=== PATIENT | male | born 1955 | race Caucasian/White ===

== ENCOUNTER 2016-11-15 09:43 | Emergency (ER) | payer MEDICARE, OTHER ==
[2016-11-15 09:51] VITALS: RESP 16
--- NOTE | 2016-11-15 10:05 | ED ---
General Adult HPI - General Chief complaint: ENT Stated complaint: SORE THROAT, ACHEY, CONGESTION Time Seen by Provider: 11/15/16 09:56 Source: patient, RN notes reviewed Mode of arrival: ambulatory Limitations: no limitations - History of Present Illness Initial comments: Patient 61-year-old male who presents emergency room today with a chief complaint of cough congestion and rhinorrhea and a sore throat over the last 4 days. He does admit to bodyaches. Admits to chills. States symptoms started with a sore throat and rhinorrhea. States it's now having cough with some sputum production as been yellow and green in color. Patient states she is worried about strep throat. He denies any other complaints or associated symptoms currently. Patient denies any recent fever, shortness of breath, chest pain, back pain, abdominal pain, nausea or vomiting, numbness or tingling, dysuria or hematuria, constipation or diarrhea, headaches or visual changes, or any other complaints. - Related Data Home Medications Medication Instructions Recorded Confirmed Citalopram Hydrobromide [CeleXA] 20 mg PO DAILY 02/08/16 11/15/16 Fluticasone Furoate [Veramyst] 2 sprays NS BID 02/08/16 11/15/16 Lisinopril [Zestril] 10 mg PO DAILY 02/08/16 02/08/16 Pantoprazole Sodium [Protonix] 40 mg PO BID 02/08/16 11/15/16 Allergies Allergy/AdvReac Type Severity Reaction Status Date / Time Penicillins Allergy Unknown Verified 11/15/16 09:51 Childhood Review of Systems ROS Statement: Those systems with pertinent positive or pertinent negative responses have been documented in the HPI. ROS Other: All systems not noted in ROS Statement are negative. Past Medical History Past Medical History: Hypertension Additional Past Medical History / Comment(s): Vertigo; Sjogren's History of Any Multi-Drug Resistant Organisms: None Reported Past Surgical History: Back Surgery Past Psychological History: No Psychological Hx Reported Smoking Status: Never smoker Past Alcohol Use History: None Reported Past Drug Use History: None Reported General Exam - General Exam Comments Initial Comments: General: The patient is awake and alert, in no distress, and does not appear acutely ill. Eye: Pupils are equal, round and reactive to light, extra-ocular movements are intact. No nystagmus. There is normal conjunctiva bilaterally. No signs of icterus. Ears, nose, mouth and throat: There are moist mucous membranes and no oral lesions. No tenderness over the frontal or maxillary sinuses. TMs are clear. Neck: The neck is supple, there is no tenderness or JVD. Cardiovascular: There is a regular rate and rhythm. No murmur, rub or gallop is appreciated. Respiratory: Lungs are clear to auscultation, respirations are non-labored, breath sounds are equal. No wheezes, stridor, rales, or rhonchi. Musculoskeletal: Normal ROM, no tenderness. Strength 5/5. Sensation intact. Pulses equal bilaterally 2+. Neurological: A&O x 3. CN II-XII intact, There are no obvious motor or sensory deficits. Coordination appears grossly intact. Speech is normal. Skin: Skin is warm and dry and no rashes or lesions are noted. Psychiatric: Cooperative, appropriate mood & affect, normal judgment. Limitations: no limitations Course Vital Signs 11/15/16 09:46 Temperature 97.9 F Pulse Rate 92 Respiratory 16 Rate Blood Pressure 149/89 O2 Sat by Pulse 98 Oximetry Medical Decision Making - Medical Decision Making Patient reexamined at this time shows no signs of distress. Patient's strep test negative. Influenza negative. Patient's chest x-ray negative for any signs of pneumonia or other acute ever maladies. Results were discussed with patient. Advised most likely viral illness. Advised to use [id number] medications. Advised return if symptoms increase or worsen or follow-up the family doctor if symptoms are unimproved over the next 2 days. Patient states understanding and is in agreement. - Lab Data Lab Results 11/15/16 11/15/16 Range/Units 10:14 10:14 Influenza Type A RNA Not Detected (Not Detectd) Influenza Type B (PCR) Not Detected (Not Detectd) Group A Strep Rapid Negative (Negative) Disposition Clinical Impression: Upper respiratory infection Disposition: HOME SELF-CARE Condition: Good Instructions: Upper Respiratory Infection (ED) Additional Instructions: Please continue [id number] medications as discussed and follow-up the family doctor over the next 2 days of symptoms are improved. Please return to emergency room if any symptoms increase or worsen or for any other concerns. Time of Disposition: 11:32
--- NOTE | 2016-11-15 10:36 | XR ---
EXAMINATION TYPE: XR chest 2V DATE OF EXAM: 11/15/2016 10:28 AM COMPARISON: NONE HISTORY: Cough per order. Sore throat and congestion with body aches for 4 days. TECHNIQUE: Frontal and lateral views of the chest are obtained. FINDINGS: There is no focal air space opacity, pleural effusion, or pneumothorax seen. The cardiac silhouette size is within normal limits. The osseous structures are intact. IMPRESSION: No suspicious acute pulmonary process.
[2016-11-15 11:38] VITALS: BP 150/84; PULSE 79; TEMP 98
== END 2016-11-15 11:44 | disposition home or self-care (01) ==
LOC: EC 09:43
DX: J06.9 Acute upper respiratory infection, unspecified (principal); I10 Essential (primary) hypertension; Z79.899 Other long term (current) drug therapy; Z88.0 Allergy status to penicillin
CPT/HCPCS: 71020; 87081; 87430; 87502; 99283

== ENCOUNTER → 2017-01-21 | Outpatient (CLI) | payer MEDICARE, OTHER ==
--- NOTE | 2017-01-21 10:38 | EST ---
DATE OF SERVICE: 01/21/2017 AGE: 61Y SEX: M HT: 6' WT: 175 lbs. Protocol Josue: X Other: Cardiolite Stage: III Dur. of Exercise: 7:40 *Heart Rate Blood Pressure *Rest: 77 Rest: 158/77 * *Max. Achieved: 147 Maximum BP: 175/65 85% PMHR: 134 100% PMHR: 158 *METS: 9 INDICATIONS: Family history of coronary artery disease. MEDICATIONS: Baseline EKG shows sinus rhythm, normal axis, normal intervals. Patient exercised on Josue protocol for a total 7 minutes and 40 seconds achieving 9 METs; 85% of predicted maximal heart rate without chest pain or diagnostic ST segment depression. CONCLUSION: 1. Above-average exercise tolerance. 2. Negative stress test by EKG criteria. 3. Cardiolite portion of the stress test will be reported separately.
--- NOTE | 2017-01-21 15:20 | NM ---
EXAMINATION TYPE: NM stress cardiolite complete DATE OF EXAM: 01/21/2017 10:23 AM COMPARISON: Chest x-ray November HISTORY: Family history ischemic heart disease TECHNIQUE: After the intravenous administration of 10.3 mCi Tc 99m Sestamibi - Rest images obtained 45 minutes post injection. The patient exercised using a SILVIA protocol and 1 minute prior to peak exercise was injected with 27.5 mCi Tc 99m Sestamibi - Stress images obtained 10 minutes post injecti on. FINDINGS: Targeted heart rate was achieved during performance of the study. Review of stress and rest SPECT zeyad ges demonstrates no distinct perfusion abnormality. Gated analysis shows normal wall motion with an estimated left ventricular ejection fraction of 59 %. Some decreased perfusion is noted along the inferior wall greater on rest images than stress. IMPRESSION: No scintigraphic evidence for reversible ischemia
== END | disposition home or self-care (01) ==
LOC: RADNMMAIN 08:10
PROVIDERS: ATTEND Family Medicine
DX: Z09 Encounter for follow-up examination after completed treatment for conditions other than malignant neoplasm (principal); Z82.49 Family history of ischemic heart disease and other diseases of the circulatory system
CPT/HCPCS: 93017; 78452; A9500

== ENCOUNTER → 2017-01-29 | Outpatient (CLI) | payer MEDICARE, OTHER ==
--- NOTE | 2017-01-29 13:43 | MR ---
EXAMINATION TYPE: MR angio head wo con DATE OF EXAM: 01/29/2017 9:44 AM COMPARISON: NONE HISTORY: Family history of stroke TECHNIQUE: Time of flight images focusing on the [place] were performed without contrast. FINDINGS: The vertebral arteries are codominant. Both posterior communicating arteries are patent. Both the following arteries appear normal. There is no occlusive disease identified. There is no siza ble aneurysm. IMPRESSION: Normal MRA of the [place] of [place].
== END | disposition home or self-care (01) ==
LOC: RADMRIMAIN 09:07
PROVIDERS: ATTEND Family Medicine
DX: Z09 Encounter for follow-up examination after completed treatment for conditions other than malignant neoplasm (principal); Z82.3 Family history of stroke
CPT/HCPCS: 70544

== ENCOUNTER 2017-06-13 12:14 | Emergency (ER) | payer MEDICARE, OTHER ==
[2017-06-13 12:25] VITALS: BP 157/93; PULSE 73; RESP 20; TEMP 97.6
--- NOTE | 2017-06-13 12:39 | ED ---
Skin/Abscess/FB HPI - General Chief complaint: Skin/Abscess/Foreign Body Stated complaint: FB R hand Time Seen by Provider: 06/13/17 12:26 Source: patient, RN notes reviewed Mode of arrival: ambulatory Limitations: no limitations - History of Present Illness Initial comments: This is a 61-year-old male presents emergency department with a possible foreign body in his right middle finger. Patient states that he was working outside yesterday and he pulled down on some small branches and had a sliver of wood or a thorn go into the flexor aspect of his right middle finger. Patient states he was at urgent care yesterday. Patient states that they made a small incision to try to retrieve the foreign body. Unfortunately, the foreign body could not be identified. Patient was placed on clindamycin and his tetanus shot was updated. Patient denies any other injuries. Patient is right-hand dominant. Patient denies any immunosuppression. No history of diabetes or poor wound healing. Patient does have a history of hypertension and acid reflux. Patient denies fever or chills. No redness or streaking. No tender lumps in the armpit. - Related Data Home Medications Medication Instructions Recorded Confirmed Citalopram Hydrobromide [CeleXA] 20 mg PO DAILY 02/08/16 06/13/17 Fluticasone Furoate [Veramyst] 2 sprays NS BID 02/08/16 06/13/17 Lisinopril [Zestril] 10 mg PO DAILY 02/08/16 06/13/17 Pantoprazole Sodium [Protonix] 40 mg PO BID 02/08/16 06/13/17 Allergies Allergy/AdvReac Type Severity Reaction Status Date / Time Penicillins Allergy Unknown Verified 11/15/16 09:51 Childhood Review of Systems ROS Statement: Those systems with pertinent positive or pertinent negative responses have been documented in the HPI. ROS Other: All systems not noted in ROS Statement are negative. Past Medical History Past Medical History: Hypertension Additional Past Medical History / Comment(s): Depression, acid reflux, Vertigo; Sjogren's History of Any Multi-Drug Resistant Organisms: None Reported Past Surgical History: Back Surgery Past Psychological History: No Psychological Hx Reported Smoking Status: Never smoker Past Alcohol Use History: None Reported Past Drug Use History: None Reported General Exam - General Exam Comments Initial Comments: This is a well-developed, well-nourished 61-year-old male in no distress Limitations: no limitations General appearance: alert, in no apparent distress Head exam: Present: atraumatic, normocephalic, normal inspection Eye exam: Present: normal appearance, EOMI Neck exam: Present: normal inspection Respiratory exam: Present: normal lung sounds bilaterally. Absent: respiratory distress, wheezes, rales, rhonchi, stridor Cardiovascular Exam: Present: regular rate, normal rhythm, normal heart sounds. Absent: systolic murmur, diastolic murmur, rubs, gallop, clicks Extremities exam: Present: normal capillary refill Right Elbow exam: Present: normal inspection, full ROM Forearm Wrist exam: Present: normal inspection, full ROM Hand Wrist exam: Present: other (Patient has evidence of break in skin integrity overlying the proximal phalanx of the right middle finger, flexor aspect. There is no evidence of infectious process. No drainage. No lymphangitis. No evidence of cellulitis. There is no notable foreign body on gross examination. Radial pulse is 2+. Capillary refill less than 2 seconds.) . Absent: erythema, nail avulsion, subungual hematoma Neuro motor exam: Present: wrist extension intact, thumb opposition intact, fingers 2-5 abduction intact, other (Range of motion limited with regards to the right middle finger at the proximal interphalangeal joint. Flexion is limited secondary to pain. Patient also has tenderness overlying the break in skin integrity.) Vascular: Present: normal capillary refill. Absent: vascular compromise, Pallo , pulse deficit radial art Neurological exam: Present: alert, oriented X3, CN II-XII intact. Absent: motor sensory deficit Psychiatric exam: Present: normal affect, normal mood Skin exam: Present: warm, dry, normal color. Absent: rash, cyanosis, diaphoretic, erythema Course Vital Signs 06/13/17 12:22 Temperature 97.6 F Pulse Rate 73 Respiratory 20 Rate Blood Pressure 157/93 O2 Sat by Pulse 99 Oximetry Medical Decision Making - Medical Decision Making Patient has a suspected foreign body in the soft tissue of the flexor aspect of his right middle finger. There is no evidence of infection. Distal sensation intact. Foreign body cannot be seen on gross examination. After speaking with the ER attending physician, I believe it is optimal for the patient to see hand surgery. We will have him make a follow-up appointment with [facility] morning. Of course we discussed return and follow-up parameters. Interpretation: other (Outside radiographic images were reviewed. There is no evidence of foreign body, no fracture, no soft tissue change, no dislocation.) Disposition Clinical Impression: Superficial foreign body of right middle finger, initial encounter Disposition: HOME SELF-CARE Condition: Good Instructions: Soft Tissue Foreign Body (ED) Additional Instructions: Return to the ER at once if the symptoms worsen or problems or difficulties arise. Soak the area in warm soap and water for 10 minutes at a time at least 4 times daily. Continue the clindamycin as directed. Keep the wound covered with topical antibiotic ointment such as Neosporin are triple antibiotic ointment. Keep covered with a sterile Band-Aid. Wear the finger splint as directed. Ensure that you call [facility] first thing Thursday at 9 AM for follow-up appointment. Referrals: Liam Amaya DO [Doctor of Osteopathic Medicine] - 06/15/17 9:00 am Time of Disposition: 12:58
== END 2017-06-13 13:47 | disposition home or self-care (01) ==
LOC: EC 12:14
DX: S60.452A Superficial foreign body of right middle finger, initial encounter (principal); I10 Essential (primary) hypertension; F32.9 Major depressive disorder, single episode, unspecified; K21.9 Gastro-esophageal reflux disease without esophagitis; Z88.0 Allergy status to penicillin; Z79.51 Long term (current) use of inhaled steroids; Z79.899 Other long term (current) drug therapy; W45.8XXA Other foreign body or object entering through skin, initial encounter
CPT/HCPCS: 99282

== ENCOUNTER 2017-06-19 15:18 | Inpatient (IN) | payer MEDICARE, OTHER ==
[2017-06-19] MEDS ORDERED: HYDROcodone/APAP 5-325MG 1 EACH TAB PO PRN (15:58)
[2017-06-19] MEDS ORDERED: diphenhydrAMINE 50 MG CAP PO PRN (15:58)
[2017-06-19] MEDS ORDERED: diphenhydrAMINE 25 MG CAP PO PRN (15:58)
[2017-06-19] MEDS ORDERED: ONDANSETRON 4 MG/2 ML VIAL IVP PRN (15:58)
[2017-06-19] MEDS ORDERED: SENNOSIDES-DOCUSATE SODIUM 1 EACH TAB PO PRN (15:58)
[2017-06-19] MEDS ORDERED: HYDROmorphone 1 MG/ML 1 ML SYRINGE IVP PRN (15:58)
--- NOTE | 2017-06-19 16:40 | P.HPOR ---
History of Present Illness H&P Date: 06/19/17 This is a 61-year-old male who is status post removal of foreign body from the right middle finger on 06/17/2017. Patient still complains of pain to the right middle finger that radiates up the arm. Patient states he has been keeping it elevated. Patient states he has noticed more pain in the right hand and has difficulty moving the right hand. Patient is on clindamycin currently. Patient has been taking tramadol for pain but this is not helping. Patient denies any measured fevers but states he feels more warm than usual. Patient states he has an allergy to penicillin but has taken amoxicillin before. Review of Systems See HPI. Past Medical History Past Medical History: Hypertension Additional Past Medical History / Comment(s): Depression, acid reflux, Vertigo; Sjogren's History of Any Multi-Drug Resistant Organisms: None Reported Past Surgical History: Back Surgery Past Psychological History: No Psychological Hx Reported Smoking Status: Never smoker Past Alcohol Use History: None Reported Past Drug Use History: None Reported Medications and Allergies Home Medications Medication Instructions Recorded Confirmed Type Citalopram Hydrobromide [CeleXA] 20 mg PO DAILY 02/08/16 06/13/17 History Fluticasone Furoate [Veramyst] 2 sprays NS BID 02/08/16 06/13/17 History Lisinopril [Zestril] 10 mg PO DAILY 02/08/16 06/13/17 History Pantoprazole Sodium [Protonix] 40 mg PO BID 02/08/16 06/13/17 History Allergies Allergy/AdvReac Type Severity Reaction Status Date / Time Penicillins Allergy Unknown Verified 11/15/16 09:51 Childhood Physical Examination Patient is alert and oriented 3 and is in no acute distress. On exam of the right hand there is swelling around a small laceration at the base of the right middle finger. There is mild erythema to this area as well. There is tenderness to the volar aspect of the right hand. Patient has limited range of motion of the middle finger due to pain and swelling. Normal range of motion to the remaining fingers of the right hand. Neurovascular status intact to the right upper extremity. Assessment and Plan (1) Cellulitis of right middle finger Status: Acute Plan: #1. IV Unasyn and pain control #2. Warm compresses to the right hand #3. Infectious disease consult pending #4. No surgical intervention planned at this time.
[2017-06-19] MEDS: HYDROcodone/APAP 5-325MG 1 EACH TAB PO PRN ×2 (16:41→23:17)
[2017-06-19 17:12] LABS: Basophils % (A) 1 %; CH 32.1; CHCM 34.7; Eosinophils # (A) 0.2 k/uL (0-0.7); Eosinophils % (A) 2 %; HCT 43.5 % (39.0-53.0); HDW 2.22; HGB 14.5 gm/dL (13.0-17.5); Luc % (Auto) 2; Lymphocytes # (A) 1.4 k/uL (1.0-4.8); Lymphocytes % (A) 16 %; MCHC 33.3 g/dL (31.0-37.0); MCV 93.1 fL (80.0-100.0); Mean Platelet Volume 8.2; Monocytes # (A) 0.8 k/uL (0-1.0); Monocytes % (A) 9 %; Neutrophils # (A) 6.1 k/uL (1.3-7.7); Neutrophils % (A) 70 %; RBC 4.67 m/uL (4.30-5.90); RDW 13.8 % (11.5-15.5); WBC 8.7 k/uL (3.8-10.6); WBC (Perox) 9.04
[2017-06-19] MEDS ORDERED: AMPICILLIN-SULBACTAM 1.5 GM in SODIUM CHLORIDE 0.9% 50 ML IVPB SCH (18:00)
[2017-06-19] MEDS: HYDROmorphone 1 MG/ML 1 ML SYRINGE IVP PRN ×2 (18:58→21:23)
[2017-06-19] MEDS ORDERED: IV VANCOMYCIN PER PHARMACY 1 EACH MISC MISCELLANE PRN (19:07)
[2017-06-19] MEDS: AMPICILLIN-SULBACTAM 3 GM in SODIUM CHLORIDE 0.9% 100 ML IVPB SCH ×2 (19:39→23:17)
[2017-06-19 19:55] LABS: Anion Gap 12 mmol/L; Blood Urea Nitrogen 9 mg/dL (9-20); Calcium 9.1 mg/dL (8.4-10.2); Carbon Dioxide 24 mmol/L (22-30); Chloride 94 mmol/L (98-107); Glucose 118 mg/dL (74-99); Non-African American GFR(MDRD) >60 (>60 ml/min/1.73 sqM); Potassium 4.4 mmol/L (3.5-5.1); Sodium 130 mmol/L (137-145)
[2017-06-19] MEDS ORDERED: VANCOMYCIN 1,750 MG in SODIUM CHLORIDE 0.9% 250 ML IVPB ONE (20:30)
[2017-06-20] MEDS: HYDROmorphone 1 MG/ML 1 ML SYRINGE IVP PRN ×7 (00:29→22:07)
[2017-06-20] MEDS: SODIUM CHLORIDE 0.9% 1,000 ML IV SCH ×3 (05:03→21:58)
[2017-06-20] MEDS: HYDROcodone/APAP 5-325MG 1 EACH TAB PO PRN (05:03)
[2017-06-20] MEDS: AMPICILLIN-SULBACTAM 3 GM in SODIUM CHLORIDE 0.9% 100 ML IVPB SCH ×3 (05:04→18:38)
[2017-06-20] MEDS: VANCOMYCIN 1,500 MG in SODIUM CHLORIDE 0.9% 250 ML IVPB SCH ×3 (06:22→22:09)
[2017-06-20] MEDS ORDERED: HYDROcodone/APAP 7.5-325MG 1 EACH TAB PO PRN (08:27)
--- NOTE | 2017-06-20 10:17 | P.PN ---
Subjective Principal diagnosis: Right middle finger cellulitis, status post foreign body removal right hand This is a pleasant 61-year-old male who was admitted for right middle finger cellulitis. Patient states he is still having a throbbing pain and also a sharp pain to the right hand. Patient states the [place] and Dilaudid has been helping throbbing pain but not the sharp stabbing he is feeling. Patient states he had no allergic reaction to the Unasyn Patient states he has not noticed any improvement in the swelling of the right hand. Patient still reports difficulty with range of motion of the right hand due to the pain and swelling. Patient denies any numbness, weakness, tingling. Objective - Vital Signs Vital signs: Vital Signs Temp 98.1 F 06/20/17 08:00 Pulse 69 06/20/17 02:13 Resp 16 06/20/17 08:00 BP 142/83 06/20/17 08:00 Pulse Ox 98 06/20/17 08:00 Intake & Output 06/19/17 06/20/17 06/20/17 18:59 06:59 18:59 Intake Total 780 400 Balance 780 400 Weight 79.379 kg Intake: Oral 780 400 Other: # Voids 3 - Exam On exam patient is alert and oriented 3. Patient is in no acute distress. On inspection of the right hand there is swelling, erythema and warmth to the proximal volar aspect of the right middle finger and right ring finger. There is a healing surgical incision to the proximal volar aspect of the right middle finger. Sutures removed. No drainage from the wound at this time. There is also swelling to the volar and dorsal aspects of the right hand. Patient has difficulty with range of motion of the right hand due to pain and swelling. Capillary refill is normal at less than 2 seconds. Neurovascular status of right upper extremity is intact. - Labs CBC & Chem 7: 06/19/17 16:51 06/19/17 16:51 Labs: Abnormal Lab Results - Last 24 Hours (Table) 06/19/17 Range/Units 16:51 Sodium 130 L (137-145) mmol/L Chloride 94 L (98-107) mmol/L Glucose 118 H (74-99) mg/dL Assessment and Plan (1) Cellulitis of right middle finger Status: Acute Plan: #1. Continue IV Unasyn and pain control #2. Daily dressing changes #3. Warm compresses to the right hand #4. Infectious disease consult pending #5. No surgical intervention planned at this time.
[2017-06-20] MEDS: HYDROcodone/APAP 7.5-325MG 1 EACH TAB PO PRN ×3 (11:02→23:26)
[2017-06-20] MEDS ORDERED: CITALOPRAM HYDROBROMIDE 20 MG TAB PO SCH (13:00)
[2017-06-20] MEDS ORDERED: LISINOPRIL 20 MG TAB PO SCH (13:00)
[2017-06-20] MEDS ORDERED: HYDROmorphone 1 MG/ML 1 ML SYRINGE IVP PRN (13:55)
[2017-06-20] MEDS: PANTOPRAZOLE 40 MG TABLET PO SCH (14:55)
--- NOTE | 2017-06-20 16:25 | P.CONS ---
History of Present Illness - Reason for Consult Consult date: 06/20/17 - Chief Complaint Pain right hand - History of Present Illness Very pleasant 61-year-old male who has a history of Sjogren's disease relates that he was doing some gardening a few days ago. He did not have any gloves. He had sudden pain into his right hand middle finger. His assisted him with removing a large splinter from the finger. Over the following days it worsens significantly. He been seen in outpatient clinic. Was referred to orthopedics. He does have an incision and drainage performed at the outpatient surgical clinic. The following 48 hours to continue to worsen. With much increased swelling pain and erythema. Because of his worsening status he was referred to hospital. And for the significant cellulitis and ascending lymphangitis the infectious diseases consultation was requested. This very pleasant gentleman relates that he has not any significant immunosuppressive therapy for his Sjogren's. He over does have some eye involvement and does use eyedrops. He generally feels relatively well. He is been able to retire at an early age. His Sjogren's does not markedly inhibit his quality of life. He has had significant pain and swelling to the hand and the ascending erythema almost the shoulder. Anterior area is painful. He's had fever without chills or rigor. He's had no night sweats. He does feel quite uncomfortable with the pain. He does not routinely take pain medications. Review of Systems HEENT:Denies headache or acute visual change. Denies sinus or mouth discomforts. Denies neck stiffness or pain. Denies significant oral cavity pain. Denies difficulty on swallowing. Complains of dry mouth. Lungs: Denies significant shortness of breath, cough, sputum production, or hemoptysis. Cardiovascular: Denies significant shortness of breath, chest pain, chest wall pain, orthopnea, dyspnea on exertion, syncope Gastrointestinal:Denies nausea, vomiting, diarrhea, constipation, hematemesis, melena, hematochezia. No no significant change of bowel habit noticed. Musculoskeletal: denies significant myalgias or arthralgias. No new joint swelling. Denies new back pain. Skin: As per the HPI Neuro: Denies headache or visual change. Denies any new onset weakness or difficulty with ambulation. Denies falls or seizures. Psychiatric:Denies anxiety or depression. Endocrine: Denies significant fatigue, denies significant weight loss or weight gain. Past Medical History Past Medical History: Hypertension Additional Past Medical History / Comment(s): Depression, acid reflux, Vertigo; Sjogren's .ED History of Any Multi-Drug Resistant Organisms: None Reported Past Surgical History: Back Surgery Past Anesthesia/Blood Transfusion Reactions: No Reported Reaction Past Psychological History: No Psychological Hx Reported Additional Psychological History / Comment(s): lives with his . Retired from [employer], the [employer]. No experience. No international travel. Pet dog. Likes to garden. Spends time on the water. No ill contacts Smoking Status: Never smoker Past Alcohol Use History: None Reported Past Drug Use History: None Reported Medications and Allergies Home Medications and Allergies Comment(s): Current Medications Hydrocodone Bitart/Acetaminophen ([place] 7.5-325) 1 each PO Q6H PRN PRN Reason: Pain Scale 1 to 3 Hydrocodone Bitart/Acetaminophen ([place] 7.5-325) 2 each PO Q6H PRN PRN Reason: Pain Scale 3 To 5 Last Admin: 06/20/17 11:02 Dose: 2 each Citalopram Hydrobromide (Celexa) 20 mg PO DAILY [facility] Diphenhydramine HCl (Benadryl) 25 mg PO HS PRN PRN Reason: Insomnia Diphenhydramine HCl (Benadryl) 50 mg PO HS PRN PRN Reason: Insomnia Hydromorphone HCl (Dilaudid) 0.5 mg IVP Q3HR PRN PRN Reason: Pain Scale 6 To 8 Hydromorphone HCl (Dilaudid) 1 mg IVP Q3HR PRN PRN Reason: Pain Scale 9 To 10 Last Admin: 06/20/17 14:40 Dose: 1 mg Sodium Chloride (Saline 0.9%) 1,000 mls @ 70 mls/hr IV .[id number] [facility] Last Admin: 06/20/17 05:03 Dose: 70 mls/hr Ampicillin Sodium/Sulbactam (Sodium 3 gm/ Sodium Chloride) 100 mls @ 100 mls/ hr IVPB Q6HR [facility] Last Admin: 06/20/17 13:06 Dose: 100 mls/hr Vancomycin HCl 1,500 mg/ (Sodium Chloride) 250 mls @ 125 mls/hr IVPB Q8H [facility] Last Admin: 06/20/17 14:55 Dose: 125 mls/hr Ketorolac Tromethamine (Toradol) 30 mg IVP Q6HR [facility] Stop: 06/25/17 15:08 Lisinopril (Zestril) 20 mg PO DAILY [facility] Ondansetron HCl (Zofran) 4 mg IVP DAILY PRN PRN Reason: Nausea And Vomiting Pantoprazole Sodium (Protonix) 40 mg PO 0730 [facility] Last Admin: 06/20/17 14:55 Dose: Not Given Senna/Docusate Sodium (Senokot-S) 2 each PO HS PRN PRN Reason: Constipation Home Medications Medication Instructions Recorded Confirmed Type Citalopram Hydrobromide [CeleXA] 20 mg PO DAILY 02/08/16 06/19/17 History Pantoprazole Sodium [Protonix] 40 mg PO Q48H 02/08/16 06/19/17 History Chlorhexidine Gluconate [Peridex] 15 ml PO HS 06/19/17 06/19/17 History Clindamycin HCl 300 mg PO Q6H 06/19/17 06/19/17 History Lisinopril [Zestril] 20 mg PO DAILY 06/19/17 06/19/17 History Tadalafil [Cialis] 5 mg PO HS 06/19/17 06/19/17 History Testosterone [Androgel 1.62% Gel 1 applic TOPICAL DAILY 06/19/17 06/19/17 History Pump] traMADol HCL [Ultram] 50 mg PO Q4HR PRN 06/19/17 06/19/17 History Allergies Allergy/AdvReac Type Severity Reaction Status Date / Time Penicillins Allergy Unknown Verified 06/19/17 17:14 Childhood Physical Exam Vitals: Vital Signs Temp Pulse Resp BP Pulse Ox 06/20/17 14:56 98.1 F 79 16 136/76 97 06/20/17 08:00 98.1 F 16 142/83 98 06/20/17 02:13 98.0 F 69 16 140/79 95 06/19/17 19:25 97.7 F 73 16 126/76 94 L 06/19/17 18:14 73 12 06/19/17 16:31 98.9 F 73 12 137/73 96 Intake and Output 06/20/17 06/20/17 06/20/17 06:59 14:59 22:59 Intake Total 300 750 Balance 300 750 Intake: IV 350 Sodium Chloride 0.9% 1, 350 000 ml @ 70 mls/hr IV . [id number] [facility] Rx#:[id number] Oral 300 400 Other: # Voids 3 Pleasant 61-year-old male of a tall thin build. He is in mild distress from pain to his hand HEENT: Anicteric conjunctiva are pink and moist nasal mucosa grossly intact without significant lesions, there is no thrush. Mucosa is without severe dryness Neck: The neck is supple without significant lymphadenopathy or thyromegaly. Lungs: Good bilateral air entry without significant crackles or wheezing. There is no significant bronchial sounds. There is no egophony or dullness. Heart: Regular rate and rhythm with an audible S1-S2, no S3 no S4. There is no significant murmur click or rub, PMI was nondisplaced. Abdomen: Positive bowel sounds soft and nontender without palpable masses or organomegaly. There was no guarding or rebound. Extremities: The left upper extremity is normal. No evidence of any swelling lesions petechiae or telangiectasia or splinter hemorrhages The right upper extremities shows evidence of the extensive swelling to the hand especially at the third finger. The surgical incision site is noted. There is no expressible purulence. 6 extremity tender to any manipulation. Motion of the index and forefinger are also quite painful at this time. Motion does not result in significant expression of any purulence. There is dense erythema on the finger. There is some on the palm. There is evidence of the ascending erythema that is streaking in nature along the biceps To the shoulder. There is minimal tender the. Her lymph node to the right. Actually lymph node is also slightly tender. Other lymph nodes are without swelling or tenderness. No other skin lesions are seen. The lower extremities are free from significant edema. The peripheral pulses were 2+ and symmetric. Neuro: Awake alert oriented to person place and time. There are no acute new gross focal sensory motor deficits. Results CBC & Chem 7: 06/19/17 16:51 06/19/17 16:51 Labs: Abnormal Lab Results - Last 24 Hours (Table) 06/19/17 Range/Units 16:51 Sodium 130 L (137-145) mmol/L Chloride 94 L (98-107) mmol/L Glucose 118 H (74-99) mg/dL Laboratory Results WBC 8.7 k/uL (3.8-10.6) 06/19/17 16:51 RBC 4.67 m/uL (4.30-5.90) 06/19/17 16:51 Hgb 14.5 gm/dL (13.0-17.5) 06/19/17 16:51 Hct 43.5 % (39.0-53.0) 06/19/17 16:51 MCV 93.1 fL (80.0-100.0) 06/19/17 16:51 MCH 31.0 pg (25.0-35.0) 06/19/17 16:51 MCHC 33.3 g/dL (31.0-37.0) 06/19/17 16:51 RDW 13.8 % (11.5-15.5) 06/19/17 16:51 Plt Count 190 k/uL (150-450) 06/19/17 16:51 Neutrophils % 70 % 06/19/17 16:51 Lymphocytes % 16 % 06/19/17 16:51 Monocytes % 9 % 06/19/17 16:51 Eosinophils % 2 % 06/19/17 16:51 Basophils % 1 % 06/19/17 16:51 Neutrophils # 6.1 k/uL (1.3-7.7) 06/19/17 16:51 Lymphocytes # 1.4 k/uL (1.0-4.8) 06/19/17 16:51 Monocytes # 0.8 k/uL (0-1.0) 06/19/17 16:51 Eosinophils # 0.2 k/uL (0-0.7) 06/19/17 16:51 Basophils # 0.0 k/uL (0-0.2) 06/19/17 16:51 Sodium 130 mmol/L (137-145) L 06/19/17 16:51 Potassium 4.4 mmol/L (3.5-5.1) 06/19/17 16:51 Chloride 94 mmol/L (98-107) L 06/19/17 16:51 Carbon Dioxide 24 mmol/L (22-30) 06/19/17 16:51 Anion Gap 12 mmol/L 06/19/17 16:51 BUN 9 mg/dL (9-20) 06/19/17 16:51 Creatinine 0.70 mg/dL (0.66-1.25) 06/19/17 16:51 Est GFR (MDRD) Af Amer >60 (>60 ml/min/1.73 sqM) 06/19/17 16:51 Est GFR (MDRD) Non-Af >60 (>60 ml/min/1.73 sqM) 06/19/17 16:51 Glucose 118 mg/dL (74-99) H 06/19/17 16:51 Calcium 9.1 mg/dL (8.4-10.2) 06/19/17 16:51 Assessment and Plan (1) Superficial foreign body of right middle finger, initial encounter Narrative/Plan: 61-year-old male presents to Hospital because of increasing pain and swelling in inability to use his right hand. The patient does have a history of the significant injury when he was doing yard work when the right hand middle finger was penetrated from a thorn-like object. There were able to remove it at home and cleansed. He rapidly developed pain and swelling. Was cared for in the outpatient setting. I did have the outpatient surgical incision and drainage performed. Despite that he had increasing pain and swelling erythema. Another the development of the ascending lymphangitis nearly to the shoulder. The time of the consult antibiotics were initiated with vancomycin and ampicillin sulbactam. The patient had a potential ALLERGY to penicillin the past. He has not tolerated a few doses without significant troubles. They've had a bit of itchiness to his neck that is now resolved. Cultures in process. Baseline blood work is requested. Vital enhance pain control by addition of Toradol given his normal renal function. Elevation of the limb is accomplished with pillows. A K pad is also added the try to help discomfort. The importance of elevation is stated even when he's sitting up continues his bedside table with the pillows to try to achieve elevation to help with the infection resolve more quickly. If he does not have rapid improvement may need further surgical incision and drainage to the site. This to begin pain that he has is consistent with a tenosynovitis. Status: Acute (2) Ascending lymphangitis Status: Acute (3) Cellulitis of right middle finger Status: Acute
[2017-06-20 16:26] LABS: Basophils % (A) 1 %; CHCM 33.8; Eosinophils # (A) 0.2 k/uL (0-0.7); Eosinophils % (A) 3 %; HCT 40.6 % (39.0-53.0); HDW 2.26; HGB 14.1 gm/dL (13.0-17.5); Luc % (Auto) 3; Lymphocytes # (A) 1.1 k/uL (1.0-4.8); Lymphocytes % (A) 18 %; MCH 31.9 pg (25.0-35.0); MCHC 34.7 g/dL (31.0-37.0); MCV 91.9 fL (80.0-100.0); Mean Platelet Volume 7.9; Monocytes # (A) 0.6 k/uL (0-1.0); Monocytes % (A) 10 %; Neutrophils # (A) 3.9 k/uL (1.3-7.7); Neutrophils % (A) 64 %; RBC 4.42 m/uL (4.30-5.90); RDW 12.9 % (11.5-15.5); WBC (Perox) 6.52
[2017-06-20 16:42] LABS: Anion Gap 10 mmol/L; Blood Urea Nitrogen 10 mg/dL (9-20); C Reactive Protein 32.1 mg/L (<10.0); Calcium 8.6 mg/dL (8.4-10.2); Carbon Dioxide 25 mmol/L (22-30); Chloride 97 mmol/L (98-107); Glucose 125 mg/dL (74-99); Non-African American GFR(MDRD) >60 (>60 ml/min/1.73 sqM); Potassium 4.5 mmol/L (3.5-5.1); Sodium 132 mmol/L (137-145)
[2017-06-20 16:47] LABS: Prealbumin 19 mg/dL (18-36)
[2017-06-20] MEDS: KETOROLAC 30 MG/ML 1 ML VIAL IVP SCH ×2 (17:20→18:28)
[2017-06-20 19:56] LABS: Erythrocyte Sedimentation Rate 17 mm/hr (0-15)
--- NOTE | 2017-06-20 20:37 | XR ---
EXAMINATION TYPE: XR hand complete RT DATE OF EXAM: 06/20/2017 COMPARISON: NONE HISTORY: 61-year-old male with pain and cellulitis, generalized hand swelling. TECHNIQUE: 3 views FINDINGS: There is generalized swelling and especially the third digit. No acute fracture, subluxation, or disl ocation. No marginal erosions or soft tissue calcifications. Mild osteoarthritic spurring at the base of the and first MCP joint. IMPRESSION: Generalized soft tissue swelling especially of the third finger. Correlate for possible cellulitis. M ild osteoarthritic changes of the thumb. No acute osseous abdomen body seen.
[2017-06-20] MEDS: CITALOPRAM HYDROBROMIDE 20 MG TAB PO SCH (21:57)
[2017-06-20] MEDS: LISINOPRIL 20 MG TAB PO SCH (21:57)
[2017-06-21] MEDS: KETOROLAC 30 MG/ML 1 ML VIAL IVP SCH ×4 (01:10→17:57)
[2017-06-21] MEDS: AMPICILLIN-SULBACTAM 3 GM in SODIUM CHLORIDE 0.9% 100 ML IVPB SCH ×4 (01:12→17:57)
[2017-06-21] MEDS ORDERED: VANCOMYCIN TROUGH DUE 1 EACH MISC MISCELLANE ONE (05:00)
[2017-06-21] MEDS: VANCOMYCIN 1,500 MG in SODIUM CHLORIDE 0.9% 250 ML IVPB SCH ×3 (07:07→21:54)
[2017-06-21] MEDS: HYDROmorphone 1 MG/ML 1 ML SYRINGE IVP PRN (07:14)
[2017-06-21] MEDS: LISINOPRIL 20 MG TAB PO SCH (07:14)
[2017-06-21] MEDS: PANTOPRAZOLE 40 MG TABLET PO SCH (07:37)
--- NOTE | 2017-06-21 09:29 | P.PN ---
Subjective Principal diagnosis: Right middle finger cellulitis, status post foreign body removal right hand This is a pleasant 61-year-old male who was admitted for right middle finger cellulitis. Patient states he has noticed mild improvement in his pain and range of motion today. Patient states the sharp pain he was feeling has subsided. Patient states he has been using the warm compresses and keeping the right upper extremity elevated. Patient denies any fever/chills. Patient denies any numbness, weakness, tingling. Objective - Vital Signs Vital signs: Vital Signs Temp 98.1 F 06/21/17 07:00 Pulse 68 06/21/17 07:00 Resp 16 06/21/17 07:00 BP 165/88 06/21/17 09:05 Pulse Ox 99 06/21/17 07:00 Intake & Output 06/20/17 06/21/17 06/21/17 18:59 06:59 18:59 Intake Total 750 280 Balance 750 280 Intake: IV 350 280 Sodium Chloride 0.9% 1, 350 280 000 ml @ 70 mls/hr IV . [id number] COUNT INCLUDES THE [facility] Rx#:[id number] Oral 400 Other: Voiding Method Toilet # Voids 1 - Exam On exam patient is alert and oriented 3. Patient is in no acute distress. On inspection of the right hand there is swelling, erythema and warmth to the proximal volar aspect of the right middle finger and right ring finger which has slightly improved since yesterday's exam. There is a healing surgical incision to the proximal volar aspect of the right middle finger that has mild drainage present. Sutures removed. There is also swelling to the volar and dorsal aspects of the right hand. There is ascending erythema in a streaking pattern up the patient's anterior aspect of the right shoulder. Patient has slight improvement in range of motion of the right fingers today. Capillary refill is normal at less than 2 seconds. Neurovascular status of right upper extremity is intact. - Labs CBC & Chem 7: 06/20/17 16:06 06/20/17 16:06 Labs: Abnormal Lab Results - Last 24 Hours (Table) 06/20/17 06/20/17 Range/Units 16:06 16:06 ESR 17 H (0-15) mm/hr Sodium 132 L (137-145) mmol/L Chloride 97 L (98-107) mmol/L Glucose 125 H (74-99) mg/dL C-Reactive Protein 32.1 H (<10.0) mg/L Assessment and Plan (1) Cellulitis of right middle finger Status: Acute (2) Ascending lymphangitis Status: Acute Plan: #1. Continue IV antibiotics per infectious disease #2. Daily dressing changes #3. Warm compresses and elevation of the right upper extremity #4. Continue pain control #5. X-rays of the right hand are reviewed showing evidence of soft tissue swelling around the third finger. No gas or foreign body noted. #6. MRI of the right hand is pending. #7. No surgical intervention planned at this time.
[2017-06-21] MEDS: CITALOPRAM HYDROBROMIDE 20 MG TAB PO SCH ×2 (09:41→21:53)
[2017-06-21] MEDS: HYDROcodone/APAP 7.5-325MG 1 EACH TAB PO PRN ×3 (09:43→20:36)
[2017-06-21] MEDS: SODIUM CHLORIDE 0.9% 1,000 ML IV SCH (11:13)
[2017-06-21] MEDS ORDERED: LORATADINE 10 MG TAB PO PRN (19:23)
[2017-06-22] MEDS: KETOROLAC 30 MG/ML 1 ML VIAL IVP SCH ×5 (00:37→23:57)
[2017-06-22] MEDS: AMPICILLIN-SULBACTAM 3 GM in SODIUM CHLORIDE 0.9% 100 ML IVPB SCH ×5 (00:37→23:57)
[2017-06-22] MEDS: SODIUM CHLORIDE 0.9% 1,000 ML IV SCH ×2 (04:05→17:34)
[2017-06-22] MEDS: VANCOMYCIN 1,500 MG in SODIUM CHLORIDE 0.9% 250 ML IVPB SCH ×3 (05:18→21:40)
[2017-06-22] MEDS: DIAZEPAM 2 MG TAB PO PRN ×3 (07:41→22:44)
[2017-06-22] MEDS: PANTOPRAZOLE 40 MG TABLET PO SCH (07:41)
[2017-06-22] MEDS: LISINOPRIL 20 MG TAB PO SCH (07:41)
--- NOTE | 2017-06-22 08:32 | P.PN ---
Subjective Principal diagnosis: Cellulitis right hand. This is a 61-year-old gentleman was admitted to [facility] on 06/19/2017 with cellulitis to his right upper extremity. He is status post removal foreign body from the right middle finger. The foreign body extended down into the webspace of the hand. The patient's symptoms are improving slightly. He was scheduled for an MRI this morning. However, he was unable to go through with the MRI secondary to anxiety. Another MRI is rescheduled for this afternoon. We will be giving him Valium. Objective - Vital Signs Vital signs: Vital Signs Temp 98.7 F 06/22/17 07:44 Pulse 74 06/22/17 07:47 Resp 15 06/22/17 07:44 BP 169/92 06/22/17 07:44 Pulse Ox 98 06/22/17 07:44 Intake & Output 06/21/17 06/22/17 06/22/17 18:59 06:59 18:59 Intake Total 560 840 Balance 560 840 Intake: IV 560 840 Sodium Chloride 0.9% 1, 560 840 000 ml @ 70 mls/hr IV . [id number] [facility] Rx#:[id number] Other: Voiding Method Toilet # Voids 1 - Exam Exam of the right hand reveals that his middle finger dressing is in place. There is no drainage noted on the dressing. He continues to have some tenderness about the flexor surface of the middle finger into the hand. There is minimal swelling today in this area. His finger motion is slightly improved. Neurovascular status the upper extremities intact. - Labs CBC & Chem 7: 06/20/17 16:06 06/20/17 16:06 Labs: Microbiology - Last 24 Hours (Table) 06/20/17 16:06 Blood Culture - Preliminary Blood No Growth after 24 hours Assessment and Plan (1) Ascending lymphangitis Status: Acute (2) Cellulitis of right middle finger Status: Acute Plan: The medical findings are discussed the patient. We will await the MRI today. He is to continue IV antibiotics as per Dr. Scales.
[2017-06-22] MEDS: HYDROcodone/APAP 7.5-325MG 1 EACH TAB PO PRN ×2 (09:19→17:36)
[2017-06-22] MEDS ORDERED: LORazepam 2 MG/ML SYRINGE IV STA (21:18)
--- NOTE | 2017-06-22 21:39 | P.PN ---
Subjective Principal diagnosis: Abscess right hand veronica mahendra 61-year-old male who has a history of Sjogren's disease relates that he was doing some gardening a few days ago. He did not have any gloves. He had sudden pain into his right hand middle finger. His assisted him with removing a large splinter from the finger. Over the following days it worsens significantly. He been seen in outpatient clinic. Was referred to orthopedics. He does have an incision and drainage performed at the outpatient surgical clinic. The following 48 hours to continue to worsen. With much increased swelling pain and erythema. Because of his worsening status he was referred to hospital. And for the significant cellulitis and ascending lymphangitis the infectious diseases consultation was requested. This very pleasant gentleman relates that he has not any significant immunosuppressive therapy for his Sjogren's. He over does have some eye involvement and does use eyedrops. He generally feels relatively well. He is been able to retire at an early age. His Sjogren's does not markedly inhibit his quality of life. He has had significant pain and swelling to the hand and the ascending erythema almost the shoulder. Anterior area is painful. He's had fever without chills or rigor. He's had no night sweats. He does feel quite uncomfortable with the pain. He does not routinely take pain medications. Was attempt for an MRI 2 today. He was given only low-dose Valium without resolution of his significant confinement anxiety. Objective - Vital Signs Vital signs: Vital Signs Temp 98.2 F 06/22/17 15:27 Pulse 74 06/22/17 15:30 Resp 15 06/22/17 07:44 BP 151/74 06/22/17 15:27 Pulse Ox 99 06/22/17 15:27 Intake & Output 06/22/17 06/22/17 06/23/17 06:59 18:59 06:59 Intake Total 840 560 Balance 840 560 Intake: IV 840 560 Sodium Chloride 0.9% 1, 840 560 000 ml @ 70 mls/hr IV . [id number] [facility] Rx#:[id number] Other: Voiding Method Toilet # Voids 1 2 # Bowel Movements 1 - Exam Mahendra 61-year-old male of a tall thin build. He is in mild distress from pain to his hand HEENT: Anicteric conjunctiva are pink and moist nasal mucosa grossly intact without significant lesions, there is no thrush. Mucosa is without severe dryness Neck: The neck is supple without significant lymphadenopathy or thyromegaly. Lungs: Good bilateral air entry without significant crackles or wheezing. There is no significant bronchial sounds. There is no egophony or dullness. Heart: Regular rate and rhythm with an audible S1-S2, no S3 no S4. There is no significant murmur click or rub, PMI was nondisplaced. Abdomen: Positive bowel sounds soft and nontender without palpable masses or organomegaly. There was no guarding or rebound. Extremities: The left upper extremity is normal. No evidence of any swelling lesions petechiae or telangiectasia or splinter hemorrhages The right upper extremities shows evidence of the extensive swelling to the hand especially at the third finger. The surgical incision site is noted. There is no expressible purulence. 6 extremity tender to any manipulation. Motion of the index and forefinger are also quite painful at this time. Motion does not result in significant expression of any purulence. There is prudent of the erythema on the finger. There is some on the palm. There is evidence of the ascending erythema that is streaking in nature along the biceps To the shoulder improved today and is less tender. Her lymph node to the right. Actually lymph node is also slightly tender. Other lymph nodes are without swelling or tenderness. No other skin lesions are seen. The lower extremities are free from significant edema. The peripheral pulses were 2+ and symmetric. Neuro: Awake alert oriented to person place and time. There are no acute new gross focal sensory motor deficits. - Labs CBC & Chem 7: 06/20/17 16:06 06/20/17 16:06 Labs: Microbiology - Last 24 Hours (Table) 06/20/17 16:06 Blood Culture - Preliminary Blood No Growth after 48 hours Laboratory Results WBC 6.0 k/uL (3.8-10.6) 06/20/17 16:06 RBC 4.42 m/uL (4.30-5.90) 06/20/17 16:06 Hgb 14.1 gm/dL (13.0-17.5) 06/20/17 16:06 Hct 40.6 % (39.0-53.0) 06/20/17 16:06 MCV 91.9 fL (80.0-100.0) 06/20/17 16:06 MCH 31.9 pg (25.0-35.0) 06/20/17 16:06 MCHC 34.7 g/dL (31.0-37.0) 06/20/17 16:06 RDW 12.9 % (11.5-15.5) 06/20/17 16:06 Plt Count 169 k/uL (150-450) 06/20/17 16:06 Neutrophils % 64 % 06/20/17 16:06 Lymphocytes % 18 % 06/20/17 16:06 Monocytes % 10 % 06/20/17 16:06 Eosinophils % 3 % 06/20/17 16:06 Basophils % 1 % 06/20/17 16:06 Neutrophils # 3.9 k/uL (1.3-7.7) 06/20/17 16:06 Lymphocytes # 1.1 k/uL (1.0-4.8) 06/20/17 16:06 Monocytes # 0.6 k/uL (0-1.0) 06/20/17 16:06 Eosinophils # 0.2 k/uL (0-0.7) 06/20/17 16:06 Basophils # 0.0 k/uL (0-0.2) 06/20/17 16:06 ESR 17 mm/hr (0-15) H 06/20/17 16:06 Sodium 132 mmol/L (137-145) L 06/20/17 16:06 Potassium 4.5 mmol/L (3.5-5.1) 06/20/17 16:06 Chloride 97 mmol/L (98-107) L 06/20/17 16:06 Carbon Dioxide 25 mmol/L (22-30) 06/20/17 16:06 Anion Gap 10 mmol/L 06/20/17 16:06 BUN 10 mg/dL (9-20) 06/20/17 16:06 Creatinine 0.90 mg/dL (0.66-1.25) 06/20/17 16:06 Est GFR (MDRD) Af Amer >60 (>60 ml/min/1.73 sqM) 06/20/17 16:06 Est GFR (MDRD) Non-Af >60 (>60 ml/min/1.73 sqM) 08/12/17 16:06 Glucose 125 mg/dL (74-99) H 06/20/17 16:06 Calcium 8.6 mg/dL (8.4-10.2) 06/20/17 16:06 C-Reactive Protein 32.1 mg/L (<10.0) H 06/20/17 16:06 Prealbumin 19 mg/dL (18-36) 06/20/17 16:06 Vancomycin Trough 18.8 ug/mL 06/21/17 05:26 Microbiology 06/20/17 16:06 Blood Blood Culture - Preliminary No Growth after 48 hours Assessment and Plan (1) Superficial foreign body of right middle finger, initial encounter Narrative/Plan: 61-year-old male presents to Hospital because of increasing pain and swelling in inability to use his right hand. The patient does have a history of the significant injury when he was doing yard work when the right hand middle finger was penetrated from a thorn-like object. There were able to remove it at home and cleansed. He rapidly developed pain and swelling. Was cared for in the outpatient setting. I did have the outpatient surgical incision and drainage performed. Despite that he had increasing pain and swelling erythema. Another the development of the ascending lymphangitis nearly to the shoulder. The time of the consult antibiotics were initiated with vancomycin and ampicillin sulbactam. The patient had a potential ALLERGY to penicillin the past. He has not tolerated a few doses without significant troubles. They've had a bit of itchiness to his neck that is now resolved. Cultures in process. Baseline blood work is requested. Vital enhance pain control by addition of Toradol given his normal renal function. Elevation of the limb is accomplished with pillows. A K pad is also added the try to help discomfort. The importance of elevation is stated even when he's sitting up continues his bedside table with the pillows to try to achieve elevation to help with the infection resolve more quickly. Has been evaluated by orthopedics. Agree with an MRI. However there were 2 attempts today. We'll utilize Ativan instead of Valium for the next attempt. If not successful then would need to have an open MRI. Purpose of MRI is evaluated for us to myelitis abscess and tenosynovitis need for potential further surgical intervention. Fortunately there is some response to antibiotic therapy at this time. The ascending lymphangitis history to improve also. Status: Acute (2) Ascending lymphangitis Status: Acute (3) Cellulitis of right middle finger Status: Acute
[2017-06-22] MEDS: CITALOPRAM HYDROBROMIDE 20 MG TAB PO SCH (21:40)
[2017-06-23] MEDS: AMPICILLIN-SULBACTAM 3 GM in SODIUM CHLORIDE 0.9% 100 ML IVPB SCH ×3 (05:02→20:50)
[2017-06-23] MEDS: KETOROLAC 30 MG/ML 1 ML VIAL IVP SCH ×3 (05:57→19:03)
[2017-06-23] MEDS: VANCOMYCIN 1,500 MG in SODIUM CHLORIDE 0.9% 250 ML IVPB SCH ×3 (06:31→22:12)
[2017-06-23 07:47] LABS: Anion Gap 9 mmol/L; Blood Urea Nitrogen 12 mg/dL (9-20); Calcium 8.7 mg/dL (8.4-10.2); Carbon Dioxide 25 mmol/L (22-30); Chloride 102 mmol/L (98-107); Glucose 86 mg/dL (74-99); Non-African American GFR(MDRD) >60 (>60 ml/min/1.73 sqM); Potassium 4.9 mmol/L (3.5-5.1); Sodium 136 mmol/L (137-145)
[2017-06-23] MEDS: PANTOPRAZOLE 40 MG TABLET PO SCH (08:39)
[2017-06-23] MEDS: LISINOPRIL 20 MG TAB PO SCH (08:39)
--- NOTE | 2017-06-23 08:46 | P.PN ---
Progress Note - Text Patient is a very pleasant 61-year-old male who is seen and examined for follow- up evaluation for cellulitis of the right hand. He is status post removal of foreign body from the right middle finger. Since being seen and examined yesterday, a second attempt of an MRI of the right hand after the patient was given Valium was attempted but patient was unable to tolerate confinement of the MRI. He continues to be seen and examined by Dr. Scales in infectious disease. Dr. Scales currently planning for a third attempt at an MRI today at which time the patient will receive Ambien prior to the MRI. If patient is still unable to tolerate this MRI, we will plan to have him have an open MRI. Patient states the pain in the middle finger has been improving. He denies any other medical issues. He is eating and voiding without significant difficulty. He has full active range of motion of the rest of the right upper extremity without difficulty. He does have some stiffness with movement of the right middle finger. His pain is been well-controlled. Has no new complaints this morning. Physical Exam: Patient is awake, alert, and oriented 3 Vital signs stable Good chest excursion with deep inspiration and expiration Abdomen soft nontender No signs or symptoms of DVT; no calf pain Dressing is intact over the right hand middle finger; dressing is removed during physical examination No active drainage from the wound site on the flexor surface of the middle finger Minimal swelling over the right middle finger Evidence some erythema at the wound site Reduced range of motion of the right middle finger Neurovascular intact right upper extremity Dressing is reapplied with Adaptic, gauze, and stretch wrap Active full range of motion about difficulty of the right shoulder, elbow, wrist , thumb, and all fingers of the right hand except for the middle finger Assessment: Cellulitis his right middle finger Ascending lymphangitis Status post removal of foreign body from right middle finger Plan: 1. Patient is currently scheduled for a third attempt to have an MRI of the right hand performed today. He is scheduled to receive Ambien prior to this imaging. We'll currently wait for the MRI to be performed and will follow up with a plan of care according those results. 2. Keep dressing over the right middle finger clean, dry, intact 3. Dr. Scales in infectious disease will continue to follow the patient and will adjust this plan of care accordingly 4. We will continue to follow patient closely
[2017-06-23] MEDS ORDERED: LORazepam 2 MG/ML SYRINGE ONE (16:00)
[2017-06-23] MEDS: SODIUM CHLORIDE 0.9% 1,000 ML IV SCH (16:03)
--- NOTE | 2017-06-23 18:08 | MR ---
EXAMINATION TYPE: MR hand RT wo/w con DATE OF EXAM: 06/23/2017 COMPARISON: NONE HISTORY: Foreign body. Injury. Abscess right hand CONTRAST: Standard multiplanar, multisequence MRI departmental protocol utilizing 15 mL intravenous MultiHance gadolinium contrast. FINDINGS: There is abnormal increased signal within the proximal phalanx of the middle finger on the STIR images. There is abnormal decreased signal consistent with edema on the T1 images in this area. I see no fracture line. There is abnormal fluid signal in the soft tissues around the third metacarpal and the third proximal phalanx. This extends to some degree around the proximal phalanx of the ring finger. I see no pathol ogic enhancement. IMPRESSION: There is evidence of edema in the proximal phalanx of the middle finger that is suggestive of osteomy elitis. There is increased fluid signal around the third metacarpal and third proximal phalanx consis tent with edema and cellulitis. There is also some fluid around the flexor tendons of the second thir d and fourth digits consistent with more extensive inflammatory reaction.
[2017-06-23] MEDS: HYDROcodone/APAP 7.5-325MG 1 EACH TAB PO PRN (20:50)
[2017-06-23] MEDS: CITALOPRAM HYDROBROMIDE 20 MG TAB PO SCH (20:50)
[2017-06-23 21:05] VITALS: RESP 16
--- NOTE | 2017-06-23 21:28 | P.PN ---
Subjective Principal diagnosis: Abscess right hand veronica mix 61-year-old male who has a history of Sjogren's disease relates that he was doing some gardening a few days ago. He did not have any gloves. He had sudden pain into his right hand middle finger. His assisted him with removing a large splinter from the finger. Over the following days it worsens significantly. He been seen in outpatient clinic. Was referred to orthopedics. He does have an incision and drainage performed at the outpatient surgical clinic. The following 48 hours to continue to worsen. With much increased swelling pain and erythema. Because of his worsening status he was referred to hospital. And for the significant cellulitis and ascending lymphangitis the infectious diseases consultation was requested. This very pleasant gentleman relates that he has not any significant immunosuppressive therapy for his Sjogren's. He over does have some eye involvement and does use eyedrops. He generally feels relatively well. He is been able to retire at an early age. His Sjogren's does not markedly inhibit his quality of life. He has had significant pain and swelling to the hand and the ascending erythema almost the shoulder. Anterior area is painful. He's had fever without chills or rigor. He's had no night sweats. He does feel quite uncomfortable with the pain. He does not routinely take pain medications. MRI was not successful yesterday. However with Ativan given today, MRI is been successful. Patient is very pleased that the study was completed. Objective - Vital Signs Vital signs: Vital Signs Temp 98.0 F 06/23/17 21:03 Pulse 72 06/23/17 21:03 Resp 16 06/23/17 21:03 BP 180/96 06/23/17 21:03 Pulse Ox 96 06/23/17 21:03 Intake & Output 06/23/17 06/23/17 06/24/17 06:59 18:59 06:59 Intake Total 1660 Balance 1660 Intake: IV 735 Sodium Chloride 0.9% 1, 735 000 ml @ 70 mls/hr IV . [id number] [facility] Rx#:[id number] Intake, IV Titration 425 Amount Ampicillin-Sulbactam 3 gm 300 In Sodium Chloride 0.9% 100 ml @ 100 mls/hr IVPB Q6HR [facility] Rx#:[id number] Vancomycin 1,500 mg In 125 Sodium Chloride 0.9% 250 ml @ 125 mls/hr IVPB Q8H [facility] Rx#:[id number] Oral 500 Other: Voiding Method Toilet Toilet Toilet # Voids 1 1 - Exam Pleasant 61-year-old male of a tall thin build. He is in mild distress from pain to his hand HEENT: Anicteric conjunctiva are pink and moist nasal mucosa grossly intact without significant lesions, there is no thrush. Mucosa is without severe dryness Neck: The neck is supple without significant lymphadenopathy or thyromegaly. Lungs: Good bilateral air entry without significant crackles or wheezing. There is no significant bronchial sounds. There is no egophony or dullness. Heart: Regular rate and rhythm with an audible S1-S2, no S3 no S4. There is no significant murmur click or rub, PMI was nondisplaced. Abdomen: Positive bowel sounds soft and nontender without palpable masses or organomegaly. There was no guarding or rebound. Extremities: The left upper extremity is normal. No evidence of any swelling lesions petechiae or telangiectasia or splinter hemorrhages The right upper extremities shows evidence of the extensive swelling to the hand especially at the third finger. The surgical incision site is noted. There is no expressible purulence. 6 extremity tender to any manipulation. Motion of the index and forefinger are also quite painful at this time. Motion does not result in significant expression of any purulence. There is prudent of the erythema on the finger. There is some on the palm. There is evidence of the ascending erythema that is streaking in nature along the biceps, whcih is now improving, and has improved ROM of finger of right hand, with less pain, hand swelling improved also To the shoulder improved today and is less tender. Has mild epitrochlear lymph node to the right. Axillary lymph node is also slightly tender. Other lymph nodes are without swelling or tenderness. No other skin lesions are seen. The lower extremities are free from significant edema. The peripheral pulses were 2+ and symmetric. Neuro: Awake alert oriented to person place and time. There are no acute new gross focal sensory motor deficits. - Labs CBC & Chem 7: 06/20/17 16:06 06/23/17 06:58 Labs: Abnormal Lab Results - Last 24 Hours (Table) 06/23/17 Range/Units 06:58 Sodium 136 L (137-145) mmol/L Microbiology - Last 24 Hours (Table) 06/20/17 16:06 Blood Culture - Preliminary Blood No Growth after 72 hours Laboratory Results WBC 6.0 k/uL (3.8-10.6) 06/20/17 16:06 RBC 4.42 m/uL (4.30-5.90) 06/20/17 16:06 Hgb 14.1 gm/dL (13.0-17.5) 06/20/17 16:06 Hct 40.6 % (39.0-53.0) 06/20/17 16:06 MCV 91.9 fL (80.0-100.0) 06/20/17 16:06 MCH 31.9 pg (25.0-35.0) 06/20/17 16:06 MCHC 34.7 g/dL (31.0-37.0) 06/20/17 16:06 RDW 12.9 % (11.5-15.5) 06/20/17 16:06 Plt Count 169 k/uL (150-450) 06/20/17 16:06 Neutrophils % 64 % 06/20/17 16:06 Lymphocytes % 18 % 06/20/17 16:06 Monocytes % 10 % 06/20/17 16:06 Eosinophils % 3 % 06/20/17 16:06 Basophils % 1 % 06/20/17 16:06 Neutrophils # 3.9 k/uL (1.3-7.7) 06/20/17 16:06 Lymphocytes # 1.1 k/uL (1.0-4.8) 06/20/17 16:06 Monocytes # 0.6 k/uL (0-1.0) 06/20/17 16:06 Eosinophils # 0.2 k/uL (0-0.7) 06/20/17 16:06 Basophils # 0.0 k/uL (0-0.2) 06/20/17 16:06 ESR 17 mm/hr (0-15) H 06/20/17 16:06 Sodium 136 mmol/L (137-145) L 06/23/17 06:58 Potassium 4.9 mmol/L (3.5-5.1) 06/23/17 06:58 Chloride 102 mmol/L (98-107) 06/23/17 06:58 Carbon Dioxide 25 mmol/L (22-30) 06/23/17 06:58 Anion Gap 9 mmol/L 06/23/17 06:58 BUN 12 mg/dL (9-20) 06/23/17 06:58 Creatinine 0.86 mg/dL (0.66-1.25) 06/23/17 06:58 Est GFR (MDRD) Af Amer >60 (>60 ml/min/1.73 sqM) 06/23/17 06:58 Est GFR (MDRD) Non-Af >60 (>60 ml/min/1.73 sqM) 06/23/17 06:58 Glucose 86 mg/dL (74-99) 06/23/17 06:58 Calcium 8.7 mg/dL (8.4-10.2) 06/23/17 06:58 C-Reactive Protein 32.1 mg/L (<10.0) H 06/20/17 16:06 Prealbumin 19 mg/dL (18-36) 06/20/17 16:06 Vancomycin Trough 18.8 ug/mL 06/21/17 05:26 Microbiology 06/20/17 16:06 Blood Blood Culture - Preliminary No Growth after 72 hours - Imaging and Cardiology MRI of hand reveals the osteomyelitis of the 3rd finger proximal phalanx Assessment and Plan (1) Superficial foreign body of right middle finger, initial encounter Narrative/Plan: 61-year-old male presents to Hospital because of increasing pain and swelling in inability to use his right hand. The patient does have a history of the significant injury when he was doing yard work when the right hand middle finger was penetrated from a thorn-like object. There were able to remove it at home and cleansed. He rapidly developed pain and swelling. Was cared for in the outpatient setting. I did have the outpatient surgical incision and drainage performed. Despite that he had increasing pain and swelling erythema. Another the development of the ascending lymphangitis nearly to the shoulder. The time of the consult antibiotics were initiated with vancomycin and ampicillin sulbactam. The patient had a potential ALLERGY to penicillin the past. He has not tolerated a few doses without significant troubles. They've had a bit of itchiness to his neck that is now resolved. Cultures in process. Baseline blood work is requested. Vital enhance pain control by addition of Toradol given his normal renal function. Elevation of the limb is accomplished with pillows. A K pad is also added the try to help discomfort. The importance of elevation is stated even when he's sitting up continues his bedside table with the pillows to try to achieve elevation to help with the infection resolve more quickly. Has been evaluated by orthopedics. I has now been successfully completed after utilization of a dose of Ativan. Revealing evidence of the ostium modest the proximal phalanx of the third finger. We'll need outpatient intravenous antibiotic therapy. No abscess was seen. No ongoing significant tenosynovitis. No need for any further surgical intervention at this time. . The ascending lymphangitis has also nearly resolved PICC line will be placed and will arrange for outpatient intravenous antibiotic therapy at the infusion center.. Status: Acute (2) Ascending lymphangitis Status: Acute (3) Cellulitis of right middle finger Status: Acute
[2017-06-24] MEDS: KETOROLAC 30 MG/ML 1 ML VIAL IVP SCH ×3 (01:17→12:26)
[2017-06-24] MEDS: AMPICILLIN-SULBACTAM 3 GM in SODIUM CHLORIDE 0.9% 100 ML IVPB SCH ×2 (01:18→05:04)
[2017-06-24] MEDS: SODIUM CHLORIDE 0.9% 1,000 ML IV SCH (04:13)
[2017-06-24] MEDS ORDERED: VANCOMYCIN TROUGH DUE 1 EACH MISC MISCELLANE ONE (05:00)
[2017-06-24 05:58] LABS: Anion Gap 7 mmol/L; Blood Urea Nitrogen 14 mg/dL (9-20); Calcium 8.5 mg/dL (8.4-10.2); Carbon Dioxide 25 mmol/L (22-30); Chloride 104 mmol/L (98-107); Glucose 78 mg/dL (74-99); Non-African American GFR(MDRD) >60 (>60 ml/min/1.73 sqM); Potassium 4.6 mmol/L (3.5-5.1); Sodium 136 mmol/L (137-145)
[2017-06-24] MEDS: VANCOMYCIN 1,500 MG in SODIUM CHLORIDE 0.9% 250 ML IVPB SCH (06:00)
[2017-06-24] MEDS: PANTOPRAZOLE 40 MG TABLET PO SCH (07:44)
[2017-06-24] MEDS: LISINOPRIL 20 MG TAB PO SCH (07:45)
[2017-06-24 08:54] VITALS: BP 158/88; TEMP 97.3
[2017-06-24 09:05] VITALS: PULSE 70
--- NOTE | 2017-06-24 10:29 | P.DS ---
Providers Date of admission: 06/19/17 16:13 Expected date of discharge: 06/24/17 Attending physician: Gopal Brown Consults: 06/19/17 15:52 Consult Physician Routine Consulting Provider: Tj Scales Consult Reason/Comments: R middle finger cellulitis, s/p foreign body removal right finger Do you want consulting provider notified?: Yes Primary care physician: Estevan Crystalden - Discharge Diagnosis(es) (1) Ascending lymphangitis Current Visit: Yes Status: Acute (2) Cellulitis of right middle finger Current Visit: Yes Status: Acute Hospital Course: This is a 61-year-old gentleman who is admitted to our office on 06/19/2017 with cellulitis and ascending lymphangitis to the right upper extremity. The patient had a greenstick type foreign body in his hand for about a week prior to seeing us in our office on 06/15/2017. Foreign body was removed on 2016. The patient then developed significant erythema and swelling to the finger with ascending lymphangitis to the upper extremity. He was seen in our office on 06/19/2017 and admitted to the hospital. He is followed by Dr. Scales for infectious disease recommendations. MRI reveals osteomyelitis to the third finger with cellulitis to the hand. There is some inflammatory reaction to the tendon sheath with no obvious tenosynovitis. Finger motion on exam is improving. He has less pain to the palm of the hand. He is able to fully extend the fingers but has limited flexion secondary to stiffness. Patient is discharged to home after PICC line insertion on 06/24/2017. He is to continue antibiotics as per Dr. Scales' recommendations. Plan - Discharge Summary New Discharge Prescriptions: New Ertapenem [INVanz] 1 gm IVPB Q24H #40 bag HYDROcodone/APAP 7.5-325MG [[place] 7.5-325] 1 - 2 tab PO Q4-6H PRN #60 tab PRN Reason: Pain No Action Citalopram Hydrobromide [CeleXA] 20 mg PO DAILY Pantoprazole Sodium [Protonix] 40 mg PO Q48H traMADol HCL [Ultram] 50 mg PO Q4HR PRN PRN Reason: Pain Tadalafil [Cialis] 5 mg PO HS Clindamycin HCl 300 mg PO Q6H Chlorhexidine Gluconate [Peridex] 15 ml PO HS Testosterone [Androgel 1.62% Gel Pump] 1 applic TOPICAL DAILY Lisinopril [Zestril] 20 mg PO DAILY Cetirizine HCl [Zyrtec] DAILY PRN PRN Reason: seasonal allergies Discharge Medication List Citalopram Hydrobromide [CeleXA] 20 mg PO DAILY 02/08/16 [History] Pantoprazole Sodium [Protonix] 40 mg PO Q48H 02/08/16 [History] Chlorhexidine Gluconate [Peridex] 15 ml PO HS 06/19/17 [History] Clindamycin HCl 300 mg PO Q6H 06/19/17 [History] Lisinopril [Zestril] 20 mg PO DAILY 06/19/17 [History] Tadalafil [Cialis] 5 mg PO HS 06/19/17 [History] Testosterone [Androgel 1.62% Gel Pump] 1 applic TOPICAL DAILY 06/19/17 [History] traMADol HCL [Ultram] 50 mg PO Q4HR PRN 06/19/17 [History] Cetirizine HCl [Zyrtec] DAILY PRN 06/21/17 [History] Ertapenem [INVanz] 1 gm IVPB Q24H #40 bag 06/23/17 [Rx] HYDROcodone/APAP 7.5-325MG [Greenwood 7.5-325] 1 - 2 tab PO Q4-6H PRN #60 tab [Rx] Follow up Appointment(s)/Referral(s): Gopal Brown MD [STAFF PHYSICIAN] - 1 Week Ambulatory/Diagnostic Orders: Basic Metabolic Panel [LAB.AMB] Location: Determined By Patient Complete Blood Count w/diff [LAB.AMB] Location: Determined By Patient Miscellaneous Lab Order [LAB.AMB] Location: Determined By Patient Patient Instructions/Handouts: Peripherally Inserted Central Catheters and Midline Catheters (DC), Peripherally Inserted Central Catheters and Midline Catheters Child (GEN) Activity/Diet/Wound Care/Special Instructions: Dr. Scales to manage antibiotics and PICC line. Daily wound care per Dr. Scales. Discharge Disposition: HOME SELF-CARE
[2017-06-24] MEDS ORDERED: VANCOMYCIN 1,500 MG in SODIUM CHLORIDE 0.9% 250 ML IVPB SCH (12:00)
[2017-06-24] MEDS ORDERED: ERTAPENEM 1 GM in SODIUM CHLORIDE 0.9% 50 ML IVPB SCH (12:00)
[2017-06-24] MEDS ORDERED: IV FLUID CONTINUATION 200 ML IV ONE (13:08)
[2017-06-24] MEDS ORDERED: LIDOCAINE 2% INJ 20 MG/ML SQ ONE (13:19)
--- NOTE | 2017-06-24 14:17 | IR ---
EXAMINATION TYPE: IR cvc insert >=5 years DATE OF EXAM: 06/24/2017 COMPARISON: NONE CLINICAL HISTORY: Infection Needs long-term intravenous access for antibiotics. PROCEDURE: After informed consent, the skin overlying the left brachial vein was localized with ultrasound and n oted to be compressible and patent. An ultrasound image was obtained and submitted on the patient's chart. The overlying skin was prepped and draped and Lidocaine was used for local anesthesia. A ski n jessi was made with a scalpel. Access was gained to the vein under ultrasound guidance with a 21 ga uge needle and a 0.018 inch wire was advanced. Access site was dilated with Peel-Away sheath and cat heter tailored to the appropriate length and advanced such that the distal tip is at the cavoatrial j unction. Spot image was obtained verifying placement. Catheter was fixed to the skin with suture an d a sterile dressing was placed following hemostasis. Catheter was aspirated and flushed with saline . Patient was discharged in stable condition without complication. Maximal barrier technique is util ized. Ultrasound image is documented on the chart. Ultrasound used with sterile technique. Fluoro time and fluoroscopic images submitted to document procedure: 0.4 minutes fluoroscopy time. 20 1 intraoperative C-arm images. IMPRESSION: STATUS POST ULTRASOUND AND FLUOROSCOPIC GUIDED PICC LINE PLACEMENT, READY FOR USE. THIS PROCEDURE WAS PERFORMED BY THE UNDERSIGNED.
== END 2017-06-24 15:57 | disposition home or self-care (01) | DRG 540 ==
LOC: 3SUR 16:13
PROVIDERS: ADMIT Orthopaedic Surgery; ATTEND Orthopaedic Surgery
PROC: 02HV33Z Insertion of Infusion Device into Superior Vena Cava, Percutaneous Approach (ICD-10-PCS; principal; 2017-06-24 13:15)
PROC: B548ZZA Ultrasonography of Superior Vena Cava, Guidance (ICD-10-PCS; 2017-06-24 13:15)
PROC: B518ZZA Fluoroscopy of Superior Vena Cava, Guidance (ICD-10-PCS; 2017-06-24 13:15)
DX: M86.8X4 Other osteomyelitis, hand (principal); L03.113 Cellulitis of right upper limb; M35.00 Sjogren syndrome, unspecified; I10 Essential (primary) hypertension; L03.011 Cellulitis of right finger; K21.9 Gastro-esophageal reflux disease without esophagitis; F41.9 Anxiety disorder, unspecified; F32.9 Major depressive disorder, single episode, unspecified; Z79.899 Other long term (current) drug therapy; Z88.0 Allergy status to penicillin
CPT/HCPCS: 80048; 80202; 84134; 85025; 85652; 86140; 87040

== ENCOUNTER → 2017-11-05 | Outpatient (CLI) | payer MEDICARE, OTHER ==
[2017-11-05 10:17] LABS: Cholesterol 190 mg/dL (<200); HDL Cholesterol 57 mg/dL (40-60)
== END | disposition home or self-care (01) ==
LOC: LABWHC1 09:27
PROVIDERS: ATTEND Psychiatry & Neurology Neurology
DX: E78.5 Hyperlipidemia, unspecified (principal)
CPT/HCPCS: 36415; 80061

== ENCOUNTER → 2017-11-27 | Outpatient (CLI) | payer MEDICARE, OTHER ==
--- NOTE | 2017-11-27 11:11 | MR ---
EXAMINATION TYPE: MR sacroiliac joints wo con DATE OF EXAM: 11/27/2017 COMPARISON: NONE HISTORY: Sacroiliitis, pain in hips and pelvis TECHNIQUE: Standard multiplanar, multisequence MRI departmental protocol Multiplanar, multisequence images of the sacroiliac joints were acquired without intravenous contrast . FINDINGS: Degenerative disc disease is seen at L4-L5 and L5-S1, most pronounced at L5-S1. At L5-S1 there is a r ight foraminal annular tear with moderate right neural foraminal narrowing and mild left neural chandrika inal narrowing. No spinal canal stenosis. At L4-L5 the broad-based disc bulge results in bilateral mi ld to moderate neural foraminal narrowing without spinal canal stenosis. Visualized lumbosacral junct ion vertebral body heights are maintained. Bone marrow signal is slightly patchy but overall within n ormal limits. No focal hypointense T1 lesions are seen other than a probable subcentimeter bone islan d within the left femoral head. Within the visualized femoral acetabular joints there is acetabular roof sclerosis. The prostate gland is somewhat heterogenous. Urinary bladder is unremarkable. Bowel is nonenlarged. There is mildly asymmetric left greater than right sacroiliac joint sclerosis without bone marrow arcenio ma or sacroiliac joint space widening. No T1 hypointense fracture line is identified. No dislocation is seen. There is minimal atrophy of the paraspinal musculature at the level of the sacrum. No hyperi ntensity of the gluteal musculature is noted. IMPRESSION: 1. Mild, left greater than right, sacroiliac joint sclerosis that is likely on a degenerative basis. No bone marrow edema to suggest active inflammation hasn't sacroiliitis. 2. No evidence of sacral fracture or sacroiliac joint space widening. 3. Degenerative disc disease at L4-L5 resulting in moderate right and mild left neural foraminal narr owing at L5-S1 and mild to moderate bilateral neural foraminal narrowing at L4-L5. Is additionally th ere is a right foraminal annular tear at L5-S1. 4. Mild bilateral femoral acetabular arthropathy. 5. Minimal atrophy of the paraspinal musculature at the level of the sacrum. 6. No gluteal myositis.
== END | disposition home or self-care (01) ==
LOC: RADMRIMAIN 07:12
DX: M46.1 Sacroiliitis, not elsewhere classified (principal); M51.36 Other intervertebral disc degeneration, lumbar region; M99.74 Connective tissue and disc stenosis of intervertebral foramina of sacral region; M16.11 Unilateral primary osteoarthritis, right hip; M16.12 Unilateral primary osteoarthritis, left hip
CPT/HCPCS: 72195

== ENCOUNTER → 2017-11-27 | Outpatient (CLI) | payer MEDICARE, OTHER ==
--- NOTE | 2017-11-27 11:04 | MR ---
EXAMINATION TYPE: MR thoracic spine wo con DATE OF EXAM: 11/27/2017 COMPARISON: NONE HISTORY: Pain in thoracic spine TECHNIQUE: Standard multiplanar, multisequence MRI departmental protocol Multiplanar, multisequence images of the thoracic spine were acquired without intravenous contrast. FINDINGS: There is an exaggerated thoracic kyphosis. Vertebral bodies of the thoracic spine maintain normal hei ght and alignment. Multilevel disc desiccation is identified. Few T2/T1 hyperintense well-circumscrib ed vertebral body hemangiomas, benign finding, are present. Small anterior osteophytes and interverte bral disc space narrowing as well as multilevel Schmorl's nodes are seen throughout the thoracic spin e. Thoracic cord signal and morphology is unremarkable. Bone marrow signal is within normal limits without evidence of focal bone marrow edema. Small broad-based disc bulges are seen at T10-T12 without disc herniation, spinal canal stenosis or n eural foraminal narrowing. IMPRESSION: 1. No evidence of focal disc herniation, spinal canal stenosis, neural foraminal narrowing, or abnorm al cord signal throughout the thoracic spine. 2. No evidence of compression deformity, malalignment, or bone marrow edema within the thoracic spine . 3. Multilevel degenerative disc disease and broad-based disc bulges without neural foraminal narrowin g or spinal canal stenosis. 4. Exaggerated thoracic kyphosis.
== END | disposition home or self-care (01) ==
LOC: RADMRIMAIN 07:16
PROVIDERS: ATTEND Psychiatry & Neurology Neurology
DX: M51.34 Other intervertebral disc degeneration, thoracic region (principal); M51.24 Other intervertebral disc displacement, thoracic region; M40.204 Unspecified kyphosis, thoracic region
CPT/HCPCS: 72146

== ENCOUNTER → 2017-12-02 | Outpatient (CLI) | payer MEDICARE, OTHER ==
--- NOTE | 2017-12-04 16:52 | ENG ---
ELECTRONYSTAGMOGRAM REPORT DATE OF SERVICE: 12/02/2017. VIDEO-ASSISTED ELECTRONYSTAGMOGRAM: INDICATIONS: Vertigo. This patient is a 62-year-old male with vertigo staying the same for the last 5 years. It is constant and can be precipitated by climbing stairs or in narrow spaces. No difficulties with hearing. Has pressure in both ears. No tinnitus. VNG FINDINGS: Saccades shows peak velocities, accuracies and latencies all to be poor. Gaze with fixation is negative for nystagmus in any of the directions of gaze, including centrally with vision denied. Tracking is abnormal at faster and slower speeds. Opticokinetic nystagmus shows no asymmetry. Static position testing in 6 different positions with eyes opened and with vision denied is negative for nystagmus. Alexis-Hallpike maneuvers are negative bilaterally. Caloric testing shows 60% unilateral caloric weakness in the left ear. IMPRESSION: This is an abnormal VNG study. Both saccades and tracking are abnormal, favoring central nervous system dysfunction. In addition to the above there is a 60% unilateral left caloric weakness consistent with a chronic, well-compensated, moderate to severe left vestibulopathy. Clinical correlation necessary. SHAKA / IJN: [id number] /
== END | disposition home or self-care (01) ==
LOC: NEUROMAIN 11:14
PROVIDERS: ATTEND Psychiatry & Neurology Neurology
DX: R94.121 Abnormal vestibular function study (principal)
CPT/HCPCS: 92537; 92540

== ENCOUNTER → 2018-03-02 | Outpatient (CLI) | payer MEDICARE, OTHER ==
--- NOTE | 2018-03-03 08:17 | CT ---
EXAMINATION TYPE: CT chest w con DATE OF EXAM: 03/02/2018 COMPARISON: NONE HISTORY: Unsteady gait and dizziness CT DLP: 523 mGycm. Automated Exposure Control for Dose Reduction was Utilized. TECHNIQUE: CT scan of the thorax is performed following with IV Contrast, patient injected with 100 mL of Isovue 300. FINDINGS: LUNGS: Noncalcified biapical focal pleural thickening is seen best on coronal image 61. There is a byrd bsolid right upper lobe 9 x 8 mm pulmonary nodule located medially on series 4 image 18. Elongated pu lmonary nodule is present within the right upper lobe posterior laterally on image 21 measuring 4 mm. This appears solid in nature. Few scattered blebs are throughout the lungs predominating at the lung bases. There are mild centrilobular emphysematous changes. Minimal bibasilar subsegmental dependent atelectasis is also noted. There are 2 solid pulmonary nodules at the left lung base abutting the hemidiaphragm on series 4 imag e 52 measuring 5 mm and on image 51 measuring 6 mm. There is no pleural effusion or pneumothorax seen . The tracheobronchial tree is patent. MEDIASTINUM: There are no greater than 1 cm hilar or mediastinal lymph nodes. No pericardial effusi on is seen. Mild coronary artery calcifications are noted. Sclerotic foci are seen within the later al margin of rib 7 on the left on series 3 image 42 and 40. Mild multilevel degenerative changes of t he thoracic spine are seen. Ascending thoracic aorta is mildly aneurysmal measuring 4.2 cm on series 5 image 35. OTHER: Splenules are noted adjacent to the [place] spleen. No additional significant abnormality is s een. IMPRESSION: 1. Multiple bilateral pulmonary nodules the largest being subsolid in the right upper lobe measuring 9 x [address] in 3-6 months is recommended to confirm persistence. Persistent p art solid nodules are considered highly suspicious. Resolving nodules may be infectious or inflammato ry. 2. Sclerotic foci within the lateral margin of rib 7. Given the solitary osseous involvement these co uld relate to benign bone islands, sequela of prior injury, or less likely metastasis. 3. Mild ascending thoracic aortic aneurysm measuring 4.2 cm.
--- NOTE | 2018-03-03 08:40 | US ---
EXAMINATION TYPE: US carotid duplex BILAT DATE OF EXAM: 03/02/2018 COMPARISON: NONE CLINICAL HISTORY: R61 generalized hyperhydrosis, R26.89 Abnormality. Dizziness EXAM MEASUREMENTS: RIGHT: Peak Systolic Velocity (PSV) cm/sec ----- Right CCA: 82.7 ----- Right ICA: 84.2 ----- Right ECA: 117.7 ICA/CCA ratio: 1.0 RIGHT: End Diastole cm/sec ----- Right CCA: 12.9 ----- Right ICA: 11.5 ----- Right ECA: 11.1 LEFT: Peak Systolic Velocity (PSV) cm/sec ----- Left CCA: 108.1 ----- Left ICA: 100.0 ----- Left ECA: 146.1 ICA/CCA ratio: 0.9 LEFT: End Diastole cm/sec ----- Left CCA: 20.8 ----- Left ICA: 24.1 ----- Left ECA: 16.0 VERTEBRALS (direction of flow): Right Vertebral: Antegrade Left Vertebral: Antegrade Rhythm: Normal Bilateral torturous vessels exam limitations. No significant stenosis seen Grayscale, color Doppler, spectral Doppler imaging performed of the carotid arteries. Waveform analys is does not show significant stenosis. IMPRESSION: No hemodynamic significant stenosis of the proximal internal carotid arteries bilaterall y by Doppler criteria, an indirect measurement of carotid stenosis
== END | disposition home or self-care (01) ==
LOC: RADUSMAIN 18:02
PROVIDERS: ATTEND Family Medicine
DX: R91.8 Other nonspecific abnormal finding of lung field (principal); R06.02 Shortness of breath; E87.1 Hypo-osmolality and hyponatremia; R61 Generalized hyperhidrosis; R26.81 Unsteadiness on feet; R26.89 Other abnormalities of gait and mobility; Z82.3 Family history of stroke
CPT/HCPCS: 93880; 71260; Q9967

== ENCOUNTER → 2018-05-31 | Outpatient (CLI) | payer MEDICARE, OTHER ==
[2018-05-31 15:43] LABS: HCT 38.9 % (39.0-53.0); HGB 13.3 gm/dL (13.0-17.5); MCH 30.9 pg (25.0-35.0); MCHC 34.2 g/dL (31.0-37.0); MCV 90.3 fL (80.0-100.0); Mean Platelet Volume 7.9; Platelet Count 180 k/uL (150-450); RBC 4.32 m/uL (4.30-5.90); RDW 12.7 % (11.5-15.5); WBC 5.2 k/uL (3.8-10.6)
[2018-05-31 19:42] LABS: Lymphocytes # (M) 1.51 k/uL (1.0-4.8); Monocytes # (M) 0.36 k/uL (0-1.0); Neutrophils # (M) 3.33 k/uL (1.3-7.7); Neutrophils % (M) 64 %; Nucleated Red Blood Cells 0 /100 WBC (0-0); Total Cells Counted 100
[2018-06-01 02:17] LABS: Protein, Total 6.6 g/dL (6.2-8.2)
[2018-06-01 12:52] LABS: Albumin 3.75 g/dL (3.80-4.90); Gamma Globulin 0.92 g/dL (0.70-1.50)
== END | disposition home or self-care (01) ==
LOC: LABWHC1 15:13
PROVIDERS: ATTEND Otolaryngology
DX: D72.9 Disorder of white blood cells, unspecified (principal)
CPT/HCPCS: 36415; 84165; 85025

== ENCOUNTER → 2018-07-08 | Outpatient (CLI) | payer MEDICARE, OTHER ==
--- NOTE | 2018-07-08 10:29 | CT ---
EXAMINATION TYPE: CT chest w con DATE OF EXAM: 07/08/2018 COMPARISON: 03/02/2018 HISTORY: 62-year-old male Multiple pulmonary nodules TECHNIQUE: Contiguous axial scanning of the chest after the administration of 100 mL of Isovue 300. Coronal/sagittal reconstructions performed. CT DLP: 507mGycm. Automatic exposure control utilized for a dose reduction. FINDINGS: Heart is normal size without pericardial effusion. Coronary vessel calcifications are present. Redemonstrated mildly aneurysmal ascending aorta at 4.2 cm. Conventional arch vessel branching anatom y. No thoracic lymphadenopathy. Scattered mild emphysematous change. Irregular 1.2 cm pulmonary nodule medial right upper lobe previously measured 1.1 cm. In is relativel y stable to minimally larger and should continue to be followed. Additional tiny scattered 4 mm small er pulmonary nodules on the right are unchanged and a couple bony nodules at the peripheral left base measuring 5 and 6 mm are also unchanged. No consolidation or pleural effusion. Stable biapical pleural-parenchymal scarring. Tiny hiatal hernia. Visualized upper abdomen shows a couple hilar splenules. Bones: Mild endplate spondylosis mid to lower thoracic spine. Focal sclerosis along the left lateral seventh rib is unchanged. No bony destruction is seen. IMPRESSION: 1. COPD with mild emphysema. 2. Redemonstrated scattered pulmonary nodules, largest in the right upper lobe measures 1.2 cm, stabl e to minimally larger versus 1.1 cm, 4 months ago. Continued follow-up is recommended. Consider next interval in 6 months. 3. Additional 6 mm and smaller pulmonary nodules are unchanged for 4 months. 4. Stable solitary focus of sclerosis along the left lateral seventh rib possibly sequela of remote i njury or an underlying hemangioma. 5. Stable mildly aneurysmal ascending aorta at 4.2 cm.
== END | disposition home or self-care (01) ==
LOC: RADCTMAIN 09:22
PROVIDERS: ATTEND Family Medicine
DX: J43.9 Emphysema, unspecified (principal); R91.8 Other nonspecific abnormal finding of lung field; J84.10 Pulmonary fibrosis, unspecified; I71.2 Thoracic aortic aneurysm, without rupture
CPT/HCPCS: 71260; 36415; Q9967

== ENCOUNTER 2018-12-25 18:09 | Inpatient (IN) | payer MEDICARE, OTHER ==
[2018-12-25] MEDS ORDERED: ASPIRIN 81 MG PO STA (18:41)
[2018-12-25] MEDS ORDERED: NITROGLYCERIN OINT 1 INCH/GM PACKET TOPICAL STA (18:41)
--- NOTE | 2018-12-25 18:45 | ED ---
General Adult HPI - General Chief complaint: Chest Pain Stated complaint: chest pain Time Seen by Provider: 12/25/18 18:16 Source: patient, family, RN notes reviewed Mode of arrival: wheelchair Limitations: no limitations - History of Present Illness Initial comments: Patient is a pleasant 5 he 3-year-old male presenting to the emergency Department with complaints of chest discomfort. Onset of symptoms was a couple of days ago. Last night was a worse episode. Patient had symptoms again today while walking the dogs. Patient complains of an ache in the left side of the chest. No radiation. No history of similar symptoms previously. Patient does have a known history of thoracic aneurysm. Patient does have a strong family history of aneurysms and some of cardiac disease. Patient was a little bit sweaty last night. No nausea. Patient does at times have some associated dyspnea, none at this time. Discomfort is mild at this time. - Related Data Home Medications Medication Instructions Recorded Confirmed Citalopram Hydrobromide [CeleXA] 20 mg PO DAILY 02/08/16 12/25/18 Pantoprazole Sodium [Protonix] 40 mg PO DAILY 02/08/16 12/25/18 Tadalafil [Cialis] 5 mg PO HS PRN 06/19/17 12/25/18 Testosterone [Androgel 1.62% Gel 1 applic TOPICAL DAILY 06/19/17 12/25/18 Pump] Atorvastatin Calcium [Lipitor] 20 mg PO HS 12/25/18 12/25/18 Carvedilol [Coreg] 3.125 mg PO BID 12/25/18 12/25/18 Fluticasone Nasal [place] [Flonase 2 spray EA NOSTRIL HS 12/25/18 12/25/18 Nasal [place]] Losartan Potassium 100 mg PO DAILY 12/25/18 12/25/18 Allergies Allergy/AdvReac Type Severity Reaction Status Date / Time No Known Allergies Allergy Verified 12/25/18 18:49 Review of Systems ROS Statement: Those systems with pertinent positive or pertinent negative responses have been documented in the HPI. ROS Other: All systems not noted in ROS Statement are negative. Constitutional: Denies: fever Eyes: Denies: eye pain ENT: Denies: ear pain Respiratory: Denies: cough Cardiovascular: Reports: chest pain Endocrine: Reports: fatigue Gastrointestinal: Denies: abdominal pain Genitourinary: Denies: dysuria Musculoskeletal: Denies: back pain Skin: Denies: rash Neurological: Denies: weakness Past Medical History Past Medical History: Hypertension Additional Past Medical History / Comment(s): Depression, acid reflux, Vertigo; Sjogren's .ED History of Any Multi-Drug Resistant Organisms: None Reported Past Surgical History: Back Surgery, Orthopedic Surgery Additional Past Surgical History / Comment(s): hand surgery Past Anesthesia/Blood Transfusion Reactions: No Reported Reaction Past Psychological History: No Psychological Hx Reported Smoking Status: Never smoker Past Alcohol Use History: None Reported Past Drug Use History: None Reported General Exam Limitations: no limitations General appearance: alert, in no apparent distress Head exam: Present: atraumatic Eye exam: Present: normal appearance, PERRL ENT exam: Present: normal oropharynx Neck exam: Present: normal inspection Respiratory exam: Present: normal lung sounds bilaterally. Absent: chest wall tenderness Cardiovascular Exam: Present: regular rate, normal rhythm Expanded Peripheral pulses: 2+: Radial (R), Radial (L), Dorsalis Pedis (R), Dorsalis Pedis (L) GI/Abdominal exam: Present: soft. Absent: tenderness Extremities exam: Present: normal inspection. Absent: pedal edema, calf tenderness Neurological exam: Present: alert Psychiatric exam: Present: normal affect, normal mood Skin exam: Present: normal color Course Vital Signs 12/25/18 12/25/18 18:11 19:31 Temperature 98.5 F Pulse Rate 65 64 Respiratory 20 18 Rate Blood Pressure 203/95 167/92 O2 Sat by Pulse 100 97 Oximetry EKG Findings - EKG Comments: EKG Findings:: Sinus rhythm at 74. PVCs present. NC 188. QRS 86. QT 34. QTC 426. Normal axis. Normal QRS. No acute ST change Medical Decision Making - Medical Decision Making Patient reevaluated and resting comfortably in bed. Patient symptom-free at this time. Patient and family are updated on results and plan. Case was discussed in detail with Dr. Wolff, covering for Dr. Marroquin, who will admit. - Lab Data Result diagrams: 12/25/18 18:46 12/25/18 18:46 Lab Results 12/25/18 12/25/18 12/25/18 Range/Units 18:46 18:46 18:46 WBC 5.0 (3.8-10.6) k/uL RBC 4.18 L (4.30-5.90) m/uL Hgb 13.4 (13.0-17.5) gm/dL Hct 38.2 L (39.0-53.0) % MCV 91.4 (80.0-100.0) fL MCH 32.0 (25.0-35.0) pg MCHC 35.0 (31.0-37.0) g/dL RDW 12.9 (11.5-15.5) % Plt Count 170 (150-450) k/uL Neutrophils % 56 % Lymphocytes % 27 % Monocytes % 10 % Eosinophils % 4 % Basophils % 1 % Neutrophils # 2.8 (1.3-7.7) k/uL Lymphocytes # 1.4 (1.0-4.8) k/uL Monocytes # 0.5 (0-1.0) k/uL Eosinophils # 0.2 (0-0.7) k/uL Basophils # 0.0 (0-0.2) k/uL PT (9.0-12.0) sec INR (<1.2) APTT (22.0-30.0) sec Sodium 133 L (137-145) mmol/L Potassium 4.5 (3.5-5.1) mmol/L Chloride 97 L (98-107) mmol/L Carbon Dioxide 27 (22-30) mmol/L Anion Gap 9 mmol/L BUN 9 (9-20) mg/dL Creatinine 0.76 (0.66-1.25) mg/dL Est GFR (CKD-EPI)AfAm >90 (>60 ml/min/1.73 sqM) Est GFR (CKD-EPI)NonAf >90 (>60 ml/min/1.73 sqM) Glucose 87 (74-99) mg/dL Calcium 9.2 (8.4-10.2) mg/dL Magnesium 2.0 (1.6-2.3) mg/dL Total Bilirubin 0.6 (0.2-1.3) mg/dL AST 37 (17-59) U/L ALT 47 (21-72) U/L Alkaline Phosphatase 104 (38-126) U/L Total Creatine Kinase 190 H (55-170) U/L CK-MB (CK-2) 4.6 H (0.0-2.4) ng/mL CK-MB (CK-2) Rel Index 2.4 Troponin I <0.012 (0.000-0.034) ng/mL Total Protein 7.5 (6.3-8.2) g/dL Albumin 4.3 (3.5-5.0) g/dL 12/25/18 Range/Units 18:46 WBC (3.8-10.6) k/uL RBC (4.30-5.90) m/uL Hgb (13.0-17.5) gm/dL Hct (39.0-53.0) % MCV (80.0-100.0) fL MCH (25.0-35.0) pg MCHC (31.0-37.0) g/dL RDW (11.5-15.5) % Plt Count (150-450) k/uL Neutrophils % % Lymphocytes % % Monocytes % % Eosinophils % % Basophils % % Neutrophils # (1.3-7.7) k/uL Lymphocytes # (1.0-4.8) k/uL Monocytes # (0-1.0) k/uL Eosinophils # (0-0.7) k/uL Basophils # (0-0.2) k/uL PT 9.6 (9.0-12.0) sec INR 0.9 (<1.2) APTT 24.9 (22.0-30.0) sec Sodium (137-145) mmol/L Potassium (3.5-5.1) mmol/L Chloride (98-107) mmol/L Carbon Dioxide (22-30) mmol/L Anion Gap mmol/L BUN (9-20) mg/dL Creatinine (0.66-1.25) mg/dL Est GFR (CKD-EPI)AfAm (>60 ml/min/1.73 sqM) Est GFR (CKD-EPI)NonAf (>60 ml/min/1.73 sqM) Glucose (74-99) mg/dL Calcium (8.4-10.2) mg/dL Magnesium (1.6-2.3) mg/dL Total Bilirubin (0.2-1.3) mg/dL AST (17-59) U/L ALT (21-72) U/L Alkaline Phosphatase (38-126) U/L Total Creatine Kinase (55-170) U/L CK-MB (CK-2) (0.0-2.4) ng/mL CK-MB (CK-2) Rel Index Troponin I (0.000-0.034) ng/mL Total Protein (6.3-8.2) g/dL Albumin (3.5-5.0) g/dL - Radiology Data Radiology results: report reviewed (Computed tomography scan of the aorta shows aneurysm of the ascending aorta at 4.4 cm. No leak. No dissection.) Disposition Clinical Impression: Chest pain Disposition: ADMITTED IP TO THIS HOSP Is patient prescribed a controlled substance at d/c from ED?: No Referrals: Estevan Marroquin III, MD [Primary Care Provider] - 1-2 days Decision Time: 20:37
[2018-12-25 19:05] LABS: Basophils % (A) 1 %; Eosinophils # (A) 0.2 k/uL (0-0.7); Eosinophils % (A) 4 %; HCT 38.2 % (39.0-53.0); HGB 13.4 gm/dL (13.0-17.5); Lymphocytes # (A) 1.4 k/uL (1.0-4.8); Lymphocytes % (A) 27 %; MCV 91.4 fL (80.0-100.0); Mean Platelet Volume 7.6; Monocytes # (A) 0.5 k/uL (0-1.0); Monocytes % (A) 10 %; Neutrophils # (A) 2.8 k/uL (1.3-7.7); Neutrophils % (A) 56 %; Platelet Count 170 k/uL (150-450); RBC 4.18 m/uL (4.30-5.90); RDW 12.9 % (11.5-15.5)
[2018-12-25 19:12] LABS: INR 0.9 (<1.2); Partial Thromboplastin Time 24.9 sec (22.0-30.0); Prothrombin Time 9.6 sec (9.0-12.0)
[2018-12-25 19:14] LABS: ALT 47 U/L (21-72); AST 37 U/L (17-59); Albumin 4.3 g/dL (3.5-5.0); Alkaline Phosphatase 104 U/L (38-126); Anion Gap 9 mmol/L; Blood Urea Nitrogen 9 mg/dL (9-20); Calcium 9.2 mg/dL (8.4-10.2); Carbon Dioxide 27 mmol/L (22-30); Chloride 97 mmol/L (98-107); Glucose 87 mg/dL (74-99); Potassium 4.5 mmol/L (3.5-5.1); Sodium 133 mmol/L (137-145); Total Bilirubin 0.6 mg/dL (0.2-1.3); Total Protein 7.5 g/dL (6.3-8.2)
[2018-12-25 19:30] LABS: Creatine Kinase 190 U/L (55-170)
[2018-12-25 19:43] LABS: Creatine Kinase MB 4.6 ng/mL (0.0-2.4); Troponin I <0.012 ng/mL (0.000-0.034)
--- NOTE | 2018-12-25 20:07 | CT ---
EXAMINATION TYPE: CT angio thor/abd pel aorta DATE OF EXAM: 12/25/2018 COMPARISON: HISTORY: Known thoracic aneurysm. Left sided chest pain and shortness of breath. CT DLP: 1259.1 mGycm. Automated Exposure Control for Dose Reduction was Utilized. CONTRAST: CT scan of the thorax, abdomen and pelvis is performed without and with IV Contrast, patient injected with 100 mL of Isovue 370. Images were obtained without and with the IV contrast. There are 3-D post processed images. FINDINGS: There is a 1 cm slightly stellate density in the anterior right upper lobe adjacent to the great vess els. This appears unchanged compared to 07/08/2018 CT scan. There is mild reticular interstitial density in the mid and lower lung bacon. There is mild pulmonar y emphysema. There is no mediastinal adenopathy. There is aneurysm of the ascending aorta measures 4.4 cm. There i s no evidence of dissection. There are no hilar masses. There is no pericardial effusion. There is no pleural effusion. There is normal contrast opacification of the abdominal aorta. There is patency of the celiac artery and superior mesenteric artery. There is bilateral patency of the renal arteries. There is patency of the iliac and femoral arteries. There is no evidence of hemodynamic stenosis. Bladder distends smoothly. There is no pelvic mass. There is no inguinal hernia. There is no ascites. There is no mesenteric edema. Kidneys have normal size and contour. There is one center cortical cys t posterior left kidney. The liver spleen pancreas gallbladder appear normal. Bile ducts are not dila katherine. There is mild thoracolumbar dextroscoliosis. I see no bony destructive process. IMPRESSION: No evidence of thoracic or abdominal aortic dissection. Mild aneurysm of the ascending aorta. No cont rast extravasation. No evidence of hemodynamic stenosis.
[2018-12-26 00:46] LABS: Creatine Kinase 157 U/L (55-170)
[2018-12-26 00:59] LABS: Creatine Kinase MB 3.2 ng/mL (0.0-2.4); Troponin I <0.012 ng/mL (0.000-0.034)
[2018-12-26] MEDS: CARVEDILOL 3.125 MG TAB PO SCH ×3 (01:51→20:24)
[2018-12-26] MEDS: ATORVASTATIN 20 MG TAB PO SCH ×2 (01:51→19:48)
[2018-12-26 07:32] LABS: Cholesterol 91 mg/dL (<200); HDL Cholesterol 41 mg/dL (40-60); LDL Cholesterol,Calculated 29 mg/dL (0-99); Triglycerides 104 mg/dL (<150)
[2018-12-26 07:56] LABS: Creatine Kinase 123 U/L (55-170)
[2018-12-26 08:10] LABS: Creatine Kinase MB 2.7 ng/mL (0.0-2.4); Troponin I <0.012 ng/mL (0.000-0.034)
--- NOTE | 2018-12-26 09:51 | P.CRDCN ---
History of Present Illness Consult date: 12/26/18 Requesting physician: Jacobo Wolff Consult reason: chest pain Chief complaint: Chest pain History of present illness: This is 63-year-old gentleman with history of hypertension, hyperlipidemia, nondiabetic, nonsmoker, strong family history of premature coronary artery disease in both of his parents, history of sjogrens, depression and anxiety. Patient presents to the hospital with symptoms of chest discomfort that he describes as a feeling of his chest muscle being pulled, he states he was quite diaphoretic and short of breath. He had 1 episode after walking his dogs that lasted 15-20 minutes, he had another episode before presenting here of similar nature. Patient is quite anxious about the fact that he has an aortic aneurysm, and states that he thinks about it all the time and worries that he may instantly. His troponins 3 were negative. His initial EKG showed a normal sinus rhythm with occasional PVCs, subsequent EKG shows normal sinus rhythm with no acute changes. CT angiogram was performed of the thoracic abdominal and pelvis, it did reveal a 4.4 cm ascending aortic aneurysm. One year ago this measured at 4.2. He does follow with a cardiac thoracic surgeon at [facility]. Blood pressure on arrival here 158/ 88, last evening his pressure was up to 203/95. His morning's blood pressure 95 /40 with a heart rate in the 70s. White blood cell count is normal, hemoglobin 13.4, platelet count 170. Sodium 133, potassium 4.5, BUN 9 and creatinine 0.7. Troponins negative 3. Past Medical History Past Medical History: Hypertension Additional Past Medical History / Comment(s): Depression, acid reflux, Vertigo; Sjogren's .ED History of Any Multi-Drug Resistant Organisms: None Reported Past Surgical History: Back Surgery, Orthopedic Surgery Additional Past Surgical History / Comment(s): hand surgery Past Anesthesia/Blood Transfusion Reactions: No Reported Reaction Smoking Status: Never smoker - Past Family History Father Family Medical History: Myocardial Infarction ([place]) Mother Additional Family Medical History / Comment(s): Anrysum Medications and Allergies Home Medications Medication Instructions Recorded Confirmed Type Citalopram Hydrobromide [CeleXA] 20 mg PO DAILY 02/08/16 12/25/18 History Pantoprazole Sodium [Protonix] 40 mg PO DAILY 02/08/16 12/25/18 History Tadalafil [Cialis] 5 mg PO HS PRN 06/19/17 12/25/18 History Testosterone [Androgel 1.62% Gel 1 applic TOPICAL DAILY 06/19/17 12/25/18 History Pump] Atorvastatin Calcium [Lipitor] 20 mg PO HS 12/25/18 12/25/18 History Carvedilol [Coreg] 3.125 mg PO BID 12/25/18 12/25/18 History Fluticasone Nasal [place] [Flonase 2 spray EA NOSTRIL HS 12/25/18 12/25/18 History Nasal [place]] Losartan Potassium 100 mg PO DAILY 12/25/18 12/25/18 History Allergies Allergy/AdvReac Type Severity Reaction Status Date / Time No Known Allergies Allergy Verified 12/25/18 21:38 Physical Exam Vitals: Vital Signs Temp Pulse Pulse Resp BP BP Pulse Ox 12/26/18 08:00 98.3 F 72 16 95/48 99 12/26/18 04:00 16 12/26/18 03:53 98.2 F 66 14 132/68 97 12/26/18 00:00 98.2 F 68 14 134/69 96 12/25/18 21:52 98.2 F 67 15 137/71 98 12/25/18 20:58 98.3 F 66 20 139/83 99 12/25/18 19:31 64 18 167/92 97 12/25/18 18:11 98.5 F 65 20 203/95 100 Intake and Output 12/25/18 12/26/18 12/26/18 22:59 06:59 14:59 Other: Voiding Method Toilet # Voids 1 1 Weight 79.379 kg PHYSICAL EXAMINATION: GENERAL: 63-year-old gentleman in no acute distress at the time of my examination HEENT: Head is atraumatic, normocephalic. Pupils equal, round. Sclera anicteric. Conjunctiva are clear. Mucous membranes of the mouth are moist. Neck is supple. There is no elevated jugular venous pressure. No carotid bruit is heard. HEART EXAMINATION: Heart S1, S2 normal. No murmur or gallop heard. CHEST EXAMINATION: Lungs are clear to auscultation and precussion. No chest wall tenderness is noted on palpation or with deep breathing. ABDOMEN: Soft, nontender. Bowel sounds are heard. No organomegaly noted. EXTREMITIES: 2+ peripheral pulses with no evidence of peripheral edema and no calf tenderness noted. NEUROLOGIC patient is awake, alert and oriented X3 . Results 12/25/18 18:46 12/25/18 18:46 Cardiac Enzymes 12/25/18 12/25/18 12/25/18 Range/Units 18:46 18:46 23:59 AST 37 (17-59) U/L CK-MB (CK-2) 4.6 H 3.2 H (0.0-2.4) ng/mL Troponin I <0.012 <0.012 (0.000-0.034) ng/mL 12/26/18 Range/Units 06:50 AST (17-59) U/L CK-MB (CK-2) 2.7 H (0.0-2.4) ng/mL Troponin I <0.012 (0.000-0.034) ng/mL Coagulation 12/25/18 Range/Units 18:46 PT 9.6 (9.0-12.0) sec APTT 24.9 (22.0-30.0) sec Lipids 12/26/18 Range/Units 06:50 Triglycerides 104 (<150) mg/dL Cholesterol 91 (<200) mg/dL HDL Cholesterol 41 (40-60) mg/dL CBC 12/25/18 Range/Units 18:46 WBC 5.0 (3.8-10.6) k/uL RBC 4.18 L (4.30-5.90) m/uL Hgb 13.4 (13.0-17.5) gm/dL Hct 38.2 L (39.0-53.0) % Plt Count 170 (150-450) k/uL Comprehensive Metabolic Panel 12/25/18 Range/Units 18:46 Sodium 133 L (137-145) mmol/L Potassium 4.5 (3.5-5.1) mmol/L Chloride 97 L (98-107) mmol/L Carbon Dioxide 27 (22-30) mmol/L BUN 9 (9-20) mg/dL Creatinine 0.76 (0.66-1.25) mg/dL Glucose 87 (74-99) mg/dL Calcium 9.2 (8.4-10.2) mg/dL AST 37 (17-59) U/L ALT 47 (21-72) U/L Alkaline Phosphatase 104 (38-126) U/L Total Protein 7.5 (6.3-8.2) g/dL Albumin 4.3 (3.5-5.0) g/dL Current Medications Generic Name Dose Route Start Last Admin Trade Name Freq PRN Reason Stop Dose Admin Aspirin 325 mg 12/26/18 09:00 Aspirin PO DAILY GILMA Atorvastatin Calcium 20 mg 12/25/18 21:00 12/26/18 01:51 Lipitor PO 20 mg HS GILMA Administration Carvedilol 3.125 mg 12/25/18 21:00 12/26/18 01:51 Coreg PO 3.125 mg BID-W/MEALS GILMA Administration Losartan Potassium 100 mg 12/26/18 09:00 Cozaar PO DAILY GILMA Sodium Chloride 10 ml 12/25/18 21:00 12/26/18 01:51 Saline Flush IV 10 ml BID GILMA Administration Intake and Output 12/25/18 12/26/18 12/26/18 22:59 06:59 14:59 Other: Voiding Method Toilet # Voids 1 1 Weight 79.379 kg 12/25/18 18:46 12/25/18 18:46 EKG Interpretations (text) EKG shows normal sinus rhythm with occasional PVCs, no specific changes noted. Assessment and Plan Plan: Assessment and plan #1 symptoms of chest discomfort with associated diaphoresis and shortness of breath, 2 episodes. Troponins are negative 3. EKG shows normal sinus rhythm with no acute changes. #2 hypertension #3 hyperlipidemia #4 Sjogren's #5 thoracic aortic aneurysm measuring 4.4 cm, being followed by Jacqueline thoracic surgery at [facility] #6 family history of premature coronary artery disease in both of his parents, he does state that his mother of aortic aneurysm. #7 depression and anxiety Plan Patient did undergo a stress Cardiolite 2 years ago that was negative for any reversible ischemia. We will obtain an echocardiogram with Doppler study. There is no evidence of any dissection on CTA. Because of the 2 separate episodes of chest discomfort with associated shortness of breath and strong family history patient was advised to undergo cardiac catheterization. The risks and the benefits were explained to the patient in detail. He will have a clear liquid breakfast in the morning and cardiac catheterization tomorrow by Dr. VC Jeter. Further recommendations will be based on these findings and patient's clinical course. DNP note has been reviewed, I agree with a documented findings and plan of care. Patient was seen and examined.
[2018-12-26] MEDS ORDERED: NITROGLYCERIN SL TABS 0.4 MG TAB SUBLINGUAL PRN (10:04)
[2018-12-26] MEDS ORDERED: ALPRAZolam 0.25 MG TAB PO PRN (10:04)
[2018-12-26] MEDS ORDERED: ASPIRIN 325 MG TAB PO STA (10:04)
[2018-12-26] MEDS ORDERED: ATORVASTATIN 80 MG TAB PO STA (10:04)
[2018-12-26] MEDS ORDERED: SODIUM CHLORIDE 0.9% 1,000 ML in EMPTY BAG 1 BAG IV ONE (10:04)
[2018-12-26] MEDS ORDERED: ALPRAZolam 0.5 MG TAB PO PRN (10:04)
[2018-12-26] MEDS: LOSARTAN 50 MG TAB PO SCH (10:07)
[2018-12-26] MEDS: ASPIRIN 325 MG TAB PO SCH (10:08)
--- NOTE | 2018-12-26 13:53 | P.HPIM ---
History of Present Illness Very pleasant 63-year-old gentleman with a past medical history significant for family history of premature coronary artery disease in both his parents, hypertension hyperlipidemia comes in with chest pain. Patient says that his symptoms started 2 days ago when he was walking his dog. He suddenly started having chest pain, shortness of breath and sweating. Symptoms subsided. He started having symptoms again on the day of admission when he was not doing anything and resting. This prompted him to the ER for further evaluation and management. Patient says that he's having no chest pain right now. He does not complain of any abdominal pain, no racing heart, no cough no shortness of breath, no nausea and vomiting, no tingling numbness on in the extremities, no itch or rash. Next ER course-WBC 5.0 hemoglobin 13.4 platelets 170 sodium 133 potassium 4.4 BUN 9 creatinine 0.76 GFR more than 90 troponin was less than 0.012 LFTs are normal. EKG shows no ST-T wave changes. Patient was admitted to the hospitalist service a further admission and management. Cardiology saw the patient and the plan is to do a heart cath on Thursday that is tomorrow Review of Systems All systems: negative Past Medical History Past Medical History: Hypertension Additional Past Medical History / Comment(s): Depression, acid reflux, Vertigo; Sjogren's .ED History of Any Multi-Drug Resistant Organisms: None Reported Past Surgical History: Back Surgery, Orthopedic Surgery Additional Past Surgical History / Comment(s): hand surgery Past Anesthesia/Blood Transfusion Reactions: No Reported Reaction Smoking Status: Never smoker - Past Family History Father Family Medical History: Myocardial Infarction ([place]) Mother Additional Family Medical History / Comment(s): Anrysum Medications and Allergies Home Medications Medication Instructions Recorded Confirmed Type Citalopram Hydrobromide [CeleXA] 20 mg PO DAILY 02/08/16 12/25/18 History Pantoprazole Sodium [Protonix] 40 mg PO DAILY 02/08/16 12/25/18 History Tadalafil [Cialis] 5 mg PO HS PRN 06/19/17 12/25/18 History Testosterone [Androgel 1.62% Gel 1 applic TOPICAL DAILY 06/19/17 12/25/18 History Pump] Atorvastatin Calcium [Lipitor] 20 mg PO HS 12/25/18 12/25/18 History Carvedilol [Coreg] 3.125 mg PO BID 12/25/18 12/25/18 History Fluticasone Nasal [place] [Flonase 2 spray EA NOSTRIL HS 12/25/18 12/25/18 History Nasal [place]] Losartan Potassium 100 mg PO DAILY 12/25/18 12/25/18 History Allergies Allergy/AdvReac Type Severity Reaction Status Date / Time No Known Allergies Allergy Verified 12/25/18 21:38 Physical Exam Vitals: Vital Signs Temp Pulse Pulse Resp BP BP Pulse Ox 12/26/18 12:00 98.4 F 69 16 118/72 98 12/26/18 11:55 72 16 12/26/18 10:07 142/76 12/26/18 08:00 98.3 F 72 16 95/48 99 12/26/18 04:00 16 12/26/18 03:53 98.2 F 66 14 132/68 97 12/26/18 00:00 98.2 F 68 14 134/69 96 12/25/18 21:52 98.2 F 67 15 137/71 98 12/25/18 20:58 98.3 F 66 20 139/83 99 12/25/18 19:31 64 18 167/92 97 12/25/18 18:11 98.5 F 65 20 203/95 100 Intake and Output 12/25/18 12/26/18 12/26/18 22:59 06:59 14:59 Other: Voiding Method Toilet # Voids 1 1 Weight 79.379 kg On exam, alert and oriented x3. HEENT: Conjunctivae normal. eyes normal. NECK: No JVD. No thyroid enlargement. No LNs CARDIOVASCULAR: S1, S2 muffled. No murmur RESPIRATION: Breath sounds diminished in the bases. No rhonchi or crackles. No bronchial breathing. ABDOMEN: Soft, nontender . No guarding. no masses palpable. No ascites, No hepatosplenomegaly.Bowel sounds heard. LEGS: No edema. no swelling NERVOUS SYSTEM: Cranial N 2-12 grossly normal. Moves all 4 limbs. No focal deficits. No sensory deficit. No signs of cerebellar dysfucntion. Skin: no ulcer no rash Joints: No active swelling. No inflammation. Lymphatic system. No LN neck axilla or groin. Results CBC & Chem 7: 12/25/18 18:46 12/25/18 18:46 Labs: Abnormal Lab Results - Last 24 Hours (Table) 12/25/18 12/25/18 12/25/18 Range/Units 18:46 18:46 18:46 RBC 4.18 L (4.30-5.90) m/uL Hct 38.2 L (39.0-53.0) % Sodium 133 L (137-145) mmol/L Chloride 97 L (98-107) mmol/L Total Creatine Kinase 190 H (55-170) U/L CK-MB (CK-2) 4.6 H (0.0-2.4) ng/mL 12/25/18 12/26/18 Range/Units 23:59 06:50 RBC (4.30-5.90) m/uL Hct (39.0-53.0) % Sodium (137-145) mmol/L Chloride (98-107) mmol/L Total Creatine Kinase (55-170) U/L CK-MB (CK-2) 3.2 H 2.7 H (0.0-2.4) ng/mL Thrombosis Risk Factor Assmnt - Choose All That Apply Each Risk Factor Represents 2 Points: Age 61-74 years Thrombosis Risk Factor Assessment Total Risk Factor Score: 2 Thrombosis Risk Factor Assessment Level: Low Risk Assessment and Plan Assessment: - Angina - Hypertension - Hyperlipidemia - History of premature coronary artery disease in both his parents - History of depression and anxiety Plan - We will admit the patient to [facility] with telemetry under observation - Patient underwent cath in the morning - He will be nothing by mouth after midnight - Continue current medications for now - DVT and GI prophylaxis - We will order for lab work in the morning - Patient is full code Time with Patient: Greater than 30
[2018-12-27] MEDS: LOSARTAN 50 MG TAB PO SCH (06:14)
[2018-12-27] MEDS: ASPIRIN 325 MG TAB PO SCH (06:14)
[2018-12-27] MEDS: CARVEDILOL 3.125 MG TAB PO SCH ×2 (06:14→16:55)
[2018-12-27] MEDS ORDERED: SODIUM CHLORIDE 0.9% 1,000 ML IV ONE (10:08)
[2018-12-27] MEDS ORDERED: fentaNYL (PF) 50 MCG/ML 2 ML AMP IV ONE (10:25)
[2018-12-27] MEDS: MIDAZOLAM 2 MG/2 ML VIAL IV ONE ×2 (10:25→11:20)
[2018-12-27] MEDS ORDERED: LIDOCAINE 1% INJ 10MG/ML (20 ML MDV) SQ ONE ×2 (10:32→12:00)
--- NOTE | 2018-12-27 11:03 | ECHOF ---
Referral Reason:chest pain MEASUREMENTS -------- HEIGHT: 182.9 cm WEIGHT: 79.4 kg BP: RVIDd: 3.4 cm (< 3.3) IVSd: 1.2 cm (0.6 - 1.1) LVIDd: 3.8 cm (3.9 - 5.3) LVPWd: 1.3 cm (0.6 - 1.1) IVSs: 1.7 cm LVIDs: 2.9 cm LVPWs: 1.5 cm LA Diam: 3.7 cm (2.7 - 3.8) LAESV Index (A-L): 21.04 ml/m Ao Diam: 3.6 cm (2.0 - 3.7) AV Cusp: 1.9 cm (1.5 - 2.6) MV EXCURSION: 18.221 mm (> 18.000) MV EF SLOPE: 23 mm/s (70 - 150) EPSS: 0.5 cm MV E Ernesto: 0.85 m/s MV DecT: 226 ms MV A Ernesto: 1.03 m/s MV E/A Ratio: 0.83 AR PHT: 722 ms RAP: 5.00 mmHg RVSP: 28.25 mmHg FINDINGS -------- Sinus rhythm. This was a technically good study. The left ventricular size is normal. There is mild concentric left ventricular hypertrophy. Overa ll left ventricular systolic function is normal with, an EF between 60 - 65 %. The right ventricle is mildly enlarged. Normal LA size by volume 22+/-6 ml/m2. The right atrium is normal in size. There is mild aortic valve sclerosis. There is mild aortic regurgitation. The mitral valve is normal. Mild tricuspid regurgitation present. Right ventricular systolic pressure is normal at < 35 mmHg. Trace/mild (physiologic) pulmonic regurgitation. The aortic root size is normal. Normal inferior vena cava with normal inspiratory collapse consistent with estimated right atrial pre ssure of 5 mmHg. There is no pericardial effusion. CONCLUSIONS -------- 1. Sinus rhythm. 2. This was a technically good study. 3. The left ventricular size is normal. 4. There is mild concentric left ventricular hypertrophy. 5. Overall left ventricular systolic function is normal with, an EF between 60 - 65 %. 6. The right ventricle is mildly enlarged. 7. Normal LA size by volume 22+/-6 ml/m2. 8. The right atrium is normal in size. 9. There is mild aortic valve sclerosis. 10. There is mild aortic regurgitation. 11. The mitral valve is normal. 12. Mild tricuspid regurgitation present. 13. Right ventricular systolic pressure is normal at < 35 mmHg. 14. Trace/mild (physiologic) pulmonic regurgitation. 15. The aortic root size is normal. 16. Normal inferior vena cava with normal inspiratory collapse consistent with estimated right atrial pressure of 5 mmHg. 17. There is no pericardial effusion. TRIAL MANAGER: Aurora Mcclendon RDCS
[2018-12-27] MEDS ORDERED: NITROGLYCERIN SL TABS 0.4 MG TAB SUBLINGUAL ONE (11:42)
--- NOTE | 2018-12-27 11:45 | CC ---
CARDIAC CATHETERIZATION REPORT Mr. Cardona is a 63-year-old gentleman who was admitted to the emergency room with a complaint of intermittent chest discomfort. Patient history was suggestive of recent onset of chest discomfort associated with minimal exertion and shortness of breath suggestive of unstable angina. The patient was recommended to have a cardiac catheterization for definitive diagnosis. PROCEDURE: Right groin was prepped and draped in the usual manner and the skin was infiltrated with 2% Xylocaine. The right femoral artery was entered using Seldinger technique a #6- Indian sheath was placed in. Selective coronary angiography was then performed in multiple projections and the left ventricular pressures were obtained. Patient tolerated the procedure well. Moderate sedation was used. Sedation time was 20 minutes. HEMODYNAMICS: Left ventricular end-diastolic pressure is 12 mmHg prior to angiography. No gradient is noted across the aortic valve. SELECTIVE CORONARY ANGIOGRAPHY: Left main coronary artery is normal and patent. LAD is a good caliber blood vessel and mid LAD just before the origin of average size diagonal branch has an eccentric 85% to 90% stenosis. The diagonal branch after the stenosis does not have any independent lesion. The circumflex coronary artery is a good caliber blood vessel and gives rise to a good size obtuse marginal branch. The first obtuse marginal branch gives rise to one small branch which is about 2 mm size and has ostial stenosis of 80% to 90%. Right coronary artery is mildly diffusely disease with proximally has 30% stenosis. The small size PDA branch has a 30% to 40% stenosis. RECOMMENDATIONS: We will review the films with Dr. Dany Trejo and consider stent to the LAD and probably treat the first of the obtuse marginal branch medically as it is a small caliber blood vessel. MMODL / IJN: [id number] /
[2018-12-27] MEDS ORDERED: BIVALIRUDIN BOLUS 250 MG/50 ML IV ONE (11:47)
[2018-12-27] MEDS ORDERED: BIVALIRUDIN 250 MG in SODIUM CHLORIDE 0.9% 50 ML IV ONE (11:48)
[2018-12-27] MEDS ORDERED: NITROGLYCERIN 1000MCG/10ML SYRINGE INTRACORON ONE (11:51)
[2018-12-27] MEDS ORDERED: HYDROmorphone 2 MG/ML 1 ML SYRINGE IV ONE (12:01)
[2018-12-27] MEDS ORDERED: IOPAMIDOL-370 150ML BTL ONE (12:06)
[2018-12-27] MEDS ORDERED: TICAGRELOR 90 MG TAB PO ONE (12:06)
[2018-12-27] MEDS ORDERED: IOPAMIDOL-370 150ML BTL INJ ONE (12:06)
[2018-12-27] MEDS ORDERED: ATROPINE SULFATE 0.1 MG/ML 10ML SYRINGE IV PRN (12:09)
[2018-12-27] MEDS ORDERED: RX INFO: IV CONTRAST WAS GIVEN 1 EACH MISC MISCELLANE PRN (12:09)
[2018-12-27] MEDS ORDERED: NITROGLYCERIN SL TABS 0.4 MG TAB SUBLINGUAL PRN (12:09)
[2018-12-27] MEDS ORDERED: ZOLPIDEM 5 MG TAB PO PRN (12:09)
[2018-12-27] MEDS ORDERED: MAG HYDROX/AL HYDROX/SIMETH 30 ML CUP PO PRN (12:09)
[2018-12-27] MEDS: SODIUM CHLORIDE 0.9% 1,000 ML IV SCH (12:15)
--- NOTE | 2018-12-27 12:51 | PTCA ---
PERCUTANEOUSTRANS CORORONARY ANGIOGRAPHY DATE OF SERVICE: 12/27/2018. PROCEDURE: PTCA and stenting of mid LAD. PERFORMED BY: Dr. Nyla Trejo. Moderate conscious sedation time was 25 minutes. Patient was administered Versed and oxygen saturation, hemodynamics and EKG were monitored closely. CLINICAL INFORMATION: Mr. Osmel Cardona presented to the hospital with episode of chest discomfort and went on to have unstable angina. He was seen and evaluated by Dr. Shannon Jeter who performed a cardiac cath that revealed a 70% to 75% mid LAD lesion. There was also disease in the circumflex marginal as well. He was advised PTCA of the LAD that was performed expeditiously. PROCEDURE NOTE: The existing 6-Tajik introducer in the right femoral artery was used to perform the procedure. I used a run-through wire to cross the lesion in the LAD. Without predilatation, an 8 mm long 3.25 caliber Xience stent was deployed at 14 atmospheres. Patient had chest pain and precordial ST elevation. Excellent angiographic result was achieved without complication. The patient received 180 mg of Brilinta. He also received Angiomax bolus and drip. The sheath was taken out and a Perclose device used to secure hemostasis and he was sent to the room in a stable condition. Excellent angiographic result was achieved. Patient also has a lesion in the distal RCA and also circumflex marginal. This will be addressed later and we will assess for any stress test abnormality. Findings and results were discussed with the patient and family and I expect he will be discharged in the next 24 hours. MMODL / IJN: [id number] /
[2018-12-27] MEDS ORDERED: ACETAMINOPHEN TAB 325 MG TAB PO PRN (19:01)
[2018-12-27] MEDS ORDERED: ATORVASTATIN 80 MG TAB PO SCH (21:00)
[2018-12-28] MEDS: SODIUM CHLORIDE 0.9% 1,000 ML IV SCH (04:57)
[2018-12-28 06:31] LABS: Basophils % (A) 1 %; Eosinophils # (A) 0.2 k/uL (0-0.7); Eosinophils % (A) 4 %; HCT 39.9 % (39.0-53.0); HGB 13.3 gm/dL (13.0-17.5); Lymphocytes % (A) 21 %; MCH 31.4 pg (25.0-35.0); MCHC 33.4 g/dL (31.0-37.0); Mean Platelet Volume 7.1; Monocytes # (A) 0.5 k/uL (0-1.0); Monocytes % (A) 11 %; Neutrophils % (A) 61 %; Platelet Count 158 k/uL (150-450); RBC 4.24 m/uL (4.30-5.90); RDW 13.1 % (11.5-15.5); WBC 4.9 k/uL (3.8-10.6)
[2018-12-28] MEDS: CARVEDILOL 3.125 MG TAB PO SCH ×2 (06:49→16:02)
[2018-12-28 07:17] LABS: Anion Gap 6 mmol/L; Blood Urea Nitrogen 11 mg/dL (9-20); Carbon Dioxide 28 mmol/L (22-30); Chloride 103 mmol/L (98-107); Glucose 104 mg/dL (74-99); Potassium 5.1 mmol/L (3.5-5.1); Sodium 137 mmol/L (137-145)
[2018-12-28] MEDS: LOSARTAN 50 MG TAB PO SCH (08:58)
[2018-12-28] MEDS ORDERED: TICAGRELOR 90 MG TAB PO SCH (09:00)
[2018-12-28] MEDS ORDERED: ASPIRIN 81 MG PO SCH (09:00)
[2018-12-28 11:48] VITALS: BMI 23.7
[2018-12-28 11:50] VITALS: RESP 18
--- NOTE | 2018-12-28 13:48 | P.PN ---
Subjective Progress Note Date: 12/28/18 This is 63-year-old gentleman with history of hypertension, hyperlipidemia, nondiabetic, nonsmoker, strong family history of premature coronary artery disease in both of his parents, history of sjogrens, depression and anxiety. Patient presents to the hospital with symptoms of chest discomfort that he describes as a feeling of his chest muscle being pulled, he states he was quite diaphoretic and short of breath. He had 1 episode after walking his dogs that lasted 15-20 minutes, he had another episode before presenting here of similar nature. Patient is quite anxious about the fact that he has an aortic aneurysm, and states that he thinks about it all the time and worries that he may instantly. His troponins 3 were negative. His initial EKG showed a normal sinus rhythm with occasional PVCs, subsequent EKG shows normal sinus rhythm with no acute changes. CT angiogram was performed of the thoracic abdominal and pelvis, it did reveal a 4.4 cm ascending aortic aneurysm. One year ago this measured at 4.2. He does follow with a cardiac thoracic surgeon at [facility]. Blood pressure on arrival here 158/ 88, last evening his pressure was up to 203/95. His morning's blood pressure 95 /40 with a heart rate in the 70s. White blood cell count is normal, hemoglobin 13.4, platelet count 170. Sodium 133, potassium 4.5, BUN 9 and creatinine 0.7. Troponins negative 3. 12/28/2018 Patient was taken to the cardiac catheterization lab yesterday where he was found to have an 80-90% lesion in the mid LAD, the first obtuse marginal branch gives rise to 1 small branch which has an ostial stenosis of 80-90%. Patient underwent angioplasty and stenting of the LAD. He was seen and examined this morning, doing well, denies any chest pain or difficulty in breathing. His EKG showed a normal sinus rhythm with no changes from post-PCI. Blood pressure 142/ 80 with a heart rate in the 60s today. Sodium 137, potassium 5.1, BUN 11 creatinine 0.8, platelets 158. Objective - Vital Signs Vital signs: Vital Signs Temp 97.8 F 12/28/18 11:49 Pulse 67 12/28/18 11:51 Resp 18 12/28/18 11:51 BP 153/87 12/28/18 11:49 Pulse Ox 100 12/28/18 11:49 Intake & Output 12/27/18 12/28/18 12/28/18 18:59 06:59 18:59 Intake Total 199 750 480 Output Total 1200 Balance -1001 750 480 Weight 79.4 kg 79.4 kg Intake: IV 199 Sodium Chloride 0.9% 1, 75 000 ml @ 75 mls/hr IV . [id number] [facility] Rx#:[id number] Intake, IV Titration 750 Amount Sodium Chloride 0.9% 1, 750 000 ml @ 75 mls/hr IV . [id number] [facility] Rx#:[id number] Oral 480 Output: Urine 1200 Other: Voiding Method Toilet Toilet Toilet # Voids 1 2 - Exam PHYSICAL EXAMINATION: GENERAL: 63-year-old gentleman in no acute distress at the time of my examination HEENT: Head is atraumatic, normocephalic. Pupils equal, round. Sclera anicteric. Conjunctiva are clear. Mucous membranes of the mouth are moist. Neck is supple. There is no elevated jugular venous pressure. No carotid bruit is heard. HEART EXAMINATION: Heart S1, S2 normal. No murmur or gallop heard. CHEST EXAMINATION: Lungs are clear to auscultation and precussion. No chest wall tenderness is noted on palpation or with deep breathing. ABDOMEN: Soft, nontender. Bowel sounds are heard. No organomegaly noted. EXTREMITIES: 2+ peripheral pulses with no evidence of peripheral edema and no calf tenderness noted. Right groin soft, no evidence of any hematoma. NEUROLOGIC patient is awake, alert and oriented X3 - Labs CBC & Chem 7: 12/28/18 06:08 12/28/18 06:08 Labs: Abnormal Lab Results - Last 24 Hours (Table) 12/28/18 12/28/18 Range/Units 06:08 06:08 RBC 4.24 L (4.30-5.90) m/uL Glucose 104 H (74-99) mg/dL Assessment and Plan Plan: Assessment and plan #1 symptoms of chest discomfort with associated diaphoresis and shortness of breath, 2 episodes. Troponins are negative 3. EKG shows normal sinus rhythm with no acute changes. #2 hypertension #3 hyperlipidemia #4 Sjogren's #5 thoracic aortic aneurysm measuring 4.4 cm, being followed by Jacqueline thoracic surgery at [facility] #6 family history of premature coronary artery disease in both of his parents, he does state that his mother of aortic aneurysm. #7 depression and anxiety Plan Patient underwent angioplasty with stenting of the LAD. He may be able to be discharged home today from our perspective. We'll make him a follow-up appointment in the office in one week. He will have a stress test performed down the road, he does also have stenosis of the first obtuse marginal branch which will be evaluated at that time. Patient will be discharged home with aspirin 81 mg daily, Lipitor 80 mg daily, Coreg 3.125 mg twice a day, losartan 100 mg daily, Brilinta 90 mg twice a day, and sublingual nitroglycerin as needed for chest pain. DNP note has been reviewed, I agree with a documented findings and plan of care. Patient was seen and examined.
[2018-12-28 17:02] VITALS: BP 143/72; PULSE 68; TEMP 98.1
--- NOTE | 2018-12-28 23:20 | P.PN ---
Subjective Progress Note Date: 12/27/18 Principal diagnosis: Chest pain. Status post cardiac catheterization and stent placement in LAD Very pleasant 63-year-old gentleman with a past medical history significant for family history of premature coronary artery disease in both his parents, hypertension hyperlipidemia comes in with chest pain. Patient says that his symptoms started 2 days ago when he was walking his dog. He suddenly started having chest pain, shortness of breath and sweating. Symptoms subsided. He started having symptoms again on the day of admission when he was not doing anything and resting. This prompted him to the ER for further evaluation and management. Patient says that he's having no chest pain right now. He does not complain of any abdominal pain, no racing heart, no cough no shortness of breath, no nausea and vomiting, no tingling numbness on in the extremities, no itch or rash. ER course-WBC 5.0 hemoglobin 13.4 platelets 170 sodium 133 potassium 4.4 BUN 9 creatinine 0.76 GFR more than 90 troponin was less than 0.012 LFTs are normal. EKG shows no ST-T wave changes. Patient was admitted to the hospitalist service a further admission and management. Cardiology saw the patient and the plan is to do a heart cath 12/27/2018 Patient underwent cardiac catheter was negative today and had PTCA of LAD. patient was found have mid LAD 70- 75% Stenosis. Currently patient denied any complains of chest pain or shortness of breath. No nausea vomiting or abdominal pain. No fever no chills. No headache or dizziness or lightheadedness. Patient is being continued on aspirin and Alim[place] and, Brillanta and coreg. Current medications reviewed. Objective - Vital Signs Vital signs: Vital Signs Temp 97.8 F 12/27/18 12:20 Pulse 56 L 12/27/18 14:20 Resp 18 12/27/18 14:20 BP 154/76 12/27/18 14:20 Pulse Ox 98 12/27/18 14:20 Intake & Output 12/26/18 12/27/18 12/27/18 18:59 06:59 18:59 Intake Total 199 Balance 199 Intake: IV 199 Sodium Chloride 0.9% 1, 75 000 ml @ 75 mls/hr IV . [id number] [facility] Rx#:[id number] Other: Voiding Method Toilet Toilet Toilet # Voids 1 - Exam On exam, alert and oriented x3. HEENT: Conjunctivae normal. eyes normal. NECK: No JVD. No thyroid enlargement. No LNs CARDIOVASCULAR: S1, S2 muffled. No murmur RESPIRATION: Breath sounds diminished in the bases. No rhonchi or crackles. No bronchial breathing. ABDOMEN: Soft, nontender . No guarding. no masses palpable. No ascites, No hepatosplenomegaly.Bowel sounds heard. LEGS: No edema. no swelling NERVOUS SYSTEM: Cranial N 2-12 grossly normal. Moves all 4 limbs. No focal deficits. No sensory deficit. No signs of cerebellar dysfucntion. Skin: no ulcer no rash Joints: No active swelling. No inflammation. Lymphatic system. No LN neck axilla or groin. - Labs CBC & Chem 7: 12/28/18 06:08 12/28/18 06:08 Assessment and Plan Assessment: - Angina status post PTCA to LAD - Hypertension - Hyperlipidemia - History of premature coronary artery disease in both his parents - History of depression and anxiety Plan - Patient is status post cardiac cath patient stent placement. Continue with aspirin, statins, brillanta and Coreg - Continue current medications for now. LDL 29. - DVT and GI prophylaxis - We will order for lab work in the morning - Patient is full code Time with Patient: Greater than 30
--- NOTE | 2018-12-28 23:22 | P.DS ---
Providers Date of admission: 12/27/18 14:57 Expected date of discharge: 12/28/18 Attending physician: Jacobo Wolff Consults: 12/25/18 20:38 Consult Physician Urgent Consulting Provider: Jt Trejo Consult Reason/Comments: cp Do you want consulting provider notified?: Yes 12/27/18 12:09 Consult Physician Routine Consulting Provider: [facility] Consult Reason/Comments: Post Interventional patient Do you want consulting provider notified?: Already Contacted Primary care physician: Estevan Marroquin Hospital Course: Discharge diagnosis - Unstable Angina status post PTCA to LAD - Hypertension - Hyperlipidemia - History of premature coronary artery disease in both his parents - History of depression and anxiety Hospital course Very pleasant 63-year-old gentleman with a past medical history significant for family history of premature coronary artery disease in both his parents, hypertension hyperlipidemia comes in with chest pain. Patient says that his symptoms started 2 days ago when he was walking his dog. He suddenly started having chest pain, shortness of breath and sweating. Symptoms subsided. He started having symptoms again on the day of admission when he was not doing anything and resting. This prompted him to the ER for further evaluation and management. Patient says that he's having no chest pain right now. He does not complain of any abdominal pain, no racing heart, no cough no shortness of breath, no nausea and vomiting, no tingling numbness on in the extremities, no itch or rash. ER course-WBC 5.0 hemoglobin 13.4 platelets 170 sodium 133 potassium 4.4 BUN 9 creatinine 0.76 GFR more than 90 troponin was less than 0.012 LFTs are normal. EKG shows no ST-T wave changes. Patient was admitted to the hospitalist service a further admission and management. Cardiology saw the patient and the plan is to do a heart cath 12/27/2018 Patient underwent cardiac catheter was negative today and had PTCA of LAD. patient was found have mid LAD 70- 75% Stenosis. Currently patient denied any complains of chest pain or shortness of breath. No nausea vomiting or abdominal pain. No fever no chills. No headache or dizziness or lightheadedness. Patient is being continued on aspirin and statins and, Brillanta and coreg. 12/28/2018 Patient denied any new complaints today. No complains of chest pain or shortness of breath. Patient is status post and placement. Patient is supposed to follow with cardiology for phase II cardiac catheterization and further assessment. Continued on current management and discharge medication reconciliation was done. Patient is otherwise stable to be discharged home. PHYSICAL EXAMINATION: Patient is lying in the bed comfortably, no acute distress, awake alert and oriented.. HEENT: Normocephalic. Neck is supple. Pupils reactive. Nostrils clear. Oral cavity is moist. Ears reveal no drainage. Neck reveals no JVD, carotid bruits, or thyromegaly. CHEST EXAMINATION: Trachea is central. Symmetrical expansion. Lung bacon clear to auscultation and percussion. CARDIAC: Normal S1, S2 with no gallops. No murmurs ABDOMEN: Soft. Bowel sounds normal. No organomegaly. No abdominal bruits. Extremities: reveal no edema. No clubbing or cyanosis Neurologically awake, alert, oriented x3 with well-coordinated movements. No focal deficits noted Skin: No rash or skin lesions. Psychiatric: Coperative. Nonsuicidal Musculoskeletal: No joint swelling or deformity. Normal range of motion. Vital Signs 12/28/18 16:00 Temperature 98.1 F Pulse Rate [ 68 Pulse Oximetery ] Respiratory 18 Rate Blood Pressure 143/72 [Left Arm] O2 Sat by Pulse 100 Oximetry Patient Condition at Discharge: Stable Plan - Discharge Summary New Discharge Prescriptions: New Aspirin 81 mg PO DAILY #30 chew Atorvastatin [Lipitor] 80 mg PO HS #30 tab Nitroglycerin Sl Tabs [Nitrostat] 0.4 mg SUBLINGUAL Q5M PRN #25 tab PRN Reason: Chest Pain Ticagrelor [Brilinta] 90 mg PO BID #60 tab Continue Citalopram Hydrobromide [CeleXA] 20 mg PO DAILY Pantoprazole Sodium [Protonix] 40 mg PO DAILY Testosterone [Androgel 1.62% Gel Pump] 1 applic TOPICAL DAILY Losartan Potassium 100 mg PO DAILY Fluticasone Nasal [place]ero [Flonase Nasal [place]ero] 2 spray EA NOSTRIL HS Carvedilol [Coreg] 3.125 mg PO BID Discontinued Tadalafil [Cialis] 5 mg PO HS PRN PRN Reason: NEEDED Atorvastatin Calcium [Lipitor] 20 mg PO HS Discharge Medication List Citalopram Hydrobromide [CeleXA] 20 mg PO DAILY 02/08/16 [History] Pantoprazole Sodium [Protonix] 40 mg PO DAILY 02/08/16 [History] Testosterone [Androgel 1.62% Gel Pump] 1 applic TOPICAL DAILY 06/19/17 [History] Carvedilol [Coreg] 3.125 mg PO BID 12/25/18 [History] Fluticasone Nasal [place] [Flonase Nasal [place]] 2 spray EA NOSTRIL HS 12/25/18 [ History] Losartan Potassium 100 mg PO DAILY 12/25/18 [History] Aspirin 81 mg PO DAILY #30 chew 12/28/18 [Rx] Atorvastatin [Lipitor] 80 mg PO HS #30 tab 12/28/18 [Rx] Nitroglycerin Sl Tabs [Nitrostat] 0.4 mg SUBLINGUAL Q5M PRN #25 tab 12/28/18 [Rx ] Ticagrelor [Brilinta] 90 mg PO BID #60 tab 12/28/18 [Rx] Follow up Appointment(s)/Referral(s): Elise Marie NPC [REFERRING] - 12/31/18 11:00 am (Thursday) Zuleyka Jeter MD [STAFF PHYSICIAN] - 1 Week (spoke with cashier receptionist office will call with appointment) Patient Instructions/Handouts: *Surgery [facility] - After Heart Catheterization - Biology Department Chair Instructions, Left Heart Catheterization (DC) Activity/Diet/Wound Care/Special Instructions: Pts Brillinta is $24/mo Discharge Disposition: HOME SELF-CARE
== END 2018-12-28 18:28 | disposition home or self-care (01) | DRG 247 ==
LOC: EC 18:09 → 1SOBS 20:37 → 3SCARD 12-27 11:59 → OBSVTOIN 12-27 14:57 → 3SCARD 12-27 19:14
PROVIDERS: ADMIT Hospitalist; ATTEND Hospitalist
PROC: B2111ZZ Fluoroscopy of Multiple Coronary Arteries using Low Osmolar Contrast (ICD-10-PCS; 2018-12-27)
PROC: 027034Z Dilation of Coronary Artery, One Artery with Drug-eluting Intraluminal Device, Percutaneous Approach (ICD-10-PCS; principal; 2018-12-27 10:00)
PROC: 4A023N7 Measurement of Cardiac Sampling and Pressure, Left Heart, Percutaneous Approach (ICD-10-PCS; 2018-12-27 10:00)
DX: I25.110 Atherosclerotic heart disease of native coronary artery with unstable angina pectoris (principal); I71.2 Thoracic aortic aneurysm, without rupture; M35.00 Sjogren syndrome, unspecified; E78.5 Hyperlipidemia, unspecified; F32.9 Major depressive disorder, single episode, unspecified; F41.9 Anxiety disorder, unspecified; I10 Essential (primary) hypertension; I49.3 Ventricular premature depolarization; K21.9 Gastro-esophageal reflux disease without esophagitis; Z79.899 Other long term (current) drug therapy; Z82.49 Family history of ischemic heart disease and other diseases of the circulatory system
CPT/HCPCS: 36415; 71275; 74174; 80048; 80053; 80061; 82550; 82553; 83735; 84484; 85025; 85610; 85730; 93005; 93306; 93458; 99285; C1874

== ENCOUNTER 2019-03-11 13:25 | Observation (INO) | payer MEDICARE, OTHER ==
--- NOTE | 2019-03-11 13:53 | ED ---
General Adult HPI - General Chief complaint: Chest Pain Stated complaint: Chest Pain Time Seen by Provider: 03/11/19 13:30 Source: patient, RN notes reviewed, old records reviewed Mode of arrival: ambulatory Limitations: no limitations - History of Present Illness Initial comments: 63 -year-old male history of CAD with stenting in the LAD in December that showed presenting with chest pain and dyspnea over the past one week. Patient has been on aspirin and Plavix since the time of discharge in December. No missed medication doses. He's had some intermittent symptoms over the past several months however over the past week he's had increased dyspnea. Symptoms are both with exertion and at rest. Denies weight gain or lower extremity edema. No history of heart failure. Denies cough. Denies fever. Denies nausea vomiting or diaphoresis. - Related Data Home Medications Medication Instructions Recorded Confirmed Citalopram Hydrobromide [CeleXA] 20 mg PO DAILY 02/08/16 03/11/19 Pantoprazole Sodium [Protonix] 40 mg PO Q48H 02/08/16 03/11/19 Testosterone [Androgel 1.62% Gel 1 applic TOPICAL DAILY 06/19/17 03/11/19 Pump] Carvedilol [Coreg] 3.125 mg PO BID 12/25/18 03/11/19 Losartan Potassium 100 mg PO DAILY 12/25/18 03/11/19 Clopidogrel [Plavix] 75 mg PO DAILY 03/11/19 03/11/19 Previous Rx's Medication Instructions Recorded Aspirin 81 mg PO DAILY #30 chew 12/28/18 Atorvastatin [Lipitor] 80 mg PO HS #30 tab 12/28/18 Nitroglycerin Sl Tabs [Nitrostat] 0.4 mg SUBLINGUAL Q5M PRN #25 tab 12/28/18 Allergies Allergy/AdvReac Type Severity Reaction Status Date / Time No Known Allergies Allergy Verified 03/11/19 14:02 Review of Systems ROS Statement: Those systems with pertinent positive or pertinent negative responses have been documented in the HPI. ROS Other: All systems not noted in ROS Statement are negative. Past Medical History Past Medical History: Hypertension Additional Past Medical History / Comment(s): Depression, acid reflux, Vertigo; Sjogren's .ED History of Any Multi-Drug Resistant Organisms: None Reported Past Surgical History: Back Surgery, Heart Catheterization With Stent, Orthopedic Surgery Additional Past Surgical History / Comment(s): hand surgery Past Anesthesia/Blood Transfusion Reactions: No Reported Reaction Past Psychological History: No Psychological Hx Reported Smoking Status: Never smoker Past Alcohol Use History: None Reported Past Drug Use History: None Reported - Past Family History Father Family Medical History: Myocardial Infarction ([place]) Mother Additional Family Medical History / Comment(s): Anrysum General Exam Limitations: no limitations General appearance: alert, in no apparent distress Head exam: Present: atraumatic, normocephalic Eye exam: Present: normal appearance, PERRL ENT exam: Present: normal exam Neck exam: Present: normal inspection. Absent: tenderness, meningismus Respiratory exam: Present: rales (trace at lung bases). Absent: respiratory distress Cardiovascular Exam: Present: regular rate, normal rhythm GI/Abdominal exam: Present: soft. Absent: distended, tenderness, guarding Extremities exam: Present: normal inspection, normal capillary refill. Absent: pedal edema Neurological exam: Present: alert, oriented X3, CN II-XII intact. Absent: motor sensory deficit Psychiatric exam: Present: normal affect, normal mood Skin exam: Present: warm, dry, intact. Absent: cyanosis, diaphoretic Course Vital Signs 03/11/19 03/11/19 13:26 14:00 Temperature 98.2 F Pulse Rate 77 61 Respiratory 18 18 Rate Blood Pressure 168/87 176/90 O2 Sat by Pulse 100 Oximetry EKG Findings - EKG Comments: EKG Findings:: EKG: Normal sinus rhythm, rate of 63, VA interval 188, QRS duration 82, QTC 380, no ST segment changes. Medical Decision Making - Medical Decision Making 63-year-old male with intermittent chest pain and dyspnea. Patient had recent heart cath with stenting in the LAD in December of this year. EKG is normal sinus with no definitive signs of ischemia. He has a normal chest x-ray with no acute cardiopulmonary disease, normal CBC, normal CMP, initial troponin negative, BNP negative, CT angiography is obtained as this patient has history of thoracic aortic aneurysm. This is measured at 4.3 cm which is unchanged from previous. Patient will be kept in observation, serial cardiac enzymes, telemetry, cardiology consultation, echo will be obtained. Case discussed with admitting physician. - Lab Data Result diagrams: 03/11/19 13:58 03/11/19 13:58 Lab Results 03/11/19 03/11/19 03/11/19 Range/Units 13:58 13:58 13:58 WBC 4.1 (3.8-10.6) k/uL RBC 4.27 L (4.30-5.90) m/uL Hgb 13.2 (13.0-17.5) gm/dL Hct 39.4 (39.0-53.0) % MCV 92.2 (80.0-100.0) fL MCH 30.9 (25.0-35.0) pg MCHC 33.6 (31.0-37.0) g/dL RDW 12.4 (11.5-15.5) % Plt Count 181 (150-450) k/uL Neutrophils % 60 % Lymphocytes % 24 % Monocytes % 10 % Eosinophils % 1 % Basophils % 1 % Neutrophils # 2.5 (1.3-7.7) k/uL Lymphocytes # 1.0 (1.0-4.8) k/uL Monocytes # 0.4 (0-1.0) k/uL Eosinophils # 0.1 (0-0.7) k/uL Basophils # 0.0 (0-0.2) k/uL PT 10.1 (9.0-12.0) sec INR 0.9 (<1.2) APTT 24.9 (22.0-30.0) sec Sodium 133 L (137-145) mmol/L Potassium 4.4 (3.5-5.1) mmol/L Chloride 99 (98-107) mmol/L Carbon Dioxide 26 (22-30) mmol/L Anion Gap 8 mmol/L BUN 8 L (9-20) mg/dL Creatinine 0.62 L (0.66-1.25) mg/dL Est GFR (CKD-EPI)AfAm >90 (>60 ml/min/1.73 sqM) Est GFR (CKD-EPI)NonAf >90 (>60 ml/min/1.73 sqM) Glucose 105 H (74-99) mg/dL Calcium 9.3 (8.4-10.2) mg/dL Magnesium 1.8 (1.6-2.3) mg/dL Total Bilirubin 0.8 (0.2-1.3) mg/dL AST 37 (17-59) U/L ALT 50 (21-72) U/L Alkaline Phosphatase 112 (38-126) U/L Troponin I (0.000-0.034) ng/mL NT-Pro-B Natriuret Pep pg/mL Total Protein 6.9 (6.3-8.2) g/dL Albumin 4.3 (3.5-5.0) g/dL 03/11/19 03/11/19 Range/Units 13:58 13:58 WBC (3.8-10.6) k/uL RBC (4.30-5.90) m/uL Hgb (13.0-17.5) gm/dL Hct (39.0-53.0) % MCV (80.0-100.0) fL MCH (25.0-35.0) pg MCHC (31.0-37.0) g/dL RDW (11.5-15.5) % Plt Count (150-450) k/uL Neutrophils % % Lymphocytes % % Monocytes % % Eosinophils % % Basophils % % Neutrophils # (1.3-7.7) k/uL Lymphocytes # (1.0-4.8) k/uL Monocytes # (0-1.0) k/uL Eosinophils # (0-0.7) k/uL Basophils # (0-0.2) k/uL PT (9.0-12.0) sec INR (<1.2) APTT (22.0-30.0) sec Sodium (137-145) mmol/L Potassium (3.5-5.1) mmol/L Chloride (98-107) mmol/L Carbon Dioxide (22-30) mmol/L Anion Gap mmol/L BUN (9-20) mg/dL Creatinine (0.66-1.25) mg/dL Est GFR (CKD-EPI)AfAm (>60 ml/min/1.73 sqM) Est GFR (CKD-EPI)NonAf (>60 ml/min/1.73 sqM) Glucose (74-99) mg/dL Calcium (8.4-10.2) mg/dL Magnesium (1.6-2.3) mg/dL Total Bilirubin (0.2-1.3) mg/dL AST (17-59) U/L ALT (21-72) U/L Alkaline Phosphatase (38-126) U/L Troponin I <0.012 (0.000-0.034) ng/mL NT-Pro-B Natriuret Pep 74 pg/mL Total Protein (6.3-8.2) g/dL Albumin (3.5-5.0) g/dL Disposition Clinical Impression: Chest pain Disposition: ADMITTED IP TO THIS [facility] Condition: Stable Is patient prescribed a controlled substance at d/c from ED?: No Referrals: Estevan Marroquin III, MD [Primary Care Provider] - 1-2 days Decision to Admit Reason: Admit from EC Decision Date: 03/11/19 Decision Time: 16:03
--- NOTE | 2019-03-11 14:09 | XR ---
EXAMINATION TYPE: XR chest 2V DATE OF EXAM: 03/11/2019 COMPARISON: 11/15/16 HISTORY: Shortness of breath TECHNIQUE: Frontal and lateral views of the chest are obtained. FINDINGS: Scattered senescent parenchymal changes noted. Hyperinflation compatible with COPD. No evidence for infiltrate. No evidence for atelectasis. Heart size is stable. Mediastinal structures are stable and grossly unremarkable. No evidence for hilar prominence. Degenerative changes dorsal spine. IMPRESSION: 1. No evidence for acute pulmonary disease.
[2019-03-11 14:12] LABS: Basophils % (A) 1 %; Eosinophils # (A) 0.1 k/uL (0-0.7); Eosinophils % (A) 1 %; HCT 39.4 % (39.0-53.0); HGB 13.2 gm/dL (13.0-17.5); Lymphocytes % (A) 24 %; MCH 30.9 pg (25.0-35.0); MCHC 33.6 g/dL (31.0-37.0); MCV 92.2 fL (80.0-100.0); Monocytes # (A) 0.4 k/uL (0-1.0); Monocytes % (A) 10 %; Neutrophils # (A) 2.5 k/uL (1.3-7.7); Neutrophils % (A) 60 %; Platelet Count 181 k/uL (150-450); RBC 4.27 m/uL (4.30-5.90); RDW 12.4 % (11.5-15.5); WBC 4.1 k/uL (3.8-10.6)
[2019-03-11 14:20] LABS: INR 0.9 (<1.2); Partial Thromboplastin Time 24.9 sec (22.0-30.0); Prothrombin Time 10.1 sec (9.0-12.0)
[2019-03-11 14:24] LABS: ALT 50 U/L (21-72); AST 37 U/L (17-59); Albumin 4.3 g/dL (3.5-5.0); Alkaline Phosphatase 112 U/L (38-126); Anion Gap 8 mmol/L; Blood Urea Nitrogen 8 mg/dL (9-20); Calcium 9.3 mg/dL (8.4-10.2); Carbon Dioxide 26 mmol/L (22-30); Chloride 99 mmol/L (98-107); Glucose 105 mg/dL (74-99); Magnesium 1.8 mg/dL (1.6-2.3); Potassium 4.4 mmol/L (3.5-5.1); Sodium 133 mmol/L (137-145); Total Bilirubin 0.8 mg/dL (0.2-1.3); Total Protein 6.9 g/dL (6.3-8.2)
[2019-03-11] MEDS ORDERED: SODIUM CHLORIDE 0.9% 500 ML 500 ML IV ONE (15:07)
--- NOTE | 2019-03-11 15:59 | CT ---
EXAMINATION TYPE: CT angio chest DATE OF EXAM: 03/11/2019 COMPARISON: Chest CT July 08, 2018 HISTORY: Chest pain and shortness of breath. Known thoracic aneurysm CT DLP: 788.9 mGycm. Automated Exposure Control for Dose Reduction was Utilized. CONTRAST: CTA scan of the thorax is performed without and with IV Contrast, patient injected with 100 mL of Iso tian 370, pulmonary embolism protocol. Three-D reconstructed images are independent workstation and re viewed. FINDINGS: LUNGS: There is persistent 10 x 5 mm spiculated nodule or nodular consolidation anterior right upper lobe axial image 28 not significantly changed from prior 2 studies. Dependent atelectasis both lower lungs is present, right greater than left. There is additional new groundglass opacity abutting right major fissure in the lower lobe axial image 60 could reflect developing infiltrate. There is no pleu ral effusion or pneumothorax seen. The tracheobronchial tree is patent. MEDIASTINUM: There is satisfactory enhancement of the central pulmonary artery, there is no CT eviden ce for pulmonary embolism. There are no greater than 1 cm hilar or mediastinal lymph nodes. No car diomegaly or pericardial effusion is seen. Main pulmonary artery and bifurcation measures 2.9 cm diam eter axial image 48. Adjacent ascending artery measures 4.3 cm in diameter on same image on current s tudy. No linear hypodensities to suggest dissection is present. No significant change from prior. OTHER: Mild multilevel spurring in the thoracic spine is present. Few splenule systolic hilum are not ed. IMPRESSION: Ascending aortic aneurysm up to 4.3 cm not significantly changed from prior studies. Poss ible developing infiltrate lateral right lower lobe upper aspect, correlate clinically.
[2019-03-11] MEDS ORDERED: NALOXONE 0.4 MG/ML 1 ML VIAL IV PRN (16:00)
[2019-03-11] MEDS ORDERED: NITROGLYCERIN SL TABS 0.4 MG TAB SUBLINGUAL PRN (16:28)
[2019-03-11] MEDS: CARVEDILOL 3.125 MG TAB PO SCH (18:14)
[2019-03-11 18:55] VITALS: BMI 24.0
[2019-03-11 20:35] VITALS: RESP 16
[2019-03-11] MEDS: CLOPIDOGREL 75 MG TAB PO SCH (20:47)
[2019-03-11] MEDS: CITALOPRAM HYDROBROMIDE 20 MG TAB PO SCH (20:47)
[2019-03-11] MEDS ORDERED: ATORVASTATIN 80 MG TAB PO SCH (21:00)
--- NOTE | 2019-03-11 23:10 | P.HPIM ---
History of Present Illness H&P Date: 03/11/19 Chief Complaint: Chest pain Patient is 63-year-old male with a known history of coronary artery disease with stenting in the LAD in December 2018 came to ER with complaints of chest pain or shortness of breath for the past 1 week. Patient has been having constant chest pain since then mainly mid retrosternal. Patient has been having exertional dyspnea for the past few months. Patient does have associated shortness of breath. Today morning patient did have chest pain as is her shortness of breath and diaphoretic. No nausea vomiting or diarrhea. No headache or dizziness or lightheadedness. No cough or sputum production. Denied any fever or chills. Denied any recent illnesses or sick contacts. Patient says that he has been complicated with his medications including aspirin and Plavix and statins and cardiac medications. Chest x-ray showed no acute cardio pulmonary process CT angiography of the chest showed ascending aortic aneurysm up to 4.3 cm not significantly changed from prior studies. Possible developing infiltrate lateral right lower lobe aspect. Correlate clinically. EKG showed normal sinus rhythm. WBC 4.1 BNP and troponin 2 negative Review of Systems Constitutional: Patient denies any fever or chills . No generalized weakness or weight loss. Abdomen: Patient denied nausea vomiting and diarrhea and abdominal pain. Cardiovascular: Chest pain is associated shortness of breath and no palpitations no leg swelling. Respiratory: patient denied any cough is from production. No shortness of breath Neurologic: Patient denied any numbness or tingling headache. Musculoskeletal: Patient denies any complaints of joint swelling or deformity. Skin: Negative Psychiatric: Negative Endocrine: No heat or cold intolerance. No recent weight gain. Genitourinary: No dysuria or hematuria. All other 14 point ROS negative except the above Past Medical History Past Medical History: Hypertension Additional Past Medical History / Comment(s): Depression, acid reflux, Vertigo; Sjogren's .ED History of Any Multi-Drug Resistant Organisms: None Reported Past Surgical History: Back Surgery, Heart Catheterization With Stent, Orthopedic Surgery Additional Past Surgical History / Comment(s): hand surgery Past Anesthesia/Blood Transfusion Reactions: No Reported Reaction Past Psychological History: No Psychological Hx Reported Smoking Status: Never smoker Past Alcohol Use History: None Reported Past Drug Use History: None Reported - Past Family History Father Family Medical History: Myocardial Infarction ([place]) Mother Additional Family Medical History / Comment(s): Meesum Medications and Allergies Home Medications Medication Instructions Recorded Confirmed Type Citalopram Hydrobromide [CeleXA] 20 mg PO DAILY 02/08/16 03/11/19 History Pantoprazole Sodium [Protonix] 40 mg PO Q48H 02/08/16 03/11/19 History Testosterone [Androgel 1.62% Gel 1 applic TOPICAL DAILY 06/19/17 03/11/19 History Pump] Carvedilol [Coreg] 3.125 mg PO BID 12/25/18 03/11/19 History Losartan Potassium 100 mg PO DAILY 12/25/18 03/11/19 History Aspirin 81 mg PO DAILY #30 chew 12/28/18 03/11/19 Rx Atorvastatin [Lipitor] 80 mg PO HS #30 tab 12/28/18 03/11/19 Rx Nitroglycerin Sl Tabs [Nitrostat] 0.4 mg SUBLINGUAL Q5M PRN #25 tab 12/28/18 03/11/19 Rx Clopidogrel [Plavix] 75 mg PO DAILY 03/11/19 03/11/19 History Allergies Allergy/AdvReac Type Severity Reaction Status Date / Time No Known Allergies Allergy Verified 03/11/19 14:02 Physical Exam Vitals: Vital Signs Temp Pulse Resp BP Pulse Ox 03/11/19 16:00 64 16 159/99 98 03/11/19 15:00 64 18 153/98 98 03/11/19 14:00 61 18 176/90 100 03/11/19 13:26 98.2 F 77 18 168/87 Intake and Output 03/11/19 03/11/19 03/11/19 06:59 14:59 22:59 Other: Weight 80.467 kg PHYSICAL EXAMINATION: Patient is lying in the bed comfortably, no acute distress, awake alert and oriented.. HEENT: Normocephalic. Neck is supple. Pupils reactive. Nostrils clear. Oral cavity is moist. Ears reveal no drainage. Neck reveals no JVD, carotid bruits, or thyromegaly. CHEST EXAMINATION: Trachea is central. Symmetrical expansion. Lung bacon clear to auscultation and percussion. CARDIAC: Normal S1, S2 with no gallops. No murmurs ABDOMEN: Soft. Bowel sounds normal. No organomegaly. No abdominal bruits. Extremities: reveal no edema. No clubbing or cyanosis Neurologically awake, alert, oriented x3 with well-coordinated movements. No focal deficits noted Skin: No rash or skin lesions. Psychiatric: Coperative. Nonsuicidal Musculoskeletal: No joint swelling or deformity. Normal range of motion. Results CBC & Chem 7: 03/11/19 13:58 05 13:58 Labs: Abnormal Lab Results - Last 24 Hours (Table) 03/11/19 03/11/19 Range/Units 13:58 13:58 RBC 4.27 L (4.30-5.90) m/uL Sodium 133 L (137-145) mmol/L BUN 8 L (9-20) mg/dL Creatinine 0.62 L (0.66-1.25) mg/dL Glucose 105 H (74-99) mg/dL Thrombosis Risk Factor Assmnt - DVT/VTE Prophylaxis DVT/VTE Prophylaxis: Pharmacologic Prophylaxis ordered Assessment and Plan Assessment: Atypical chest pain with a known history of coronary artery disease and recent stent placement. Rule out ACS Coronary artery disease with history of stent placement to LAD in December 2018 Ascending aortic aneurysm 4.3 cm unchanged from prior study. Hypertension uncontrolled Depression GERD Sjogren's syndrome DVT prophylaxis. Heparin subcu Plan: Patient will be continued on telemetry monitoring. Initial EKG and troponin 2 negative. Continue with home blood pressure medications Coreg and losartan and titrate as needed. Continue with aspirin Plavix and statins. Cardiology will be consulted. Further recommendations based on the clinical course. Time with Patient: Greater than 30
[2019-03-11] MEDS: HEPARIN SODIUM,PORCINE 5,000 UNIT/ML 1 ML VIAL SQ SCH (23:40)
[2019-03-12] MEDS ORDERED: HEPARIN SODIUM,PORCINE 5,000 UNIT/ML 1 ML VIAL SQ SCH
--- NOTE | 2019-03-12 07:27 | P.CRDCN ---
History of Present Illness Consult date: 03/12/19 Chief complaint: Chest pain History of present illness: This is a pleasant 63-year-old gentleman who sees Dr. Jeter in the office as an outpatient with known history of coronary artery disease where he underwent stenting of the proximal LAD in December 2018 and known severe disease involving the small obtuse marginal branch of the left circumflex as well as mild disease involving the right coronary artery presented to the emergency room complaining of chest discomfort. He states that he has been experiencing intermittent episodes of chest discomfort, in the mid of the chest, as a sharp kind of discomfort, without radiation to the arm or neck or shoulders and without any associated symptoms. The chest discomfort does not seems to be exertional. The EKG showed sinus rhythm without any ischemic ST or T-wave abnormalities. 3 sets of troponin came in to be unremarkable. The chest x-ray did not show any acute abnormalities. The computed tomography scan of the chest showed only mildly dilated ascending aorta which seems to be unchanged compared to before. Past Medical History Past Medical History: Hypertension Additional Past Medical History / Comment(s): Depression, acid reflux, Vertigo; Sjogren's .ED History of Any Multi-Drug Resistant Organisms: None Reported Past Surgical History: Back Surgery, Heart Catheterization With Stent, Orthopedic Surgery Additional Past Surgical History / Comment(s): hand surgery Past Anesthesia/Blood Transfusion Reactions: No Reported Reaction Date of Last Stent Placement:: dec 2018 Past Psychological History: No Psychological Hx Reported Smoking Status: Never smoker Past Alcohol Use History: None Reported Past Drug Use History: None Reported - Past Family History Father Family Medical History: Myocardial Infarction ([place]) Mother Additional Family Medical History / Comment(s): Anrysum Medications and Allergies Home Medications Medication Instructions Recorded Confirmed Type Citalopram Hydrobromide [CeleXA] 20 mg PO DAILY 02/08/16 03/11/19 History Pantoprazole Sodium [Protonix] 40 mg PO Q48H 02/08/16 03/11/19 History Testosterone [Androgel 1.62% Gel 1 applic TOPICAL DAILY 06/19/17 03/11/19 History Pump] Carvedilol [Coreg] 3.125 mg PO BID 12/25/18 03/11/19 History Losartan Potassium 100 mg PO DAILY 12/25/18 03/11/19 History Aspirin 81 mg PO DAILY #30 chew 12/28/18 03/11/19 Rx Atorvastatin [Lipitor] 80 mg PO HS #30 tab 12/28/18 03/11/19 Rx Nitroglycerin Sl Tabs [Nitrostat] 0.4 mg SUBLINGUAL Q5M PRN #25 tab 12/28/18 03/11/19 Rx Clopidogrel [Plavix] 75 mg PO DAILY 03/11/19 03/11/19 History Allergies Allergy/AdvReac Type Severity Reaction Status Date / Time No Known Allergies Allergy Verified 03/11/19 14:02 Physical Exam Vitals: Vital Signs Temp Pulse Pulse Resp BP BP Pulse Ox 03/12/19 03:46 97.7 F 60 16 115/69 98 03/12/19 03:01 16 03/12/19 00:00 16 03/11/19 23:45 98.6 F 58 L 16 128/55 97 03/11/19 20:00 98.5 F 58 L 16 149/73 98 03/11/19 18:16 98.6 F 64 18 192/89 98 03/11/19 17:00 98.2 F 66 15 152/87 98 03/11/19 16:00 64 16 159/99 98 03/11/19 15:00 64 18 153/98 98 03/11/19 14:00 61 18 176/90 100 03/11/19 13:26 98.2 F 77 18 168/87 Intake and Output 03/11/19 03/12/19 03/12/19 22:59 06:59 14:59 Intake Total 236 Balance 236 Intake: Oral 236 Other: Voiding Method Toilet Toilet # Voids 2 - Constitutional General appearance: no acute distress - Respiratory Respiratory: bilateral: CTA - Cardiovascular Rhythm: regular Heart sounds: normal: S1, S2 Results 03/11/19 13:58 03/11/19 13:58 Cardiac Enzymes 03/11/19 03/11/19 03/11/19 Range/Units 13:58 13:58 19:40 AST 37 (17-59) U/L Troponin I <0.012 <0.012 (0.000-0.034) ng/mL 03/12/19 Range/Units 02:04 AST (17-59) U/L Troponin I <0.012 (0.000-0.034) ng/mL Coagulation 03/11/19 Range/Units 13:58 PT 10.1 (9.0-12.0) sec APTT 24.9 (22.0-30.0) sec CBC 03/11/19 Range/Units 13:58 WBC 4.1 (3.8-10.6) k/uL RBC 4.27 L (4.30-5.90) m/uL Hgb 13.2 (13.0-17.5) gm/dL Hct 39.4 (39.0-53.0) % Plt Count 181 (150-450) k/uL Comprehensive Metabolic Panel 03/11/19 Range/Units 13:58 Sodium 133 L (137-145) mmol/L Potassium 4.4 (3.5-5.1) mmol/L Chloride 99 (98-107) mmol/L Carbon Dioxide 26 (22-30) mmol/L BUN 8 L (9-20) mg/dL Creatinine 0.62 L (0.66-1.25) mg/dL Glucose 105 H (74-99) mg/dL Calcium 9.3 (8.4-10.2) mg/dL AST 37 (17-59) U/L ALT 50 (21-72) U/L Alkaline Phosphatase 112 (38-126) U/L Total Protein 6.9 (6.3-8.2) g/dL Albumin 4.3 (3.5-5.0) g/dL Current Medications Generic Name Dose Route Start Last Admin Trade Name Freq PRN Reason Stop Dose Admin Aspirin 81 mg 03/12/19 09:00 Aspirin PO DAILY COUNT INCLUDES THE [facility] Atorvastatin Calcium 80 mg 03/11/19 21:00 03/11/19 20:47 Lipitor PO 80 mg HS GILMA Administration Carvedilol 3.125 mg 03/11/19 17:30 03/11/19 18:14 Coreg PO 3.125 mg BID-W/MEALS COUNT INCLUDES THE [facility] Administration Citalopram Hydrobromide 20 mg 03/11/19 20:36 03/11/19 20:47 Celexa PO 20 mg DAILY GILMA Administration Clopidogrel Bisulfate 75 mg 03/11/19 20:45 03/11/19 20:47 Plavix PO 75 mg DAILY GILMA Administration Heparin Sodium (Porcine) 5,000 unit 03/12/19 00:00 03/11/19 23:40 Heparin SQ 5,000 unit Q8HR GILMA Administration Losartan Potassium 100 mg 03/12/19 09:00 Cozaar PO DAILY GILMA Naloxone HCl 0.2 mg 03/11/19 16:00 Narcan IV Q2M PRN Opioid Reversal Nitroglycerin 0.4 mg 03/11/19 16:28 Nitrostat SUBLINGUAL Q5M PRN Chest Pain Pantoprazole Sodium 40 mg 03/12/19 07:30 Protonix PO Q48H GILMA Intake and Output 03/11/19 03/12/19 03/12/19 22:59 06:59 14:59 Intake Total 236 Balance 236 Intake: Oral 236 Other: Voiding Method Toilet Toilet # Voids 2 03/11/19 13:58 03/11/19 13:58 Assessment and Plan Assessment: Assessment #1 atypical chest pain #2 severe CAD and status post a stenting of the LAD #3 hypertension #4 dyslipidemia Plan #1 the patient was ruled out for acute coronary event #2 I am going to get the patient up and around and if he is asymptomatic he possibly can be discharged home #3 consider adding oral nitrates to the current medical regimen #4 follow-up with the patient
[2019-03-12] MEDS ORDERED: PANTOPRAZOLE 40 MG TABLET PO SCH (07:30)
[2019-03-12] MEDS ORDERED: ASPIRIN 81 MG PO SCH (09:00)
[2019-03-12] MEDS ORDERED: CITALOPRAM HYDROBROMIDE 20 MG TAB PO SCH (09:00)
[2019-03-12] MEDS ORDERED: CLOPIDOGREL 75 MG TAB PO SCH (09:00)
[2019-03-12] MEDS ORDERED: LOSARTAN 50 MG TAB PO SCH (09:00)
--- NOTE | 2019-03-12 09:12 | ECHOF ---
Referral Reason:cp MEASUREMENTS -------- HEIGHT: 182.9 cm WEIGHT: 80.3 kg BP: RVIDd: 2.8 cm (< 3.3) IVSd: 1.4 cm (0.6 - 1.1) LVIDd: 3.6 cm (3.9 - 5.3) LVPWd: 1.6 cm (0.6 - 1.1) IVSs: 1.5 cm LVIDs: 3.0 cm LVPWs: 1.3 cm LA Diam: 3.9 cm (2.7 - 3.8) LAESV Index (A-L): 18.06 ml/m Ao Diam: 3.4 cm (2.0 - 3.7) AV Cusp: 1.8 cm (1.5 - 2.6) LA Diam: 4.1 cm (2.7 - 3.8) MV EXCURSION: 21.171 mm (> 18.000) MV EF SLOPE: 60 mm/s (70 - 150) EPSS: 0.5 cm MV E Ernesto: 0.79 m/s MV DecT: 201 ms MV A Ernesto: 0.98 m/s MV E/A Ratio: 0.81 RAP: 5.00 mmHg RVSP: 27.53 mmHg FINDINGS -------- Sinus rhythm. This was a technically good study. The left ventricular size is normal. There is moderate concentric left ventricular hypertrophy. O verall left ventricular systolic function is normal with, an EF between 55 - 60 %. The right ventricle is normal in size. The left atrial size is normal. The right atrial size is normal. Interatrial and interventricular septum intact. There is mild aortic valve sclerosis. There is mild aortic regurgitation. Mild mitral annular calcification present. Mild mitral regurgitation is present. Trace tricuspid regurgitation present. There is no evidence of pulmonary hypertension. The right ventricular systolic pressure, as measured by Doppler, is 27.53mmHg. There is no pulmonic regurgitation present. The aortic root size is normal. Normal inferior vena cava with normal inspiratory collapse consistent with estimated right atrial pre ssure of 5 mmHg. There is no pericardial effusion. CONCLUSIONS -------- 1. The left ventricular size is normal. 2. There is moderate concentric left ventricular hypertrophy. 3. Overall left ventricular systolic function is normal with, an EF between 55 - 60 %. 4. The right ventricle is normal in size. 5. The left atrial size is normal. 6. The right atrial size is normal. 7. Interatrial and interventricular septum intact. 8. There is mild aortic valve sclerosis. 9. There is mild aortic regurgitation. 10. Mild mitral annular calcification present. 11. Mild mitral regurgitation is present. 12. Trace tricuspid regurgitation present. 13. There is no evidence of pulmonary hypertension. 14. The right ventricular systolic pressure, as measured by Doppler, is 27.53mmHg. 15. There is no pulmonic regurgitation present. 16. The aortic root size is normal. 17. Normal inferior vena cava with normal inspiratory collapse consistent with estimated right atrial pressure of 5 mmHg. 18. There is no pericardial effusion. SAUSAGE COOKER: Matilde Zhang RDCS
[2019-03-12] MEDS: HEPARIN SODIUM,PORCINE 5,000 UNIT/ML 1 ML VIAL SQ SCH (09:13)
[2019-03-12] MEDS: CLOPIDOGREL 75 MG TAB PO SCH ×2 (09:15→12:29)
[2019-03-12] MEDS: CITALOPRAM HYDROBROMIDE 20 MG TAB PO SCH ×2 (09:16→12:29)
[2019-03-12] MEDS: CARVEDILOL 3.125 MG TAB PO SCH (09:16)
[2019-03-12 11:20] VITALS: BP 132/66; PULSE 62; TEMP 98.2
== END 2019-03-12 15:04 | disposition home or self-care (01) ==
LOC: EC 13:25 → 1SOBS 16:00
PROVIDERS: ADMIT Internal Medicine; ATTEND Internal Medicine
DX: R07.89 Other chest pain (principal); I10 Essential (primary) hypertension; I71.2 Thoracic aortic aneurysm, without rupture; E78.5 Hyperlipidemia, unspecified; R06.02 Shortness of breath; R61 Generalized hyperhidrosis; I25.10 Atherosclerotic heart disease of native coronary artery without angina pectoris; R06.09 Other forms of dyspnea; R42 Dizziness and giddiness; M35.00 Sjogren syndrome, unspecified; K21.9 Gastro-esophageal reflux disease without esophagitis; F32.9 Major depressive disorder, single episode, unspecified; Z79.02 Long term (current) use of antithrombotics/antiplatelets; Z79.899 Other long term (current) drug therapy; Z79.82 Long term (current) use of aspirin; Z95.5 Presence of coronary angioplasty implant and graft; Z82.49 Family history of ischemic heart disease and other diseases of the circulatory system
CPT/HCPCS: 96372; 99285; 36415; 93005; 93306; 83880; 80053; 83735; 84484 ×2; 85025; 85610; 85730; 71046; 71275; G0378 ×2; J1644; Q9967

== ENCOUNTER → 2019-06-30 | Outpatient (CLI) | payer MEDICARE, OTHER ==
--- NOTE | 2019-06-30 09:29 | CT ---
EXAMINATION TYPE: CT chest w con DATE OF EXAM: 06/30/2019 COMPARISON: Most recent CTA chest March 11, 2019 and older CTs. Most recent chest x-ray March 11, 2019 HISTORY: Lung nodule on cxr. Abnormal x-ray. CT DLP: 309.2 mGycm. Automated Exposure Control for Dose Reduction was Utilized. TECHNIQUE: CT scan of the thorax is performed following with IV Contrast, patient injected with 100 mL of Isovue 300. FINDINGS: LUNGS: There is a stable spiculated nodule anterior medial right upper lobe measuring 1.2 x 0.7 cm ax ial image 14 not significantly changed or increased in size from March 02, 2018 CT axial image 17. Fe w scattered small blebs in the left lower lobe are present. No additional nodules or masses are seen. No pleural effusion or pneumothorax is noted. MEDIASTINUM: There are no greater than 1 cm hilar or mediastinal lymph nodes. No . Cardiomegaly or Pericardial effusion is seen. Persistent enlarged main pulmonary artery at 3.0 cm in diameter axial image 27. Adjacent ascending aorta measures up to 4.4 cm diameter axial image 28. No significant cramer ge from prior studies. Coronary artery calcification is redemonstrated which is noted marker for unde rlying coronary artery disease OTHER: Small splenule inferior splenic hilum axial image 67 redemonstrated. [id number] multilev el spurring of thoracic spine again seen with slight scoliotic curvature IMPRESSION: Stable anteromedial 1.2 x 0.7 cm right upper lobe spiculated nodule or scar. No new nodul es or masses are seen. Outside x-ray and/or report not available for comparison at time of dictation.
== END | disposition home or self-care (01) ==
LOC: RADCTMAIN 07:16
PROVIDERS: ATTEND Internal Medicine
DX: R91.1 Solitary pulmonary nodule (principal)
CPT/HCPCS: 71260; Q9967

== ENCOUNTER → 2019-08-05 | Outpatient (CLI) | payer MEDICARE, OTHER ==
[2019-08-05 11:26] LABS: Basophils # (A) 0.1 k/uL (0-0.2); Basophils % (A) 2 %; Eosinophils # (A) 0.2 k/uL (0-0.7); Eosinophils % (A) 4 %; HCT 37.7 % (39.0-53.0); HGB 13.2 gm/dL (13.0-17.5); Lymphocytes % (A) 19 %; MCV 91.6 fL (80.0-100.0); Mean Platelet Volume 7.2; Monocytes # (A) 0.5 k/uL (0-1.0); Monocytes % (A) 10 %; Neutrophils # (A) 3.1 k/uL (1.3-7.7); Neutrophils % (A) 62 %; Platelet Count 270 k/uL (150-450); RBC 4.12 m/uL (4.30-5.90); RDW 12.4 % (11.5-15.5); WBC 5.1 k/uL (3.8-10.6)
[2019-08-05 12:48] LABS: Erythrocyte Sedimentation Rate 13 mm/hr (0-15)
[2019-08-05 16:39] LABS: ALT 38 U/L (10-49); AST 36 U/L (14-35); African American GFR (CKD) 109.4 (60.0-200.0); Albumin/Globulin Ratio 2.15 (1.60-3.17); Alkaline Phosphatase 127 U/L (41-126); BUN/Creat Ratio 11.25 Ratio (12.00-20.00); C Reactive Protein <0.4 mg/dL (0.0-0.8); Calcium 8.9 mg/dL (8.7-10.3); Carbon Dioxide 26.6 mmol/L (21.6-31.8); Chloride 96 mmol/L (96-109); Glucose 94 mg/dL (70-110); Potassium 5.3 mmol/L (3.5-5.5); Sodium 129 mmol/L (135-145); Total Bilirubin 0.6 mg/dL (0.3-1.2); Total Protein 6.3 g/dL (6.2-8.2)
[2019-08-08 12:10] LABS: ANA Pattern Speckled; ANA Pattern 2 Nucleolar
== END ==
LOC: LABWHC1 10:10
PROVIDERS: ATTEND Internal Medicine Infectious Disease
DX: M00.9 Pyogenic arthritis, unspecified (principal)
CPT/HCPCS: 36415; 80053; 85025; 85652; 86038; 86039; 86140; 87040

== ENCOUNTER 2019-08-09 11:24 | Inpatient (IN) | payer MEDICARE, OTHER ==
[2019-08-09] MEDS ORDERED: HYDROcodone/APAP 5-325MG 1 EACH TAB PO PRN (11:58)
[2019-08-09] MEDS ORDERED: HYDROmorphone 0.5 MG/0.5 ML SYRINGE IVP PRN (11:58)
[2019-08-09] MEDS ORDERED: PROCHLORPERAZINE SUPPOSITORY 25 MG SUPP RECTAL PRN (11:58)
[2019-08-09] MEDS ORDERED: diphenhydrAMINE 25 MG CAP PO PRN (11:58)
[2019-08-09] MEDS ORDERED: ONDANSETRON 4 MG/2 ML VIAL IVP PRN (11:58)
[2019-08-09] MEDS ORDERED: hydrOXYzine PAMOATE 25 MG CAP PO PRN (11:58)
[2019-08-09] MEDS ORDERED: TEMAZEPAM 15 MG CAP PO PRN (11:58)
[2019-08-09] MEDS ORDERED: METOCLOPRAMIDE 5 MG/ML 2 ML VIAL IVP PRN (11:58)
[2019-08-09] MEDS ORDERED: SENNOSIDES-DOCUSATE SODIUM 1 EACH TAB PO PRN (11:58)
--- NOTE | 2019-08-09 13:54 | P.HPOR ---
History of Present Illness H&P Date: 08/09/19 Chief Complaint: Right shoulder pain Patient is a 63 year old male. Osmel presents to our office for recheck of his right shoulder. He is status post arthroscopic I&D of postoperative infection of his right shoulder, performed on 07/28/19. He has completed his Bactrim and has not been on an antibiotic. He states that he saw Dr. Scales last and a blood draw was ordered. He notes that he is having breathing issues which he compares to "asthma or CPOD". His shoulder is extremely painful for him. Patient rates his pain at 7/10 today. Patient's history: He is post op arthroscopic rotator cuff repair (large, acromioplasty, biceps tenotomy, and labral debridement of his right shoulder, performed on 06/24/19. He returns to the office with increased pain about his shoulder which has been present for about a week now. He has not started with formal physical therapy. He has complaint of pain, stiffness, and fullness in is shoulder. His shoulder has become exquisitely painful for him. No fevers, chills or any other constitutional symptoms Review of Systems All systems: negative Constitutional: Denies chills, Denies fever Eyes: denies blurred vision, denies pain Ears, nose, mouth and throat: Denies headache, Denies sore throat Cardiovascular: Denies chest pain, Denies shortness of breath Respiratory: Denies cough Gastrointestinal: Denies abdominal pain, Denies diarrhea, Denies nausea, Denies vomiting Musculoskeletal: Denies myalgias Integumentary: Denies pruritus, Denies rash Neurological: Denies numbness, Denies weakness Psychiatric: Denies anxiety, Denies depression Endocrine: Denies fatigue, Denies weight change Past Medical History Past Medical History: Hypertension Additional Past Medical History / Comment(s): Depression, acid reflux, Vertigo; Sjogren's .ED History of Any Multi-Drug Resistant Organisms: None Reported Past Surgical History: Back Surgery, Heart Catheterization With Stent, Orthopedic Surgery Additional Past Surgical History / Comment(s): hand surgery Past Anesthesia/Blood Transfusion Reactions: No Reported Reaction Date of Last Stent Placement:: dec 2018 Past Psychological History: No Psychological Hx Reported Smoking Status: Never smoker Past Alcohol Use History: None Reported Past Drug Use History: None Reported - Past Family History Father Family Medical History: Myocardial Infarction ([place]) Mother Additional Family Medical History / Comment(s): Anrysum Medications and Allergies Home Medications Medication Instructions Recorded Confirmed Type Citalopram Hydrobromide [CeleXA] 20 mg PO HS 02/08/16 03/12/19 History Pantoprazole Sodium [Protonix] 40 mg PO Q48H 02/08/16 03/11/19 History Testosterone [Androgel 1.62% Gel 1 applic TOPICAL DAILY 06/19/17 03/11/19 History Pump] Carvedilol [Coreg] 3.125 mg PO BID 12/25/18 03/11/19 History Losartan Potassium 100 mg PO DAILY 12/25/18 03/11/19 History Aspirin 81 mg PO DAILY #30 chew 12/28/18 03/11/19 Rx Atorvastatin [Lipitor] 80 mg PO HS #30 tab 12/28/18 03/11/19 Rx Nitroglycerin Sl Tabs [Nitrostat] 0.4 mg SUBLINGUAL Q5M PRN #25 tab 12/28/18 03/11/19 Rx Clopidogrel [Plavix] 75 mg PO HS 03/11/19 03/12/19 History Allergies Allergy/AdvReac Type Severity Reaction Status Date / Time No Known Allergies Allergy Verified 03/11/19 14:02 Physical Examination Constitutional: Patient is adequately groomed with no evidence of malnutrition. Skin: There are no rashes, ulcerations or lesions in the regions examined. Mental Status: Patient is oriented to time, place and person. Mood and affect are appropriate. Respiratory: No labored effort. No accessory muscle use. HEENT: Normal cephalic atraumatic. Extraocular movements are intact. The incisions are well healed. There is no erythema. He is starting to get swelling in the shoulder again. He has not been feeling well the past several days. Range of motion was not tested today due to patient's recent shoulder surgery. Intact anterior, middle and posterior deltoid function and intact axillary nerve sensation. There is an intact EPL, FPL, extensor indicis, hand intrinsics and the FDP to the small finger. Intact radial, median and ulnar nerve sensations as well as 2+ radial pulse and brisk capillary refill distally. Assessment and Plan (1) Septic arthritis of shoulder, right Narrative/Plan: Patient's symptoms have returned since going off of the Bactrim. His shoulder is extremely painful and he isn't feeling very well. He is being direct admitted for possible arthroscopic I and D, IV antibiotics, pain management and medical management. Dr. Scales along with internal medicine have been consulted. Plan is for tentative I and D tomorrow, Thursday, afternoon. He is NPO after MN. Pre op clearance has been requested. Labs have been ordered and procedure/consent has been ordered. Current Visit: Yes Status: Acute Priority: Medium Code(s): M00.9 - PYOGENIC ARTHRITIS, UNSPECIFIED SNOMED Code(s): 65051944 Time with Patient: Less than 30
[2019-08-09 14:22] VITALS: BMI 23.0
[2019-08-09] MEDS: HYDROmorphone 1 MG/ML 1 ML SYRINGE IVP PRN ×3 (14:53→22:03)
[2019-08-09 14:55] LABS: Basophils # (A) 0.1 k/uL (0-0.2); Basophils % (A) 1 %; Eosinophils # (A) 0.3 k/uL (0-0.7); Eosinophils % (A) 6 %; HCT 34.2 % (39.0-53.0); HGB 12.2 gm/dL (13.0-17.5); Lymphocytes % (A) 17 %; MCH 32.1 pg (25.0-35.0); MCHC 35.7 g/dL (31.0-37.0); MCV 89.9 fL (80.0-100.0); Mean Platelet Volume 6.4; Monocytes # (A) 0.4 k/uL (0-1.0); Monocytes % (A) 7 %; Neutrophils # (A) 3.8 k/uL (1.3-7.7); Neutrophils % (A) 66 %; Platelet Count 269 k/uL (150-450); RBC 3.81 m/uL (4.30-5.90); RDW 12.2 % (11.5-15.5); WBC 5.8 k/uL (3.8-10.6)
--- NOTE | 2019-08-09 16:24 | XR ---
EXAMINATION TYPE: XR chest 2V DATE OF EXAM: 08/09/2019 COMPARISON: 03/11/2019 HISTORY: Shortness of breath TECHNIQUE: Frontal and lateral views of the chest are obtained. FINDINGS: Scattered senescent parenchymal changes noted. Hyperinflation compatible with COPD. No evidence for infiltrate. No evidence for atelectasis. Heart size is stable. Mediastinal structures are stable and grossly unremarkable. No evidence for hilar prominence. Degenerative changes dorsal spine. IMPRESSION: 1. No evidence for acute pulmonary disease.
--- NOTE | 2019-08-09 22:24 | P.CONS ---
History of Present Illness - Reason for Consult Consult date: 08/09/19 - Chief Complaint increasing pain right shoulder - History of Present Illness Pleasant 63-year-old male who has a history of Sjogren's disease presents to his orthopedic office because of the marked increase of pain to his right shoulder. He was seen in the outpatient setting last week with urgent concern to his right shoulder. He had been treated with antibiotic therapy in the form of trimethoprim sulfamethoxazole outpatient that had stopped last week. He was seen in the outpatient setting blood work is obtained revealing evidence of a relatively normal sed rate and CRP, a very elevated CATRACHO was found possibly due to his Sjogren's. The patient now presents for further surgical intervention because increasing pain and swelling discomfort and erythema to the site. He feels poorly but is not having fevers or chills. Review of Systems HEENT:Denies headache or acute visual change. Denies sinus or mouth discomforts. Denies neck stiffness or pain. Denies significant oral cavity pain. Denies difficulty on swallowing. Lungs: Denies significant shortness of breath, cough, sputum production, or hemoptysis. Cardiovascular: Denies significant shortness of breath, chest pain, chest wall pain, orthopnea, dyspnea on exertion, syncope Gastrointestinal:Denies nausea, vomiting, diarrhea, constipation, hematemesis, melena, hematochezia. No no significant change of bowel habit noticed. Musculoskeletal:s per the HPI severe pain right Skin: Denies new rash or lesions. No new ulcers or wounds are related.. Neuro: Denies headache or visual change. Denies any new onset weakness or difficulty with ambulation. Denies falls or seizures. Psychiatric:Denies anxiety or depression. Endocrine: Denies significant fatigue, denies significant weight loss or weight gain. Past Medical History Past Medical History: Coronary Artery Disease (CAD), GERD/Reflux, Hypertension Additional Past Medical History / Comment(s): R shoulder pain for approximately one month/infection, AAA being monitored, Sjogren's, occasional vertigo, History of Any Multi-Drug Resistant Organisms: None Reported Past Surgical History: Back Surgery, Heart Catheterization With Stent, Orthopedic Surgery Additional Past Surgical History / Comment(s): R shoulder arthroscopyfor torn R rotator cuff/post infection and had another surgery to remove titanium hook, PICC, low back fusion, R hand foreign body removal, 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 pet dog in the home. Usually goes to the gym 3 times perhoulder Smoking Status: Never smoker - Past Family History Father Family Medical History: Myocardial Infarction ([place]) Additional Family Medical History / Comment(s): Father of a [place] at the age of 60yrs. Mother Additional Family Medical History / Comment(s): Mother of an aneurysm that ruptured at the age of 60yrs. Medications and Allergies Home Medications and Allergies Comment(s): Current Medications Hydrocodone Bitart/Acetaminophen (Sidney 5-325) 1 each PO Q6HR PRN PRN Reason: Pain Scale 1 to 5 Hydrocodone Bitart/Acetaminophen (Sidney 5-325) 2 each PO Q6HR PRN PRN Reason: Pain Scale 6 to 10 Diphenhydramine HCl (Benadryl) 25 mg PO HS PRN PRN Reason: Insomnia Hydromorphone HCl (Dilaudid) 0.25 mg IVP Q3HR PRN PRN Reason: Pain Scale 1 to 3 Hydromorphone HCl (Dilaudid) 1 mg IVP Q3HR PRN PRN Reason: Pain Scale 7 to 10 Last Admin: 08/09/19 18:17 Dose: 1 mg Documented by: Hydromorphone HCl (Dilaudid) 0.5 mg IVP Q3HR PRN PRN Reason: Pain Scale 4 to 6 Hydroxyzine Pamoate (Vistaril) 25 mg PO Q6HR PRN PRN Reason: Nausea/Anxiety Metoclopramide HCl (Reglan) 10 mg IVP Q6HR PRN PRN Reason: Nausea And Vomiting Ondansetron HCl (Zofran) 4 mg IVP DAILY PRN PRN Reason: Nausea And Vomiting Prochlorperazine Maleate (Compazine) 25 mg RECTAL BID PRN PRN Reason: Nausea And Vomiting Senna/Docusate Sodium (Senokot-S) 2 each PO HS PRN PRN Reason: Constipation Temazepam (Restoril) 15 mg PO HS PRN PRN Reason: Insomnia Home Medications Medication Instructions Recorded Confirmed Type Citalopram Hydrobromide [CeleXA] 20 mg PO HS 02/08/16 08/09/19 History Pantoprazole Sodium [Protonix] 40 mg PO DAILY 02/08/16 08/09/19 History Testosterone [Androgel 1.62% Gel 1 applic TOPICAL DAILY 06/19/17 08/09/19 History Pump] Carvedilol [Coreg] 3.125 mg PO BID 12/25/18 08/09/19 History Aspirin 81 mg PO DAILY #30 chew 12/28/18 08/09/19 Rx Atorvastatin [Lipitor] 80 mg PO HS #30 tab 12/28/18 08/09/19 Rx Nitroglycerin Sl Tabs [Nitrostat] 0.4 mg SUBLINGUAL Q5M PRN #25 tab 12/28/18 08/09/19 Rx Clopidogrel [Plavix] 75 mg PO HS 03/11/19 08/09/19 History Valsartan [Diovan] 160 mg PO DAILY 08/09/19 08/09/19 History Allergies Allergy/AdvReac Type Severity Reaction Status Date / Time No Known Allergies Allergy Verified 08/09/19 15:47 Physical Exam Vitals: Vital Signs Temp Pulse Resp BP Pulse Ox 08/09/19 19:40 97.8 F 60 16 168/84 100 08/09/19 14:46 97.9 F 70 16 142/80 97 08/09/19 13:25 97.7 F 68 16 144/75 Intake and Output 08/09/19 08/09/19 08/09/19 06:59 14:59 22:59 Other: # Voids 1 Weight 77.1 kg Very pleasant 63-year-old male is a thin build, and is very fernandez from his outside activities of the summer HEENT: Anicteric conjunctiva are pink and moist nasal mucosa grossly intact without significant lesions, there is no thrush. Neck: The neck is supple without significant lymphadenopathy or thyromegaly. Lungs: Good bilateral air entry without significant crackles or wheezing. There is no significant bronchial sounds. There is no egophony or dullness. Heart: Regular rate and rhythm with an audible S1-S2, no S3 no S4. There is no significant murmur click or rub, PMI was nondisplaced. Abdomen: Positive bowel sounds soft and nontender without palpable masses or organomegaly. There was no guarding or rebound. Extremities: extremities are free from significant edema. The peripheral pulses were 2+ and symmetric.Left arm without acute abnormality. The bilateral lower extremities and no significant edema. Right arm shows evidence of the recent surgical intervention to the right shoulder. The surgical incision is well-heal ed. However is some erythema to the site. There is some mild warmth. There is severe point tenderness over the shoulder itself at the prior surgical incision site. There is extreme pain to range of motion of the right shoulder. Neuro: Awake alert oriented to person place and time. There are no acute new gross focal sensory motor deficits. Results CBC & Chem 7: 08/09/19 14:25 Labs: Abnormal Lab Results - Last 24 Hours (Table) 08/09/19 Range/Units 14:25 RBC 3.81 L (4.30-5.90) m/uL Hgb 12.2 L (13.0-17.5) gm/dL Hct 34.2 L (39.0-53.0) % Laboratory Results WBC 5.8 k/uL (3.8-10.6) 08/09/19 14:25 RBC 3.81 m/uL (4.30-5.90) L 08/09/19 14:25 Hgb 12.2 gm/dL (13.0-17.5) L 08/09/19 14:25 Hct 34.2 % (39.0-53.0) L 08/09/19 14:25 MCV 89.9 fL (80.0-100.0) 08/09/19 14:25 MCH 32.1 pg (25.0-35.0) 08/09/19 14:25 MCHC 35.7 g/dL (31.0-37.0) 08/09/19 14:25 RDW 12.2 % (11.5-15.5) 08/09/19 14:25 Plt Count 269 k/uL (150-450) 08/09/19 14:25 Neutrophils % 66 % 08/09/19 14:25 Lymphocytes % 17 % 08/09/19 14:25 Monocytes % 7 % 08/09/19 14:25 Eosinophils % 6 % 08/09/19 14:25 Basophils % 1 % 08/09/19 14:25 Neutrophils # 3.8 k/uL (1.3-7.7) 08/09/19 14:25 Lymphocytes # 1.0 k/uL (1.0-4.8) 08/09/19 14:25 Monocytes # 0.4 k/uL (0-1.0) 08/09/19 14:25 Eosinophils # 0.3 k/uL (0-0.7) 08/09/19 14:25 Basophils # 0.1 k/uL (0-0.2) 08/09/19 14:25 Assessment and Plan (1) Septic arthritis of shoulder, right Narrative/Plan: 63-year-old male with a history of Sjogren's disease has had difficulties with his righ He did have a arthroscopic repair in June 2019 of the right with a large tear, acromioplasty, biceps tenotomy, and labral debridement of his right shoulder,and was having some improvement. Your then developed increasing pain and discomfort the shoulder. He was then seen in the outpatient setting where he was evaluated. There was concerns to infection and outpatient blood work was obtained. Sedimentation rate and CRP were normal however his CATRACHO is very elevated at 1-1280. The blood cell count was also normal. The patient has not been seen by the orthopedic team again and to the operating room for incision and drainage of the right shoulder. Deep cultures and tissue culture requested including aerobic, anaerobic, fungal, acid-fast bacilli as well as cultures being held for Propionibacterium acnes. We'll initiate antibiotic therapy based on the findings of the surgical debridement tomorrow. An inflammatory arthritis related to his underlying autoimmune disease needs to be considered. Pain control is helping his current severe pain. Current Visit: Yes Status: Acute Priority: Medium Code(s): M00.9 - PYOGENIC ARTHRITIS, UNSPECIFIED SNOMED Code(s): 40527599 (2) Shortness of breath Current Visit: Yes Status: Acute Code(s): R06.02 - SHORTNESS OF BREATH SNOMED Code(s): 167099367 (3) Sjogrens syndrome Current Visit: Yes Status: Acute Code(s): M35.00 - SICCA SYNDROME, UNSPECIFIED SNOMED Code(s): 75527756
[2019-08-10] MEDS: HYDROmorphone 1 MG/ML 1 ML SYRINGE IVP PRN (03:43)
[2019-08-10] MEDS: HYDROmorphone 0.5 MG/0.5 ML SYRINGE IVP PRN ×2 (08:53→14:50)
[2019-08-10] MEDS ORDERED: NITROGLYCERIN SL TABS 0.4 MG TAB SUBLINGUAL PRN (10:01)
[2019-08-10] MEDS: CARVEDILOL 3.125 MG TAB PO SCH (11:42)
--- NOTE | 2019-08-10 13:57 | P.CONS ---
History of Present Illness - Reason for Consult Septic arthritis of the left shoulder - History of Present Illness 63-year-old male with history of Sjogren syndrome had a right shoulder arthroplasty followed by septic arthritis of that area underwent incision and drainage of that was treated with Bactrim which was stopped last week patient started having swelling increasing redness and pain in that area. Patient motion is limited by passive and active motions patient has increased CRP as well as a any in a elevation discussed are secondary to soak once. Patient will undergo insertion and drainage deep culture after which patient probably will be started on antibiotic therapy patient any fever chills. Patient had nausea vomiting abdominal pain diarrhea. Patient doesn't appear to be septic at this time. Patient clinically looks well except for severe pain in the right shoulder area Review of Systems REVIEW OF SYSTEMS: CONSTITUTIONAL: No fever, no malaise, no fatigue. HEENT: No recent visual problems or hearing problems. Denied any sore throat. CARDIOVASCULAR: No chest pain, orthopnea, PND, no palpitations, no syncope. PULMONARY: No shortness of breath, no cough, no hemoptysis. GASTROINTESTINAL: No diarrhea, no nausea, no vomiting, no abdominal pain. NEUROLOGICAL: No headaches, no weakness, no numbness. HEMATOLOGICAL: Denies any bleeding or petechiae. GENITOURINARY: Denies any burning micturition, frequency, or urgency. MUSCULOSKELETAL/RHEUMATOLOGICAL: As mentioned in HPI ENDOCRINE: Denies any polyuria or polydipsia. The rest of the 14-point review of systems is negative. Past Medical History Past Medical History: Coronary Artery Disease (CAD), GERD/Reflux, Hypertension Additional Past Medical History / Comment(s): R shoulder pain for approximately one month/infection, AAA being monitored, Sjogren's, occasional vertigo, History of Any Multi-Drug Resistant Organisms: None Reported Past Surgical History: Back Surgery, Heart Catheterization With Stent, Orthopedic Surgery Additional Past Surgical History / Comment(s): R shoulder arthroscopyfor torn R rotator cuff/post infection and had another surgery to remove titanium hook, PICC, low back fusion, R hand foreign body removal, 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 pet dog in the home. Usually goes to the gym 3 times per[place]oulder Smoking Status: Never smoker - Past Family History Father Family Medical History: Myocardial Infarction ([place]) Additional Family Medical History / Comment(s): Father of a [place] at the age of 60yrs. Mother Additional Family Medical History / Comment(s): Mother of an aneurysm that ruptured at the age of 60yrs. Medications and Allergies Home Medications Medication Instructions Recorded Confirmed Type Citalopram Hydrobromide [CeleXA] 20 mg PO HS 02/08/16 08/09/19 History Pantoprazole Sodium [Protonix] 40 mg PO DAILY 02/08/16 08/09/19 History Testosterone [Androgel 1.62% Gel 1 applic TOPICAL DAILY 06/19/17 08/09/19 History Pump] Carvedilol [Coreg] 3.125 mg PO BID 12/25/18 08/09/19 History Aspirin 81 mg PO DAILY #30 chew 12/28/18 08/09/19 Rx Atorvastatin [Lipitor] 80 mg PO HS #30 tab 12/28/18 08/09/19 Rx Nitroglycerin Sl Tabs [Nitrostat] 0.4 mg SUBLINGUAL Q5M PRN #25 tab 12/28/18 08/09/19 Rx Clopidogrel [Plavix] 75 mg PO HS 03/11/19 08/09/19 History Valsartan [Diovan] 160 mg PO DAILY 08/09/19 08/09/19 History Allergies Allergy/AdvReac Type Severity Reaction Status Date / Time No Known Allergies Allergy Verified 08/09/19 15:47 Physical Exam Vitals: Vital Signs Temp Pulse Resp BP Pulse Ox 08/10/19 06:59 97.8 F 58 L 16 150/76 99 08/10/19 01:10 97.6 F 61 19 151/80 97 08/09/19 19:40 97.8 F 60 16 168/84 100 08/09/19 14:46 97.9 F 70 16 142/80 97 Intake and Output 08/09/19 08/10/19 08/10/19 22:59 06:59 14:59 Other: Voiding Method Toilet # Voids 1 PHYSICAL EXAMINATION: GENERAL: The patient is alert and oriented x3, not in any acute distress. Well developed, well nourished. HEENT: Pupils are round and equally reacting to light. EOMI. No scleral icterus. No conjunctival pallor. Normocephalic, atraumatic. No pharyngeal erythema. No thyromegaly. CARDIOVASCULAR: S1 and S2 present. No murmurs, rubs, or gallops. PULMONARY: Chest is clear to auscultation, no wheezing or crackles. ABDOMEN: Soft, nontender, nondistended, normoactive bowel sounds. No palpable organomegaly. MUSCULOSKELETAL: Swelling in the right shoulder restriction of motion because of pain as mentioned above in HPI, incision is well-healed. EXTREMITIES: No cyanosis, clubbing, or pedal edema. NEUROLOGICAL: Gross neurological examination did not reveal any focal deficits. SKIN: No rashes. Swelling in the right shoulder restriction of motion because of pain as mentioned above in HPI Results CBC & Chem 7: 08/09/19 14:25 Labs: Abnormal Lab Results - Last 24 Hours (Table) 08/09/19 Range/Units 14:25 RBC 3.81 L (4.30-5.90) m/uL Hgb 12.2 L (13.0-17.5) gm/dL Hct 34.2 L (39.0-53.0) % Assessment and Plan Plan: -Pain in the shoulder with possible to septic arthritis: Patient will undergo incision and drainage and deep cultures after which patient probably will be started on antibiotics and infectious disease was consulted -Sjogren syndrome: Supportive care. -Coronary artery disease: Patient had cardiac catheterization and stenting more than 2 years ago patient is presently and antiplatelet therapy present will hold off on Plavix for now continue with aspirin -Gastroesophageal reflux disease -Hypertension -Hyperlipidemia -Depression For above-mentioned chronic medical problems patient was resumed on his home medications.
[2019-08-10] MEDS ORDERED: LACTATED RINGERS 1,000 ML IV ONE ×2 (16:58→21:54)
[2019-08-10] MEDS ORDERED: fentaNYL (PF) 50 MCG/ML 2 ML AMP ONE (20:49)
[2019-08-10] MEDS ORDERED: MIDAZOLAM 2 MG/2 ML VIAL ONE (20:49)
[2019-08-10] MEDS ORDERED: PHENYLEPHRINE-0.9% NACL SYG 1 MG/10 ML SYRINGE ONE (20:49)
[2019-08-10] MEDS ORDERED: SUCCINYLCHOLINE CHLORIDE 100 MG/5 ML SYR IV ONE (20:49)
[2019-08-10] MEDS ORDERED: LIDOCAINE 1% INJ 10MG/ML (20 ML MDV) ONE (20:49)
[2019-08-10] MEDS ORDERED: PROPOFOL 10 MG/ML 20 ML VIAL IV ONE (20:49)
[2019-08-10] MEDS ORDERED: CLOPIDOGREL 75 MG TAB PO SCH (21:00)
[2019-08-10] MEDS: HYDROmorphone 1 MG/ML 1 ML SYRINGE IVP ONE ×4 (22:11→22:37)
--- NOTE | 2019-08-10 22:23 | P.PN ---
Subjective Progress Note Date: 08/10/19 Pleasant 63-year-old male who has a history of Sjogren's disease presents to his orthopedic office because of the marked increase of pain to his right shoulder. He was seen in the outpatient setting last week with urgent concern to his right shoulder. He had been treated with antibiotic therapy in the form of trimethoprim sulfamethoxazole outpatient that had stopped last week. He was seen in the outpatient setting blood work is obtained revealing evidence of a relatively normal sed rate and CRP, a very elevated CATRACHO was found possibly due to his Sjogren's. The patient now presents for further surgical intervention because increasing pain and swelling discomfort and erythema to the site. He feels poorly but is not having fevers or chills. 08/10/2019 patient has been somewhat anxious about his surgical procedure that was delayed until quite late this afternoon. The pain at the site he is not having other new acute difficulty. Objective - Vital Signs Vital signs: Vital Signs Temp 97.5 F L 08/10/19 21:57 Pulse 73 08/10/19 22:12 Resp 16 08/10/19 22:12 BP 157/81 08/10/19 22:12 Pulse Ox 100 08/10/19 22:12 Intake & Output 08/10/19 08/10/19 08/11/19 06:59 18:59 06:59 Intake Total 30 550 Output Total 3 Balance 30 547 Intake: IV 550 Oral 30 Output: Estimated Blood Loss 3 Other: Voiding Method Toilet # Voids 1 2 - Exam Very pleasant 63-year-old male is a thin build, and is very f[place]andez from his outside activities of the summer HEENT: Anicteric conjunctiva are pink and moist nasal mucosa grossly intact without significant lesions, there is no thrush. Neck: The neck is supple without significant lymphadenopathy or thyromegaly. Lungs: Good bilateral air entry without significant crackles or wheezing. There is no significant bronchial sounds. There is no egophony or dullness. Heart: Regular rate and rhythm with an audible S1-S2, no S3 no S4. There is no significant murmur click or rub, PMI was nondisplaced. Abdomen: Positive bowel sounds soft and nontender without palpable masses or organomegaly. There was no guarding or rebound. Extremities: extremities are free from significant edema. The peripheral pulses were 2+ and symmetric.Left arm without acute abnormality. The bilateral lower extremities and no significant edema. Right arm shows evidence of the recent surgical intervention to the right shoulder. The surgical incision is well- healed. However is some erythema to the site. There is some mild warmth. There is severe point tenderness over the shoulder itself at the prior surgical incision site. There is extreme pain to range of motion of the right shoulder. Neuro: Awake alert oriented to person place and time. There are no acute new gross focal sensory motor deficits. - Labs CBC & Chem 7: 08/09/19 14:25 Labs: Laboratory Results WBC 5.8 k/uL (3.8-10.6) 08/09/19 14:25 RBC 3.81 m/uL (4.30-5.90) L 08/09/19 14:25 Hgb 12.2 gm/dL (13.0-17.5) L 08/09/19 14:25 Hct 34.2 % (39.0-53.0) L 08/09/19 14:25 MCV 89.9 fL (80.0-100.0) 08/09/19 14:25 MCH 32.1 pg (25.0-35.0) 08/09/19 14:25 MCHC 35.7 g/dL (31.0-37.0) 08/09/19 14:25 RDW 12.2 % (11.5-15.5) 08/09/19 14:25 Plt Count 269 k/uL (150-450) 08/09/19 14:25 Neutrophils % 66 % 08/09/19 14:25 Lymphocytes % 17 % 08/09/19 14:25 Monocytes % 7 % 08/09/19 14:25 Eosinophils % 6 % 08/09/19 14:25 Basophils % 1 % 08/09/19 14:25 Neutrophils # 3.8 k/uL (1.3-7.7) 08/09/19 14:25 Lymphocytes # 1.0 k/uL (1.0-4.8) 08/09/19 14:25 Monocytes # 0.4 k/uL (0-1.0) 08/09/19 14:25 Eosinophils # 0.3 k/uL (0-0.7) 08/09/19 14:25 Basophils # 0.1 k/uL (0-0.2) 08/09/19 14:25 Chest x-ray is clear without any infiltrate Assessment and Plan (1) Septic arthritis of shoulder, right Narrative/Plan: 63-year-old male with a history of Sjogren's disease has had difficulties with his righ He did have a arthroscopic repair in June 2019 of the right with a large tear, acromioplasty, biceps tenotomy, and labral debridement of his right shoulder,and was having some improvement. Your then developed increasing pain a nd discomfort the shoulder. He was then seen in the outpatient setting where he was evaluated. There was concerns to infection and outpatient blood work was obtained. Sedimentation rate and CRP were normal however his CATRACHO is very elevated at 1-1280. The blood cell count was also normal. The patient has not been seen by the orthopedic team again and to the operating room for incision and drainage of the right shoulder. Deep cultures and tissue culture requested including aerobic, anaerobic, fungal, acid-fast bacilli as well as cultures being held for Propionibacterium acnes. We'll initiate antibiotic therapy based on the findings of the surgical debridement tomorrow. An inflammatory arthritis related to his underlying autoimmune disease needs to be considered. Pain control is helping his current severe pain. 08/10/2019 patient is anxious about surgery he's been an add-on case for the late day. Surgical debridement will occur and deep cultures have been requested for aerobic, anaerobic, AFB and fungus. Antibiotic therapy will be derived based on the findings of these cultures. We'll follow after surgery. Current Visit: Yes Status: Acute Priority: Medium Code(s): M00.9 - PYOGENIC ARTHRITIS, UNSPECIFIED SNOMED Code(s): 12458550 (2) Shortness of breath Current Visit: Yes Status: Acute Code(s): R06.02 - SHORTNESS OF BREATH SNOMED Code(s): 586613848 (3) Sjogrens syndrome Current Visit: Yes Status: Acute Code(s): M35.00 - SICCA SYNDROME, UNSPECIFIED SNOMED Code(s): 00911183
[2019-08-11 00:19] LABS: Appearance,BF Hazy; Color,BF Red; Nucleated Cells, Body Fluid 8640 /uL; RBC, Body Fluid 23600 /uL
[2019-08-11 00:21] LABS: Mononuclear WBC,Body Fluid 3 %; Polynuclear WBC,Body Fluid 97 %; Total Cells Counted,Body Fluid 100
[2019-08-11] MEDS: ATORVASTATIN 80 MG TAB PO SCH ×2 (00:48→20:57)
[2019-08-11] MEDS: CITALOPRAM HYDROBROMIDE 20 MG TAB PO SCH ×2 (00:48→20:57)
[2019-08-11] MEDS: HYDROmorphone 1 MG/ML 1 ML SYRINGE IVP PRN ×2 (01:53→09:08)
--- NOTE | 2019-08-11 06:50 | OP ---
OPERATIVE REPORT DATE OF SURGERY: 08/10/2019 PREOPERATIVE DIAGNOSIS: Possible septic arthritis, right shoulder. POSTOPERATIVE DIAGNOSIS: Possible septic arthritis, right shoulder. PROCEDURE: Arthroscopic irrigation and debridement, right shoulder. SURGEON: Tej Crenshaw MD. ANESTHESIA: General endotracheal. ESTIMATED BLOOD LOSS: Minimal. TOURNIQUET: None. DRAINS: None. COMPLICATIONS: None apparent. DISPOSITION: Postanesthesia care unit. INDICATIONS: Mr. Cardona is a very pleasant 63-year-old gentleman well known to me. He underwent right shoulder rotator cuff repair by myself approximately 6 weeks ago. He subsequently developed an effusion in the shoulder. He underwent a previous irrigation and debridement of the shoulder almost 2 weeks ago. He has redeveloped a small effusion. He had an increased pain in the shoulder. Decision was made for a repeat irrigation debridement. The risks of procedure were discussed with Mr. Cardona in detail. These risks include, but are not limited to risk of infection, nerve damage, bleeding, pain and risk of deep vein thrombosis which could lead to fatal pulmonary embolism. Further risks include failure to eradicate the infection. All of his questions with regards to the procedure were answered to his satisfaction. Appropriate informed consent was obtained. DESCRIPTION OF THE PROCEDURE: The patient identified in the preoperative holding area. Surgical site was marked by both the patient and myself. Antibiotics were held until cultures were taken. He was transferred to the operative suite. He was placed supine on the operating room table. General anesthetic was then administered, dosed per the anesthesia department without apparent complication. The patient was then placed into the beach chair position well- padded in preparation for surgery. Great care was taken to ensure that his cervical spine was in neutral alignment, well-padded and maintained that way throughout the operative procedure. The patient's right upper extremity was then prepped and draped in usual sterile fashion. Standard surgical pause was then undertaken to ensure that we were operating the correct site and that appropriate preoperative antibiotics had been given. All staff in the room were in agreement, we proceeded. I then used the previous lateral portal and placed an 18-gauge spinal needle in the subacromial space. Approximately 5 to 7 mL of fluid was aspirated. It was serosanguineous appearing joint fluid. This was sent for culture and analysis. I then utilized the previous posterior portal and placed the arthroscope into the subacromial space. I took 2 more cultures through the arthroscopic cannula. I then reopened the anterolateral portal. A shaver was then placed into the subacromial space through the previous anterolateral portal. I then irrigated the shoulder with 9 L of sterile saline solution. I utilized a shaver to sharply debride any fibrinous exudate. There was very minimal exudate. It did not have a significant purulent appearance to the shoulder. The rotator cuff again was inspected. The infraspinatus was intact. The supraspinatus had a very large tear. After 9 L of fluid had been run to the shoulder, the arthroscope was removed from the shoulder. The 3 portals were then closed with 3-0 nylon interrupted suture. Sterile compressive dressing was then applied. Patient's right upper extremity was placed in a standard sling. All sponge and needle counts were deemed correct prior to closure. The patient tolerated procedure without apparent complication. He was transferred to the recovery room in stable condition. We will evaluate all of the cultures tomorrow. I will have the cultures held for a prolonged period of time to assess for C acnes type infection. Infectious Disease has already been consulted. MMODL / IJN: [id number] /
[2019-08-11] MEDS: VALSARTAN 160 MG TAB PO SCH (07:18)
[2019-08-11] MEDS: HYDROcodone/APAP 5-325MG 1 EACH TAB PO PRN ×2 (07:19→17:42)
[2019-08-11] MEDS: PANTOPRAZOLE 40 MG TABLET PO SCH (07:19)
[2019-08-11] MEDS: CARVEDILOL 3.125 MG TAB PO SCH ×2 (07:20→17:43)
[2019-08-11] MEDS: TESTOSTERONE TOPICAL SCH (07:20)
[2019-08-11] MEDS: ASPIRIN 81 MG PO SCH (07:20)
--- NOTE | 2019-08-11 10:57 | P.PN ---
Subjective Progress Note Date: 08/11/19 Principal diagnosis: Right shoulder pain Patient is seen at bedside this morning. He is postop day #1 from arthroscopic I and D right shoulder. He has pain at the surgical site as expected but denies any new complaints. He denies numbness, tingling or calf pain. Review of sys tems is negative for fever, chills, chest pain, shortness of breath or other Objective - Vital Signs Vital signs: Vital Signs Temp 98.4 F 08/11/19 07:00 Pulse 86 08/11/19 07:00 Resp 16 08/11/19 07:00 BP 141/70 08/11/19 07:00 Pulse Ox 95 08/11/19 07:00 Intake & Output 08/10/19 08/11/19 08/11/19 18:59 06:59 18:59 Intake Total 30 850 Output Total 3 Balance 30 847 Intake: IV 850 Oral 30 Output: Estimated Blood Loss 3 Other: Voiding Method Toilet Toilet # Voids 2 1 - Exam Inspection reveals a benign surgical wound. There is no active bleeding or drainage. Neurovascular status is intact throughout the upper extremity with motor and sensation fully intact. Calf is soft and nontender. 2+ radial pulse and less than 2 second cap refill is present. - Constitutional General appearance: Present: no acute distress - Labs CBC & Chem 7: 08/09/19 14:25 Labs: Microbiology - Last 24 Hours (Table) 08/10/19 21:17 Gram Stain - Preliminary Synovial Fluid Body Fluid Culture - Preliminary Assessment and Plan (1) Septic arthritis of shoulder, right Narrative/Plan: Labs and cultures are relatively benign thus far. He is afebrile and his shoulder pain is controlled. Continue pain management, medical management, and IV antibiotics. Will await Dr. Scales' recommendations regarding antibiotic therapy. Current Visit: Yes Status: Acute Priority: Medium Code(s): M00.9 - PYOGENIC ARTHRITIS, UNSPECIFIED SNOMED Code(s): 97854335 Time with Patient: Less than 30
--- NOTE | 2019-08-11 13:59 | P.PN ---
Subjective Patient is admitted for a possible septic arthritis of the right shoulder patient underwent incision and drainage cultures were obtained fluid issuing 28,000 white blood cell count patient was started on ceftezolin. Patient's pain is better after incision and drainage. Patient will receive a PICC line awaiting cultures. So far negative.Constitutional: Denied any fatigue denied any fever. Cardio vascular: denied any chest pain, palpitations Gastrointestinal denied any nausea vomiting Pulmonary: Denied any shortness of breath cough Neurologic denied any new focal deficits All inpatient medications were reviewed and appropriate changes in these medications as dictated in the interval history and assessment and plan. Objective - Vital Signs Vital signs: Vital Signs Temp 98.4 F 08/11/19 07:00 Pulse 86 08/11/19 07:00 Resp 16 08/11/19 07:00 BP 141/70 08/11/19 07:00 Pulse Ox 95 08/11/19 07:00 Intake & Output 08/10/19 08/11/19 08/11/19 18:59 06:59 18:59 Intake Total 30 850 Output Total 3 Balance 30 847 Intake: IV 850 Oral 30 Output: Estimated Blood Loss 3 Other: Voiding Method Toilet Toilet # Voids 2 1 - Exam PHYSICAL EXAMINATION: GENERAL: The patient is alert and oriented x3, not in any acute distress. Well developed, well nourished. HEENT: Pupils are round and equally reacting to light. EOMI. No scleral icterus. No conjunctival pallor. Normocephalic, atraumatic. No pharyngeal erythema. No thyromegaly. CARDIOVASCULAR: S1 and S2 present. No murmurs, rubs, or gallops. PULMONARY: Chest is clear to auscultation, no wheezing or crackles. ABDOMEN: Soft, nontender, nondistended, normoactive bowel sounds. No palpable organomegaly. MUSCULOSKELETAL: Right shoulder is postsurgical packed EXTREMITIES: No cyanosis, clubbing, or pedal edema. NEUROLOGICAL: Gross neurological examination did not reveal any focal deficits. SKIN: No rashes. - Labs CBC & Chem 7: 08/09/19 14:25 Labs: Microbiology - Last 24 Hours (Table) 08/10/19 21:20 Wound Culture - Preliminary Shoulder - Right 08/10/19 21:20 Anaerobic Culture - Preliminary Shoulder - Right 08/10/19 21:20 Wound Culture - Preliminary Shoulder - Right 08/10/19 21:20 Wound Culture - Preliminary Shoulder - Right 08/10/19 21:20 Anaerobic Culture - Preliminary Shoulder - Right 08/10/19 21:20 Anaerobic Culture - Preliminary Shoulder - Right 08/10/19 21:17 Gram Stain - Preliminary Synovial Fluid Body Fluid Culture - Preliminary Assessment and Plan Plan: possible to septic arthritis of right shoulder: Patient will undergo incision and drainage cultures are pending and white blood cell count in the pharyngeal fluid is consistent with either inflammation or infection, patient was started on ceftezole and which is being continued at this time -Sjogren syndrome: Supportive care. -Coronary artery disease: Patient had cardiac catheterization and stenting more than 2 years ago patient is presently and antiplatelet therapy present will hold off on Plavix for now continue with aspirin -Gastroesophageal reflux disease -Hypertension -Hyperlipidemia -Depression For above-mentioned chronic medical problems patient was resumed on his home medications.
[2019-08-11] MEDS: HYDROmorphone 0.5 MG/0.5 ML SYRINGE IVP PRN ×2 (15:04→20:56)
[2019-08-11] MEDS: ALPRAZolam 0.25 MG TAB PO PRN (22:10)
--- NOTE | 2019-08-11 23:32 | P.PN ---
Subjective Progress Note Date: 08/11/19 Pleasant 63-year-old male who has a history of Sjogren's disease presents to his orthopedic office because of the marked increase of pain to his right shoulder. He was seen in the outpatient setting last week with urgent concern to his right shoulder. He had been treated with antibiotic therapy in the form of trimethoprim sulfamethoxazole outpatient that had stopped last week. He was seen in the outpatient setting blood work is obtained revealing evidence of a relatively normal sed rate and CRP, a very elevated CATRACHO was found possibly due to his Sjogren's. The patient now presents for further surgical intervention because increasing pain and swelling discomfort and erythema to the site. He feels poorly but is not having fevers or chills. 08/10/2019 patient has been somewhat anxious about his surgical procedure that was delayed until quite late this afternoon. The pain at the site he is not having other new acute difficulty. 08/11/2019 the patient has had surgical debridement to his right shoulder. Cultures are sent to the laboratory. He is still having significant pain pos toperatively but fevers have improved. Objective - Vital Signs Vital signs: Vital Signs Temp 98.1 F 08/11/19 19:27 Pulse 69 08/11/19 19:27 Resp 18 08/11/19 19:27 BP 146/80 08/11/19 19:27 Pulse Ox 98 08/11/19 19:27 Intake & Output 08/11/19 08/11/19 08/12/19 06:59 18:59 06:59 Intake Total 850 30 Output Total 3 Balance 847 30 Intake: IV 850 Oral 30 Output: Estimated Blood Loss 3 Other: Voiding Method Toilet Toilet # Voids 1 2 - Exam Very pleasant 63-year-old male is a thin build, and is very fernandez from his outside activities of the summer HEENT: Anicteric conjunctiva are pink and moist nasal mucosa grossly intact without significant lesions, there is no thrush. Neck: The neck is supple without significant lymphadenopathy or thyromegaly. Lungs: Good bilateral air entry without significant crackles or wheezing. There is no significant bronchial sounds. There is no egophony or dullness. Heart: Regular rate and rhythm with an audible S1-S2, no S3 no S4. There is no significant murmur click or rub, PMI was nondisplaced. Abdomen: Positive bowel sounds soft and nontender without palpable masses or organomegaly. There was no guarding or rebound. Extremities: extremities are free from significant edema. The peripheral pulses were 2+ and symmetric.Left arm without acute abnormality. The bilateral lower extremities and no significant edema. Right arm shows evidence of the recent surgical intervention to the right shoulder. The surgical incision is well- healed. However is some erythema to the site. There is some mild warmth. Shoulder is now postoperative in the bulky dressing remains in place Neuro: Awake alert oriented to person place and time. There are no acute new gross focal sensory motor deficits. - Labs CBC & Chem 7: 08/09/19 14:25 Labs: Microbiology - Last 24 Hours (Table) 08/10/19 21:20 Wound Culture - Preliminary Shoulder - Right 08/10/19 21:20 Anaerobic Culture - Preliminary Shoulder - Right 08/10/19 21:20 Wound Culture - Preliminary Shoulder - Right 08/10/19 21:20 Wound Culture - Preliminary Shoulder - Right 08/10/19 21:20 Anaerobic Culture - Preliminary Shoulder - Right 08/10/19 21:20 Anaerobic Culture - Preliminary Shoulder - Right 08/10/19 21:17 Gram Stain - Preliminary Synovial Fluid Body Fluid Culture - Preliminary Laboratory Results WBC 5.8 k/uL (3.8-10.6) 08/09/19 14:25 RBC 3.81 m/uL (4.30-5.90) L 08/09/19 14:25 Hgb 12.2 gm/dL (13.0-17.5) L 08/09/19 14:25 Hct 34.2 % (39.0-53.0) L 08/09/19 14:25 MCV 89.9 fL (80.0-100.0) 08/09/19 14:25 MCH 32.1 pg (25.0-35.0) 08/09/19 14:25 MCHC 35.7 g/dL (31.0-37.0) 08/09/19 14:25 RDW 12.2 % (11.5-15.5) 08/09/19 14:25 Plt Count 269 k/uL (150-450) 08/09/19 14:25 Neutrophils % 66 % 08/09/19 14:25 Lymphocytes % 17 % 08/09/19 14:25 Monocytes % 7 % 08/09/19 14:25 Eosinophils % 6 % 08/09/19 14:25 Basophils % 1 % 08/09/19 14:25 Neutrophils # 3.8 k/uL (1.3-7.7) 08/09/19 14:25 Lymphocytes # 1.0 k/uL (1.0-4.8) 08/09/19 14:25 Monocytes # 0.4 k/uL (0-1.0) 08/09/19 14:25 Eosinophils # 0.3 k/uL (0-0.7) 08/09/19 14:25 Basophils # 0.1 k/uL (0-0.2) 08/09/19 14:25 Fluid Source Synovial 08/10/19 21:17 Fluid Color Red 08/10/19 21:17 Fluid Appearance Hazy 08/10/19 21:17 Fluid RBC 06344 /uL 08/10/19 21:17 Fluid Nucleated Cells 8640 /uL 08/10/19 21:17 Fluid Polynuclear WBCs 97 % 08/10/19 21:17 Fluid Mononuclear WBCs 3 % 08/10/19 21:17 Microbiology 08/10/19 21:20 Shoulder - Right Wound Culture - Preliminary 08/10/19 21:20 Shoulder - Right Anaerobic Culture - Preliminary 08/10/19 21:20 Shoulder - Right Wound Culture - Preliminary 08/10/19 21:20 Shoulder - Right Wound Culture - Preliminary 08/10/19 21:20 Shoulder - Right Anaerobic Culture - Preliminary 08/10/19 21:20 Shoulder - Right Anaerobic Culture - Preliminary 08/10/19 21:17 Synovial Fluid Gram Stain - Preliminary 08/10/19 21:17 Synovial Fluid Body Fluid Culture - Preliminary Assessment and Plan (1) Septic arthritis of shoulder, right Narrative/Plan: 63-year-old male with a history of Sjogren's disease has had difficulties with his righ He did have a arthroscopic repair in June 2019 of the right with a large tear, acromioplasty, biceps tenotomy, and labral debridement of his right shoulder,and was having some improvement. Your then developed increasing pain and discomfort the shoulder. He was then seen in the outpatient setting where he was evaluated. There was concerns to infection and outpatient blood work was obtained. Sedimentation rate and CRP were normal however his CATRACHO is very elevated at 1-1280. The blood cell count was also normal. The patient has not been seen by the orthopedic team again and to the operating room for incision and drainage of the right shoulder. Deep cultures and tissue culture requested including aerobic, anaerobic, fungal, acid-fast bacilli as well as cultures being held for Propionibacterium acnes. We'll initiate antibiotic therapy based on the findings of the surgical debridement tomorrow. An inflammatory arthritis related to his underlying autoimmune disease needs to be considered. Pain control is helping his current severe pain. 08/10/2019 patient is anxious about surgery he's been an add-on case for the late day. Surgical debridement will occur and deep cultures have been requested for aerobic, anaerobic, AFB and fungus. Antibiotic therapy will be derived based on the findings of these cultures. We'll follow after surgery. 08/11/2019 the patient is postoperative and doing somewhat better except for pain at the surgical site. Cultures are process and hopefully will have some further information with the next day. However the surgeon didn't believe this was an infected joint in counseling PICC line is requested we will initiate antibiotic therapy in the outpatient setting with ceftriaxone. This will cover staph, strep, and Propionibacterium acnes which are all common in this situation. He does not have a history of MRSA or other resistant pathogens. Arrangement for outpatient antibiotic therapy and process Current Visit: Yes Status: Acute Priority: Medium Code(s): M00.9 - PYOGENIC ARTHRITIS, UNSPECIFIED SNOMED Code(s): 10403949 (2) Shortness of breath Current Visit: Yes Status: Acute Code(s): R06.02 - SHORTNESS OF BREATH SNOMED Code(s): 282034142 (3) Sjogrens syndrome Current Visit: Yes Status: Acute Code(s): M35.00 - SICCA SYNDROME, UNSPECIFIED SNOMED Code(s): 09216249
[2019-08-12] MEDS: CARVEDILOL 3.125 MG TAB PO SCH ×2 (07:36→18:05)
[2019-08-12] MEDS: PANTOPRAZOLE 40 MG TABLET PO SCH (07:37)
[2019-08-12] MEDS: VALSARTAN 160 MG TAB PO SCH (07:37)
[2019-08-12] MEDS: TESTOSTERONE TOPICAL SCH (07:38)
[2019-08-12] MEDS: HYDROmorphone 0.5 MG/0.5 ML SYRINGE IVP PRN ×2 (08:47→18:19)
--- NOTE | 2019-08-12 11:17 | IR ---
PICC LINE PLACEMENT: HISTORY: Infection requiring long-term antibiotic therapy PROCEDURE: Ultrasound and fluoroscopic guidance of PICC line placement. COMPLICATIONS: None ANESTHESIA: 1. 1% Lidocaine locally. FINDINGS/TECHNIQUE: The procedure was explained to the patient. The risks, complications, benefits and alternatives were discussed and any questions were answered. Informed consent was obtained. The patient was placed supine on the fluoroscopic table and prepped and draped in the usual sterile fash ion. Utilizing a 21 gauge needle and sonographic and fluoroscopic guidance, access in the left basi lic vein was achieved and there is placement of a 0.018 guidewire. The vein is patent. A 4-F sheath was placed over the guidewire. The guidewire and dilator were removed and a 4-F. PICC line was plac ed through the sheath with the tip at the level of the SVC. The sheath was removed, the catheter was flushed and sutured into position. The patient was stable throughout the procedure and remained sta ble upon discharge from the Department of Radiology. The vein puncture was patent under ultrasound. A krueger scale image was obtained to document patency of the vein punctured. All elements of the maximal barrier technique were utilized. FLUOROSCOPY TIME: 0.1 minutes and one image submitted. IMPRESSION: Successful PICC line placement under ultrasound and fluoroscopic guidance.
--- NOTE | 2019-08-12 14:22 | P.PN ---
Subjective Progress Note Date: 08/12/19 Principal diagnosis: Patient is admitted for a possible septic arthritis of the right shoulder patient underwent incision and drainage cultures were obtained fluid issuing 28,000 white blood cell count patient was started on cefazolin. Patient's pain is better after incision and drainage. Patient will receive a PICC line awaiting cultures. So far negative. Constitutional: Denied any fatigue denied any fever. Cardio vascular: denied any chest pain, palpitations Gastrointestinal denied any nausea vomiting Pulmonary: Denied any shortness of breath cough Neurologic denied any new focal deficits All inpatient medications were reviewed and appropriate changes in these medi cations as dictated in the interval history and assessment and plan. 08/12/2019 Patient is lying in bed in no acute distress. Patient is being followed by Dr. Scalse and awaiting cultures at this time. Patient states he has some minor discomfort but is overall tolerable. Patient denies any chest pain, shortness of breath, or palpitations at this time. Patient is afebrile. Patient denies any nausea or vomiting and is tolerating diet. Patient received a PICC line in the left upper arm this morning and is currently awaiting culture finalization for IV antibiotic therapy in the outpatient setting. Guarded prognosis. Objective - Vital Signs Vital signs: Vital Signs Temp 97.9 F 08/12/19 07:00 Pulse 65 08/12/19 08:46 Resp 16 08/12/19 07:00 BP 165/90 08/12/19 08:46 Pulse Ox 100 08/12/19 07:00 Intake & Output 08/11/19 08/12/19 08/12/19 18:59 06:59 18:59 Intake Total 30 Balance 30 Intake: Oral 30 Other: Voiding Method Toilet # Voids 2 3 - Exam GENERAL: The patient is alert and oriented x3, not in any acute distress. Well developed, well nourished. HEENT: Pupils are round and equally reacting to light. EOMI. No scleral icterus. No conjunctival pallor. Normocephalic, atraumatic. No pharyngeal erythema. No thyromegaly. CARDIOVASCULAR: S1 and S2 present. No murmurs, rubs, or gallops. PULMONARY: Chest is clear to auscultation, no wheezing or crackles. ABDOMEN: Soft, nontender, nondistended, normoactive bowel sounds. No palpable organomegaly. MUSCULOSKELETAL: Right shoulder is postsurgical packed EXTREMITIES: No cyanosis, clubbing, or pedal edema. NEUROLOGICAL: Gross neurological examination did not reveal any focal deficits. SKIN: No rashes. Bandage of the right upper arm noted with some dried drainage. - Labs CBC & Chem 7: 08/09/19 14:25 Labs: Microbiology - Last 24 Hours (Table) 08/10/19 21:20 Gram Stain - Preliminary Shoulder - Right Wound Culture - Preliminary 08/10/19 21:20 Gram Stain - Preliminary Shoulder - Right Wound Culture - Preliminary 08/10/19 21:20 Gram Stain - Preliminary Shoulder - Right Wound Culture - Preliminary 08/10/19 21:20 Anaerobic Culture - Preliminary Shoulder - Right 08/10/19 21:20 Anaerobic Culture - Preliminary Shoulder - Right 08/10/19 21:20 Anaerobic Culture - Preliminary Shoulder - Right Assessment and Plan Assessment: -possibility of septic arthritis of right shoulder: Patient will undergo incision and drainage cultures are pending and white blood cell count in the pharyngeal fluid is consistent with either inflammation or infection, patient was started on cefazolin and which is being continued at this time -Sjogren syndrome: Supportive care. -Coronary artery disease: Patient had cardiac catheterization and stenting more than 2 years ago patient is presently and antiplatelet therapy present will hold off on Plavix for now continue with aspirin -Gastroesophageal reflux disease -Hypertension -Hyperlipidemia -Depression For above-mentioned chronic medical problems patient was resumed on his home me dications.
--- NOTE | 2019-08-12 14:26 | P.PN ---
Subjective Progress Note Date: 08/12/19 Principal diagnosis: Right shoulder pain Patient is seen at bedside this morning. He is postop day #2 from arthroscopic I and D right shoulder. He has pain at the surgical site as expected but denies any new complaints. The pain is improved. He denies numbness, tingling or calf pain. Review of systems is negative for fever, chills, chest pain, shortness of breath or other Objective - Vital Signs Vital signs: Vital Signs Temp 98.2 F 08/12/19 14:16 Pulse 66 08/12/19 14:16 Resp 16 08/12/19 14:16 BP 143/71 08/12/19 14:16 Pulse Ox 98 08/12/19 14:16 Intake & Output 08/11/19 08/12/19 08/12/19 18:59 06:59 18:59 Intake Total 30 Balance 30 Intake: Oral 30 Other: Voiding Method Toilet # Voids 2 3 - Exam Inspection reveals benign surgical wounds. There is no active bleeding or drainage. Neurovascular status is intact throughout the upper extremity with motor and sensation fully intact. Calf is soft and nontender. 2+ radial pulse and less than 2 second cap refill is present. - Constitutional General appearance: Present: no acute distress - Labs CBC & Chem 7: 08/09/19 14:25 Labs: Microbiology - Last 24 Hours (Table) 08/10/19 21:20 Gram Stain - Preliminary Shoulder - Right Wound Culture - Preliminary 08/10/19 21:20 Gram Stain - Preliminary Shoulder - Right Wound Culture - Preliminary 08/10/19 21:20 Gram Stain - Preliminary Shoulder - Right Wound Culture - Preliminary 08/10/19 21:20 Anaerobic Culture - Preliminary Shoulder - Right 08/10/19 21:20 Anaerobic Culture - Preliminary Shoulder - Right 08/10/19 21:20 Anaerobic Culture - Preliminary Shoulder - Right Assessment and Plan (1) Septic arthritis of shoulder, right Narrative/Plan: Labs and cultures continue to be relatively benign thus far. He is afebrile and his shoulder pain is controlled. Continue pain management, medical management, a nd IV antibiotics. He is pending PICC placement and expect he will d/c to home tomorrow. . Current Visit: Yes Status: Acute Priority: Medium Code(s): M00.9 - PYOGENIC ARTHRITIS, UNSPECIFIED SNOMED Code(s): 46069487 Time with Patient: Less than 30
[2019-08-12] MEDS: ASPIRIN 81 MG PO SCH ×2 (16:38→18:05)
[2019-08-12] MEDS: ALPRAZolam 0.25 MG TAB PO PRN (20:03)
[2019-08-12] MEDS: CLOPIDOGREL 75 MG TAB PO SCH (20:03)
[2019-08-12] MEDS: ATORVASTATIN 80 MG TAB PO SCH (20:03)
[2019-08-12] MEDS: CITALOPRAM HYDROBROMIDE 20 MG TAB PO SCH (20:04)
--- NOTE | 2019-08-12 23:51 | P.PN ---
Subjective Progress Note Date: 08/12/19 Pleasant 63-year-old male who has a history of Sjogren's disease presents to his orthopedic office because of the marked increase of pain to his right shoulder. He was seen in the outpatient setting last week with urgent concern to his right shoulder. He had been treated with antibiotic therapy in the form of trimethoprim sulfamethoxazole outpatient that had stopped last week. He was seen in the outpatient setting blood work is obtained revealing evidence of a relatively normal sed rate and CRP, a very elevated CATRACHO was found possibly due to his Sjogren's. The patient now presents for further surgical intervention because increasing pain and swelling discomfort and erythema to the site. He feels poorly but is not having fevers or chills. 08/10/2019 patient has been somewhat anxious about his surgical procedure that was delayed until quite late this afternoon. The pain at the site he is not having other new acute difficulty. 08/11/2019 the patient has had surgical debridement to his right shoulder. Cultures are sent to the laboratory. He is still having significant pain pos toperatively but fevers have improved. 08/12/2019 patient is having some improvement. Pain is better controlled. Those were to have a shower. No other acute new complaints. Objective - Vital Signs Vital signs: Vital Signs Temp 98.8 F 08/12/19 19:55 Pulse 69 08/12/19 19:55 Resp 15 08/12/19 19:55 BP 153/84 08/12/19 19:55 Pulse Ox 99 08/12/19 19:55 Intake & Output 08/12/19 08/12/19 08/13/19 06:59 18:59 06:59 Other: Voiding Method Toilet Toilet # Voids 3 1 - Exam Very pleasant 63-year-old male is a thin build, and is very fernandez from his outside activities of the summer HEENT: Anicteric conjunctiva are pink and moist nasal mucosa grossly intact wit hout significant lesions, there is no thrush. Neck: The neck is supple without significant lymphadenopathy or thyromegaly. Lungs: Good bilateral air entry without significant crackles or wheezing. There is no significant bronchial sounds. There is no egophony or dullness. Heart: Regular rate and rhythm with an audible S1-S2, no S3 no S4. There is no significant murmur click or rub, PMI was nondisplaced. Abdomen: Positive bowel sounds soft and nontender without palpable masses or organomegaly. There was no guarding or rebound. Extremities: extremities are free from significant edema. The peripheral pulses were 2+ and symmetric.Left arm without acute abnormality. The bilateral lower extremities and no significant edema. Right arm shows evidence of the recent surgical intervention to the right shoulder. The surgical incision is well- healed. However is some erythema to the site. There is some mild warmth. Shoulder is now postoperative bulky dressings removed. Scant bloody drainage noticed. Pain at the site is noted. PICC line placed left arm. Neuro: Awake alert oriented to person place and time. There are no acute new gross focal sensory motor deficits. - Labs CBC & Chem 7: 08/09/19 14:25 Labs: Microbiology - Last 24 Hours (Table) 08/10/19 21:20 Gram Stain - Preliminary Shoulder - Right Wound Culture - Preliminary 08/10/19 21:20 Gram Stain - Preliminary Shoulder - Right Wound Culture - Preliminary 08/10/19 21:20 Gram Stain - Preliminary Shoulder - Right Wound Culture - Preliminary Laboratory Results WBC 5.8 k/uL (3.8-10.6) 08/09/19 14:25 RBC 3.81 m/uL (4.30-5.90) L 08/09/19 14:25 Hgb 12.2 gm/dL (13.0-17.5) L 08/09/19 14:25 Hct 34.2 % (39.0-53.0) L 08/09/19 14:25 MCV 89.9 fL (80.0-100.0) 08/09/19 14:25 MCH 32.1 pg (25.0-35.0) 08/09/19 14:25 MCHC 35.7 g/dL (31.0-37.0) 08/09/19 14:25 RDW 12.2 % (11.5-15.5) 08/09/19 14:25 Plt Count 269 k/uL (150-450) 08/09/19 14:25 Neutrophils % 66 % 08/09/19 14:25 Lymphocytes % 17 % 08/09/19 14:25 Monocytes % 7 % 08/09/19 14:25 Eosinophils % 6 % 08/09/19 14:25 Basophils % 1 % 08/09/19 14:25 Neutrophils # 3.8 k/uL (1.3-7.7) 08/09/19 14:25 Lymphocytes # 1.0 k/uL (1.0-4.8) 08/09/19 14:25 Monocytes # 0.4 k/uL (0-1.0) 08/09/19 14:25 Eosinophils # 0.3 k/uL (0-0.7) 08/09/19 14:25 Basophils # 0.1 k/uL (0-0.2) 08/09/19 14:25 Fluid Source Synovial 08/10/19 21:17 Fluid Color Red 08/10/19 21:17 Fluid Appearance Hazy 08/10/19 21:17 Fluid RBC 73669 /uL 08/10/19 21:17 Fluid Nucleated Cells 8640 /uL 08/10/19 21:17 Fluid Polynuclear WBCs 97 % 08/10/19 21:17 Fluid Mononuclear WBCs 3 % 08/10/19 21:17 Microbiology 08/10/19 21:20 Shoulder - Right Gram Stain - Preliminary 08/10/19 21:20 Shoulder - Right Wound Culture - Preliminary 08/10/19 21:20 Shoulder - Right Gram Stain - Preliminary 08/10/19 21:20 Shoulder - Right Wound Culture - Preliminary 08/10/19 21:20 Shoulder - Right Gram Stain - Preliminary 08/10/19 21:20 Shoulder - Right Wound Culture - Preliminary 08/10/19 21:20 Shoulder - Right Anaerobic Culture - Preliminary 08/10/19 21:20 Shoulder - Right Anaerobic Culture - Preliminary 08/10/19 21:20 Shoulder - Right Anaerobic Culture - Preliminary 08/10/19 21:17 Synovial Fluid Gram Stain - Preliminary 08/10/19 21:17 Synovial Fluid Body Fluid Culture - Preliminary Assessment and Plan (1) Septic arthritis of shoulder, right Narrative/Plan: 63-year-old male with a history of Sjogren's disease has had difficulties with his righ He did have a arthroscopic repair in June 2019 of the right with a large tear, acromioplasty, biceps tenotomy, and labral debridement of his right shoulder,and was having some improvement. Your then developed increasing pain and discomfort the shoulder. He was then seen in the outpatient setting where he was evaluated. There was concerns to infection and outpatient blood work was obtained. Sedimentation rate and CRP were normal however his CATRACHO is very elevated at 1-1280. The blood cell count was also normal. The patient has not been seen by the orthopedic team again and to the operating room for incision and drainage of the right shoulder. Deep cultures and tissue culture requested including aerobic, anaerobic, fungal, acid-fast bacilli as well as cultures being held for Propionibacterium acnes. We'll initiate antibiotic therapy based on the findings of the surgical debridement tomorrow. An inflammatory arthritis related to his underlying autoimmune disease needs to be considered. Pain control is helping his current severe pain. 08/10/2019 patient is anxious about surgery he's been an add-on case for the late day. Surgical debridement will occur and deep cultures have been requested for aerobic, anaerobic, AFB and fungus. Antibiotic therapy will be derived b ased on the findings of these cultures. We'll follow after surgery. 08/11/2019 the patient is postoperative and doing somewhat better except for pain at the surgical site. Cultures are process and hopefully will have some further information with the next day. However the surgeon didn't believe this was an infected joint in counseling PICC line is requested we will initiate antibiotic therapy in the outpatient setting with ceftriaxone. This will cover staph, strep, and Propionibacterium acnes which are all common in this situation. He does not have a history of MRSA or other resistant pathogens. Arrangement for outpatient antibiotic therapy and process 08/12/2019 patient is having improvement status post surgery. Cultures are still pending. Arrangements for Rocephin are being made. See the dose in the morning before she is discharged home. IV access complaint is with his PICC l ine. The follow-up in the office an ongoing basis. Antibiotic therapy may be changed based on culture data. Pain control is adequate. He is strongly urged to follow up with the printing sales representative in the outpatient clinic in the next week. Current Visit: Yes Status: Acute Priority: Medium Code(s): M00.9 - PYOGENIC ARTHRITIS, UNSPECIFIED SNOMED Code(s): 28012773 (2) Shortness of breath Current Visit: Yes Status: Acute Code(s): R06.02 - SHORTNESS OF BREATH SNOMED Code(s): 736751504 (3) Sjogrens syndrome Current Visit: Yes Status: Acute Code(s): M35.00 - SICCA SYNDROME, UNSPECIFIED SNOMED Code(s): 50616743
[2019-08-13 01:57] VITALS: RESP 16
[2019-08-13] MEDS: HYDROmorphone 0.5 MG/0.5 ML SYRINGE IVP PRN (08:11)
[2019-08-13] MEDS: CLOPIDOGREL 75 MG TAB PO SCH (08:11)
[2019-08-13] MEDS: VALSARTAN 160 MG TAB PO SCH (08:11)
[2019-08-13] MEDS: PANTOPRAZOLE 40 MG TABLET PO SCH (08:11)
[2019-08-13] MEDS: ASPIRIN 81 MG PO SCH (08:11)
[2019-08-13] MEDS: CARVEDILOL 3.125 MG TAB PO SCH (08:11)
[2019-08-13 08:26] VITALS: BP 158/83; PULSE 72; TEMP 97.9
[2019-08-13] MEDS: TESTOSTERONE TOPICAL SCH (08:28)
--- NOTE | 2019-08-13 09:07 | P.PN ---
Subjective Patient is admitted for a possible septic arthritis of the right shoulder patient underwent incision and drainage cultures were obtained fluid issuing 28,000 white blood cell count patient was started on ceftezolin. Patient's pain is better after incision and drainage. Patient will receive a PICC line awaiting cultures. So far negative.Constitutional: Denied any fatigue denied any fever. 08/13/2019 Pain is better controlled and the CULTURES are so for negative infectious disease is recommending about 42 days of IV Rocephin and patient the will be discharged today with home with home care. Cardio vascular: denied any chest pain, palpitations Gastrointestinal denied any nausea vomiting Pulmonary: Denied any shortness of breath cough Neurologic denied any new focal deficits All inpatient medications were reviewed and appropriate changes in these medications as dictated in the interval history and assessment and plan. Objective - Vital Signs Vital signs: Vital Signs Temp 97.9 F 08/13/19 07:00 Pulse 72 08/13/19 07:00 Resp 16 08/13/19 07:00 BP 158/83 08/13/19 07:00 Pulse Ox 99 08/13/19 07:00 Intake & Output 08/12/19 08/13/19 08/13/19 18:59 06:59 18:59 Intake Total 220 240 Balance 220 240 Intake: Intake, IV Titration 100 Amount ceFAZolin 2 gm In Sodium 100 Chloride 0.9% 50 ml @ 100 mls/hr IVPB Q8H [facility] Rx#: [id number] Oral 120 240 Other: Voiding Method Toilet # Voids 3 1 - Exam PHYSICAL EXAMINATION: GENERAL: The patient is alert and oriented x3, not in any acute distress. Well developed, well nourished. HEENT: Pupils are round and equally reacting to light. EOMI. No scleral icterus. No conjunctival pallor. Normocephalic, atraumatic. No pharyngeal erythema. No thyromegaly. CARDIOVASCULAR: S1 and S2 present. No murmurs, rubs, or gallops. PULMONARY: Chest is clear to auscultation, no wheezing or crackles. ABDOMEN: Soft, nontender, nondistended, normoactive bowel sounds. No palpable organomegaly. MUSCULOSKELETAL: Right shoulder is postsurgical packed EXTREMITIES: No cyanosis, clubbing, or pedal edema. NEUROLOGICAL: Gross neurological examination did not reveal any focal deficits. SKIN: No rashes. - Labs CBC & Chem 7: 08/09/19 14:25 Labs: Microbiology - Last 24 Hours (Table) 08/10/19 21:20 Gram Stain - Final Shoulder - Right Wound Culture - Final 08/10/19 21:20 Gram Stain - Final Shoulder - Right Wound Culture - Final 08/10/19 21:20 Gram Stain - Preliminary Shoulder - Right Wound Culture - Preliminary Assessment and Plan Plan: possible to septic arthritis of right shoulder: So far cultures are negative patient will be discharged with Rocephin as mentioned above -Sjogren syndrome: Supportive care. -Coronary artery disease: Patient had cardiac catheterization and stenting more than 2 years ago as a patient regarding discontinuation of Plavix as an out patient for now will continue with both aspirin and Plavix -Gastroesophageal reflux disease -Hypertension -Hyperlipidemia -Depression For above-mentioned chronic medical problems patient was resumed on his home medications.
--- NOTE | 2019-08-13 09:40 | P.DS ---
Providers Date of admission: 08/09/19 13:07 Expected date of discharge: 08/13/19 Attending physician: Tej Crenshaw Consults: 08/09/19 11:58 Consult Physician Routine Consulting Provider: Jacobo Wolff Consult Reason/Comments: pre op clearance, perioperative medical management Do you want consulting provider notified?: Yes Consult Physician Stat Consulting Provider: Tj Scales Consult Reason/Comments: right shoulder septic arthritis Do you want consulting provider notified?: Yes Primary care physician: Estevan Marroquin - Discharge Diagnosis(es) (1) Septic arthritis of shoulder, right Patient was admitted to the OR on 08/10/2019 to undergo an arthroscopic I and D of right shoulder. He had failed conservative measures an outpatient. He underwent the above procedure which he tolerated well without complication. Postoperative hospital course has remained without complication. Cultures and labs have remained benign. A PICC line has been placed. On day of discharge he is afebrile, vital signs stable, labs within acceptable ranges, tolerating by mouth meds and diet, voiding without difficulty, positive flatus, denies abdominal pain or calf pain, pain is controlled on oral pain medication and has no new complaints. Wound is benign, neurovascular status is intact, calf is soft and nontender, abdomen soft and nontender. Review of systems is negative for numbness, tingling, fever, chills, chest pain, shortness of breath, nausea, vomiting, dizziness, headaches, slurred speech or other. Current Visit: Yes Status: Acute Priority: Medium Procedures: I and D right shoulder Patient Condition at Discharge: Good Plan - Discharge Summary Discharge Rx Participant: No New Discharge Prescriptions: New cefTRIAXone [Rocephin] 2 gm IVPB Q24H #42 bag HYDROcodone/APAP 7.5-325MG [[place] 7.5-325] 1 - 2 each PO Q6HR PRN #56 tab PRN Reason: Pain No Action Citalopram Hydrobromide [CeleXA] 20 mg PO HS Pantoprazole Sodium [Protonix] 40 mg PO DAILY Testosterone [Androgel 1.62% Gel Pump] 1 applic TOPICAL DAILY Carvedilol [Coreg] 3.125 mg PO BID Aspirin 81 mg PO DAILY #30 chew Atorvastatin [Lipitor] 80 mg PO HS #30 tab Nitroglycerin Sl Tabs [Nitrostat] 0.4 mg SUBLINGUAL Q5M PRN #25 tab PRN Reason: Chest Pain Clopidogrel [Plavix] 75 mg PO HS Valsartan [Diovan] 160 mg PO DAILY Discharge Medication List Citalopram Hydrobromide [CeleXA] 20 mg PO HS 02/08/16 [History] Pantoprazole Sodium [Protonix] 40 mg PO DAILY 02/08/16 [History] Testosterone [Androgel 1.62% Gel Pump] 1 applic TOPICAL DAILY 06/19/17 [History] Carvedilol [Coreg] 3.125 mg PO BID 12/25/18 [History] Aspirin 81 mg PO DAILY #30 chew 12/28/18 [Rx] Atorvastatin [Lipitor] 80 mg PO HS #30 tab 12/28/18 [Rx] Nitroglycerin Sl Tabs [Nitrostat] 0.4 mg SUBLINGUAL Q5M PRN #25 tab 12/28/18 [Rx] Clopidogrel [Plavix] 75 mg PO HS 03/11/19 [History] Valsartan [Diovan] 160 mg PO DAILY 08/09/19 [History] cefTRIAXone [Rocephin] 2 gm IVPB Q24H #42 bag 08/11/19 [Rx] HYDROcodone/APAP 7.5-325MG [[place] 7.5-325] 1 - 2 each PO Q6HR PRN #56 tab 08/13/19 [Rx] Follow up Appointment(s)/Referral(s): [facility],Infusion [NON-STAFF] - Tej Crenshaw MD [STAFF PHYSICIAN] - 1 Week Ambulatory/Diagnostic Orders: Basic Metabolic Panel [LAB.AMB] Location: None Selected Complete Blood Count w/diff [LAB.AMB] Location: None Selected Miscellaneous Lab Order [LAB.AMB] Location: None Selected Activity/Diet/Wound Care/Special Instructions: [facility] (Dr. Scales's office) for IV antibiotic infusion. First appointment on: 08/14/19 at 9:00 a.m. WBAT Keep wounds clean and dry May shower in 3 days if no bleeding Take meds as directed F/U with Dr. Crenshaw in office Discharge Disposition: HOME SELF-CARE
--- NOTE | 2019-08-13 14:02 | P.PN ---
Subjective Progress Note Date: 08/13/19 Pleasant 63-year-old male who has a history of Sjogren's disease presents to his orthopedic office because of the marked increase of pain to his right shoulder. He was seen in the outpatient setting last week with urgent concern to his right shoulder. He had been treated with antibiotic therapy in the form of trimethoprim sulfamethoxazole outpatient that had stopped last week. He was seen in the outpatient setting blood work is obtained revealing evidence of a relatively normal sed rate and CRP, a very elevated CATRACHO was found possibly due to his Sjogren's. The patient now presents for further surgical intervention because increasing pain and swelling discomfort and erythema to the site. He feels poorly but is not having fevers or chills. 08/10/2019 patient has been somewhat anxious about his surgical procedure that was delayed until quite late this afternoon. The pain at the site he is not having other new acute difficulty. 08/11/2019 the patient has had surgical debridement to his right shoulder. Cultures are sent to the laboratory. He is still having significant pain pos toperatively but fevers have improved. 08/12/2019 patient is having some improvement. Pain is better controlled. Those were to have a shower. No other acute new complaints. 08/13/2019 patient has improved, is done well with the surgical intervention to the right shoulder severe pain is improved. Tolerated current antibiotic therapy well. Looks forward to discharge to home. Objective - Vital Signs Vital signs: Vital Signs Temp 97.9 F 08/13/19 07:00 Pulse 72 08/13/19 07:00 Resp 16 08/13/19 07:00 BP 158/83 08/13/19 07:00 Pulse Ox 99 08/13/19 07:00 Intake & Output 08/12/19 08/13/19 08/13/19 18:59 06:59 18:59 Intake Total 220 240 Balance 220 240 Intake: Intake, IV Titration 100 Amount ceFAZolin 2 gm In Sodium 100 Chloride 0.9% 50 ml @ 100 mls/hr IVPB Q8H [facility] Rx#: [id number] Oral 120 240 Other: Voiding Method Toilet # Voids 3 1 - Exam Very pleasant 63-year-old male is a thin build, and is very fernandez from his outside activities of the summer HEENT: Anicteric conjunctiva are pink and moist nasal mucosa grossly intact without significant lesions, there is no thrush. Neck: The neck is supple without significant lymphadenopathy or thyromegaly. Lungs: Good bilateral air entry without significant crackles or wheezing. There is no significant bronchial sounds. There is no egophony or dullness. Heart: Regular rate and rhythm with an audible S1-S2, no S3 no S4. There is no significant murmur click or rub, PMI was nondisplaced. Abdomen: Positive bowel sounds soft and nontender without palpable masses or organomegaly. There was no guarding or rebound. Extremities: extremities are free from significant edema. The peripheral pulses were 2+ and symmetric.Left arm without acute abnormality. The bilateral lower extremities and no significant edema. Right arm shows evidence of the recent surgical intervention to the right shoulder. The surgical incision is well- healed. The warmth and erythema to the shoulder has improved. Tenderness to site is improved Shoulder is now postoperative bulky dressings removed. Scant bloody drainage noticed. Pain with motion has improved .PICC line placed left arm. Neuro: Awake alert oriented to person place and time. There are no acute new gross focal sensory motor deficits. - Labs CBC & Chem 7: 08/09/19 14:25 Labs: Microbiology - Last 24 Hours (Table) 08/10/19 21:20 Anaerobic Culture - Preliminary Shoulder - Right 08/10/19 21:20 Anaerobic Culture - Preliminary Shoulder - Right 08/10/19 21:20 Anaerobic Culture - Preliminary Shoulder - Right 08/10/19 21:20 Gram Stain - Final Shoulder - Right Wound Culture - Final 08/10/19 21:20 Gram Stain - Final Shoulder - Right Wound Culture - Final 08/10/19 21:20 Gram Stain - Final Shoulder - Right Wound Culture - Final Laboratory Results WBC 5.8 k/uL (3.8-10.6) 08/09/19 14:25 RBC 3.81 m/uL (4.30-5.90) L 08/09/19 14:25 Hgb 12.2 gm/dL (13.0-17.5) L 08/09/19 14:25 Hct 34.2 % (39.0-53.0) L 08/09/19 14:25 MCV 89.9 fL (80.0-100.0) 08/09/19 14:25 MCH 32.1 pg (25.0-35.0) 08/09/19 14:25 MCHC 35.7 g/dL (31.0-37.0) 08/09/19 14:25 RDW 12.2 % (11.5-15.5) 08/09/19 14:25 Plt Count 269 k/uL (150-450) 08/09/19 14:25 Neutrophils % 66 % 08/09/19 14:25 Lymphocytes % 17 % 08/09/19 14:25 Monocytes % 7 % 08/09/19 14:25 Eosinophils % 6 % 08/09/19 14:25 Basophils % 1 % 08/09/19 14:25 Neutrophils # 3.8 k/uL (1.3-7.7) 08/09/19 14:25 Lymphocytes # 1.0 k/uL (1.0-4.8) 08/09/19 14:25 Monocytes # 0.4 k/uL (0-1.0) 08/09/19 14:25 Eosinophils # 0.3 k/uL (0-0.7) 08/09/19 14:25 Basophils # 0.1 k/uL (0-0.2) 08/09/19 14:25 Fluid Source Synovial 08/10/19 21:17 Fluid Color Red 08/10/19 21:17 Fluid Appearance Hazy 08/10/19 21:17 Fluid RBC 80284 /uL 08/10/19 21:17 Fluid Nucleated Cells 8640 /uL 08/10/19 21:17 Fluid Polynuclear WBCs 97 % 08/10/19 21:17 Fluid Mononuclear WBCs 3 % 08/10/19 21:17 Microbiology 08/10/19 21:20 Shoulder - Right Anaerobic Culture - Preliminary 08/10/19 21:20 Shoulder - Right Anaerobic Culture - Preliminary 08/10/19 21:20 Shoulder - Right Anaerobic Culture - Preliminary 08/10/19 21:20 Shoulder - Right Gram Stain - Final 08/10/19 21:20 Shoulder - Right Wound Culture - Final 08/10/19 21:20 Shoulder - Right Gram Stain - Final 08/10/19 21:20 Shoulder - Right Wound Culture - Final 08/10/19 21:20 Shoulder - Right Gram Stain - Final 08/10/19 21:20 Shoulder - Right Wound Culture - Final 08/10/19 21:17 Synovial Fluid Gram Stain - Preliminary 08/10/19 21:17 Synovial Fluid Body Fluid Culture - Preliminary Assessment and Plan (1) Septic arthritis of shoulder, right Narrative/Plan: 63-year-old male with a history of Sjogren's disease has had difficulties with his righ He did have a arthroscopic repair in June 2019 of the right with a large tear, acromioplasty, biceps tenotomy, and labral debridement of his right shoulder,and was having some improvement. Your then developed increasing pain and discomfort the shoulder. He was then seen in the outpatient setting where he was evaluated. There was concerns to infection and outpatient blood work was obtained. Sedimentation rate and CRP were normal however his CATRACHO is very elevated at 1-1280. The blood cell count was also normal. The patient has not been seen by the orthopedic team again and to the operating room for incision and drainage of the right shoulder. Deep cultures and tissue culture requested including aerobic, anaerobic, fungal, acid-fast bacilli as well as cultures being held for Propionibacterium acnes. We'll initiate antibiotic therapy based on the findings of the surgical debridement tomorrow. An inflammatory arthritis related to his underlying autoimmune disease needs to be considered. Pain control is helping his current severe pain. 08/10/2019 patient is anxious about surgery he's been an add-on case for the late day. Surgical debridement will occur and deep cultures have been requested for aerobic, anaerobic, AFB and fungus. Antibiotic therapy will be derived bas ed on the findings of these cultures. We'll follow after surgery. 08/11/2019 the patient is postoperative and doing somewhat better except for pain at the surgical site. Cultures are process and hopefully will have some further information with the next day. However the surgeon didn't believe this was an infected joint in counseling PICC line is requested we will initiate antibiotic therapy in the outpatient setting with ceftriaxone. This will cover staph, strep, and Propionibacterium acnes which are all common in this situation. He does not have a history of MRSA or other resistant pathogens. Arrangement for outpatient antibiotic therapy and process 08/12/2019 patient is having improvement status post surgery. Cultures are still pending. Arrangements for Rocephin are being made. See the dose in the morning before she is discharged home. IV access complaint is with his PICC karson e. The follow-up in the office an ongoing basis. Antibiotic therapy may be changed based on culture data. Pain control is adequate. He is strongly urged to follow up with the hard rock miner blasting in the outpatient clinic in the next week. 08/13/2019 patient is now had marked improvement after the surgical debridement of the right shoulder for the septic arthritis to the shoulder. The cultures are process to further identify the pathogen of this significant septic arthritis of the shoulder. The laboratory is altogether cultures from etc. Time to help determine appropriate Propionibacterium is is occurring as well as atypical cultures for a pain fungus in process. Fortunately patient is feeling somewhat better and will discharge home with follow-up with the outpatient intravenous antibiotic therapy with ceftriaxone which would give us coverage for staph strep as well as Propionibacterium Status: Acute Priority: Medium Code(s): M00.9 - PYOGENIC ARTHRITIS, UNSPECIFIED SNOMED Code(s): 49461685 (2) Shortness of breath Status: Acute Code(s): R06.02 - SHORTNESS OF BREATH SNOMED Code(s): 414482181 (3) Sjogrens syndrome Status: Acute Code(s): M35.00 - SICCA SYNDROME, UNSPECIFIED SNOMED Code(s): 72738943
--- NOTE | 2019-08-15 12:27 | CDI ---
Documentation Clarification Form Date: 08/15/2019 11:57:53 AM From: Nicole Ayoub RN, CCDS Admit Date: 08/09/2019 1:07:00 PM Patient Name: Osmel Cardona Visit Number: [id number] Discharge Date: 08/13/2019 12:34:00 PM ATTENTION: The Clinical Documentation Specialists (CDI) and [facility] Coding Staff appreciate your assistance in clarifying documentation. Please respond to the clarification below the line at the bottom and electronically sign. The CDI & [facility] Coding staff will review the response and follow-up if needed. Please note: Queries are made part of the Legal Health Record. If you have any questions, please contact the author of this message via ITS. Dr. Tej Crenshaw Per your operative note, a shaver to sharply debride fibrinous exudate was performed on the right shoulder. To accurately capture the procedure further clarification is needed. History/Risk Factors: Torn Right rotator cuff/post infection, Sjogren's, Hypertension, Arthroscopic I&D of postoperative infection right shoulder 07/28/19 Clinical Indicators: 63-year-old post op arthroscopic rotator cuff repair in June. He developed increasing pain and discomfort to the shoulder. In the operative report it is documented that you utilized a shaver to sharply debride any fibrinous exudate. . There was very minimal exudate. Treatment: Arthroscopic irrigation and debridement, right shoulder Rocephin IV Dilaudid IVP ID consult: (Dr. Scales) Septic arthritis of shoulder, right Five elements required for accurate and compliant documentation of a debridement: 1. Technique used (e.g., excisional, excised, cutting, etc.) 2. Instrument(s) used (e.g., scalpel, curette, etc.) 3. Nature of the tissue removed (e.g., necrotic, devitalized tissues, non- viable tissue, etc.) 4. Appearance and size of the wound (e.g., down to fresh bleeding tissue, 7cm x 10cm, etc.) 5. Depth of the debridement* (e.g., skin, subcutaneous tissue, fascia, muscle, bone, etc.) In order to capture the severity of condition and code the appropriate procedure; could you please document the following: Excisional debridement (the removal of necrotic, devitalized tissue or slough by means of cutting away of tissue) Non-excisional debridement (the removal of necrotic, devitalized tissue or slough by means of flushing, brushing, or washing. (Irrigation) Other; please specify Unable to determine (Last Revision: February 2018) MTDD
--- NOTE | 2019-08-18 11:32 | CDI ---
Documentation Clarification Form Date: 08/18/19 From: Stacey Teixeira Phone: If questions call Cary Stafford @ [phone], Hours-8:30 am & 5 pm MLinda Brownlee Admit Date: 08/09/2019 1:07:00 PM Patient Name: Osmel Cardona Visit Number: [id number] Discharge Date: 08/13/2019 12:34:00 PM ATTENTION: The Clinical Documentation Specialists (CDI) and [facility] Coding Staff appreciate your assistance in clarifying documentation. Please respond to the clarification below the line at the bottom and electronically sign. The CDI & [facility] Coding staff will review the response and follow-up if needed. Please note: Queries are made part of the Legal Health Record. If you have any questions, please contact the author of this message via ITS. Dr. Tej Crenshaw Per H&P the patient is s/p I&D of postoperative infection of right shoulder., but is not noted in subsequent documentation. He presents now with septic arthritis of the right shoulder History/Risk Factors: HTN, depression , acid reflux, Sjogren's syndrome, PTCA w stent Clinical Indicators: Right shoulder extremely painful Treatment: IV antibiotics, arthroscopic irrigation and debridement right shoulder Please clarify if the septic arthritis is the postoperative infection Present/active/treated this admission Postoperative infection ruled out Other, please specify Clinically unable to determine MTDD
--- NOTE | 2019-08-22 08:09 | CDI ---
Documentation Clarification Form Date: 08/15/2019 11:57:00 AM From: Nicole Ayoub RN, CCDS Admit Date: 08/09/2019 1:07:00 PM Patient Name: Osmel Cardona Visit Number: [id number] Discharge Date: 08/13/2019 12:34:00 PM ATTENTION: The Clinical Documentation Specialists (CDI) and [facility] Coding Staff appreciate your assistance in clarifying documentation. Please respond to the clarification below the line at the bottom and electronically sign. The CDI & [facility] Coding staff will review the response and follow-up if needed. Please note: Queries are made part of the Legal Health Record. If you have any questions, please contact the author of this message via ITS. Dr. Tej Crenshaw Per your operative note, a shaver to sharply debride fibrinous exudate was performed on the right shoulder. To accurately capture the procedure further clarification is needed. History/Risk Factors: Torn Right rotator cuff/post infection, Sjogrens, Hypertension, Arthroscopic I&D of postoperative infection right shoulder 07/28/19 Clinical Indicators: 63-year-old post op arthroscopic rotator cuff repair in June. He developed increasing pain and discomfort to the shoulder. In the operative report it is documented that you utilized a shaver to sharply debride any fibrinous exudate. . There was very minimal exudate. Treatment: Arthroscopic irrigation and debridement, right shoulder Rocephin IV Dilaudid IVP ID consult: (Dr. Scales) Septic arthritis of shoulder, right Five elements required for accurate and compliant documentation of a debridement: 1. Technique used (e.g., excisional, excised, cutting, etc.) 2. Instrument(s) used (e.g., scalpel, curette, etc.) 3. Nature of the tissue removed (e.g., necrotic, devitalized tissues, non- viable tissue, etc.) 4. Appearance and size of the wound (e.g., down to fresh bleeding tissue, 7cm x 10cm, etc.) 5. Depth of the debridement* (e.g., skin, subcutaneous tissue, fascia, muscle, bone, etc.) In order to capture the severity of condition and code the appropriate procedure; could you please document the following: Excisional debridement (the removal of necrotic, devitalized tissue or slough by means of cutting away of tissue) Non-excisional debridement (the removal of necrotic, devitalized tissue or slough by means of flushing, brushing, or washing. (Irrigation) Other; please specify Unable to determine (Last Revision: February 2018) MTDD
--- NOTE | 2019-08-31 09:51 | CDI ---
Documentation Clarification Form Date: 08/15/2019 11:57:00 AM From: Nicole Ayoub RN, CCDS Admit Date: 08/09/2019 1:07:00 PM Patient Name: Osmel Cardona Visit Number: [id number] Discharge Date: 08/13/2019 12:34:00 PM ATTENTION: The Clinical Documentation Specialists (CDI) and [facility] Coding Staff appreciate your assistance in clarifying documentation. Please respond to the clarification below the line at the bottom and electronically sign. The CDI & [facility] Coding staff will review the response and follow-up if needed. Please note: Queries are made part of the Legal Health Record. If you have any questions, please contact the author of this message via ITS. Dr. Tej Crenshaw Per your operative note, a shaver to sharply debride fibrinous exudate was performed on the right shoulder. To accurately capture the procedure further clarification is needed. History/Risk Factors: Torn Right rotator cuff/post infection, Sjogren's, Hypertension, Arthroscopic I&D of postoperative infection right shoulder 07/28/19 Clinical Indicators: 63-year-old post op arthroscopic rotator cuff repair in June. He developed increasing pain and discomfort to the shoulder. In the operative report it is documented that you utilized a shaver to sharply debride any fibrinous exudate. . There was very minimal exudate. Treatment: Arthroscopic irrigation and debridement, right shoulder Rocephin IV Dilaudid IVP ID consult: (Dr. Scales) Septic arthritis of shoulder, right Five elements required for accurate and compliant documentation of a debridement: 1. Technique used (e.g., excisional, excised, cutting, etc.) 2. Instrument(s) used (e.g., scalpel, curette, etc.) 3. Nature of the tissue removed (e.g., necrotic, devitalized tissues, non- viable tissue, etc.) 4. Appearance and size of the wound (e.g., down to fresh bleeding tissue, 7cm x 10cm, etc.) 5. Depth of the debridement* (e.g., skin, subcutaneous tissue, fascia, muscle, bone, etc.) In order to capture the severity of condition and code the appropriate procedure; could you please document the following: Excisional debridement (the removal of necrotic, devitalized tissue or slough by means of cutting away of tissue) Non-excisional debridement (the removal of necrotic, devitalized tissue or slough by means of flushing, brushing, or washing. (Irrigation) Other; please specify Unable to determine (Last Revision: February 2018) _I feel the operative note is fairly accurate in describing the questions you are asking. The shaver is a cutting instrument. I debrided infectious exudate which is non-viable, necrotic tissue. There wasn't a wound and the depth was the shoulder joint. All of that is in the note. Not sure why I get this query every time I do an I&D. MTDD
== END 2019-08-13 12:34 | disposition home or self-care (01) | DRG 512 ==
LOC: 4SSUR 13:07
PROVIDERS: ADMIT Orthopaedic Surgery Sports Medicine; ATTEND Orthopaedic Surgery Sports Medicine
PROC: 0RBJ4ZZ Excision of Right Shoulder Joint, Percutaneous Endoscopic Approach (ICD-10-PCS; principal; 2019-08-10 08:30)
PROC: 02HV33Z Insertion of Infusion Device into Superior Vena Cava, Percutaneous Approach (ICD-10-PCS; 2019-08-12)
DX: M00.9 Pyogenic arthritis, unspecified (principal); M35.00 Sjogren syndrome, unspecified; I10 Essential (primary) hypertension; E78.5 Hyperlipidemia, unspecified; I25.10 Atherosclerotic heart disease of native coronary artery without angina pectoris; I71.4 Abdominal aortic aneurysm, without rupture; F32.9 Major depressive disorder, single episode, unspecified; K21.9 Gastro-esophageal reflux disease without esophagitis; G51.0 Bell's palsy; Z79.82 Long term (current) use of aspirin; Z79.02 Long term (current) use of antithrombotics/antiplatelets; Z79.890 Hormone replacement therapy; Z79.899 Other long term (current) drug therapy; Z95.5 Presence of coronary angioplasty implant and graft; Z98.1 Arthrodesis status; Z98.890 Other specified postprocedural states; Z82.49 Family history of ischemic heart disease and other diseases of the circulatory system
CPT/HCPCS: 36573; 71046; 85025; 87070; 87075; 87205; 89050; 93005

== ENCOUNTER 2019-09-11 09:23 | Observation (INO) | payer MEDICARE ==
[2019-09-11] MEDS ORDERED: OXYMETAZOLINE 0.05% NASL SPRAY 1 SPRAY BOTTLE NASAL STA (09:46)
--- NOTE | 2019-09-11 09:53 | ED ---
Recheck HPI - General Chief Complaint: Recheck/Abnormal Lab/Rx Stated Complaint: High BP, Chest pain,Bloody nose Time Seen by Provider: 09/11/19 09:31 Source: patient, RN notes reviewed Mode of arrival: ambulatory Limitations: no limitations - History of Present Illness Initial Comments: This a 64-year-old male presents emergency Department with multiple complaints. Patient states he had some chest discomfort started yesterday and has been on and off. Patient does admit that he took some nitroglycerin yesterday which alleviated his pain. Patient states he currently is not having chest pain. Patient states he is also having worsening nosebleeds. He states he was having prior nosebleeds and was switched from Plavix to Effient. Patient denies any nausea vomiting, headache or dizziness no fevers chills. Patient does have a history of hypertension which she did his blood pressure medications morning. Patient also states she's been treated for right shoulder infection through a PICC line. Patient's blood pressure was elevated this morning at his morning infusion and was sent over for further evaluation - Related Data Home Medications Medication Instructions Recorded Confirmed Citalopram Hydrobromide [CeleXA] 20 mg PO HS 02/08/16 08/09/19 Pantoprazole Sodium [Protonix] 40 mg PO DAILY 02/08/16 08/09/19 Testosterone [Androgel 1.62% Gel 1 applic TOPICAL DAILY 06/19/17 08/09/19 Pump] Carvedilol [Coreg] 3.125 mg PO BID 12/25/18 08/09/19 Clopidogrel [Plavix] 75 mg PO HS 03/11/19 08/09/19 Valsartan [Diovan] 160 mg PO DAILY 08/09/19 08/09/19 Previous Rx's Medication Instructions Recorded Aspirin 81 mg PO DAILY #30 chew 12/28/18 Atorvastatin [Lipitor] 80 mg PO HS #30 tab 12/28/18 Nitroglycerin Sl Tabs [Nitrostat] 0.4 mg SUBLINGUAL Q5M PRN #25 tab 12/28/18 cefTRIAXone [Rocephin] 2 gm IVPB Q24H #42 bag 08/11/19 HYDROcodone/APAP 7.5-325MG [[place] 1 - 2 each PO Q6HR PRN #56 tab 08/13/19 7.5-325] Allergies Allergy/AdvReac Type Severity Reaction Status Date / Time No Known Allergies Allergy Verified 09/11/19 10:04 Review of Systems ROS Statement: Those systems with pertinent positive or pertinent negative responses have been documented in the HPI. ROS Other: All systems not noted in ROS Statement are negative. Past Medical History Past Medical History: Coronary Artery Disease (CAD), GERD/Reflux, Hypertension Additional Past Medical History / Comment(s): R shoulder pain for approximately one month/infection, AAA being monitored, Sjogren's, occasional vertigo, History of Any Multi-Drug Resistant Organisms: None Reported Past Surgical History: Back Surgery, Heart Catheterization With Stent, Orthopedic Surgery Additional Past Surgical History / Comment(s): R shoulder arthroscopyfor torn R rotator cuff/post infection and had another surgery to remove titanium hook, PICC, low back fusion, R hand foreign body removal, 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 Past Anesthesia/Blood Transfusion Reactions: No Reported Reaction Date of Last Stent Placement:: dec 2018 Past Psychological History: No Psychological Hx Reported Smoking Status: Never smoker - Past Family History Father Family Medical History: Myocardial Infarction (TN) Additional Family Medical History / Comment(s): Father of a TN at the age of 60yrs. Mother Additional Family Medical History / Comment(s): Mother of an aneurysm that ruptured at the age of 60yrs. General Exam Limitations: no limitations General appearance: alert, in no apparent distress Head exam: Present: atraumatic, normocephalic, normal inspection Eye exam: Present: normal appearance, PERRL, EOMI. Absent: scleral icterus, conjunctival injection, periorbital swelling ENT exam: Present: normal oropharynx, mucous membranes moist, other (Dry blood noted in the right nostril). Absent: normal exam Neck exam: Present: normal inspection, full ROM. Absent: tenderness, meningismus, lymphadenopathy Respiratory exam: Present: normal lung sounds bilaterally. Absent: respiratory distress, wheezes, rales, rhonchi, stridor Cardiovascular Exam: Present: regular rate, normal rhythm, normal heart sounds. Absent: systolic murmur, diastolic murmur, rubs, gallop, clicks Neurological exam: Present: alert, oriented X3, CN II-XII intact, reflexes normal. Absent: motor sensory deficit Skin exam: Present: warm, dry, intact, normal color. Absent: rash Course Vital Signs 09/11/19 09/11/19 09:23 11:04 Temperature 98.2 F Pulse Rate 82 75 Respiratory 16 16 Rate Blood Pressure 161/93 117/81 O2 Sat by Pulse 97 98 Oximetry Medical Decision Making - Medical Decision Making Patient's labwork is unremarkable at this time, EKG is unchanged from prior. Patient had stenting of his LAD he has symptoms consistent with his prior issues. Patient does when having issues with his blood pressure, multiple n osebleeds. Patient will not be started on heparin at this time he'll be admitted with consult to his hoseman for further evaluation. - Lab Data Result diagrams: 09/11/19 09:56 09/11/19 09:56 Lab Results 09/11/19 09/11/19 09/11/19 Range/Units 09:56 09:56 09:56 WBC 4.2 (3.8-10.6) k/uL RBC 4.15 L (4.30-5.90) m/uL Hgb 13.3 (13.0-17.5) gm/dL Hct 38.7 L (39.0-53.0) % MCV 93.4 (80.0-100.0) fL MCH 32.1 (25.0-35.0) pg MCHC 34.4 (31.0-37.0) g/dL RDW 12.5 (11.5-15.5) % Plt Count 172 (150-450) k/uL Neutrophils % 57 % Lymphocytes % 23 % Monocytes % 10 % Eosinophils % 4 % Basophils % 1 % Neutrophils # 2.4 (1.3-7.7) k/uL Lymphocytes # 1.0 (1.0-4.8) k/uL Monocytes # 0.4 (0-1.0) k/uL Eosinophils # 0.2 (0-0.7) k/uL Basophils # 0.1 (0-0.2) k/uL PT 10.5 (9.0-12.0) sec INR 1.0 (<1.2) APTT 25.1 (22.0-30.0) sec Sodium 136 L (137-145) mmol/L Potassium 4.3 (3.5-5.1) mmol/L Chloride 101 (98-107) mmol/L Carbon Dioxide 25 (22-30) mmol/L Anion Gap 10 mmol/L BUN 9 (9-20) mg/dL Creatinine 0.65 L (0.66-1.25) mg/dL Est GFR (CKD-EPI)AfAm >90 (>60 ml/min/1.73 sqM) Est GFR (CKD-EPI)NonAf >90 (>60 ml/min/1.73 sqM) Glucose 115 H (74-99) mg/dL Calcium 9.0 (8.4-10.2) mg/dL Magnesium 1.8 (1.6-2.3) mg/dL Total Bilirubin 0.5 (0.2-1.3) mg/dL AST 46 (17-59) U/L ALT 55 (21-72) U/L Alkaline Phosphatase 110 (38-126) U/L Troponin I (0.000-0.034) ng/mL Total Protein 7.1 (6.3-8.2) g/dL Albumin 4.2 (3.5-5.0) g/dL 09/11/19 Range/Units 09:56 WBC (3.8-10.6) k/uL RBC (4.30-5.90) m/uL Hgb (13.0-17.5) gm/dL Hct (39.0-53.0) % MCV (80.0-100.0) fL MCH (25.0-35.0) pg MCHC (31.0-37.0) g/dL RDW (11.5-15.5) % Plt Count (150-450) k/uL Neutrophils % % Lymphocytes % % Monocytes % % Eosinophils % % Basophils % % Neutrophils # (1.3-7.7) k/uL Lymphocytes # (1.0-4.8) k/uL Monocytes # (0-1.0) k/uL Eosinophils # (0-0.7) k/uL Basophils # (0-0.2) k/uL PT (9.0-12.0) sec INR (<1.2) APTT (22.0-30.0) sec Sodium (137-145) mmol/L Potassium (3.5-5.1) mmol/L Chloride (98-107) mmol/L Carbon Dioxide (22-30) mmol/L Anion Gap mmol/L BUN (9-20) mg/dL Creatinine (0.66-1.25) mg/dL Est GFR (CKD-EPI)AfAm (>60 ml/min/1.73 sqM) Est GFR (CKD-EPI)NonAf (>60 ml/min/1.73 sqM) Glucose (74-99) mg/dL Calcium (8.4-10.2) mg/dL Magnesium (1.6-2.3) mg/dL Total Bilirubin (0.2-1.3) mg/dL AST (17-59) U/L ALT (21-72) U/L Alkaline Phosphatase (38-126) U/L Troponin I <0.012 (0.000-0.034) ng/mL Total Protein (6.3-8.2) g/dL Albumin (3.5-5.0) g/dL - EKG Data -: EKG Interpreted by Me EKG Comments: EKG performed at 9:43 normal sinus rhythm rate of 65 [place] 186 QRS 88 QT/QTC 390/[address] elevation or depression normal axis normal intervals Disposition Clinical Impression: Chest pain, Epistaxis, Hypertension Disposition: ADMITTED IP TO THIS HOSP Condition: Fair Referrals: Estevan Marroquin III, MD [Primary Care Provider] - 1-2 days
[2019-09-11 10:09] LABS: Basophils # (A) 0.1 k/uL (0-0.2); Basophils % (A) 1 %; Eosinophils # (A) 0.2 k/uL (0-0.7); Eosinophils % (A) 4 %; HCT 38.7 % (39.0-53.0); HGB 13.3 gm/dL (13.0-17.5); Lymphocytes % (A) 23 %; MCH 32.1 pg (25.0-35.0); MCHC 34.4 g/dL (31.0-37.0); MCV 93.4 fL (80.0-100.0); Mean Platelet Volume 7.2; Monocytes # (A) 0.4 k/uL (0-1.0); Monocytes % (A) 10 %; Neutrophils # (A) 2.4 k/uL (1.3-7.7); Neutrophils % (A) 57 %; Platelet Count 172 k/uL (150-450); RBC 4.15 m/uL (4.30-5.90); RDW 12.5 % (11.5-15.5); WBC 4.2 k/uL (3.8-10.6)
[2019-09-11 10:18] LABS: ALT 55 U/L (21-72); AST 46 U/L (17-59); African American GFR (CKD) >90 (>60 ml/min/1.73 sqM); Albumin 4.2 g/dL (3.5-5.0); Alkaline Phosphatase 110 U/L (38-126); Anion Gap 10 mmol/L; Blood Urea Nitrogen 9 mg/dL (9-20); Carbon Dioxide 25 mmol/L (22-30); Chloride 101 mmol/L (98-107); Glucose 115 mg/dL (74-99); Magnesium 1.8 mg/dL (1.6-2.3); Non-African American GFR(CKD) >90 (>60 ml/min/1.73 sqM); Potassium 4.3 mmol/L (3.5-5.1); Sodium 136 mmol/L (137-145); Total Bilirubin 0.5 mg/dL (0.2-1.3)
[2019-09-11 10:19] LABS: Partial Thromboplastin Time 25.1 sec (22.0-30.0); Prothrombin Time 10.5 sec (9.0-12.0); Total Protein 7.1 g/dL (6.3-8.2)
--- NOTE | 2019-09-11 10:22 | XR ---
EXAMINATION TYPE: XR chest 2V DATE OF EXAM: 09/11/2019 HISTORY: Chest Pain. REFERENCE: Previous study dated 08/09/2019. FINDINGS: There are mild increased pulmonary markings which are chronic. There is no pneumonia or arcenio ma. The heart is not enlarged. Pleural spaces are clear. IMPRESSION: NO ACTIVE INTRATHORACIC DISEASE.
[2019-09-11] MEDS ORDERED: NITROGLYCERIN SL TABS 0.4 MG TAB SUBLINGUAL PRN (11:11)
[2019-09-11] MEDS ORDERED: cefTRIAXone 2 GM VIAL IVPB SCH (14:45)
--- NOTE | 2019-09-11 15:16 | HP ---
HISTORY AND PHYSICAL DATE OF SERVICE: 09/11/2019 CHIEF COMPLAINT: Multiple chief complaints including chest pain as well epistaxis and high blood pressure. HISTORY OF PRESENT ILLNESS: This 64-year-old gentleman with a past medical history of multiple medical problems, hypertension, CAD, history of back surgery, CAD, stent being followed by Dr. Marroquin in the outpatient setting, recently had a right shoulder surgery which is infected. Apparently this was osteomyelitis and the patient was on IV antibiotics through a PICC line in the left arm. Dr. Scales is also following the patient closely. The patient also had recurrent epistaxis for the last several weeks, sometimes lasting up to 6-7 hours according to him. The patient also showed Sjogren's syndrome also. The patient also complaining of shortness of breath on ambulating short distances and also weakness also for the last one month which is increasing in severity. The blood pressure was also found to be high as well. The laboratory parameters show WBC 4.2, hemoglobin 13.3 and glucose 115. The patient was admitted for further evaluation and treatment. The EKG on admission showed no acute changes. There is no history of fever, rigors or chills. No history of headache, loss of consciousness or seizures. PAST MEDICAL HISTORY: History of CAD, history of GERD, hypertension, history of recent right shoulder surgery infection, possible osteomyelitis, history of abdominal aortic aneurysm, history of coronary artery disease stent. MEDICATIONS: Home medications are: 1. Coreg 3.125 mg p.o. b.i.d. 2. Lipitor 80 mg q.h.s. 3. Celexa 20 mg q.a.m. 4. Rocephin 2 g IV daily. 5. Diovan 160 mg p.o. daily. 6. Protonix 40 mg p.o. daily. 7. Nitrostat 0.4 mg sublingual p.r.n. 9. Effient 5 mg p.o. daily. 10.Aspirin 81 mg p.o. daily. ALLERGIES: None. FAMILY HISTORY: History of myocardial infarction in the family. SOCIAL HISTORY: No history of smoking. Occasional alcohol intake. REVIEW OF SYSTEMS: ENT: No diminished vision. No diminished hearing. CARDIOVASCULAR system as mentioned earlier. RESPIRATORY: As mentioned earlier. GI no nausea or vomiting. no dysuria or hematuria. NERVOUS SYSTEM: No numbness or weakness. ALLERGY/IMMUNOLOGY: No asthma or hayfever. MUSCULOSKELETAL as mentioned earlier. HEMATOLOGY/ONCOLOGY: No history of anemia. ENDOCRINE: No history of diabetes or hypothyroidism. CONSTITUTIONAL: As mentioned earlier. DERMATOLOGY: Negative. RHEUMATOLOGY: Negative. PSYCHIATRY: As mentioned earlier. PHYSICAL EXAM: Patient is alert, oriented x3. Pulse is 61. Blood pressure 142/87, respiration 16, temperature 98.2. Pulse ox 100 percent on room air. HEENT: Conjunctivae normal. Oral mucosa moist. NECK is no jugular venous distention. No carotid bruit. No lymph node enlargement. CARDIOVASCULAR: S1, S2. No S3. No S4. RESPIRATORY: Breath sounds diminished in the bases. No rhonchi. No crackles. ABDOMEN: Soft, nontender. No mass palpable. LEGS: No edema. No swelling. NERVOUS SYSTEM: Higher functions as mentioned earlier. Moves all four limbs. No focal deficits. Lymphatics: No lymph nodes palpable in the neck, axillae or groin. JOINTS: Right shoulder pain present. Left arm PICC line in-situ present. LAB STUDIES: WBC 4.8, hemoglobin 13.2, sodium 130, potassium 4.2. ASSESSMENT: 1. Chest pain possible unstable angina. 2. Shortness of breath and weakness for evaluation. 3. History of recent right shoulder osteomyelitis on prolonged IV therapy by the left PICC line. 4. Recurrent epistaxis for evaluation. 5. History of gastroesophageal reflux disease. 6. Coronary artery disease. 7. Hypertension. 8. History of coronary artery disease/stent. 9. Hyponatremia. RECOMMENDATIONS AND DISCUSSION: In this 64-year-old gentleman who presented with multiple medical issues, at this time, I recommend continue with current medications. Rule out myocardial infarction. Otherwise, cardiology consultation. Possible stress test for further evaluation. Otherwise ENT evaluation for the epistaxis. I would also recommend a CT scan of the chest to rule out the possibility of any acute pulmonary embolism. Otherwise, we will continue to monitor. Home medication will be continued. Guarded prognosis because of multiple complex medical issues. A copy of dictation will be forwarded to Dr. Marroquin who is the primary physician. SHAKA / JOELLE: [id number] / MTDD
--- NOTE | 2019-09-11 15:53 | CT ---
EXAMINATION TYPE: CT angio chest DATE OF EXAM: 09/11/2019 3:39 PM COMPARISON: 03/11/2019 HISTORY: Chest pain. CT DLP: 343.4 mGycm Automated exposure control for dose reduction was used. CONTRAST: CTA scan of the thorax is performed with IV Contrast, patient injected with 71ml mL of Isovue 300, pu lmonary embolism protocol. . There are 3-D post processed images. FINDINGS: The lungs are clear of consolidation. There is no evidence of a pulmonary mass. There is no pleural e ffusion. There is mild pulmonary emphysema. Heart size is normal. There is no pericardial effusion. T here are no hilar masses. There is no mediastinal adenopathy. There is 4.5 cm aneurysm of the ascendi ng aorta. There is no dissection. There is normal contrast opacification of the pulmonary arteries. I see no filling defects. There is minor spurring in the thoracic spine. Bony thorax is intact. IMPRESSION: NO EVIDENCE OF PULMONARY EMBOLISM. ANEURYSM OF ASCENDING AORTA UNCHANGED. PULMONARY EMPHYSEMA.
[2019-09-11] MEDS: CARVEDILOL 3.125 MG TAB PO SCH (17:37)
[2019-09-11 17:51] LABS: Appearance,Urine Clear (Clear); Bilirubin,Urine Negative (Negative); Blood,Urine Negative (Negative); Color,Urine Light Yellow; Glucose,Urine (UA) Negative (Negative); Ketones,Urine Negative (Negative); Leukocyte Esterase,Urine Negative (Negative); Nitrite,Urine Negative (Negative); Protein,Urine Negative (Negative); Specific Gravity,Urine 1.019 (1.001-1.035); Urobilinogen,Urine <2.0 mg/dL (<2.0)
[2019-09-11 19:49] VITALS: RESP 18
[2019-09-11] MEDS: CITALOPRAM HYDROBROMIDE 20 MG TAB PO SCH (20:24)
[2019-09-11] MEDS: ATORVASTATIN 80 MG TAB PO SCH (20:24)
[2019-09-11] MEDS ORDERED: ACETAMINOPHEN TAB 325 MG TAB PO PRN (23:19)
[2019-09-11] MEDS ORDERED: HYDROcodone/APAP 5-325MG 1 EACH TAB PO PRN (23:20)
[2019-09-12] MEDS ORDERED: INFLUENZA VACCINE (6 MOS+) 60 MCG/0.5 ML SYRINGE IM ONE (05:22)
[2019-09-12 06:29] LABS: Cholesterol 73 mg/dL (<200); HDL Cholesterol 40 mg/dL (40-60); LDL Cholesterol,Calculated 16 mg/dL (0-99); Triglycerides 84 mg/dL (<150)
[2019-09-12] MEDS ORDERED: PRASUGREL 10 MG TAB PO SCH (09:00)
[2019-09-12] MEDS ORDERED: ASPIRIN 325 MG TAB PO SCH (09:00)
[2019-09-12 09:19] LABS: HCT 39.5 % (39.0-53.0); HGB 13.4 gm/dL (13.0-17.5); MCH 31.9 pg (25.0-35.0); MCHC 33.8 g/dL (31.0-37.0); MCV 94.4 fL (80.0-100.0); Mean Platelet Volume 7.1; Platelet Count 161 k/uL (150-450); RBC 4.19 m/uL (4.30-5.90); RDW 12.5 % (11.5-15.5); WBC 4.2 k/uL (3.8-10.6)
--- NOTE | 2019-09-12 10:18 | P.CRDCN ---
History of Present Illness History of present illness: This is a pleasant 64-year-old male past medical history significant for coronary artery disease status post stent placement to the LAD December 2018 maintained on dual antiplatelet therapy with residual blockages of 80-90% of a small 2mm OM, 30-40% diffusely diseased proximal RCA and 30-40% of the small PDA branch of RCA, abdominal aortic aneurysm followed at the [facility], hypertension, dyslipidemia and recent rotator cuff surgery with septic arthritis requiring IV antibiotics. He follows in the office with Dr. Campos. We have been asked to see him in consultation secondary to chest discomfort and epistaxis. He states for the previous one to 2 weeks he has been experiencing a tight discomfort in the left precordial region. This is associated with some sh ortness of breath. There is no radiation to the arm, back, neck or jaw. He denies associated dizziness, nausea, vomiting, diaphoresis or palpitations. He has see Dr. Campos in the office and is scheduled to undergo a stress test next week. He also has been experiencing intermittent unprovoked epistaxis for the previous one to 2 months. Initially he was maintained on aspirin and Plavix and due to the epistaxis was changed to aspirin and Effient. Specifically on Thursday he began having epistaxis that persisted through the evening and overnight. He went on Thursday morning for his IV antibiotic infusion and was having ongoing epistaxis. Due to the epistaxis and chest discomfort he came to the hospital for further evaluation. He has had no chest discomfort since arriving at the hospital. His epistaxis has resolved. Aspirin and Effient last dose was September 11. EKG reveals sinus mechanism with no acute ST or T wave abnormalities noted. Chest x-ray is negative for an acute cardiopulmonary process. Laboratory data reviewed, cardiac enzymes negative 3, WBC 4.2, hemoglobin 13.4 stable from yesterday 13.3, platelets 161, sodium 136, potassium 4.3, creatinine 0.65, magnesium 1.8, LDL 16. Current daily cardiac medications include aspirin 81 mg daily, Effient 5 mg daily, valsartan 160 mg daily, atorvastatin 80 mg daily and carvedilol 3.125 mg twice a day. Most recent echocardiogram obtained March 2019 reveals preserved LV systolic function with ejection fraction 55-60%, mild aortic valve sclerosis, mild aortic regurgitation and mild mitral regurgitation. At the time of my exam: CONSTITUTIONAL: Denies fever. Denies chills. EYES: Denies blurred vision. Denies vision changes. Denies eye pain. EARS, NOSE, MOUTH & THROAT: Denies headache. Denies sore throat. Denies ear pain. CARDIOVASCULAR: Denies chest pain. Denies shortness of breath. Denies orthopnea. Denies PND. Denies palpitations. RESPIRATORY: Denies cough. GASTROINTESTINAL: Denies abdominal pain. Denies diarrhea. Denies constipation. Denies nausea. Denies vomiting. MUSCULOSKELETAL: Denies myalgias. INTEGUMENTARY: Denies pruitis. Denies rash. NEUROLOGIC: Denies numbness. Denies tingling. Denies weakness. PSYCHIATRIC: Denies anxiety. Denies depression. ENDOCRINE: Denies fatigue. Denies weight change. Denies polydipsia. Denies polyurina. GENITOURINARY: Denies burning, hematuria or urgency with micturation. HEMATOLOGIC: Denies history of anemia. Denies bleeding. Blood pressure 131/73 heart rate 61 afebrile maintaining oxygen saturation on room air GENERAL: This is a 64-year-old male in no apparent distress at the time of my examination. HEENT: Head is atraumatic, normocephalic. Pupils are equal, round. Sclerae anicteric. Conjunctivae are clear. Mucous membranes of the mouth are moist. Neck is supple. There is no jugular venous distention. No carotid bruit is heard. LUNGS: Clear to auscultation no wheezes, rales or rhonchi. No chest wall tenderness is noted on palpation or with deep breathing. HEART: Regular rate and rhythm without murmurs, rubs or gallops. S1 and S2 heard. ABDOMEN: Soft, nontender. Bowel sounds are heard. No organomegaly noted. EXTREMITIES: No evidence of peripheral edema and no calf tenderness noted. VASCULAR: Radial and dorsalis pedis pulses palpated, no evidence of clubbing. NEUROLOGIC: Patient is awake, alert and oriented x3. ASSESSMENT Chest pain, atypical for angina. Similar to symptoms he experienced 12/2018 when he received a stent placement. Epistaxis, intermittent and recurrent for the previous 1-2 months. History of coronary artery disease s/p stent placement to LAD 12/2018 maintained on dual anti-platelet therapy. Hypertension Dyslipidemia Abdominal aortic aneurysm, stable Recent rotator cuff surgery with septic arthritis requiring IV antibiotics, PICC line in place PLAN An acute coronary event has been ruled out. No EKG evidence of ischemia and negative cardiac enzymes. Epistaxis has resolved, hemoglobin stable. Perform Cardiolite stress test to assess for reversible cardiac ischemia. Obtain 2-D echocardiogram and Doppler study to assess cardiac structure and function. Recommend aspirin 81 mg daily and Plavix 75 mg daily until December 2019. Advised him to use Vaseline in his nares at night and humidification to avoid excessive dryness. If stress test is normal he may be discharged from a cardiac perspective to follow-up with Dr. Campos. If abnormality noted we will recommend coronary angiography to assess for progression of coronary artery disease. Thank you kindly for this consultation. Nurse Practitioner note has been reviewed, I agree with a documented findings and plan of care. Patient was seen and examined. Past Medical History Past Medical History: Coronary Artery Disease (CAD), GERD/Reflux, Hypertension Additional Past Medical History / Comment(s): R shoulder pain for approximately one month/infection, AAA being monitored, Sjogren's, occasional vertigo, History of Any Multi-Drug Resistant Organisms: None Reported Past Surgical History: Back Surgery, Heart Catheterization With Stent, Ortho pedic Surgery Additional Past Surgical History / Comment(s): R shoulder arthroscopyfor torn R rotator cuff/post infection and had another surgery to remove titanium hook, PICC, low back fusion, R hand foreign body removal, 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 Past Anesthesia/Blood Transfusion Reactions: No Reported Reaction Date of Last Stent Placement:: dec 2018 Past Psychological History: No Psychological Hx Reported Additional Psychological History / Comment(s): lives with a significant other. 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 pet dog in the home. Usually goes to the gym 3 times perhoulder Smoking Status: Never smoker Past Alcohol Use History: Occasional Past Drug Use History: None Reported - Past Family History Father Family Medical History: Myocardial Infarction (ND) Additional Family Medical History / Comment(s): Father of a ND at the age of 60yrs. Mother Additional Family Medical History / Comment(s): Mother of an aneurysm that ruptured at the age of 60yrs. Medications and Allergies Home Medications Medication Instructions Recorded Confirmed Type Citalopram Hydrobromide [CeleXA] 20 mg PO HS 02/08/16 09/11/19 History Pantoprazole Sodium [Protonix] 40 mg PO DAILY 02/08/16 09/11/19 History Testosterone [Androgel 1.62% Gel 1 applic TOPICAL DAILY 06/19/17 09/11/19 History Pump] Carvedilol [Coreg] 3.125 mg PO BID 12/25/18 09/11/19 History Aspirin 81 mg PO DAILY #30 chew 12/28/18 09/11/19 Rx Atorvastatin [Lipitor] 80 mg PO HS #30 tab 12/28/18 09/11/19 Rx Nitroglycerin Sl Tabs [Nitrostat] 0.4 mg SUBLINGUAL Q5M PRN #25 tab 12/28/18 09/11/19 Rx Valsartan [Diovan] 160 mg PO DAILY 08/09/19 09/11/19 History cefTRIAXone [Rocephin] 2 gm IVPB Q24H #42 bag 08/11/19 09/11/19 Rx Prasugrel HCl [Effient] 5 mg PO DAILY 09/11/19 09/11/19 History Allergies Allergy/AdvReac Type Severity Reaction Status Date / Time No Known Allergies Allergy Verified 09/11/19 10:04 Physical Exam Vitals: Vital Signs Temp Pulse Pulse Resp BP BP Pulse Ox 09/12/19 07:44 97.6 F 61 18 131/73 97 09/12/19 04:00 97.8 F 59 L 18 140/72 97 09/12/19 03:21 61 18 09/12/19 00:00 61 18 09/11/19 23:50 97.8 F 61 18 157/77 100 09/11/19 20:00 18 09/11/19 19:48 97.6 F 64 18 130/70 98 09/11/19 16:00 97.7 F 60 16 133/76 98 09/11/19 12:00 16 09/11/19 11:55 98.2 F 61 16 142/87 100 09/11/19 11:45 76 16 128/86 98 09/11/19 11:04 75 16 117/81 98 09/11/19 09:23 98.2 F 82 16 161/93 97 Intake and Output 09/11/19 09/12/19 09/12/19 22:59 06:59 14:59 Intake Total 720 Output Total 1 Balance 719 Intake: Oral 720 Output: Urine 1 Other: Voiding Method Toilet Toilet Results 09/12/19 09:00 09/11/19 09:56 Cardiac Enzymes 09/11/19 09/11/19 09/11/19 Range/Units 09:56 09:56 16:51 AST 46 (17-59) U/L Troponin I <0.012 <0.012 (0.000-0.034) ng/mL 09/11/19 Range/Units 21:43 AST (17-59) U/L Troponin I <0.012 (0.000-0.034) ng/mL Coagulation 09/11/19 Range/Units 09:56 PT 10.5 (9.0-12.0) sec APTT 25.1 (22.0-30.0) sec Lipids 09/11/19 Range/Units 09:56 Triglycerides 84 (<150) mg/dL Cholesterol 73 (<200) mg/dL HDL Cholesterol 40 (40-60) mg/dL CBC 09/11/19 Range/Units 09:56 WBC 4.2 (3.8-10.6) k/uL RBC 4.15 L (4.30-5.90) m/uL Hgb 13.3 (13.0-17.5) gm/dL Hct 38.7 L (39.0-53.0) % Plt Count 172 (150-450) k/uL Comprehensive Metabolic Panel 09/11/19 Range/Units 09:56 Sodium 136 L (137-145) mmol/L Potassium 4.3 (3.5-5.1) mmol/L Chloride 101 (98-107) mmol/L Carbon Dioxide 25 (22-30) mmol/L BUN 9 (9-20) mg/dL Creatinine 0.65 L (0.66-1.25) mg/dL Glucose 115 H (74-99) mg/dL Calcium 9.0 (8.4-10.2) mg/dL AST 46 (17-59) U/L ALT 55 (21-72) U/L Alkaline Phosphatase 110 (38-126) U/L Total Protein 7.1 (6.3-8.2) g/dL Albumin 4.2 (3.5-5.0) g/dL Current Medications Generic Name Dose Route Start Last Admin Trade Name Freq PRN Reason Stop Dose Admin Acetaminophen 650 mg 09/11/19 23:19 Tylenol Tab PO Q6HR PRN Fever and/ or Pain Hydrocodone Bitart/Acetaminophen 1 each 09/11/19 23:20 09/11/19 23:39 [place] 5-325 PO 1 each Q6HR PRN Administration Pain Aspirin 325 mg 09/12/19 09:00 Aspirin PO DAILY [facility] Atorvastatin Calcium 80 mg 09/11/19 21:00 09/11/19 20:24 Lipitor PO 80 mg HS [facility] Administration Carvedilol 3.125 mg 09/11/19 17:30 09/11/19 17:37 Coreg PO 3.125 mg BID-W/MEALS [facility] Administration Citalopram Hydrobromide 20 mg 09/11/19 21:00 09/11/19 20:24 Celexa PO 20 mg HS [facility] Administration Ceftriaxone Sodium 2 gm/ 50 mls @ 100 mls/hr 09/11/19 16:00 09/11/19 15:45 Sodium Chloride IVPB Not Given Q24HR [facility] Nitroglycerin 0.4 mg 09/11/19 11:11 Nitrostat SUBLINGUAL Q5M PRN Chest Pain Non-Formulary Medication 1 applic 09/12/19 09:00 Testosterone [Androgel 1.62% Gel Pump] TOPICAL DAILY [facility] Pantoprazole Sodium 40 mg 09/12/19 09:00 Protonix PO DAILY [facility] Prasugrel 5 mg 09/12/19 09:00 Effient PO DAILY [facility] Valsartan 160 mg 09/12/19 09:00 Diovan PO DAILY [facility] Intake and Output 09/11/19 09/12/19 09/12/19 22:59 06:59 14:59 Intake Total 720 Output Total 1 Balance 719 Intake: Oral 720 Output: Urine 1 Other: Voiding Method Toilet Toilet 09/11/19 09:56 09/11/19 09:56
--- NOTE | 2019-09-12 12:41 | NM ---
EXAMINATION TYPE: NM stress cardiolite complete DATE OF EXAM: 09/12/2019 COMPARISON: 01/21/2017 HISTORY: Chest pain TECHNIQUE: After the intravenous administration of 10.36 mCi Tc 99m Sestamibi - Rest images obtained 150 minutes post injection. The patient exercised using a SILVIA protocol and 1 minute prior to pea k exercise was injected with 24.3 mCi Tc 99m Sestamibi - Stress images obtained 25 minutes post injec tion. FINDINGS: Targeted heart rate was achieved during performance of the study. Review of stress and rest SPECT zeyad ges demonstrates no distinct perfusion abnormality. Gated analysis shows normal wall motion with an estimated left ventricular ejection fraction of 71 %. IMPRESSION: No scintigraphic evidence for reversible ischemia
[2019-09-12] MEDS: CLOPIDOGREL 75 MG TAB PO SCH (13:10)
[2019-09-12] MEDS: VALSARTAN 160 MG TAB PO SCH (13:10)
[2019-09-12] MEDS: ASPIRIN 81 MG PO SCH (13:10)
[2019-09-12] MEDS: PANTOPRAZOLE 40 MG TABLET PO SCH (13:11)
[2019-09-12] MEDS: CARVEDILOL 3.125 MG TAB PO SCH ×2 (13:11→17:17)
[2019-09-12] MEDS: TESTOSTERONE TOPICAL SCH (13:28)
[2019-09-12] MEDS: CITALOPRAM HYDROBROMIDE 20 MG TAB PO SCH (20:50)
[2019-09-12] MEDS: ATORVASTATIN 80 MG TAB PO SCH (20:50)
--- NOTE | 2019-09-13 05:59 | DS ---
DISCHARGE SUMMARY DATE OF SERVICE: 09/12/2019 FINAL DIAGNOSES: 1. Chest pain possible unstable angina, negative stress test. 2. Shortness of breath and weakness with a negative workup. 3. History of recent right shoulder osteomyelitis on prolonged IV therapy through left PICC line. 4. Recurrent epistaxis for evaluation. 5. History of gastroesophageal reflux disease. 6. Coronary artery disease. 7. Hypertension. 8. History of coronary artery disease, stent. 9. Hyponatremia. DISCHARGE DISPOSITION: The patient will be discharged in stable condition with guarded prognosis. HISTORY OF PRESENT ILLNESS: This 64-year-old gentleman with a past medical history of multiple medical problems admitted with chest pain, myocardial infarction ruled out. Patient also complained of shortness of breath and weakness. However, the CT angio was negative for pulmonary embolism. Cardiology saw the patient and cleared the patient for discharge. Aneurysm of ascending aorta was noted which is unchanged. Pulmonary emphysema was also noted. On exam, vitals are stable. CARDIOVASCULAR: S1, S2 muffled. ABDOMEN: Soft. NERVOUS SYSTEM: No focal deficit. Recommend ENT followup for epistaxis. DISCHARGE ADVICE AND MEDICATIONS: 1. Diet is cardiac. 2. Activity limited until followup. 3. Follow up with Dr. Marroquin in 1 to 2 days. 4. Follow up with Cardiology as recommended. 5. Followup with ENT as recommended. Medications are: 1. Testosterone application topically daily. 2. Celexa 20 mg at bedtime. 3. Coreg 3.125 mg p.o. b.i.d. 4. Diovan 160 mg p.o. daily. 7. Protonix 40 mg p.o. daily. 8. Aspirin 81 mg p.o. daily. 9. Lipitor 80 mg at bedtime. 10.Nitrostat 0.4 mg sublingual p.r.n. 11.Rocephin 2 grams IV daily for [address] Scales. 12.Tylenol p.r.n. Follow up with ENT as recommended. Once again, the patient will be discharged in stable condition with guarded prognosis. MMODL / IJN: [id number] / MTDD
[2019-09-13 07:28] VITALS: BP 122/72; PULSE 67; TEMP 97.9
--- NOTE | 2019-09-13 09:00 | ECHOF ---
Referral Reason:cp MEASUREMENTS -------- HEIGHT: 182.9 cm WEIGHT: 78.5 kg BP: 131/73 RVIDd: 3.2 cm (< 3.3) IVSd: 1.5 cm (0.6 - 1.1) LVIDd: 3.6 cm (3.9 - 5.3) LVPWd: 1.4 cm (0.6 - 1.1) IVSs: 1.8 cm LVIDs: 2.3 cm LVPWs: 1.5 cm LA Diam: 3.1 cm (2.7 - 3.8) LAESV Index (A-L): 26.42 ml/m Ao Diam: 3.5 cm (2.0 - 3.7) AV Cusp: 1.8 cm (1.5 - 2.6) MV EXCURSION: 18.829 mm (> 18.000) MV EF SLOPE: 4 mm/s (70 - 150) EPSS: 0.5 cm MV E Ernesto: 0.77 m/s MV DecT: 358 ms MV A Ernesto: 1.07 m/s MV E/A Ratio: 0.73 AR PHT: 1152 ms RAP: 5.00 mmHg RVSP: 22.84 mmHg TAPSE: 20.30 mm FINDINGS -------- Resting bradycardia (HR<60bpm). This was a technically good study. The left ventricular size is normal. There is moderate concentric left ventricular hypertrophy. O verall left ventricular systolic function is normal with, an EF between 60 - 65 %. The right ventricle is normal in size. Normal LA size by volume 22+/-6 ml/m2. The right atrium is normal in size. Interatrial and interventricular septum intact. The aortic valve is trileaflet and appears structurally normal. There is mild aortic regurgitation. There is trace mitral regurgitation. Mild tricuspid regurgitation present. Right ventricular systolic pressure is normal at < 35 mmHg. There is no pulmonic regurgitation present. The aortic root size is normal. Normal inferior vena cava with normal inspiratory collapse consistent with estimated right atrial pre ssure of 5 mmHg. There is no pericardial effusion. CONCLUSIONS -------- 1. Resting bradycardia (HR<60bpm). 2. This was a technically good study. 3. The left ventricular size is normal. 4. There is moderate concentric left ventricular hypertrophy. 5. Overall left ventricular systolic function is normal with, an EF between 60 - 65 %. 6. The right ventricle is normal in size. 7. Normal LA size by volume 22+/-6 ml/m2. 8. The right atrium is normal in size. 9. Interatrial and interventricular septum intact. 10. The aortic valve is trileaflet and appears structurally normal. 11. There is mild aortic regurgitation. 12. There is trace mitral regurgitation. 13. Mild tricuspid regurgitation present. 14. Right ventricular systolic pressure is normal at < 35 mmHg. 15. There is no pulmonic regurgitation present. 16. The aortic root size is normal. 17. Normal inferior vena cava with normal inspiratory collapse consistent with estimated right atrial pressure of 5 mmHg. 18. There is no pericardial effusion. PARACHUTE C[employer]ION INSTALLER: Aurora Mcclendon RDCS
[2019-09-13] MEDS: TESTOSTERONE TOPICAL SCH (09:08)
[2019-09-13] MEDS: ASPIRIN 81 MG PO SCH (09:11)
[2019-09-13] MEDS: CARVEDILOL 3.125 MG TAB PO SCH (09:11)
[2019-09-13] MEDS: CLOPIDOGREL 75 MG TAB PO SCH (09:11)
[2019-09-13] MEDS: VALSARTAN 160 MG TAB PO SCH (09:11)
[2019-09-13] MEDS: PANTOPRAZOLE 40 MG TABLET PO SCH (09:11)
--- NOTE | 2019-09-13 09:34 | P.PN ---
Subjective This is a pleasant 64-year-old male past medical history significant for coronary artery disease status post stent placement to the LAD December 2018 maintained on dual antiplatelet therapy with residual blockages of 80-90% of a small 2mm OM, 30-40% diffusely diseased proximal RCA and 30-40% of the small PDA branch of RCA, abdominal aortic aneurysm followed at the [facility], hypertension, dyslipidemia and recent rotator cuff surgery with septic arthritis requiring IV antibiotics. He follows in the office with Dr. Campos. He underwent a cardiolyte exercise stress test yesterday that showed no evidence of reversible cardiac ischemia. Echocardiogram revealed preserved LV systolic function with ejection fraction 60-65%, no wall motion abnormalities noted. He was cleared for discharge from a cardiac perspective yesterday however is awaiting consultation by ENT. He's had no further symptoms of chest discomfort. No further epistaxis. Blood pressure 122/72 heart rate 67 afebrile maintaining oxygen saturation on room air. Currently maintained on aspirin 81 mg daily, atorvastatin 80 mg daily, carvedilol 3.125 mg twice a day, Plavix 75 mg daily and valsartan 160 mg daily. GENERAL: This is a 64-year-old male in no apparent distress at the time of my examination. HEENT: Head is atraumatic, normocephalic. Pupils are equal, round. Sclerae anicteric. Conjunctivae are clear. Mucous membranes of the mouth are moist. Neck is supple. There is no jugular venous distention. No carotid bruit is heard. LUNGS: Clear to auscultation no wheezes, rales or rhonchi. No chest wall tenderness is noted on palpation or with deep breathing. HEART: Regular rate and rhythm without murmurs, rubs or gallops. S1 and S2 heard. EXTREMITIES: No evidence of peripheral edema and no calf tenderness noted. ASSESSMENT Chest pain, atypical for angina. Similar to symptoms he experienced 12/2018 when he received a stent placement. Epistaxis, intermittent and recurrent for the previous 1-2 months. Resolved. History of coronary artery disease s/p stent placement to LAD 12/2018 maintained on dual anti-platelet therapy. Hypertension Dyslipidemia Abdominal aortic aneurysm, stable Recent rotator cuff surgery with septic arthritis requiring IV antibiotics, PICC line in place PLAN Stable from a cardiac perspective. Continue current medical regimen including aspirin and Plavix. Follow-up with Dr. Skaf in 2 weeks. Nurse Practitioner note has been reviewed, I agree with a documented findings and plan of care. Patient was seen and examined. Objective - Vital Signs Vital signs: Vital Signs Temp 97.9 F 09/13/19 07:27 Pulse 67 09/13/19 07:27 Resp 18 09/13/19 07:27 BP 122/72 09/13/19 07:27 Pulse Ox 98 09/13/19 07:27 Intake & Output 09/12/19 09/13/19 09/13/19 18:59 06:59 18:59 Other: Voiding Method Toilet Toilet - Labs CBC & Chem 7: 09/12/19 09:00 09/11/19 09:56
--- NOTE | 2019-09-13 13:17 | EST ---
EXERCISE STRESS AGE: 64. SEX: Male. HT: 72" WT: 173 pounds PROTOCOL: Cardiolite Josue STAGE: III DURATION OF EXERCISE: 9 minutes 52 seconds HEART RATE REST: 69 BLOOD PRESSURE REST: 149/85 MAXIMUM HEART RATE ACHIEVED: 146 MAXIMUM BLOOD PRESSURE: 203/84 85% MPHR: 132 100% MPHR: 155 METS: 11.5 INDICATIONS: Chest pain. CLINICAL INFORMATION: This is a walking stress Cardiolite scan performed on 09/12/2019 to evaluate for progression of CAD in a patient with a prior PCI of LAD. Baseline EKG revealed normal sinus rhythm without significant ST-T changes. Patient walked on a standard Josue protocol for 9 minute 52 seconds achieved a maximal heart rate of 146 beats per minute which is more than 85% of predicted maximal. He developed fatigue, shortness of breath but did not have angina or arrhythmia. Rare PVCs were noted. By EKG criteria, this is a negative stress test with excellent exercise capacity. FINAL IMPRESSION: 1. By EKG criteria, this is a negative stress test with good exercise capacity. 2. The nuclear scan results which are more pertinent will be reported by the radiologist. MMODL / IJN: [id number] /
--- NOTE | 2019-09-13 22:16 | PN ---
PROGRESS NOTE DATE OF SERVICE: 09/12/2019. This 64-year-old gentleman admitted with multiple complaints and chest pain as well as epistaxis and high blood pressure is being closely monitored. The patient had a cardiac stress test today. The Cardiolite stress test reported as showing no scintigraphic evidence of reversible ischemia. No chest pain. No palpitations. No fever. EXAM: Alert and oriented x3. The pulse is 66. Blood pressure is 124/75, respiration 18, temperature 97.7, pulse ox 97% on room air. HEENT: Conjunctivae normal. NECK: No JVD. CARDIOVASCULAR: S1, S2 muffled. RESPIRATIONS: Breath sounds diminished in the bases. Scattered rhonchi. No crackles. ABDOMEN is soft, nontender. LEGS are no edema. No swelling. CENTRAL NERVOUS SYSTEM: No focal deficits. LAB STUDIES: WBC 14.2, hemoglobin 13.4. ASSESSMENT: 1. Chest pain possibly musculoskeletal, status post stress test. 2. Shortness of breath and weakness with negative findings. 3. History of recent right shoulder osteomyelitis on prolonged IV therapy through left PICC line. 4. Recurrent epistaxis recently for evaluation. 5. History of gastroesophageal reflux disease. 6. Coronary artery disease. 7. Hypertension. 8. History of coronary artery disease/ stent. 9. Hyponatremia. RECOMMENDATIONS AND DISCUSSION: I recommend to continue current medications, management and symptomatic treatment. We will await ENT evaluation. Otherwise, continue the rest of medications. Cardiology input appreciated. Further recommendations to follow. MMODL / IJN: [id number] /
--- NOTE | 2019-09-14 05:48 | DS ---
DISCHARGE SUMMARY DISCHARGE ADDENDUM: DATE OF SERVICE: 09/13/2019 This is a discharge addendum. This 64-year-old gentleman was admitted with multiple medical problems, had a negative stress test. The patient also had epistaxis. ENT recommended outpatient followup. The patient improved significantly. No chest pain or Please refer to my previous dictations for list of diagnoses and list of medications. On exam, vitals are stable. CARDIOVASCULAR: S1, S2 muffled. ABDOMEN: Soft. NERVOUS SYSTEM: No focal deficits. MMODL / IJN: [id number] / [facility]
== END 2019-09-13 11:40 | disposition home or self-care (01) ==
LOC: EC 09:23 → 1SOBS 11:11
PROVIDERS: ADMIT Hospitalist; ATTEND Hospitalist
DX: R07.89 Other chest pain (principal); R53.1 Weakness; R04.0 Epistaxis; M86.9 Osteomyelitis, unspecified; M00.9 Pyogenic arthritis, unspecified; K21.9 Gastro-esophageal reflux disease without esophagitis; I25.10 Atherosclerotic heart disease of native coronary artery without angina pectoris; I10 Essential (primary) hypertension; E87.1 Hypo-osmolality and hyponatremia; J43.9 Emphysema, unspecified; I71.2 Thoracic aortic aneurysm, without rupture; E78.5 Hyperlipidemia, unspecified; M35.00 Sjogren syndrome, unspecified; Z98.1 Arthrodesis status; Z95.5 Presence of coronary angioplasty implant and graft; Z95.828 Presence of other vascular implants and grafts; Z79.899 Other long term (current) drug therapy; Z79.82 Long term (current) use of aspirin; Z79.02 Long term (current) use of antithrombotics/antiplatelets; Z79.2 Long term (current) use of antibiotics; Z23 Encounter for immunization; Z82.49 Family history of ischemic heart disease and other diseases of the circulatory system
CPT/HCPCS: 93005 ×2; 96365; 96366; 99284; 36415; 93017; 93306; 80061; 80053; 83735; 84484; 85025; 85027; 85610; 85730; 81003; 71046; 71275; 78452; 90686; G0378 ×3; A9500; G0008; J0696 ×2; Q9967

== ENCOUNTER → 2020-01-23 | Outpatient (CLI) | payer MEDICARE ==
[2020-01-23 14:07] LABS: HCT 40.3 % (39.0-53.0); MCH 29.2 pg (25.0-35.0); MCHC 32.1 g/dL (31.0-37.0); Mean Platelet Volume 9.8; Platelet Count 157 k/uL (150-450); RBC 4.43 m/uL (4.30-5.90); RDW 12.4 % (11.5-15.5); WBC 5.5 k/uL (3.8-10.6)
[2020-01-23 14:15] LABS: African American GFR (CKD) >90 (>60 ml/min/1.73 sqM); Anion Gap 7 mmol/L; Blood Urea Nitrogen 13 mg/dL (9-20); Carbon Dioxide 28 mmol/L (22-30); Chloride 99 mmol/L (98-107); Non-African American GFR(CKD) >90 (>60 ml/min/1.73 sqM); Potassium 4.6 mmol/L (3.5-5.1); Sodium 134 mmol/L (137-145)
== END | disposition home or self-care (01) ==
LOC: LABPAT 13:31
PROVIDERS: ATTEND Internal Medicine Interventional Cardiology
DX: Z01.818 Encounter for other preprocedural examination (principal); I25.10 Atherosclerotic heart disease of native coronary artery without angina pectoris
CPT/HCPCS: 80051; 82565; 84520; 85027

== ENCOUNTER 2020-01-24 09:01 | Day surgery (SDC) | payer MEDICARE ==
[2020-01-23 14:08] VITALS: BMI 23.7
[~2020-01-24 09:01] MED LIST: ALPRAZolam 0.25 MG TAB PO PRN; ALPRAZolam 0.5 MG TAB PO PRN; ASPIRIN 325 MG TAB PO ONE; ATORVASTATIN 80 MG TAB PO ONE; NITROGLYCERIN SL TABS 0.4 MG TAB SUBLINGUAL PRN; SODIUM CHLORIDE 0.9% 1,000 ML in EMPTY BAG 1 BAG IV ONE
[2020-01-24] MEDS ORDERED: ASPIRIN 81 MG ONE (09:16)
[2020-01-24] MEDS ORDERED: MIDAZOLAM 2 MG/2 ML VIAL IV ONE (10:37)
[2020-01-24] MEDS ORDERED: LIDOCAINE 1% INJ 10MG/ML (20 ML MDV) SQ ONE ×2 (10:38→11:06)
[2020-01-24] MEDS ORDERED: VERAPAMIL SYRINGE (5 MG/10 ML) INTRAARTER ONE ×2 (10:39→11:44)
[2020-01-24] MEDS ORDERED: HEPARIN SODIUM 1,000 UN/ML (10ML VL) IV ONE (11:08)
[2020-01-24] MEDS ORDERED: HYDROmorphone 1 MG/ML 1 ML SYRINGE IVP ONE (11:26)
[2020-01-24] MEDS ORDERED: IOPAMIDOL-370 125ML BTL INJ ONE (11:28)
[2020-01-24] MEDS ORDERED: PRASUGREL 10 MG TAB PO ONE (11:39)
[2020-01-24] MEDS ORDERED: IOPAMIDOL-370 100ML BTL INJ ONE (11:45)
[2020-01-24] MEDS ORDERED: NITROGLYCERIN SL TABS 0.4 MG TAB SUBLINGUAL PRN ×2 (11:53→11:54)
[2020-01-24] MEDS ORDERED: ATROPINE SULFATE 0.1 MG/ML 10ML SYRINGE IV PRN (11:53)
[2020-01-24] MEDS ORDERED: RX INFO: IV CONTRAST WAS GIVEN 1 EACH MISC MISCELLANE PRN (11:53)
[2020-01-24] MEDS ORDERED: ZOLPIDEM 5 MG TAB PO PRN (11:53)
[2020-01-24] MEDS ORDERED: MAG HYDROX/AL HYDROX/SIMETH 30 ML CUP PO PRN (11:53)
[2020-01-24] MEDS ORDERED: SODIUM CHLORIDE 0.9% 1,000 ML IV SCH (12:00)
--- NOTE | 2020-01-24 12:08 | P.PCN ---
Date of Procedure: 01/24/20 Operative Findings: CARDIAC CATHETERIZATION AND PERCUTANEOUS CORONARY INTERVENTION PERFORMING PHYSICIAN: Frankie Campos MD, [facility] PROCEDURE PERFORMED: 1. Selective right and left coronary angiogram 2. Left heart catheterization 3. Successful stenting of the mid RCA using 3.0 x 15 mm Xience FERNY with an excellent angiographic results and reduction of stenosis from 70% to 0% INDICATION: This is a very pleasant 64-year-old gentleman with history of CAD and prior stenting of the LAD was seen in the office recently where he was experiencing symptoms of exertional chest discomfort and shortness of breath, concerning for obstructive coronary artery disease. Because of that he was brought today to undergo a heart catheterization and possible percutaneous coronary intervention COMPLICATION: None APPROACH: Right radial artery Right common femoral artery LEVEL OF SEDATION: Moderate with sedation March 1970 minutes PROCEDURE DESCRIPTION: After obtaining an informed consent, the patient was brought to cardiac labeling machine operator. Initially I axis the right radial artery and I place a 6-Uzbek sheath. I gave the patient 2 mg of verapamil IV. Attempting performing right coronary angiogram from right radial approach was very challenging but finally I was able to get selective angiogram using an AR-1. Selective left coronary angiogram was performed using JL 3.5 catheters. Left heart catheterization was performed using the JL 3.5 which across aortic valve then I did pullback across the valve after flushing the catheter. After that I did intervene on the RCA from right groin. So at that point I axis the right common femoral artery using micropuncture technique and I placed a 6- Uzbek sheath at the right common femoral artery. The procedure was completed without any complication SELECTIVE CORONARY ANGIOGRAM: The right coronary artery: Is a large caliber vessel and dominant vessel. The proximal RCA has mild disease only. The mid RCA has a lesion appeared to be in the range of 70%. The RCA distally has an intermediate lesion appears to be in the range of 40-50%. Left main: Is angiographically normal. Bifurcates into left circumflex and left anterior descending artery The left circumflex: Is a large caliber vessel and codominant vessel. The proximal left circumflex appeared to be angiographically normal and gives rises into OM1 which is a large caliber vessel. OM1 2 subbranches. The upper subbranch appeared to have an ostial lesion seems to be in the range of 80% but the vessel itself appears to be of 2 mm diameter only. The lower subbranch appeared to be angiographically normal. The mid left circumflex and distal left circumflex appeared to be angiographically normal. The left anterior descending artery: The LAD is a large caliber vessel. The proximal LAD is a stented and the stent is patent. The LAD at that point gives rises into her first diagonal branch which seems to be angiographically normal. The mid LAD has mild disease only. It gives rises into second diagonal branch which seems to be angiographically normal. HEMODYNAMICS: The LVEDP was 16 mmHg without significant gradient across aortic valve PCI OF THE RCA: Anticoagulation was initiated using heparin and the patient was given weight- based heparin with continuous ACT monitoring throughout the procedure I did engage the RCA using an AL-1 catheter. RCA was wired using a run-through wire. After that I did PTCA ballooning using 2.5 x 12 mm balloon before I deployed 3.0 x 15 mm Xience FERNY where the stent was positioned under fluoroscopy guidance and deployed under 20 jason for 30 seconds. The following angiogram showed good angiographic results with good flow and without any dissection. The procedure was completed without any complication CONCLUSION: 1. Patent stent in the proximal LAD. Mild disease involving the mid LAD 2. Critical disease involving the ostial upper subbranch of OM1. This branch is about 2 mm in diameter 3. Severe disease involving the mid RCA which has a posterior takeoff 4. Successful stenting of the mid RCA using 3.0 x 15 mm Xience FERNY with an excellent angiographic results 5. For future heart catheterization and angioplasty, the right groin is preferred way giving his challenging anatomy and access from right radial POSTPROCEDURE MANAGEMENT: 1. Dual antiplatelet therapy 2. Risk factors modification 3. Follow-up with the patient
[2020-01-24] MEDS: CARVEDILOL 3.125 MG TAB PO SCH (17:14)
[2020-01-24] MEDS ORDERED: VALSARTAN 160 MG TAB PO SCH (21:00)
[2020-01-24] MEDS ORDERED: CITALOPRAM HYDROBROMIDE 20 MG TAB PO SCH (21:00)
[2020-01-25 00:48] VITALS: RESP 16
[2020-01-25 06:29] LABS: Basophils % (A) 0 %; Eosinophils # (A) 0.1 k/uL (0-0.7); Eosinophils % (A) 2 %; HCT 37.9 % (39.0-53.0); HGB 12.5 gm/dL (13.0-17.5); Lymphocytes # (A) 1.1 k/uL (1.0-4.8); Lymphocytes % (A) 19 %; MCH 29.5 pg (25.0-35.0); MCHC 32.9 g/dL (31.0-37.0); MCV 89.7 fL (80.0-100.0); Mean Platelet Volume 10.3; Monocytes # (A) 0.6 k/uL (0-1.0); Monocytes % (A) 10 %; Neutrophils % (A) 66 %; Platelet Count 171 k/uL (150-450); RBC 4.22 m/uL (4.30-5.90); RDW 12.5 % (11.5-15.5); WBC 6.1 k/uL (3.8-10.6)
[2020-01-25 06:47] LABS: African American GFR (CKD) >90 (>60 ml/min/1.73 sqM); Anion Gap 6 mmol/L; Blood Urea Nitrogen 11 mg/dL (9-20); Calcium 8.4 mg/dL (8.4-10.2); Carbon Dioxide 25 mmol/L (22-30); Chloride 100 mmol/L (98-107); Glucose 98 mg/dL (74-99); Non-African American GFR(CKD) >90 (>60 ml/min/1.73 sqM); Potassium 4.3 mmol/L (3.5-5.1); Sodium 131 mmol/L (137-145)
[2020-01-25] MEDS: CARVEDILOL 3.125 MG TAB PO SCH (06:53)
--- NOTE | 2020-01-25 07:59 | P.DS ---
Providers Date of admission: January 232019 Attending physician: Frankie Campos Consults: 01/24/20 11:53 Consult Physician Routine Consulting Provider: [facility] Consult Reason/Comments: Post Interventional patient Do you want consulting provider notified?: Already Contacted Primary care physician: Estevan Castrejon [place] [facility] Course: This is a pleasant 64-year-old gentleman with history of coronary artery disease and prior stenting of the LAD was seen in the office recently where he was experiencing symptoms of chest discomfort with exertion concerning for angina. Because of that a heart catheterization was advised. The patient underwent heart catheterization yesterday that revealed severe disease involving the mid RCA. Subsequently he underwent successful stenting of the RCA with a good angiographic results and without any complication. He was seen this morning. He seems to be doing good from the cardiovascular standpoint of view. The right groin is soft and nontender and without any bruises. The patient is going to be discharged home on dual antiplatelet and I'll follow- up with the patient next week in the office Plan - Discharge Summary Discharge Rx Participant: Yes New Discharge Prescriptions: New Prasugrel [Effient] 10 mg PO DAILY #90 tab Continue Citalopram Hydrobromide [CeleXA] 20 mg PO HS Pantoprazole Sodium [Protonix] 40 mg PO Q48H Carvedilol [Coreg] 3.125 mg PO BID Aspirin 81 mg PO DAILY #30 chew Nitroglycerin Sl Tabs [Nitrostat] 0.4 mg SUBLINGUAL Q5M PRN #25 tab PRN Reason: Chest Pain Valsartan [Diovan] 160 mg PO HS Atorvastatin [Lipitor] 80 mg PO DAILY Discharge Medication List Citalopram Hydrobromide [CeleXA] 20 mg PO HS 02/08/16 [History] Pantoprazole Sodium [Protonix] 40 mg PO Q48H 02/08/16 [History] Carvedilol [Coreg] 3.125 mg PO BID 12/25/18 [History] Aspirin 81 mg PO DAILY #30 chew 12/28/18 [Rx] Nitroglycerin Sl Tabs [Nitrostat] 0.4 mg SUBLINGUAL Q5M PRN #25 tab 12/28/18 [Rx] Valsartan [Diovan] 160 mg PO HS 08/09/19 [History] Atorvastatin [Lipitor] 80 mg PO DAILY 03/16/20 [History] Prasugrel [Effient] 10 mg PO DAILY #90 tab 01/25/20 [Rx] Follow up Appointment(s)/Referral(s): Frankie Campos MD [STAFF PHYSICIAN] - 1 Week
[2020-01-25] MEDS ORDERED: ASPIRIN 81 MG PO SCH (09:00)
[2020-01-25] MEDS ORDERED: PANTOPRAZOLE 40 MG TABLET PO SCH (09:00)
[2020-01-25] MEDS ORDERED: ATORVASTATIN 80 MG TAB PO SCH (09:00)
[2020-01-25 09:35] VITALS: BP 123/67; PULSE 73; TEMP 98.3
[2020-01-25] MEDS ORDERED: CLOPIDOGREL 75 MG TAB PO STA (10:15)
[2020-01-25] MEDS ORDERED: PRASUGREL 10 MG TAB PO SCH (12:00)
[2020-01-26] MEDS ORDERED: CLOPIDOGREL 75 MG TAB PO SCH (09:00)
== END 2020-01-25 10:20 | disposition home or self-care (01) ==
LOC: CATHCVL 09:01 → 3SCARD 12:10 → CATHCVL 01-25 10:20
PROVIDERS: ATTEND Internal Medicine Interventional Cardiology
DX: I25.110 Atherosclerotic heart disease of native coronary artery with unstable angina pectoris (principal); I10 Essential (primary) hypertension; E78.00 Pure hypercholesterolemia, unspecified; I71.2 Thoracic aortic aneurysm, without rupture; Z95.5 Presence of coronary angioplasty implant and graft; Z82.49 Family history of ischemic heart disease and other diseases of the circulatory system; Z79.899 Other long term (current) drug therapy
CPT/HCPCS: 93458; 85347; 80048; 85025; C9600; C1887 ×3; C1760; C1725; C1769 ×4; C1874; C1894; J2250; J2001; J1644; J1170; Q9967 ×2

== ENCOUNTER 2020-04-30 01:22 | Emergency (ER) | payer MEDICARE ==
[2020-04-30 01:34] VITALS: TEMP 98.1
--- NOTE | 2020-04-30 01:58 | ED ---
Weakness HPI - General Chief complaint: Weakness Stated complaint: Weakness Time Seen by Provider: 04/30/20 01:47 Source: patient, family Mode of arrival: ambulatory Limitations: no limitations - History of Present Illness MD Complaint: generalized weakness, lack of energy Onset/Timin -: month(s) Location: generalized Severity: moderate Consistency: constant Improves with: none Worsens with: none Context: recent surgery Associated Symptoms: shortness of breath - Related Data Home Medications Medication Instructions Recorded Confirmed Citalopram Hydrobromide [CeleXA] 20 mg PO HS 02/08/16 01/24/20 Pantoprazole Sodium [Protonix] 40 mg PO Q48H 02/08/16 01/24/20 Carvedilol [Coreg] 3.125 mg PO BID 12/25/18 01/24/20 Valsartan [Diovan] 160 mg PO HS 08/09/19 01/24/20 Atorvastatin [Lipitor] 80 mg PO DAILY 01/23/20 01/24/20 Previous Rx's Medication Instructions Recorded Aspirin 81 mg PO DAILY #30 chew 12/28/18 Nitroglycerin Sl Tabs [Nitrostat] 0.4 mg SUBLINGUAL Q5M PRN #25 tab 12/28/18 Clopidogrel [Plavix] 75 mg PO DAILY #30 tablet 01/25/20 Allergies Allergy/AdvReac Type Severity Reaction Status Date / Time No Known Allergies Allergy Verified 01/23/20 13:58 Review of Systems ROS Statement: Those systems with pertinent positive or pertinent negative responses have been documented in the HPI. ROS Other: All systems not noted in ROS Statement are negative. Constitutional: Reports: weakness (Generalized). Denies: fever, chills Respiratory: Reports: dyspnea. Denies: cough, wheezes Cardiovascular: Reports: edema. Denies: chest pain, palpitations, syncope Gastrointestinal: Denies: abdominal pain, nausea, vomiting, diarrhea, c onstipation Genitourinary: Denies: dysuria, hematuria Musculoskeletal: Denies: back pain Skin: Denies: rash Neurological: Denies: headache, weakness, numbness Past Medical History Past Medical History: Coronary Artery Disease (CAD), GERD/Reflux, Hypertension Additional Past Medical History / Comment(s): R shoulder pain for approximately one month/infection, AAA being monitored, Sjogren's, occasional vertigo, waiting results for parkinsons 04/26/2020 History of Any Multi-Drug Resistant Organisms: None Reported Past Surgical History: Heart Catheterization With Stent Additional Past Surgical History / Comment(s): R shoulder arthroscopyfor torn R rotator cuff/post infection and had another surgery to remove titanium hook, PICC, low back fusion, R hand foreign body removal, 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 stents 01/2019 & 01/2020 Past Anesthesia/Blood Transfusion Reactions: No Reported Reaction Date of Last Stent Placement:: dec 2018 Past Psychological History: No Psychological Hx Reported Smoking Status: Never smoker Past Alcohol Use History: Occasional, Rare Past Drug Use History: None Reported - Past Family History Father Family Medical History: Myocardial Infarction (AL) Additional Family Medical History / Comment(s): Father of a AL at the age of 60yrs. Mother Additional Family Medical History / Comment(s): Mother of an aneurysm that ruptured at the age of 60yrs. General Exam Limitations: no limitations General appearance: alert, in no apparent distress Head exam: Present: atraumatic, normocephalic Eye exam: Present: normal appearance. Absent: scleral icterus, conjunctival injection ENT exam: Present: normal oropharynx Neck exam: Present: normal inspection, full ROM Respiratory exam: Present: normal lung sounds bilaterally. Absent: respiratory distress, wheezes, rales, rhonchi, stridor Cardiovascular Exam: Present: regular rate, normal rhythm, normal heart sounds. Absent: systolic murmur, diastolic murmur, rubs, gallop GI/Abdominal exam: Present: soft. Absent: distended, tenderness, guarding, rebound, rigid, mass Extremities exam: Present: normal inspection, normal capillary refill, pedal edema (Trace edema at the ankles bilaterally). Absent: calf tenderness Back exam: Present: normal inspection. Absent: CVA tenderness (R), CVA tenderness (L) Neurological exam: Present: alert. Absent: motor sensory deficit Skin exam: Present: warm, dry, intact, normal color. Absent: rash Course Vital Signs 04/30/20 04/30/20 01:27 03:11 Temperature 98.1 F Pulse Rate 70 60 Respiratory 20 17 Rate Blood Pressure 158/81 135/75 O2 Sat by Pulse 97 98 Oximetry EKG Findings - EKG Results: EKG: interpreted by ERMD, WNL, sinus rhythm (Rate 65 bpm), normal axis, normal QRS, normal ST/T, no acute changes Medical Decision Making - Lab Data Result diagrams: 04/30/20 01:51 04/30/20 01:51 Lab Results 04/30/20 04/30/20 04/30/20 Range/Units 01:51 01:51 01:51 WBC 4.5 (3.8-10.6) k/uL RBC 4.54 (4.30-5.90) m/uL Hgb 12.4 L (13.0-17.5) gm/dL Hct 38.9 L (39.0-53.0) % MCV 85.5 (80.0-100.0) fL MCH 27.4 (25.0-35.0) pg MCHC 32.0 (31.0-37.0) g/dL RDW 14.0 (11.5-15.5) % Plt Count 161 (150-450) k/uL Neutrophils % (Manual) 58 % Lymphocytes % (Manual) 23 % Monocytes % (Manual) 11 % Eosinophils % (Manual) 5 % Basophils % (Manual) 3 % Neutrophils # (Manual) 2.61 (1.3-7.7) k/uL Lymphocytes # (Manual) 1.04 (1.0-4.8) k/uL Monocytes # (Manual) 0.50 (0-1.0) k/uL Eosinophils # (Manual) 0.23 (0-0.7) k/uL Basophils # (Manual) 0.14 (0-0.2) k/uL Nucleated RBCs 0 (0-0) /100 WBC Manual Slide Review Performed PT 10.0 (9.0-12.0) sec INR 1.0 (<1.2) APTT 24.4 (22.0-30.0) sec D-Dimer 0.47 (<0.60) mg/L FEU Sodium 130 L (137-145) mmol/L Potassium 4.3 (3.5-5.1) mmol/L Chloride 96 L (98-107) mmol/L Carbon Dioxide 27 (22-30) mmol/L Anion Gap 7 mmol/L BUN 11 (9-20) mg/dL Creatinine 0.82 (0.66-1.25) mg/dL Est GFR (CKD-EPI)AfAm >90 (>60 ml/min/1.73 sqM) Est GFR (CKD-EPI)NonAf >90 (>60 ml/min/1.73 sqM) Glucose 106 H (74-99) mg/dL Plasma Lactic Acid Osiel (0.7-2.0) mmol/L Calcium 8.9 (8.4-10.2) mg/dL Phosphorus 3.4 (2.5-4.5) mg/dL Magnesium 1.9 (1.6-2.3) mg/dL Total Bilirubin 0.4 (0.2-1.3) mg/dL AST 48 (17-59) U/L ALT 30 (4-49) U/L Alkaline Phosphatase 105 (38-126) U/L Troponin I (0.000-0.034) ng/mL NT-Pro-B Natriuret Pep pg/mL Total Protein 6.7 (6.3-8.2) g/dL Albumin 4.0 (3.5-5.0) g/dL TSH 2.500 (0.465-4.680) mIU/L Urine Color Urine Appearance (Clear) Urine pH (5.0-8.0) Ur Specific [place] (1.001-1.035) Urine Protein (Negative) Urine Glucose (UA) (Negative) Urine Ketones (Negative) Urine Blood (Negative) Urine Nitrite (Negative) Urine Bilirubin (Negative) Urine Urobilinogen (<2.0) mg/dL Ur Leukocyte Esterase (Negative) 04/30/20 04/30/20 04/30/20 Range/Units 01:51 01:51 01:51 WBC (3.8-10.6) k/uL RBC (4.30-5.90) m/uL Hgb (13.0-17.5) gm/dL Hct (39.0-53.0) % MCV (80.0-100.0) fL MCH (25.0-35.0) pg MCHC (31.0-37.0) g/dL RDW (11.5-15.5) % Plt Count (150-450) k/uL Neutrophils % (Manual) % Lymphocytes % (Manual) % Monocytes % (Manual) % Eosinophils % (Manual) % Basophils % (Manual) % Neutrophils # (Manual) (1.3-7.7) k/uL Lymphocytes # (Manual) (1.0-4.8) k/uL Monocytes # (Manual) (0-1.0) k/uL Eosinophils # (Manual) (0-0.7) k/uL Basophils # (Manual) (0-0.2) k/uL Nucleated RBCs (0-0) /100 WBC Manual Slide Review PT (9.0-12.0) sec INR (<1.2) APTT (22.0-30.0) sec D-Dimer (<0.60) mg/L FEU Sodium (137-145) mmol/L Potassium (3.5-5.1) mmol/L Chloride (98-107) mmol/L Carbon Dioxide (22-30) mmol/L Anion Gap mmol/L BUN (9-20) mg/dL Creatinine (0.66-1.25) mg/dL Est GFR (CKD-EPI)AfAm (>60 ml/min/1.73 sqM) Est GFR (CKD-EPI)NonAf (>60 ml/min/1.73 sqM) Glucose (74-99) mg/dL Plasma Lactic Acid Osiel 1.0 (0.7-2.0) mmol/L Calcium (8.4-10.2) mg/dL Phosphorus (2.5-4.5) mg/dL Magnesium (1.6-2.3) mg/dL Total Bilirubin (0.2-1.3) mg/dL AST (17-59) U/L ALT (4-49) U/L Alkaline Phosphatase (38-126) U/L Troponin I <0.012 (0.000-0.034) ng/mL NT-Pro-B Natriuret Pep 31 pg/mL Total Protein (6.3-8.2) g/dL Albumin (3.5-5.0) g/dL TSH (0.465-4.680) mIU/L Urine Color Urine Appearance (Clear) Urine pH (5.0-8.0) Ur Specific [place] (1.001-1.035) Urine Protein (Negative) Urine Glucose (UA) (Negative) Urine Ketones (Negative) Urine Blood (Negative) Urine Nitrite (Negative) Urine Bilirubin (Negative) Urine Urobilinogen (<2.0) mg/dL Ur Leukocyte Esterase (Negative) 04/30/20 Range/Units 03:23 WBC (3.8-10.6) k/uL RBC (4.30-5.90) m/uL Hgb (13.0-17.5) gm/dL Hct (39.0-53.0) % MCV (80.0-100.0) fL MCH (25.0-35.0) pg MCHC (31.0-37.0) g/dL RDW (11.5-15.5) % Plt Count (150-450) k/uL Neutrophils % (Manual) % Lymphocytes % (Manual) % Monocytes % (Manual) % Eosinophils % (Manual) % Basophils % (Manual) % Neutrophils # (Manual) (1.3-7.7) k/uL Lymphocytes # (Manual) (1.0-4.8) k/uL Monocytes # (Manual) (0-1.0) k/uL Eosinophils # (Manual) (0-0.7) k/uL Basophils # (Manual) (0-0.2) k/uL Nucleated RBCs (0-0) /100 WBC Manual Slide Review PT (9.0-12.0) sec INR (<1.2) APTT (22.0-30.0) sec D-Dimer (<0.60) mg/L FEU Sodium (137-145) mmol/L Potassium (3.5-5.1) mmol/L Chloride (98-107) mmol/L Carbon Dioxide (22-30) mmol/L Anion Gap mmol/L BUN (9-20) mg/dL Creatinine (0.66-1.25) mg/dL Est GFR (CKD-EPI)AfAm (>60 ml/min/1.73 sqM) Est GFR (CKD-EPI)NonAf (>60 ml/min/1.73 sqM) Glucose (74-99) mg/dL Plasma Lactic Acid Osiel (0.7-2.0) mmol/L Calcium (8.4-10.2) mg/dL Phosphorus (2.5-4.5) mg/dL Magnesium (1.6-2.3) mg/dL Total Bilirubin (0.2-1.3) mg/dL AST (17-59) U/L ALT (4-49) U/L Alkaline Phosphatase (38-126) U/L Troponin I (0.000-0.034) ng/mL NT-Pro-B Natriuret Pep pg/mL Total Protein (6.3-8.2) g/dL Albumin (3.5-5.0) g/dL TSH (0.465-4.680) mIU/L Urine Color Light Yellow Urine Appearance Turbid (Clear) Urine pH 7.0 (5.0-8.0) Ur Specific [place] 1.000 L (1.001-1.035) Urine Protein Negative (Negative) Urine Glucose (UA) Negative (Negative) Urine Ketones Negative (Negative) Urine Blood Negative (Negative) Urine Nitrite Negative (Negative) Urine Bilirubin Negative (Negative) Urine Urobilinogen <2.0 (<2.0) mg/dL Ur Leukocyte Esterase Negative (Negative) Disposition Clinical Impression: Hyponatremia Disposition: HOME SELF-CARE Condition: Good Instructions (If sedation given, give patient instructions): Hyponatremia (ED) Is patient prescribed a controlled substance at d/c from ED?: No Referrals: Estevan Marroquin III, MD [Primary Care Provider] - 1-2 days
[2020-04-30 02:25] LABS: HCT 38.9 % (39.0-53.0); HGB 12.4 gm/dL (13.0-17.5); MCH 27.4 pg (25.0-35.0); MCV 85.5 fL (80.0-100.0); Mean Platelet Volume 9.4; Platelet Count 161 k/uL (150-450); RBC 4.54 m/uL (4.30-5.90); WBC 4.5 k/uL (3.8-10.6)
--- NOTE | 2020-04-30 02:28 | XR ---
EXAMINATION TYPE: XR chest 2V DATE OF EXAM: 04/30/2020 COMPARISON: 09/11/2019 HISTORY: Chest pain TECHNIQUE: FINDINGS: There is no heart failure nor confluent pneumonic infiltrate. Costophrenic angles are clear . There are chest leads. There are no hilar masses. Bony thorax is intact. IMPRESSION: No active cardiopulmonary disease. No change.
[2020-04-30 02:31] LABS: ALT 30 U/L (4-49); AST 48 U/L (17-59); African American GFR (CKD) >90 (>60 ml/min/1.73 sqM); Alkaline Phosphatase 105 U/L (38-126); Anion Gap 7 mmol/L; Blood Urea Nitrogen 11 mg/dL (9-20); Calcium 8.9 mg/dL (8.4-10.2); Carbon Dioxide 27 mmol/L (22-30); Chloride 96 mmol/L (98-107); Glucose 106 mg/dL (74-99); Magnesium 1.9 mg/dL (1.6-2.3); Non-African American GFR(CKD) >90 (>60 ml/min/1.73 sqM); Phosphorus 3.4 mg/dL (2.5-4.5); Potassium 4.3 mmol/L (3.5-5.1); Sodium 130 mmol/L (137-145); Total Bilirubin 0.4 mg/dL (0.2-1.3); Total Protein 6.7 g/dL (6.3-8.2)
[2020-04-30 02:34] LABS: D-Dimer 0.47 mg/L FEU (<0.60); Partial Thromboplastin Time 24.4 sec (22.0-30.0)
[2020-04-30 03:14] LABS: Basophils # (M) 0.14 k/uL (0-0.2); Eosinophils # (M) 0.23 k/uL (0-0.7); Lymphocytes # (M) 1.04 k/uL (1.0-4.8); Neutrophils # (M) 2.61 k/uL (1.3-7.7); Neutrophils % (M) 58 %; Nucleated Red Blood Cells 0 /100 WBC (0-0); Total Cells Counted 100
[2020-04-30 03:37] LABS: Color,Urine Light Yellow
[2020-04-30 03:38] LABS: Appearance,Urine Turbid (Clear); Bilirubin,Urine Negative (Negative); Blood,Urine Negative (Negative); Glucose,Urine (UA) Negative (Negative); Ketones,Urine Negative (Negative); Protein,Urine Negative (Negative)
[2020-04-30 03:39] LABS: Leukocyte Esterase,Urine Negative (Negative); Nitrite,Urine Negative (Negative); Urobilinogen,Urine <2.0 mg/dL (<2.0)
[2020-04-30] MEDS ORDERED: SODIUM CHLORIDE 0.9% 1,000 ML IV ONE (03:41)
[2020-04-30 04:33] VITALS: BP 142/72; PULSE 75; RESP 18
== END 2020-04-30 04:59 | disposition home or self-care (01) ==
LOC: EC 01:22
DX: E87.1 Hypo-osmolality and hyponatremia (principal); K21.9 Gastro-esophageal reflux disease without esophagitis; I10 Essential (primary) hypertension; Z79.899 Other long term (current) drug therapy
CPT/HCPCS: 36415; 71046; 80053; 81001; 83605; 83735; 83880; 84100; 84443; 84484; 85025; 85379; 85610; 85730; 93005; 96360; 99285

== ENCOUNTER → 2020-05-18 | Outpatient (CLI) | payer MEDICARE ==
--- NOTE | 2020-05-21 14:24 | MR ---
EXAMINATION TYPE: MR brain wo/w con DATE OF EXAM: 05/18/2020 COMPARISON: None HISTORY: Imbalance, Frequent near falls, problems with formation x 3months TECHNIQUE: Multiplanar, multisequence images of the brain and brainstem is performed without and with IV contras t, utilizing 7.5 mL intravenous Gadavist . FINDINGS: Diffusion weighted images demonstrate no evidence of a recent infarct or other diffusion ab normality. There is no extra-axial fluid collection. Periventricular and deep white matter scattered hyperintensities are present on inversion recovery and T2-weighted sequences, approximately 10-20 le sions are present. The ventricular system and cisternal spaces are normal in size and appearance. Th e brain volume is age appropriate. Midline structures demonstrate normal morphology. The craniocervical junction appears within normal limits. Post contrast images demonstrate no abnormal enhancement. The dural venous sinuses appear pa tent. The visualized sinuses are remarkable for mucoperiosteal thickening in the maxillary sinuses, a nd the globes are intact. Lateral to the left maxillary sinus there is a T2 and inversion recovery br ight focus which is asymmetric, may be due to technical factors. IMPRESSION: Nonspecific white matter demyelination may be due to chronic small vessel ischemic change . No subacute ischemia is evident. Age-related atrophy. Indeterminate area of abnormal signal lateral to the left maxillary sinus inferiorly of questionable clinical significance, alternate imaging coul d be performed as indicated
== END | disposition home or self-care (01) ==
LOC: RADMRIMAIN 12:44
PROVIDERS: ATTEND Family Medicine
DX: G37.8 Other specified demyelinating diseases of central nervous system (principal); G31.1 Senile degeneration of brain, not elsewhere classified; Z95.5 Presence of coronary angioplasty implant and graft; R26.89 Other abnormalities of gait and mobility
CPT/HCPCS: 70553; A9585

== ENCOUNTER → 2020-05-29 | Outpatient (CLI) | payer MEDICARE ==
[2020-05-29 19:21] LABS: Protein, Total 6.9 g/dL (6.2-8.2)
[2020-05-29 19:35] LABS: African American GFR (CKD) 103.5 (60.0-200.0); Anion Gap 7.5 mmol/L (4.00-12.00); BUN/Creat Ratio 13.33 Ratio (12.00-20.00); Calcium 9.4 mg/dL (8.7-10.3); Carbon Dioxide 28.5 mmol/L (21.6-31.8); Non-African American GFR(CKD) 89.3 (60.0-200.0); Potassium 4.5 mmol/L (3.5-5.5)
[2020-05-30 12:27] LABS: Zinc, Serum 70 ug/dL (60-130)
[2020-05-30 13:04] LABS: Albumin 4.02 g/dL (3.80-4.90); Gamma Globulin 1.22 g/dL (0.70-1.50)
== END | disposition home or self-care (01) ==
LOC: LABWHC1 11:44
PROVIDERS: ATTEND Psychiatry & Neurology Neurology
DX: G62.9 Polyneuropathy, unspecified (principal); R27.0 Ataxia, unspecified; E87.1 Hypo-osmolality and hyponatremia; M62.81 Muscle weakness (generalized)
CPT/HCPCS: 36415; 80048; 82390; 82525; 82550; 82607; 82747; 84165; 84630; 86618

== ENCOUNTER → 2020-06-01 | Outpatient (CLI) | payer MEDICARE ==
--- NOTE | 2020-06-02 02:42 | MR ---
EXAMINATION TYPE: MR cervical spine wo con DATE OF EXAM: 06/01/2020 COMPARISON: None HISTORY: Leg weakness, imbalance, ataxia, myelopathy, stenosis Multiplanar multiecho imaging of the cervical spine was performed without contrast. FINDINGS: Cervical vertebra have fairly normal alignment. Disc spaces appear normal for age. There is increased signal in the C6 vertebral body on the T1 and T2 images consistent with some fatty marrow replacemen t. The cervical spinal cord shows normal signal pattern. There is no edema. There is no spinal stenos is. There is no evidence of cervical disc herniation. There is developmentally adequate spinal canal. The visualized brainstem appears intact. I see no bony destructive process. There is no cervical par aspinal mass. IMPRESSION: Negative MR scan of the cervical spine. Normal cervical spinal cord. No spinal stenosis or cervical d isc herniation.
--- NOTE | 2020-06-02 02:47 | MR ---
EXAMINATION TYPE: MR lumbar spine wo/w con DATE OF EXAM: 06/01/2020 COMPARISON: None HISTORY: Leg weakness, imbalance, ataxia, myelopathy, stenosis CONTRAST: Standard multiplanar, multisequence MRI departmental protocol utilizing 7.5 mL intravenous Gadavist g adolinium contrast. Lumbar vertebra have fairly normal alignment. There is very slight thoracolumbar dextroscoliosis. The re is narrowing of disc spaces at L3-4 and L5-S1. There is mild decreased signal in the intervertebra l disks of the lumbar spine. There is developmentally adequate spinal canal. There is small posterior disc bulging and herniation at L3-4 without compromise of the spinal canal. There is no evidence of lumbar paraspinal mass. Lower thoracic spinal cord appears normal. The lumbar neural foramina are carlos rly well-maintained. I see no focal bone destruction. There is no compression fracture. There is left side laminectomy defect of L4. The contrast images show no pathologic enhancement. IMPRESSION: Spondylotic changes in the lumbar spine. Small posterior disc bulging and herniation at L3-4. Develop mentally adequate spinal canal and no spinal stenosis. No fracture.
== END | disposition home or self-care (01) ==
LOC: RADMRIMAIN 18:06
PROVIDERS: ATTEND Psychiatry & Neurology Neurology
DX: M51.86 Other intervertebral disc disorders, lumbar region (principal); M47.816 Spondylosis without myelopathy or radiculopathy, lumbar region
CPT/HCPCS: 72141; 72158; A9585

== ENCOUNTER 2020-07-26 06:29 | Day surgery (SDC) | payer MEDICARE ==
[~2020-07-26 06:29] MED LIST changes: -ASPIRIN 325 MG TAB PO ONE; +ASPIRIN 325 MG TAB PO STA; -ATORVASTATIN 80 MG TAB PO ONE
[2020-07-26] MEDS ORDERED: SODIUM CHLORIDE 0.9% 1,000 ML IV ONE (06:50)
[2020-07-26 07:32] LABS: Basophils # (A) 0.1 k/uL (0-0.2); Basophils % (A) 2 %; Eosinophils # (A) 0.2 k/uL (0-0.7); Eosinophils % (A) 5 %; HCT 42.3 % (39.0-53.0); HGB 13.7 gm/dL (13.0-17.5); Lymphocytes % (A) 29 %; MCH 28.5 pg (25.0-35.0); MCHC 32.5 g/dL (31.0-37.0); MCV 87.6 fL (80.0-100.0); Mean Platelet Volume 8.7; Monocytes # (A) 0.5 k/uL (0-1.0); Monocytes % (A) 14 %; Neutrophils # (A) 1.7 k/uL (1.3-7.7); Neutrophils % (A) 48 %; Platelet Count 170 k/uL (150-450); RBC 4.82 m/uL (4.30-5.90); WBC 3.5 k/uL (3.8-10.6)
[2020-07-26 07:45] LABS: African American GFR (CKD) >90 (>60 ml/min/1.73 sqM); Anion Gap 8 mmol/L; Blood Urea Nitrogen 11 mg/dL (9-20); Calcium 9.1 mg/dL (8.4-10.2); Carbon Dioxide 27 mmol/L (22-30); Chloride 99 mmol/L (98-107); Glucose 101 mg/dL (74-99); Non-African American GFR(CKD) >90 (>60 ml/min/1.73 sqM); Potassium 4.7 mmol/L (3.5-5.1); Sodium 134 mmol/L (137-145)
[2020-07-26] MEDS ORDERED: MIDAZOLAM 2 MG/2 ML VIAL IV ONE (07:58)
[2020-07-26] MEDS ORDERED: LIDOCAINE 1% INJ 10MG/ML (20 ML MDV) SQ ONE (07:58)
[2020-07-26] MEDS ORDERED: BIVALIRUDIN BOLUS 250 MG/50 ML IV ONE (08:02)
[2020-07-26] MEDS ORDERED: NITROGLYCERIN 1000MCG/10ML SYRINGE INTRACORON ONE ×2 (08:03→08:43)
[2020-07-26] MEDS ORDERED: BIVALIRUDIN 250 MG in SODIUM CHLORIDE 0.9% 38 ML IV ONE (08:04)
[2020-07-26] MEDS ORDERED: IOPAMIDOL-370 125ML BTL INJ ONE (08:29)
[2020-07-26] MEDS ORDERED: CLOPIDOGREL 75 MG TAB PO ONE (08:38)
[2020-07-26] MEDS ORDERED: fentaNYL (PF) 50 MCG/ML 2 ML AMP IVP ONE (08:38)
[2020-07-26] MEDS ORDERED: IOPAMIDOL-370 50ML BTL INJ ONE (08:38)
[2020-07-26] MEDS ORDERED: NITROGLYCERIN SL TABS 0.4 MG TAB SUBLINGUAL PRN ×2 (08:55→08:56)
[2020-07-26] MEDS ORDERED: ATROPINE SULFATE 0.1 MG/ML 10ML SYRINGE IV PRN (08:56)
[2020-07-26] MEDS ORDERED: MAG HYDROX/AL HYDROX/SIMETH 30 ML CUP PO PRN (08:56)
[2020-07-26] MEDS ORDERED: ZOLPIDEM 5 MG TAB PO PRN (08:56)
[2020-07-26] MEDS ORDERED: RX INFO: IV CONTRAST WAS GIVEN 1 EACH MISC MISCELLANE PRN (08:56)
[2020-07-26] MEDS ORDERED: PANTOPRAZOLE 40 MG TABLET PO SCH (09:00)
[2020-07-26] MEDS ORDERED: ATORVASTATIN 80 MG TAB PO SCH ×2 (09:00→21:00)
[2020-07-26] MEDS ORDERED: SODIUM CHLORIDE 0.9% 1,000 ML IV SCH (09:00)
[2020-07-26] MEDS ORDERED: hydrALAZINE HCL 20 MG/ML 1 ML VIAL IVP PRN (09:36)
--- NOTE | 2020-07-26 10:25 | CC ---
CARDIAC CATHETERIZATION REPORT CARDIAC CATHETERIZATION AND PERCUTANEOUS CORONARY INTERVENTION: DATE OF SERVICE: 07/26/2020 PERFORMING PHYSICIAN: Frankie Campos MD. PROCEDURE PERFORMED: 1. Selective right and left coronary angiogram. 2. Successful stenting of the distal right coronary artery using 2.5 x 12 and 2.5 x 8 mm Xience FERNY with an excellent angiographic results. 3. Left heart catheterization. 4. An aortic root angiogram. INDICATION: This is a 64-year-old gentleman with coronary artery disease and prior coronary angioplasty and stenting who continues to have intermittent episodes of chest discomfort with exertion concerning for angina. Because of that, a heart catheterization was advised. APPROACH: Right common femoral artery. COMPLICATION: None. LEVEL OF SEDATION: Moderate with a sedation length of 15 minutes. PROCEDURE DESCRIPTION: After obtaining an informed consent, the patient was brought to the cardiac laborer airport maintenance. The right common femoral artery was cannulated using micropuncture technique, the micropuncture wire passed easily and then I placed a 6-Malagasy sheath in the right common femoral artery. I did after that engage the right coronary artery using an AL1 guide I did stenting of the RCA. Please see a separate paragraph for that. Subsequently, I did left heart history and aortic root angiogram using 6-Malagasy pigtail catheter. Subsequently, I did engage the left coronary system using an XB4 guide and I did selective left coronary angiogram. The procedure was completed without any complication. SELECTIVE CORONARY ANGIOGRAM: 1. The right coronary artery is a large caliber vessel. It is a dominant vessel. The proximal RCA appeared to be angiographically normal. The mid RCA has intermediate lesion, appeared to be in the range of 50%. The RCA distally has a tight lesion seems to be in the range of 80%. 2. The left main is angiographically normal. It bifurcates into left circumflex and left anterior descending artery. 3. Left circumflex is a large caliber vessel, it is a codominant vessel. The proximal circumflex is angiographically normal and gives rise into the first OM branch which is a large caliber vessel bifurcating into 2 subbranches. The upper sub-branch is an intermediate caliber vessel with critical ostial lesion and the lower sub-branch is a large caliber vessel, seems to be angiographically normal. 4. The mid left circumflex is angiographically normal and the circumflex distally is normal and bifurcates into PDA and PLV branches, both appeared to be angiographically normal. 5. The LAD, the proximal LAD appeared to be calcified with mild disease only. The mid LAD has a long tubular lesion seems to be in the range of 60%. This is by the bifurcation of the first diagonal branch which seems to be normal. The LAD distally appeared to be angiographically normal. PCI OF THE RCA: Anticoagulation was achieved with Angiomax. Subsequently I did engage the RCA using a using an Amplatzer 1 guide. I did wire it using a run-through wire. I did initially stenting using 2.5 x 12 mm stent and subsequent 2.5 x 8 mm stent. Both stents were deployed under 14 atmospheres for 20 seconds with the following angiogram showing excellent angiographic results. AORTIC ROOT ANGIOGRAM: The aortic root angiogram was performed in the BELKIS projection and using a power injection. The aortic root is dilated and measured at 4.5 cm. HEMODYNAMICS: The LVEDP was about 10 to 12 mmHg without significant gradient across the aortic valve. CONCLUSION: 1. Critical disease involving the distal right coronary artery. I did successful stenting of the distal RCA. We still have residual intermediate disease involving the mid RCA. 2. Critical disease involving the upper sub-branch of OM1, which is intermediate caliber vessel. 3. Intermediate disease involving the mid LAD. 4. Aortic root at 4.5 cm. POSTPROCEDURE MANAGEMENT: 1. Medical treatment. 2. Follow up with the patient. MMODL / IJN: [id number] /
[2020-07-26] MEDS: ASPIRIN 81 MG PO SCH (10:48)
[2020-07-26] MEDS: CLOPIDOGREL 75 MG TAB PO SCH (10:52)
[2020-07-26] MEDS: carvediloL 3.125 MG TAB PO SCH ×2 (10:59→17:46)
[2020-07-26] MEDS: VALSARTAN 160 MG TAB PO SCH (12:19)
[2020-07-26 13:56] VITALS: BMI 23.4
[2020-07-26] MEDS ORDERED: fentaNYL (PF) 50 MCG/ML 2 ML AMP IVP PRN (17:24)
[2020-07-26] MEDS: HYDROmorphone 0.5 MG/0.5 ML SYRINGE IVP PRN ×2 (17:46→21:43)
[2020-07-26] MEDS ORDERED: CITALOPRAM HYDROBROMIDE 20 MG TAB PO SCH (21:00)
[2020-07-27] MEDS: carvediloL 3.125 MG TAB PO SCH (06:38)
[2020-07-27] MEDS ORDERED: PANTOPRAZOLE 40 MG TABLET PO SCH (07:30)
[2020-07-27 08:23] VITALS: BP 148/81; PULSE 61; RESP 16; TEMP 98.3
[2020-07-27 08:33] LABS: Basophils % (A) 1 %; Eosinophils # (A) 0.2 k/uL (0-0.7); Eosinophils % (A) 4 %; HCT 41.4 % (39.0-53.0); HGB 13.5 gm/dL (13.0-17.5); Lymphocytes # (A) 0.9 k/uL (1.0-4.8); Lymphocytes % (A) 19 %; MCH 28.5 pg (25.0-35.0); MCHC 32.7 g/dL (31.0-37.0); MCV 87.3 fL (80.0-100.0); Mean Platelet Volume 8.5; Monocytes # (A) 0.6 k/uL (0-1.0); Monocytes % (A) 12 %; Neutrophils # (A) 2.8 k/uL (1.3-7.7); Neutrophils % (A) 61 %; Platelet Count 153 k/uL (150-450); RBC 4.74 m/uL (4.30-5.90); RDW 15.2 % (11.5-15.5); WBC 4.7 k/uL (3.8-10.6)
[2020-07-27 08:46] LABS: African American GFR (CKD) >90 (>60 ml/min/1.73 sqM); Anion Gap 7 mmol/L; Blood Urea Nitrogen 17 mg/dL (9-20); Calcium 8.6 mg/dL (8.4-10.2); Carbon Dioxide 27 mmol/L (22-30); Chloride 100 mmol/L (98-107); Glucose 107 mg/dL (74-99); Non-African American GFR(CKD) 84 (>60 ml/min/1.73 sqM); Potassium 4.7 mmol/L (3.5-5.1); Sodium 134 mmol/L (137-145)
[2020-07-27] MEDS: ASPIRIN 81 MG PO SCH (08:58)
[2020-07-27] MEDS: VALSARTAN 160 MG TAB PO SCH (08:58)
[2020-07-27] MEDS: CLOPIDOGREL 75 MG TAB PO SCH (08:58)
[2020-07-27] MEDS ORDERED: ISOSORBIDE MONONITRATE ER 60 MG TAB.ER.24H PO SCH (09:00)
== END 2020-07-27 10:01 | disposition home or self-care (01) ==
LOC: CATHCVL 06:29 → 3NCARDOBS 08:48 → CATHCVL 07-27 10:01
PROVIDERS: ATTEND Internal Medicine Interventional Cardiology
DX: I25.10 Atherosclerotic heart disease of native coronary artery without angina pectoris (principal); I77.819 Aortic ectasia, unspecified site; I10 Essential (primary) hypertension; E78.5 Hyperlipidemia, unspecified; Z82.49 Family history of ischemic heart disease and other diseases of the circulatory system; Z95.5 Presence of coronary angioplasty implant and graft; I71.2 Thoracic aortic aneurysm, without rupture; Z79.02 Long term (current) use of antithrombotics/antiplatelets; Z79.82 Long term (current) use of aspirin; Z79.899 Other long term (current) drug therapy
CPT/HCPCS: 93458; 93567; 80048 ×2; 85025 ×2; C9600; C1760; C1769 ×4; C1887 ×2; C1894; C1874; J2250; J0360; J2001; J3010; J0583; Q9967 ×2; J1170

== ENCOUNTER → 2020-08-16 | Outpatient (CLI) | payer MEDICARE ==
[2020-08-16 16:14] LABS: African American GFR (CKD) >90 (>60 ml/min/1.73 sqM); Blood Urea Nitrogen 13 mg/dL (9-20); Non-African American GFR(CKD) >90 (>60 ml/min/1.73 sqM)
--- NOTE | 2020-08-16 16:48 | CT ---
EXAMINATION TYPE: CT angio chest DATE OF EXAM: 08/16/2020 COMPARISON: CTA chest September 11, 2019 HISTORY: Thoracic aneurysm CT DLP: 230.8 mGycm. Automated Exposure Control for Dose Reduction was Utilized. CONTRAST: CTA scan of the thorax is performed with IV Contrast, patient injected with 100 mL of Isovue 370, pul monary embolism protocol. Three-D reconstructed Images are created on independent workstation and rev iewed. FINDINGS: LUNGS: Dependent atelectasis in both lower lungs. Occasional scattered thin-walled cyst or bleb. No s uspicious focal consolidation. No concerning masses. No pleural effusion or pneumothorax MEDIASTINUM: There is satisfactory enhancement of the central pulmonary arteries. Successful opacif ication of the aorta. Main pulmonary artery measures 3.5 cm [address] image 26[address] findings consistent wi th ongoing pulmonary hypertension. Adjacent ascending aorta measures up to 4.4 cm in diameter on same image. Normal three-vessel origin from arch. No aneurysmal extension into arch or descending aorta. No dissection noted. There are no greater than 1 cm hilar or mediastinal lymph nodes. No cardiomega ly or pericardial effusion is seen. OTHER: No additional significant abnormality is seen. IMPRESSION: Stable 4.4 cm ascending aortic aneurysm.
== END | disposition home or self-care (01) ==
LOC: RADCTMAIN 15:40
PROVIDERS: ATTEND Internal Medicine Interventional Cardiology
DX: I71.2 Thoracic aortic aneurysm, without rupture (principal)
CPT/HCPCS: 82565; 84520; 71275; 36415; Q9967

== ENCOUNTER → 2020-09-18 | Outpatient (CLI) | payer MEDICARE ==
[2020-09-18 16:05] LABS: African American GFR (CKD) >90 (>60 ml/min/1.73 sqM); Blood Urea Nitrogen 13 mg/dL (9-20); Non-African American GFR(CKD) >90 (>60 ml/min/1.73 sqM)
--- NOTE | 2020-09-19 07:56 | CT ---
EXAMINATION TYPE: CT chest w con DATE OF EXAM: 09/18/2020 COMPARISON: 08/16/2020 and 06/30/2019 HISTORY: SOB, LUNG NODULE CT DLP: 506 mGycm Automated exposure control for dose reduction was used. CONTRAST: CT scan of the chest is performed with IV Contrast, patient injected with 100 mL of Isovue 300. FINDINGS: LUNGS: Small nodular density right upper lobe medially smaller than on prior study and measures 6.6 m m versus prior measurement of 1.1 x 6.7 mm. No additional pulmonary nodules are identified at this ti me. A few scattered blebs are seen. There is no pleural effusion or pneumothorax seen. The tracheobr onchial tree is patent. MEDIASTINUM: There are no greater than 1 cm hilar or mediastinal lymph nodes. No pericardial effusi on is seen. Aneurysmal dilatation of the ascending thoracic aorta measures 4.5 cm in AP dimension oli tutu prior measurement of 4.5 cm. The heart is not enlarged. UPPER ABDOMEN: No significant abnormality appreciated. OTHER: No additional significant abnormality is seen. IMPRESSION: 1. The nodular density right upper lobe appears to be smaller in size. No new nodules are seen. Stabi lity over a two-year timeframe should be documented radiographically. 2. Stable ascending thoracic aortic aneurysm.
== END | disposition home or self-care (01) ==
LOC: RADCTMAIN 15:20
PROVIDERS: ATTEND Internal Medicine
DX: R91.1 Solitary pulmonary nodule (principal); I71.2 Thoracic aortic aneurysm, without rupture
CPT/HCPCS: 82565; 84520; 71260; 36415; Q9967

== ENCOUNTER 2020-10-05 13:48 | Inpatient (IN) | payer MEDICARE ==
[2020-10-05] MEDS ORDERED: ASPIRIN 81 MG PO STA (14:15)
[2020-10-05] MEDS: NITROGLYCERIN SL TABS 0.4 MG TAB SUBLINGUAL PRN (14:22)
--- NOTE | 2020-10-05 14:30 | ED ---
Chest Pain HPI - General Chief Complaint: Chest Pain Stated Complaint: Chest Pain Time Seen by Provider: 10/05/20 14:03 Source: patient, family, RN notes reviewed, old records reviewed Mode of arrival: wheelchair Limitations: no limitations - History of Present Illness Initial Comments: This is a 65-year-old male with a history of heart disease and 4 stents in the past who started developing intermittent episodes of chest pain yesterday . He states pain was 8/10 in severity he is currently have some pain 7/10 nonradiating midsternal chest pain. He took nitroglycerin last evening but was old or nitroglycerin is some redness of breath and nausea with it. Additionally he does state he has a 4.4 cm descending aortic aneurysm. This apparently is stable. He states the pain feels like a bruise or like someone punched him in the chest wall. It does appear that this is similar to his previous cardiac episodes. MD Complaint: chest pain - Related Data Home Medications Medication Instructions Recorded Confirmed Citalopram Hydrobromide [CeleXA] 20 mg PO HS 02/08/16 07/26/20 Pantoprazole Sodium [Protonix] 40 mg PO Q48H 02/08/16 07/26/20 carvediloL [Coreg] 3.125 mg PO BID 12/25/18 07/26/20 Valsartan [Diovan] 160 mg PO HS 08/09/19 07/26/20 Atorvastatin [Lipitor] 80 mg PO DAILY 01/23/20 07/26/20 Isosorbide Mononitrate Unk Dos 1 tab PO DAILY 07/24/20 07/26/20 Previous Rx's Medication Instructions Recorded Aspirin 81 mg PO DAILY #30 chew 12/28/18 Nitroglycerin Sl Tabs [Nitrostat] 0.4 mg SUBLINGUAL Q5M PRN #25 tab 12/28/18 Clopidogrel [Plavix] 75 mg PO DAILY #30 tablet 01/25/20 Allergies Allergy/AdvReac Type Severity Reaction Status Date / Time No Known Allergies Allergy Verified 10/05/20 13:59 Review of Systems ROS Statement: Those systems with pertinent positive or pertinent negative responses have been documented in the HPI. ROS Other: All systems not noted in ROS Statement are negative. EKG Findings - EKG Results: EKG: interpreted by RASHARD, sinus rhythm ([place] 5[address] QRS duration 88 daily since QTC 372/407 nonspecific inferior configuration no change when compared to one dated 07/26/20) Past Medical History Past Medical History: Coronary Artery Disease (CAD), GERD/Reflux, Hyperlipidemia, Hypertension Additional Past Medical History / Comment(s): R shoulder pain for approximately one month/infection, AAA being monitored, Sjogren's, occasional vertigo, waiting results for parkinsons 04/26/2020 History of Any Multi-Drug Resistant Organisms: None Reported Past Surgical History: Heart Catheterization With Stent Additional Past Surgical History / Comment(s): Right shoulder arthroscopy for torn rotator cuff/post infection and had another surgery to remove titanium hook, PICC, low back fusion, right hand foreign body removal, 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 Stents 01/2019 & 01/2020. Stent RCA 07/26/2020 Past Anesthesia/Blood Transfusion Reactions: No Reported Reaction Date of Last Stent Placement:: dec 2018 Past Psychological History: No Psychological Hx Reported Smoking Status: Never smoker Past Alcohol Use History: Occasional, Rare Past Drug Use History: None Reported - Past Family History Father Family Medical History: Myocardial Infarction (TN) Additional Family Medical History / Comment(s): Father of a TN at the age of 60yrs. Mother Additional Family Medical History / Comment(s): Mother of an aneurysm that ruptured at the age of 60yrs. General Exam - General Exam Comments Initial Comments: This is a well-developed well-nourished awake alert oriented 3 male Limitations: no limitations General appearance: alert, in no apparent distress Head exam: Present: atraumatic, normocephalic, normal inspection Eye exam: Present: normal appearance, PERRL, EOMI. Absent: scleral icterus, conjunctival injection, periorbital swelling ENT exam: Present: normal exam, mucous membranes moist Neck exam: Present: normal inspection. Absent: tenderness, meningismus, lymphadenopathy Respiratory exam: Present: normal lung sounds bilaterally. Absent: respiratory distress, wheezes, rales, rhonchi, stridor, chest wall tenderness Cardiovascular Exam: Present: regular rate, normal rhythm, normal heart sounds. Absent: systolic murmur, diastolic murmur, rubs, gallop, clicks GI/Abdominal exam: Present: soft, normal bowel sounds. Absent: distended, tenderness, guarding, rebound, rigid Extremities exam: Present: normal inspection, full ROM, normal capillary refill. Absent: tenderness, pedal edema, joint swelling, calf tenderness Back exam: Present: normal inspection Neurological exam: Present: alert, oriented X3, CN II-XII intact Psychiatric exam: Present: normal affect, normal mood Skin exam: Present: warm, dry, intact, normal color. 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 EKG revealed no acute changes when compared to one dated 07/26/20. Chest Pain MDM - MDM I did review the imaging and report no acute findings. The patient does present with symptoms consistent with unstable angina. Patient will be admitted with cardiology consultation he does see Dr. Campos. I did discuss the case with Dr. Wolff. Critical Care Time Critical Care Time: Yes Total Critical Care Time: 31 Critical Care Time: Critical care time includes initial presentation with history physical labs x- rays multiple reevaluation the patient to responsive therapy discuss with the patient family regarding findings discussed with the main physician admission orders documentation of the above review of old charting. Disposition Clinical Impression: Unstable angina pectoris, Chest pain Disposition: ADMITTED IP TO THIS HOSP Condition: Fair Referrals: Estevan Marroquin III, MD [Primary Care Provider] - 1-2 days
[2020-10-05 14:31] LABS: Basophils # (A) 0.1 k/uL (0-0.2); Basophils % (A) 1 %; Eosinophils # (A) 0.1 k/uL (0-0.7); Eosinophils % (A) 2 %; HCT 40.7 % (39.0-53.0); HGB 14.1 gm/dL (13.0-17.5); Lymphocytes # (A) 1.2 k/uL (1.0-4.8); Lymphocytes % (A) 31 %; MCH 30.8 pg (25.0-35.0); MCHC 34.5 g/dL (31.0-37.0); MCV 89.3 fL (80.0-100.0); Mean Platelet Volume 8.5; Monocytes # (A) 0.4 k/uL (0-1.0); Monocytes % (A) 11 %; Neutrophils % (A) 51 %; Platelet Count 159 k/uL (150-450); RBC 4.56 m/uL (4.30-5.90); RDW 13.1 % (11.5-15.5); WBC 3.9 k/uL (3.8-10.6)
[2020-10-05 14:42] LABS: INR 0.9 (<1.2); Partial Thromboplastin Time 24.2 sec (22.0-30.0); Prothrombin Time 9.9 sec (9.0-12.0)
[2020-10-05] MEDS ORDERED: HEPARIN SODIUM,PORCINE 5,000 UNIT/ML 1 ML VIAL IV ONE (15:13)
[2020-10-05] MEDS ORDERED: NITROGLYCERIN SL TABS 0.4 MG TAB SUBLINGUAL PRN (15:13)
--- NOTE | 2020-10-05 15:15 | XR ---
EXAMINATION TYPE: XR chest 2V DATE OF EXAM: 10/05/2020 COMPARISON: 04/30/2020 HISTORY: Shortness of breath TECHNIQUE: Frontal and lateral views of the chest are obtained. FINDINGS: Scattered senescent parenchymal changes noted. Hyperinflation compatible with COPD. No evidence for infiltrate. No evidence for atelectasis. Heart size is stable. Mediastinal structures are stable and grossly unremarkable. No evidence for hilar prominence. Degenerative changes dorsal spine. IMPRESSION: 1. No evidence for acute pulmonary disease.
[2020-10-05] MEDS: HEPARIN SOD,PORK IN 0.45% NACL 25,000 UNIT in 0.45% NACL 1 250ML.BAG IV SCH (15:37)
[2020-10-05] MEDS: SODIUM CHLORIDE 0.9% 1,000 ML IV SCH (15:39)
[2020-10-05] MEDS: NITROGLYCERIN OINT 1 INCH/GM PACKET TOPICAL SCH (15:40)
[2020-10-05] MEDS ORDERED: HYDROcodone/APAP 5-325MG 1 EACH TAB PO PRN (19:36)
[2020-10-05] MEDS ORDERED: ACETAMINOPHEN TAB 500 MG TAB PO PRN (19:36)
[2020-10-05] MEDS ORDERED: ALPRAZolam 0.25 MG TAB PO PRN (19:36)
--- NOTE | 2020-10-05 20:40 | HP ---
HISTORY AND PHYSICAL DATE OF SERVICE: 10/05/2020 CHIEF COMPLAINT: Chest pain. HISTORY OF PRESENT ILLNESS: This 65-year-old gentleman with a past medical history of multiple medical problems, including history of CAD, history of hypertension, hyperlipidemia, history of shoulder pain, history of abdominal aortic aneurysm which is monitored, history of Sjogren syndrome, history of CAD and stent, being followed by Dr. Marroquin in the outpatient setting, was complaining of chest pain last night which was felt mostly in the left side of the chest, about 8 out of 10 in intensity, which was almost a crushing type of pain; some midsternal pain as well. The patient took 2 nitroglycerin tablets without much relief. The patient came to [facility] and responded to the nitroglycerin given by EMS and the patient was admitted for further evaluation and treatment. After nitroglycerin paste, the patient is feeling much better. The patient also had a 4.4 cm descending aortic aneurysm, which is rather stable and is being monitored at this time. There is no history of any fever, rigors or chills at this time. The patient has been seen by Dr. Campos. The patient also has a history of shoulder osteomyelitis, on prolonged IV antibiotics. The patient has a history of epistaxis as well. PAST MEDICAL HISTORY: History of CAD, GERD, hypertension, hyperlipidemia, CAD, stent. HOME MEDICATIONS: Aspirin, Diovan, Nitrostat, Ativan, Imdur, Celexa, Coreg, Protonix, Plavix, Lipitor. Doses are reviewed. ALLERGIES: NONE. FAMILY HISTORY: History of myocardial infarction in the family. SOCIAL HISTORY: No history of smoking. No history of alcohol intake. REVIEW OF SYSTEMS: ENT: No diminished hearing. No diminished vision. CARDIOVASCULAR SYSTEM: As mentioned earlier. RESPIRATORY SYSTEM: As mentioned earlier. GI: No nausea, vomiting, diarrhea. : No dysuria or retention. NERVOUS SYSTEM: No numbness, weakness. ALLERGY/IMMUNOLOGY: No asthma, hayfever. MUSCULOSKELETAL: As mentioned earlier. HEMATOLOGY/ONCOLOGY: No history of anemia. ENDOCRINE: No history of diabetes, hypothyroidism. CONSTITUTIONAL: As mentioned earlier. DERMATOLOGY: Negative. RHEUMATOLOGY: Negative. PSYCHIATRY: As mentioned earlier. PHYSICAL EXAMINATION: Patient alert and oriented x3. Pulse 75, blood pressure 139/77, respiration 16, temperature normal, pulse ox 100% on 2 L. HEENT: Conjunctivae normal. NECK: No jugular venous distention. CARDIOVASCULAR SYSTEM: S1, S2 muffled. RESPIRATORY SYSTEM: Breath sounds diminished at the bases. A few scattered rhonchi and crackles. ABDOMEN: Soft, non-tender. No mass palpable. LEGS: No edema. No swelling. NERVOUS SYSTEM: Higher functions as mentioned earlier. Moves all 4 limbs. No focal motor or sensory deficit. LYMPHATICS: No lymph node palpable in neck, axillae or groin. SKIN: No ulcer, rash, bleeding. JOINTS: No active deforming arthropathy. LABS/IMAGING: CBC normal. Troponins are normal. EKG which was reviewed personally by me showed normal sinus rhythm, ST-T changes. ASSESSMENT: 1. Chest pain, possible unstable angina. 2. History of coronary artery disease, stent. 3. History of gastroesophageal reflux disease. 4. Hypertension. 5. Hyperlipidemia. 6. History of left shoulder osteoarthritis. 7. Descending aortic aneurysm 4.4 cm. 8. History of Sjogren syndrome. 9. History of vertigo. 10.History of low back fusion. RECOMMENDATIONS AND DISCUSSION: In this 65-year-old gentleman who presented with multiple complex medical issues, we will monitor the patient closely, continue the current medications, continue symptomatic treatment. Unstable angina protocol. Rule out myocardial infarction. Cardiology consultation. Resume the home medications. Prognosis guarded. Further recommendations to follow. A copy of this dictation is being forwarded to Dr. Marroquin, who is the primary physician. MMODL / IJN: [id number] /
[2020-10-05] MEDS: carvediloL 3.125 MG TAB PO SCH (21:21)
[2020-10-05] MEDS: VALSARTAN 160 MG TAB PO SCH (21:22)
[2020-10-05] MEDS: CITALOPRAM HYDROBROMIDE 20 MG TAB PO SCH (21:22)
[2020-10-06] MEDS: NITROGLYCERIN OINT 1 INCH/GM PACKET TOPICAL SCH ×2 (01:24→06:18)
[2020-10-06] MEDS: carvediloL 3.125 MG TAB PO SCH ×2 (06:19→18:35)
[2020-10-06] MEDS: PANTOPRAZOLE 40 MG TABLET PO SCH (06:19)
[2020-10-06] MEDS ORDERED: ASPIRIN 325 MG TAB PO SCH (09:00)
[2020-10-06] MEDS: CLOPIDOGREL 75 MG TAB PO SCH (09:13)
[2020-10-06] MEDS: ISOSORBIDE MONONITRATE ER 60 MG TAB.ER.24H PO SCH (09:13)
[2020-10-06] MEDS: ATORVASTATIN 80 MG TAB PO SCH ×2 (09:13→10:55)
[2020-10-06] MEDS ORDERED: ALPRAZolam 0.5 MG TAB PO PRN (10:40)
[2020-10-06] MEDS ORDERED: SODIUM CHLORIDE 0.9% 1,000 ML in EMPTY BAG 1 BAG IV ONE (10:40)
[2020-10-06] MEDS ORDERED: NITROGLYCERIN SL TABS 0.4 MG TAB SUBLINGUAL PRN (10:40)
[2020-10-06] MEDS: ASPIRIN 81 MG PO SCH (10:54)
[2020-10-06 11:00] LABS: HCT 41.4 % (39.0-53.0); HGB 13.7 gm/dL (13.0-17.5); MCH 30.3 pg (25.0-35.0); MCHC 33.1 g/dL (31.0-37.0); MCV 91.5 fL (80.0-100.0); Mean Platelet Volume 8.6; Platelet Count 164 k/uL (150-450); RBC 4.52 m/uL (4.30-5.90); RDW 13.7 % (11.5-15.5)
--- NOTE | 2020-10-06 11:11 | CONS ---
CONSULTATION Mrs. Cardona is a 65-year-old male who is followed on a regular basis with Dr. Campos. History of coronary artery disease status post percutaneous revascularization, most recently performed in July of this year who presented with symptoms of chest discomfort. He is followed on a regular basis by Dr. Marroquin. He sees Dr. Ferris as well. He started to have chest discomfort about 2 days ago on afternoon associated with dyspnea and persisted throughout . Took nitroglycerin without much changes. He had further symptoms on Thursday and came into the emergency room. His pain is better at this time. He is usually active physically, has occasional chest discomfort. He has dyspnea on exertion. He has a known history of stable ascending aortic aneurysm measuring 4.4 cm in diameter on a CT scan performed in August of this year. Patient has occasional peripheral edema. He has some palpitation. No syncope. He has underwent a stenting in the past of the LAD, the RCA and most recently underwent stenting of the distal RCA by Dr. Campos using a 2.5 x 12 and 2.5 x 8 mm stent. According to the patient, following every stent, he gets some improvement in his discomfort that lasts for a couple weeks, then it comes back. He has a strong family history of coronary artery disease. He is a nonsmoker, nondiabetic. He is hyperlipidemic. MEDICATION: Include aspirin, Diovan 160 mg daily, isosorbide mononitrate 60 mg daily, Celexa, Coreg 3.125 mg twice a day, Protonix, Plavix 75 mg daily and atorvastatin 80 mg daily. REVIEW OF SYSTEMS: Respiratory system: He has dyspnea on exertion. No recent wheezing, cough. GI system no nausea, no vomiting. No GI bleeding. system: No dysuria or hematuria: Nervous system: No stroke or seizure. PHYSICAL EXAMINATION: He is a 65-year-old male, alert, oriented, no apparent distress. Blood pressure running in the 120s to 140s with a heart rate in 60s. HEAD: Normocephalic. Eyes sclerae anicteric. Neck good upstroke. No bruit. No jugular venous distention. Lungs clear to auscultation. Heart regular rate and rhythm S1, S2. No S3. No S4. No murmur or rub. ABDOMEN: Soft, nontender. Positive bowel sounds. No megaly. EXTREMITIES: No edema. Intact distal pulses. LAB DATA: Revealed troponin less than 0.012 for 3 samples. NT proBNP of 40. Hemoglobin of 14.1. His BUN and creatinine 39 and 0.76. EKG revealed a sinus mechanism, normal axis and intervals. No acute changes with mild early repolarization changes. Chest x-ray shows no acute infiltrate. IMPRESSION: 1. Chest discomfort of unclear etiology in a patient with multiple percutaneous revascularization. No evidence for acute coronary syndrome with no EKG changes or enzymatic changes. 2. History of multi vessel stenting done by Dr. Campos. 3. History of hypertension. 4. Hyperlipidemia. 5. Stable aortic and thoracic aortic aneurysm. RECOMMENDATION: From the cardiac standpoint, I will add Ranexa to his regimen. Because of his multiple stenting and the most recent one done in July, I would recommend to proceed with repeat coronary angiography to further assess his status and guide his treatment. The procedure will be tentatively scheduled on Thursday by Dr. Campos unless there is a change in his status. I have discussed those findings with the patient and he is in full understanding and agreement. Thank you for this consult. We will follow with you. MMODL / IJN: [id number] /
[2020-10-06 11:32] LABS: African American GFR (CKD) >90 (>60 ml/min/1.73 sqM); Anion Gap 3 mmol/L; Blood Urea Nitrogen 9 mg/dL (9-20); Calcium 8.8 mg/dL (8.4-10.2); Carbon Dioxide 31 mmol/L (22-30); Chloride 101 mmol/L (98-107); Cholesterol 72 mg/dL (<200); Glucose 102 mg/dL (74-99); HDL Cholesterol 43 mg/dL (40-60); LDL Cholesterol,Calculated 21 mg/dL (0-99); Non-African American GFR(CKD) >90 (>60 ml/min/1.73 sqM); Potassium 5.2 mmol/L (3.5-5.1); Sodium 135 mmol/L (137-145); Triglycerides 39 mg/dL (<150)
[2020-10-06 12:22] LABS: ALT 36 U/L (4-49); AST 46 U/L (17-59); Albumin 3.6 g/dL (3.5-5.0); Alkaline Phosphatase 100 U/L (38-126); Creatine Kinase 178 U/L (55-170); Total Bilirubin 0.7 mg/dL (0.2-1.3); Total Protein 6.4 g/dL (6.3-8.2)
[2020-10-06] MEDS: RANOLAZINE 500 MG TAB.ER.12H PO SCH ×2 (12:44→21:53)
[2020-10-06 14:56] LABS: Eosinophils # (M) 0.15 k/uL (0-0.7); Lymphocytes # (M) 0.81 k/uL (1.0-4.8); Monocytes # (M) 0.48 k/uL (0-1.0); Neutrophils # (M) 1.56 k/uL (1.3-7.7); Neutrophils % (M) 52 %; Nucleated Red Blood Cells 0 /100 WBC (0-0); Total Cells Counted 100
[2020-10-06] MEDS: HEPARIN SOD,PORK IN 0.45% NACL 25,000 UNIT in 0.45% NACL 1 250ML.BAG IV SCH (18:35)
--- NOTE | 2020-10-06 19:53 | PN ---
PROGRESS NOTE DATE OF SERVICE: 10/06/2020 This is a 65-year-old gentleman who was admitted with chest pain, unstable angina. Scheduled for cardiac catheterization by Cardiology. No chest pain. No palpitations. No fever. PHYSICAL EXAMINATION: Alert and oriented x3. Pulse 68, blood pressure is 143/82, respiration 18, temperature 97.4, pulse ox 100% on 2 L. HEENT: Conjunctivae are normal. NECK: No jugular venous distention. CHEST: Breath sounds are diminished in the bases, no rhonchi, no crackles. ABDOMEN: Soft, nontender. EXTREMITIES: Legs have no edema. No swelling. NERVOUS SYSTEM: No focal deficits. LABS: WBC 3, sodium 134, potassium 5.2. ASSESSMENT: 1. Chest pain possible unstable angina. 2. Mild leukopenia. 3. Hyponatremia. 4. Increased potassium. 5. History of coronary artery disease with stent. 6. History of gastroesophageal reflux disease. 7. Hypertension. 8. Hyperlipidemia. 9. History of left shoulder osteoarthritis. 10.Descending aortic aneurysm 4.4 cm. 11.History of Sjogren syndrome. 12.History of vertigo. 13.History of low back fusion. RECOMMENDATIONS AND DISCUSSION: I recommend to continue current medications, continue to monitor, symptomatic treatment. Otherwise, at this time continue the rest of the medication. Monitor electrolytes closely. Cardiac cath per Cardiology. Guarded prognosis. Further recommendations to follow. MMODL / IJN: [id number] /
[2020-10-06] MEDS: VALSARTAN 160 MG TAB PO SCH (21:53)
[2020-10-06] MEDS: CITALOPRAM HYDROBROMIDE 20 MG TAB PO SCH (21:53)
[2020-10-07 06:40] LABS: Basophils % (A) 1 %; Eosinophils # (A) 0.2 k/uL (0-0.7); Eosinophils % (A) 5 %; HCT 39.2 % (39.0-53.0); HGB 13.5 gm/dL (13.0-17.5); Lymphocytes % (A) 25 %; MCH 31.3 pg (25.0-35.0); MCHC 34.4 g/dL (31.0-37.0); Mean Platelet Volume 8.3; Monocytes # (A) 0.5 k/uL (0-1.0); Monocytes % (A) 12 %; Neutrophils # (A) 2.3 k/uL (1.3-7.7); Neutrophils % (A) 54 %; Platelet Count 155 k/uL (150-450); RDW 13.2 % (11.5-15.5); WBC 4.2 k/uL (3.8-10.6)
[2020-10-07] MEDS: SODIUM CHLORIDE 0.9% 1,000 ML IV SCH (06:45)
[2020-10-07] MEDS: carvediloL 3.125 MG TAB PO SCH ×2 (06:48→19:05)
[2020-10-07 07:24] LABS: African American GFR (CKD) >90 (>60 ml/min/1.73 sqM); Anion Gap 3 mmol/L; Blood Urea Nitrogen 15 mg/dL (9-20); Calcium 8.6 mg/dL (8.4-10.2); Carbon Dioxide 30 mmol/L (22-30); Chloride 100 mmol/L (98-107); Glucose 96 mg/dL (74-99); Non-African American GFR(CKD) 85 (>60 ml/min/1.73 sqM); Potassium 4.9 mmol/L (3.5-5.1); Sodium 133 mmol/L (137-145)
[2020-10-07] MEDS: ASPIRIN 81 MG PO SCH (09:44)
[2020-10-07] MEDS: CLOPIDOGREL 75 MG TAB PO SCH (09:44)
[2020-10-07] MEDS: ISOSORBIDE MONONITRATE ER 60 MG TAB.ER.24H PO SCH (09:44)
[2020-10-07] MEDS: RANOLAZINE 500 MG TAB.ER.12H PO SCH ×2 (09:44→21:47)
[2020-10-07] MEDS: ATORVASTATIN 80 MG TAB PO SCH (09:45)
--- NOTE | 2020-10-07 10:44 | PN ---
PROGRESS NOTE Mr. Cardona is a 65-year-old male with a known history of coronary artery disease status post percutaneous revascularization and most recently underwent stenting of the right coronary artery by Dr. Campos. He has presented with symptoms of chest pain. He is feeling better this morning. He has some discomfort when he yawns. He denies any dizziness or palpitation. He denies any nausea. He continues to be on aspirin once a day, Plavix 75 mg daily, Lipitor 80 mg daily, Coreg 3.125 mg twice a day. He continues on the IV heparin. He is on isosorbide mononitrate 60 mg daily, Ranexa 500 mg twice a day, and valsartan 160 mg daily. PHYSICAL EXAMINATION: Blood pressure running in the 140s with a heart rate in the 60s. LUNGS: Clear. HEART: Regular rate and rhythm. S1, S2. No S3. No rub. ABDOMEN: Soft, nontender. EXTREMITIES: No edema. LAB DATA: BUN and creatinine 15 and 0.94, potassium 4.9, sodium 133, hemoglobin 34.5. IMPRESSION: 1. Symptoms of chest discomfort of unclear etiology in a patient with known history of multiple percutaneous revascularization. 2. Hypertension. 3. Hyperlipidemia. RECOMMENDATIONS: I recommend proceeding with coronary angiography that will be done tomorrow by Dr. Campos to assess his status and guide his treatment. Those findings and recommendations were discussed with the patient. MMODL / YGN: [id number] /
[2020-10-07] MEDS: NITROGLYCERIN SL TABS 0.4 MG TAB SUBLINGUAL PRN ×3 (13:11→13:24)
--- NOTE | 2020-10-07 15:44 | PN ---
PROGRESS NOTE DATE OF SERVICE: 10/07/2020 This is a 65-year-old gentleman who was admitted with chest pain, possible unstable angina is being closely monitored at this time. The patient is complaining of some chest pains left-sided of the chest. EKG is being ordered and as well as Cardiology evaluation. Patient on IV heparin. Sodium is 130, potassium 4.9 today. PHYSICAL EXAMINATION: Alert and oriented times three. Pulse 71, blood pressure 134/76, respirations 16, temperature 97.9, pulse ox 99% on room air. HEENT: Conjunctivae normal. NECK: No JVD. CARDIOVASCULAR: S1, S2 muffled. RESPIRATORY SYSTEM: Breath sounds diminished at the bases. No rhonchi. No crackles. ABDOMEN: Soft, nontender. LEGS: No edema. No swelling. Nervous system: No focal deficits. LABORATORY DATA: At this time shows: WBC 4.2, hemoglobin 13.5, sodium 133. ASSESSMENT: 1. Chest pain possible unstable angina. 2. Continued chest pain. 3. Mild leukopenia. 4. Hyponatremia. 5. Increased potassium improved. 6. History of coronary artery disease/stent. 7. History of gastroesophageal reflux disease. 8. Hypertension. 9. Hyperlipidemia. 10.History of left shoulder osteoarthritis. 11.Descending thoracic aortic aneurysm 4.4 cm. 12.History of Sjogren syndrome. 13.History of vertigo. 14.History of low back pain infusion. RECOMMENDATIONS AND DISCUSSION: This 65-year-old gentleman who presented with multiple complex medical issues, we will monitor the patient closely. I would recommend continue with IV heparin. EKG, troponin. Cardiology evaluation. Prognosis guarded because of multiple complex medical issues. Further recommendations to follow. MMODL / IJN: [id number] /
[2020-10-07] MEDS: HEPARIN SOD,PORK IN 0.45% NACL 25,000 UNIT in 0.45% NACL 1 250ML.BAG IV SCH (19:05)
[2020-10-07] MEDS: CITALOPRAM HYDROBROMIDE 20 MG TAB PO SCH (21:47)
[2020-10-07] MEDS: ALPRAZolam 0.25 MG TAB PO PRN (21:47)
[2020-10-07] MEDS: VALSARTAN 160 MG TAB PO SCH (21:48)
[2020-10-08] MEDS ORDERED: ASPIRIN 325 MG TAB PO ONE (06:00)
[2020-10-08] MEDS ORDERED: ATORVASTATIN 80 MG TAB PO ONE (06:00)
[2020-10-08] MEDS: ISOSORBIDE MONONITRATE ER 60 MG TAB.ER.24H PO SCH (06:07)
[2020-10-08] MEDS: PANTOPRAZOLE 40 MG TABLET PO SCH (06:07)
[2020-10-08] MEDS: CLOPIDOGREL 75 MG TAB PO SCH (06:08)
[2020-10-08] MEDS: RANOLAZINE 500 MG TAB.ER.12H PO SCH ×2 (06:08→22:07)
[2020-10-08] MEDS: carvediloL 3.125 MG TAB PO SCH ×2 (06:08→21:33)
[2020-10-08] MEDS: SODIUM CHLORIDE 0.9% 1,000 ML IV SCH ×2 (06:10→21:33)
[2020-10-08 06:15] LABS: Glucose,Whole Blood 105 mg/dL (75-99)
[2020-10-08 10:31] LABS: Basophils % (A) 1 %; Eosinophils # (A) 0.2 k/uL (0-0.7); Eosinophils % (A) 5 %; HCT 41.1 % (39.0-53.0); HGB 13.2 gm/dL (13.0-17.5); Lymphocytes # (A) 0.9 k/uL (1.0-4.8); Lymphocytes % (A) 26 %; MCH 30.1 pg (25.0-35.0); MCHC 32.2 g/dL (31.0-37.0); MCV 93.4 fL (80.0-100.0); Mean Platelet Volume 8.5; Monocytes # (A) 0.4 k/uL (0-1.0); Monocytes % (A) 11 %; Neutrophils % (A) 54 %; Platelet Count 155 k/uL (150-450); RDW 13.9 % (11.5-15.5); WBC 3.6 k/uL (3.8-10.6)
[2020-10-08 11:02] LABS: African American GFR (CKD) >90 (>60 ml/min/1.73 sqM); Anion Gap 4 mmol/L; Blood Urea Nitrogen 12 mg/dL (9-20); Calcium 8.7 mg/dL (8.4-10.2); Carbon Dioxide 29 mmol/L (22-30); Chloride 101 mmol/L (98-107); Glucose 94 mg/dL (74-99); Non-African American GFR(CKD) 89 (>60 ml/min/1.73 sqM); Potassium 4.7 mmol/L (3.5-5.1); Sodium 134 mmol/L (137-145)
[2020-10-08] MEDS ORDERED: IV FLUID CONTINUATION 1,000 ML IV ONE (11:52)
[2020-10-08] MEDS ORDERED: MIDAZOLAM 2 MG/2 ML VIAL IV ONE (11:52)
[2020-10-08] MEDS ORDERED: LIDOCAINE 1% INJ 10MG/ML (20 ML MDV) SQ ONE (11:54)
[2020-10-08] MEDS ORDERED: BIVALIRUDIN 250 MG in SODIUM CHLORIDE 0.9% 50 ML IV ONE (12:10)
[2020-10-08] MEDS ORDERED: BIVALIRUDIN BOLUS 250 MG/50 ML IV ONE (12:11)
[2020-10-08] MEDS ORDERED: ADENOSINE 90 MG in SODIUM CHLORIDE 0.9% 60 ML IVP ONE (12:35)
[2020-10-08] MEDS ORDERED: IOPAMIDOL-370 125ML BTL INJ ONE (12:39)
[2020-10-08] MEDS ORDERED: RX INFO: IV CONTRAST WAS GIVEN 1 EACH MISC MISCELLANE PRN (12:47)
[2020-10-08] MEDS ORDERED: SODIUM CHLORIDE 0.9% 1,000 ML IV SCH (13:00)
--- NOTE | 2020-10-08 19:21 | CC ---
CARDIAC CATHETERIZATION REPORT PERFORMING PHYSICIAN: Frankie Campos MD. PROCEDURE PERFORMED: 1. Selective right and left coronary angiogram. 2. Fractional flow reserve, FFR, of the right coronary artery. INDICATION: This is a pleasant 65-year-old gentleman with coronary artery disease who presented to the hospital with chest discomfort and continues to have ongoing chest discomfort. Because of that, a heart catheterization was advised. APPROACH: Right common femoral artery. COMPLICATION: None. LEVEL OF SEDATION: Moderate with sedation length of 48 minutes. PROCEDURE DESCRIPTION: After obtaining informed consent, the patient was brought to the cardiac crime lab technician. The right common femoral artery was cannulated using micropuncture technique and a micropuncture wire passed easily. Then I placed a 6-Turkish sheath at the right common femoral artery. After that I did selective right and left coronary angiogram using an AL1 catheter. Fractional flow reserve of the right coronary artery was performed as well. Please see a separate paragraph for that. SELECTIVE CORONARY ANGIOGRAM: 1. The RCA is a large caliber vessel and is a dominant vessel. The RCA has intermediate lesion in the midportion that appeared to be in the range of 50%. FFR was performed and came into be nonischemic at 0.90. The RCA distally appeared to be stented and the stent is patent. 2. The left main is angiographically normal. It bifurcates into LCX and LAD. 3. The LCX is a large caliber vessel and it is a nondominant vessel. The left circumflex proximally appeared to be angiographically normal. It gives rise into OM1, which has mild disease only. The OM 1 gives a branch that appeared to have an ostial lesion in the range of 80%. Seems to be unchanged compared to before. The left circumflex after that appeared to be angiographically normal. 4. The LAD. The proximal LAD appeared to be calcified. Appeared to have mild disease only. It gives rise into the first diagonal branch which seems to be normal. The mid LAD and distal LAD appeared to have mild diffuse disease only. 5. FFR of the RCA. After that, anticoagulation in coagulation was initiated using Angiomax. After zeroing the Doppler wire and equalizing between the Doppler wire and the guiding catheter which was an AL1 guiding catheter with an FFR per IV adenosine infusion that came in to be at 0.90, which is nonischemic. CONCLUSION: Patent stent in the distal right coronary artery. Intermediate lesion involving the mid right coronary artery. Fractional flow reserve was performed and came into be nonischemic. POSTPROCEDURE MANAGEMENT: Medical treatment and follow up with the patient. SHAKA / YGN: [id number] /
--- NOTE | 2020-10-08 19:36 | PN ---
PROGRESS NOTE DATE OF SERVICE: 10/08/2020 INTERVAL HISTORY: This 65-year-old gentleman was admitted with chest pain, unstable angina, had a cardiac catheterization. The full report is pending at this time. Apparently the stents were patent. No chest pain. No palpitations. No fever. PHYSICAL EXAMINATION: GENERAL: Patient is alert and oriented times three. VITAL SIGNS: Pulse 62, blood pressure 130/70, respirations 20, temperature normal, pulse ox 98% on room air HEENT: Conjunctivae normal. NECK: No jugular venous distention. RESPIRATORY: Breath sounds diminished at the bases. No rhonchi, no crackles. HEART: S1 and S2, muffled. ABDOMEN: Soft, no tenderness. EXTREMITIES: No edema, no swelling. NERVOUS: No focal deficits. LABS: WBC 3.2, hemoglobin 13.2. ASSESSMENT: 1. Chest pain possible unstable angina secondary to coronary spasm. 2. Status post cardiac catheterization. 3. Continued chest pain. 4. Leukopenia. 5. Hyponatremia. 6. Increased potassium, improved. 7. History of coronary artery disease with stent. 8. History of gastroesophageal reflux disease. 9. Hypertension. 10.Hyperlipidemia. 11.History of left shoulder degenerative joint disease. 12.History of thoracic aortic aneurysm 4.4 cm. 13.History of Sjogren syndrome. 14.History of vertigo. 15.History of low back pain and fusion. RECOMMENDATIONS AND DISCUSSION: Recommend to continue current medications, continue with monitoring and symptomatic treatment. Otherwise the patient is on Imdur, as well as Coreg. The patient is also on Diovan as well. Continue to monitor. Further recommendations to follow. MMODL / IJN: [id number] /
[2020-10-08] MEDS: HEPARIN SOD,PORK IN 0.45% NACL 25,000 UNIT in 0.45% NACL 1 250ML.BAG IV SCH (21:32)
[2020-10-08] MEDS: VALSARTAN 160 MG TAB PO SCH (22:07)
[2020-10-08] MEDS: CITALOPRAM HYDROBROMIDE 20 MG TAB PO SCH (22:07)
[2020-10-08] MEDS: ALPRAZolam 0.25 MG TAB PO PRN (23:28)
[2020-10-09 08:05] VITALS: BP 142/80; PULSE 64; RESP 14; TEMP 97.6
[2020-10-09] MEDS: ISOSORBIDE MONONITRATE ER 60 MG TAB.ER.24H PO SCH (08:07)
[2020-10-09] MEDS: RANOLAZINE 500 MG TAB.ER.12H PO SCH (08:07)
[2020-10-09] MEDS: ATORVASTATIN 80 MG TAB PO SCH (08:07)
[2020-10-09] MEDS: ASPIRIN 81 MG PO SCH (08:07)
[2020-10-09] MEDS: carvediloL 3.125 MG TAB PO SCH (08:07)
[2020-10-09] MEDS: CLOPIDOGREL 75 MG TAB PO SCH (08:07)
--- NOTE | 2020-10-09 09:25 | PN ---
PROGRESS NOTE Mr. Cardona is a 65-year-old male with a known history of coronary artery disease who presented with symptoms of chest discomfort. His enzymes were negative. He underwent cardiac catheterization by Dr. Campos yesterday, was found to have patent stent and underwent physiological evaluation of his right coronary artery and his FFR was 0.9. He is doing well this morning. He denies any symptoms of chest pain. He denies any dizziness, palpitation. He denies any nausea. He continues to be at this time on aspirin once a day, Lipitor 80 mg daily, Coreg 3.125 mg daily, Plavix 75 mg daily, Imdur 60 mg daily, Ranexa 500 mg twice a day, and Diovan 160 mg daily. PHYSICAL EXAMINATION: Blood pressure running in the 130s to 140s with a heart rate in the 60s. LUNGS: Clear. HEART: Regular rate and rhythm, S1, S2. No S3. No rub. ABDOMEN: Soft nontender. Right groin, no hematoma. IMPRESSION: 1. Chest discomfort with no evidence of progression of disease. No evidence for acute coronary syndrome. 2. History of hypertension. 3. Multivessel stenting. RECOMMENDATION: From the cardiac standpoint, he should be able to be discharged home today and follow up as an outpatient with Dr. Campos. MMODL / IJN: [id number] /
--- NOTE | 2020-10-09 22:31 | P.DS ---
Providers Date of admission: 10/07/20 13:49 Expected date of discharge: 10/09/20 Attending physician: Jacobo Wolff Consults: 10/05/20 15:13 Consult Physician Urgent Consulting Provider: Frankie Campos Consult Reason/Comments: Chest pain, unstable angina Do you want consulting provider notified?: Yes Primary care physician: Estevan Castrejon [facility] Course: Final diagnosis Chest pain possible unstable angina secondary to coronary spasm status post cardiac cath continued chest pain leukopenia hyponatremia Increased potassium, improved History of coronary artery disease with stent History of left shoulder degenerative joint disease Hypertension Hyperlipidemia History of thoracic aortic aneurysm 4.4cm History of Sjogren syndrome History of vertigo History of low back pain and fusion Full code Discharge disposition Patient is being discharged in a stable condition with guarded prognosis to home. Patient will follow-up with Dr. Marroquin in the outpatient setting upon discharge. Patient also instructed to follow up with Dr. Campos cardiology in the outpatient setting. Total time taken is greater than 35 minutes. History of present illness This is a 65-year-old male who was recently admitted with chest pain and unstable angina and was being closely monitored. cardiology following closely. Patient continued to have chest discomfort and underwent cardiac catheterization with Dr. Campos and stent was patent and cath was clean. Patient will continue on aspirin and plavix and will follow up with Dr. Marroquin as well as Dr. Campos in the next week. Patient states that he feels great and would like to go home today. Currently no reports of chest pain, shortness of breath, or palpitations. Patient is afebrile. No reports of nausea or vomiting and patient is tolerating diet. Patient will be discharged home today. On exam vital signs are stable. Temp is 97.6F, pulse is 64, respirations are 14, blood pressure is 142/80, oxygen saturation is 98% on room air. Cardio S1, S2 are muffled. Respiratory system shows diminished breath sounds at the bases with no wheezing or rhonchi noted. Abdomen is soft and non-tender. Nervous system shows no focal deficits. Please refer to medication reconciliation sheet for a list of medications. Patient Condition at Discharge: Stable Plan - Discharge Summary Discharge Rx Participant: No New Discharge Prescriptions: New Isosorbide Mononitrate ER [Imdur] 60 mg PO DAILY 30 Days #30 tab.er.24h Ranolazine [Ranexa] 500 mg PO Q12HR 15 Days #30 tab.er.12h Acetaminophen Tab [Tylenol] 500 mg PO Q6HR PRN tab PRN Reason: Fever And/ Or Pain Continue Citalopram Hydrobromide [CeleXA] 20 mg PO HS Pantoprazole Sodium [Protonix] 40 mg PO Q48H carvediloL [Coreg] 3.125 mg PO BID Aspirin 81 mg PO DAILY #30 chew Nitroglycerin Sl Tabs [Nitrostat] 0.4 mg SUBLINGUAL Q5M PRN #25 tab PRN Reason: Chest Pain Valsartan [Diovan] 160 mg PO DAILY Atorvastatin [Lipitor] 80 mg PO HS LORazepam [Ativan] 0.5 mg PO BID PRN PRN Reason: Anxiety Clopidogrel Bisulfate [Plavix] 75 mg PO HS Discontinued Isosorbide Mononitrate ER [Imdur] 60 mg PO DAILY Discharge Medication List Citalopram Hydrobromide [CeleXA] 20 mg PO HS 02/08/16 [History] Pantoprazole Sodium [Protonix] 40 mg PO Q48H 02/08/16 [History] carvediloL [Coreg] 3.125 mg PO BID 12/25/18 [History] Aspirin 81 mg PO DAILY #30 chew 12/28/18 [Rx] Nitroglycerin Sl Tabs [Nitrostat] 0.4 mg SUBLINGUAL Q5M PRN #25 tab 12/28/18 [Rx] Valsartan [Diovan] 160 mg PO DAILY 08/09/19 [History] Atorvastatin [Lipitor] 80 mg PO HS 01/23/20 [History] Clopidogrel Bisulfate [Plavix] 75 mg PO HS 10/05/20 [History] LORazepam [Ativan] 0.5 mg PO BID PRN 10/05/20 [History] Acetaminophen Tab [Tylenol] 500 mg PO Q6HR PRN tab 10/09/20 [Rx] Isosorbide Mononitrate ER [Imdur] 60 mg PO DAILY 30 Days #30 tab.er.24h 10/09/20 [Rx] Ranolazine [Ranexa] 500 mg PO Q12HR 15 Days #30 tab.er.12h 10/09/20 [Rx] Follow up Appointment(s)/Referral(s): Frankie Campos MD [STAFF PHYSICIAN] - 10/16/20 2:15 pm ([facility] [place]) Estevan Marroquin III, MD [Primary Care Provider] - 1-2 days Activity/Diet/Wound Care/Special Instructions: Activity Limited until follow-up Continue current diet Follow-up with cardiology in one week Follow up with primary care provider upon discharge Discharge Disposition: HOME SELF-CARE
== END 2020-10-09 14:14 | disposition home or self-care (01) | DRG 287 ==
LOC: EC 13:48 → 1SOBS 15:13 → OBSVTOIN 10-07 13:49
PROVIDERS: ADMIT Hospitalist; ATTEND Hospitalist
DX: I25.110 Atherosclerotic heart disease of native coronary artery with unstable angina pectoris (principal); E87.1 Hypo-osmolality and hyponatremia; I71.2 Thoracic aortic aneurysm, without rupture; I71.4 Abdominal aortic aneurysm, without rupture; M35.00 Sjogren syndrome, unspecified; D72.819 Decreased white blood cell count, unspecified; R42 Dizziness and giddiness; I10 Essential (primary) hypertension; M19.012 Primary osteoarthritis, left shoulder; E78.5 Hyperlipidemia, unspecified; K21.9 Gastro-esophageal reflux disease without esophagitis; Z98.1 Arthrodesis status; Z95.5 Presence of coronary angioplasty implant and graft; Z98.890 Other specified postprocedural states; Z79.899 Other long term (current) drug therapy; Z79.82 Long term (current) use of aspirin; Z79.02 Long term (current) use of antithrombotics/antiplatelets; Z86.19 Personal history of other infectious and parasitic diseases; Z82.49 Family history of ischemic heart disease and other diseases of the circulatory system
CPT/HCPCS: 36415; 71046; 80048; 80053; 80061; 82550; 83735; 83880; 84484; 85025; 85610; 85730; 93005; 93454; 93571; 96365; 96366; 96376; 99291

== ENCOUNTER → 2020-12-20 | Outpatient (CLI) | payer MEDICARE ==
[2020-12-20 16:00] LABS: HGB 13.7 gm/dL (13.0-17.5); MCH 29.4 pg (25.0-35.0); MCHC 32.7 g/dL (31.0-37.0); MCV 90.1 fL (80.0-100.0); Mean Platelet Volume 8.9; Platelet Count 180 k/uL (150-450); RBC 4.66 m/uL (4.30-5.90); RDW 13.6 % (11.5-15.5); WBC 4.8 k/uL (3.8-10.6)
[2020-12-20 16:11] LABS: African American GFR (CKD) >90 (>60 ml/min/1.73 sqM); Anion Gap 8 mmol/L; Blood Urea Nitrogen 13 mg/dL (9-20); Carbon Dioxide 28 mmol/L (22-30); Chloride 97 mmol/L (98-107); Non-African American GFR(CKD) >90 (>60 ml/min/1.73 sqM); Potassium 5.3 mmol/L (3.5-5.1); Sodium 133 mmol/L (137-145)
== END | disposition home or self-care (01) ==
LOC: LABPAT 14:31
PROVIDERS: ATTEND Internal Medicine Interventional Cardiology
DX: Z01.818 Encounter for other preprocedural examination (principal); I25.10 Atherosclerotic heart disease of native coronary artery without angina pectoris
CPT/HCPCS: 80051; 82565; 84520; 85027

== ENCOUNTER 2020-12-26 07:38 | Day surgery (SDC) | payer MEDICARE ==
[2020-12-21 17:59] VITALS: BMI 23.7
[~2020-12-26 07:38] MED LIST changes: +ATORVASTATIN 80 MG TAB PO STA
[2020-12-26] MEDS ORDERED: SODIUM CHLORIDE 0.9% 1,000 ML IV ONE (07:48)
[2020-12-26] MEDS ORDERED: VERAPAMIL 2.5 MG/ML 2 ML AMP ONE (08:00)
[2020-12-26] MEDS ORDERED: LIDOCAINE 1% INJ 10MG/ML (20 ML MDV) ONE (08:00)
[2020-12-26] MEDS ORDERED: MIDAZOLAM 2 MG/2 ML VIAL IVP ONE (10:07)
[2020-12-26] MEDS ORDERED: LIDOCAINE 1% INJ 10MG/ML (20 ML MDV) SQ ONE (10:13)
[2020-12-26] MEDS ORDERED: BIVALIRUDIN BOLUS 250 MG/50 ML IV ONE (10:18)
[2020-12-26] MEDS ORDERED: HYDROmorphone 1 MG/ML 1 ML SYRINGE ONE (10:20)
[2020-12-26] MEDS ORDERED: BIVALIRUDIN 250 MG in SODIUM CHLORIDE 0.9% 50 ML IV ONE ×5 (10:23→11:03)
[2020-12-26] MEDS ORDERED: HYDROmorphone 1 MG/ML 1 ML SYRINGE IVP ONE (10:23)
[2020-12-26] MEDS ORDERED: fentaNYL (PF) 50 MCG/ML 2 ML AMP ONE (10:43)
[2020-12-26] MEDS ORDERED: fentaNYL (PF) 50 MCG/ML 2 ML AMP IVP ONE (10:45)
[2020-12-26] MEDS ORDERED: IOPAMIDOL-370 125ML BTL INJ ONE (10:55)
[2020-12-26] MEDS ORDERED: NITROGLYCERIN 1000MCG/10ML SYRINGE INTRACORON ONE ×3 (10:56→11:07)
[2020-12-26] MEDS ORDERED: CLOPIDOGREL 75 MG TAB ONE (10:58)
[2020-12-26] MEDS ORDERED: IOPAMIDOL-370 100ML BTL INJ ONE ×2 (10:59)
[2020-12-26] MEDS ORDERED: CLOPIDOGREL 75 MG TAB PO ONE (10:59)
[2020-12-26] MEDS ORDERED: LORazepam 0.5 MG TAB PO PRN (11:22)
[2020-12-26] MEDS ORDERED: ACETAMINOPHEN TAB 500 MG TAB PO PRN (11:22)
[2020-12-26] MEDS ORDERED: NITROGLYCERIN SL TABS 0.4 MG TAB SUBLINGUAL PRN ×2 (11:22→11:23)
[2020-12-26] MEDS ORDERED: ZOLPIDEM 5 MG TAB PO PRN (11:23)
[2020-12-26] MEDS ORDERED: ATROPINE SULFATE 0.1 MG/ML 10ML SYRINGE IV PRN (11:23)
[2020-12-26] MEDS ORDERED: MAG HYDROX/AL HYDROX/SIMETH 30 ML CUP PO PRN (11:23)
[2020-12-26] MEDS ORDERED: RX INFO: IV CONTRAST WAS GIVEN 1 EACH MISC MISCELLANE PRN (11:23)
[2020-12-26] MEDS ORDERED: SODIUM CHLORIDE 0.9% 1,000 ML IV SCH (11:30)
--- NOTE | 2020-12-26 12:24 | CC ---
CARDIAC CATHETERIZATION REPORT CARDIAC CATHETERIZATION AND PERCUTANEOUS CORONARY INTERVENTION: DATE OF SERVICE: December 26, 2020 PERFORMING PHYSICIAN: Frankie Campos MD. PROCEDURE PERFORMED: 1. Selective right and left coronary angiogram. 2. Left heart catheterization. 3. Successful stenting of the first obtuse marginal branch of left circumflex using 2.0 x 8 mm Erasto drug-eluting stent with an excellent angiographic result. 4. Successful stenting of the mid right coronary artery using 3.0 x 15 mm Xience drug- eluting stent with an excellent angiographic result. 5. Selective right common femoral artery angiogram. INDICATION: This is a very pleasant 65-year-old gentleman with coronary artery disease as well as hypertension and dyslipidemia while unfortunately continues to have symptoms of chest discomfort with exertion concerning for angina. Because of that, a heart catheterization was advised. APPROACH: Right common femoral artery. COMPLICATION: None. LEVEL OF SEDATION: Moderate with sedation length of 66 minutes. PROCEDURE DESCRIPTION: After obtaining an informed consent, the patient was brought to the cardiac cardiac cath lab manager. The right common femoral artery was cannulated using micropuncture technique, the micropuncture wire passed easily then I placed a 6-Ukrainian sheath in the right common femoral artery. Selective right and left coronary angiogram performed using an AL1 catheter and JL4 catheters. Left heart catheterization was performed using the AL1 catheter, which crossed the aortic valve then I did pullback across aortic valve After that I did intervene on the left circumflex and RCA, please see a separate paragraph for that. SELECTIVE CORONARY ANGIOGRAM: 1. The right coronary artery is a large caliber vessel. It is a dominant vessel. The RCA in the proximal portion appeared to be stented with mild in-stent restenosis. The mid RCA has a lesion appeared to be in the range of 70%. The RCA distally has a stent and the stent is patent. 2. The left main is angiographically normal. It bifurcates into LCX and LAD. 3. The LCX is a large caliber vessel. It is a codominant vessel. The proximal left circumflex is normal and gives rise into a large first obtuse marginal branch which gives one upper sub-branch has an ostial lesion appeared to be in the range of 99.9%. The mid left circumflex has mild disease only and the left circumflex distally appeared to have mild disease only and continues as a PDA branch. 4. The Left Anterior Descending Artery: The proximal LAD appeared to have mild disease only and gives rise into a large diagonal branch which has mild disease only as well. The mid and distal LAD appeared to have mild disease only. HEMODYNAMICS: The LVEDP was 16-18 mmHg without significant gradient across the aortic valve. PCI OF THE LEFT CIRCUMFLEX: Anticoagulation was initiated using Angiomax. Subsequently I did engage the left main using JL4 guide. I did wire the first obtuse marginal branch using a Whisper wire. Balloon angioplasty was performed initially using 2.0 x 8 mm balloon and subsequently 2.25 x 8 mm balloon. Attempting advancing the stent, which was 2.0 x 8 mm Erasto was unsuccessful until I wired the first obtuse marginal branch using a kade wire with a run-through wire. With that I was able to advance 2.0 x 8 mm stent where the stent was positioned under fluoroscopy guidance and deployed under its nominal pressure. The following angiogram showed good angiographic results. For the right coronary artery, I did engage the RCA using an AL1 guide. I did wire it using a run-through wire. After that I did direct stenting using 3.0 x 15 mm Xience drug-eluting stent where the stent was positioned under fluoroscopy guidance and deployed under its nominal pressure. The following angiogram showed excellent angiographic results. CONCLUSION: 1. Severe disease involving the mid right coronary artery with de Esther lesion. I did perform successful stenting of the mid right coronary artery. The stents in the proximal and distal RCA are patent. 2. Normal left main coronary artery. 3. Mild disease involving the left anterior descending artery. 4. Critical disease involving the first obtuse marginal branch. I did perform successful stenting of the first obtuse marginal branch. POSTPROCEDURE MANAGEMENT: 1. Medical treatment. 2. Follow up with the patient. MMODL / IJN: [id number] /
[2020-12-26] MEDS ORDERED: ISOSORBIDE MONONITRATE ER 60 MG TAB.ER.24H PO ONE (13:30)
[2020-12-26] MEDS ORDERED: carvediloL 3.125 MG TAB PO ONE (13:30)
[2020-12-26] MEDS ORDERED: VALSARTAN 160 MG TAB PO ONE (13:30)
[2020-12-26] MEDS: carvediloL 3.125 MG TAB PO SCH (17:39)
[2020-12-26] MEDS: RANOLAZINE 500 MG TAB.ER.12H PO SCH (20:43)
[2020-12-26] MEDS ORDERED: CLOPIDOGREL 75 MG TAB PO SCH (21:00)
[2020-12-26] MEDS ORDERED: SERTRALINE 25 MG TAB PO SCH (21:00)
[2020-12-26] MEDS ORDERED: ATORVASTATIN 80 MG TAB PO SCH (21:00)
[2020-12-27 06:32] LABS: Basophils % (A) 1 %; Eosinophils # (A) 0.1 k/uL (0-0.7); Eosinophils % (A) 3 %; HCT 39.6 % (39.0-53.0); HGB 13.1 gm/dL (13.0-17.5); Lymphocytes # (A) 0.8 k/uL (1.0-4.8); Lymphocytes % (A) 16 %; MCH 30.2 pg (25.0-35.0); MCV 91.4 fL (80.0-100.0); Mean Platelet Volume 8.8; Monocytes # (A) 0.5 k/uL (0-1.0); Monocytes % (A) 11 %; Neutrophils # (A) 3.2 k/uL (1.3-7.7); Neutrophils % (A) 67 %; Platelet Count 159 k/uL (150-450); RBC 4.33 m/uL (4.30-5.90); RDW 13.4 % (11.5-15.5); WBC 4.7 k/uL (3.8-10.6)
[2020-12-27 06:36] LABS: African American GFR (CKD) >90 (>60 ml/min/1.73 sqM); Anion Gap 6 mmol/L; Blood Urea Nitrogen 18 mg/dL (9-20); Calcium 8.8 mg/dL (8.4-10.2); Carbon Dioxide 28 mmol/L (22-30); Chloride 97 mmol/L (98-107); Glucose 106 mg/dL (74-99); Non-African American GFR(CKD) 87 (>60 ml/min/1.73 sqM); Potassium 4.9 mmol/L (3.5-5.1); Sodium 131 mmol/L (137-145)
[2020-12-27] MEDS: carvediloL 3.125 MG TAB PO SCH (07:24)
[2020-12-27] MEDS: RANOLAZINE 500 MG TAB.ER.12H PO SCH (07:24)
[2020-12-27 07:29] VITALS: BP 134/63; PULSE 73; RESP 16; TEMP 98.4
[2020-12-27] MEDS ORDERED: PANTOPRAZOLE 40 MG TABLET PO SCH (07:30)
--- NOTE | 2020-12-27 08:20 | P.DS ---
Providers Date of admission: December 26 Attending physician: Frankie Campos Consults: 12/26/20 11:23 Consult Physician Routine Consulting Provider: [facility] Consult Reason/Comments: Post Interventional patient Do you want consulting provider notified?: Already Contacted Primary care physician: Estevan Castrejon [facility] Course: This is a 65-year-old gentleman who underwent yesterday successful stenting of the left circumflex and right coronary artery. The patient was seen this morning. He is going to be discharged home on dual antiplatelet therapy along with high intensity statin. I'll follow-up with the patient next week in the office Plan - Discharge Summary Discharge Rx Participant: No New Discharge Prescriptions: Continue Pantoprazole Sodium [Protonix] 40 mg PO Q48H carvediloL [Coreg] 3.125 mg PO BID Aspirin 81 mg PO DAILY #30 chew Nitroglycerin Sl Tabs [Nitrostat] 0.4 mg SUBLINGUAL Q5M PRN #25 tab PRN Reason: Chest Pain Valsartan [Diovan] 160 mg PO DAILY Atorvastatin [Lipitor] 80 mg PO HS LORazepam [Ativan] 0.5 mg PO BID PRN PRN Reason: Anxiety Clopidogrel Bisulfate [Plavix] 75 mg PO HS Isosorbide Mononitrate ER [Imdur] 60 mg PO DAILY 30 Days #30 tab.er.24h Ranolazine [Ranexa] 500 mg PO Q12HR 15 Days #30 tab.er.12h Acetaminophen Tab [Tylenol] 500 mg PO Q6HR PRN tab PRN Reason: Fever And/ Or Pain Sertraline [Zoloft] 25 mg PO HS Discharge Medication List Pantoprazole Sodium [Protonix] 40 mg PO Q48H 02/08/16 [History] carvediloL [Coreg] 3.125 mg PO BID 12/25/18 [History] Aspirin 81 mg PO DAILY #30 chew 12/28/18 [Rx] Nitroglycerin Sl Tabs [Nitrostat] 0.4 mg SUBLINGUAL Q5M PRN #25 tab 12/28/18 [Rx] Valsartan [Diovan] 160 mg PO DAILY 08/09/19 [History] Atorvastatin [Lipitor] 80 mg PO HS 01/23/20 [History] Clopidogrel Bisulfate [Plavix] 75 mg PO HS 10/05/20 [History] LORazepam [Ativan] 0.5 mg PO BID PRN 10/05/20 [History] Acetaminophen Tab [Tylenol] 500 mg PO Q6HR PRN tab 10/09/20 [Rx] Isosorbide Mononitrate ER [Imdur] 60 mg PO DAILY 30 Days #30 tab.er.24h 10/09/20 [Rx] Ranolazine [Ranexa] 500 mg PO Q12HR 15 Days #30 tab.er.12h 10/09/20 [Rx] Sertraline [Zoloft] 25 mg PO HS 12/21/20 [History] Follow up Appointment(s)/Referral(s): [facility] [NON-STAFF] - 1 Week Frankie Campos MD [STAFF PHYSICIAN] - 1 Week Patient Instructions/Handouts: *Surgery [facility] - After Heart Catheterization - Provider Network Analyst Instructions, Left Heart Catheterization (DC), Coronary Intravascular Stent Placement (DC), Procedural Sedation (ED)
[2020-12-27] MEDS ORDERED: VALSARTAN 160 MG TAB PO SCH (09:00)
[2020-12-27] MEDS ORDERED: ASPIRIN 81 MG PO SCH (09:00)
[2020-12-27] MEDS ORDERED: ISOSORBIDE MONONITRATE ER 60 MG TAB.ER.24H PO SCH (09:00)
== END 2020-12-27 09:46 | disposition home or self-care (01) ==
LOC: CATHCVL 07:38 → 6NMEDSUR 13:10 → CATHCVL 12-27 09:46
PROVIDERS: ATTEND Internal Medicine Interventional Cardiology
DX: I25.110 Atherosclerotic heart disease of native coronary artery with unstable angina pectoris (principal); R06.02 Shortness of breath; R53.83 Other fatigue; I10 Essential (primary) hypertension; E78.5 Hyperlipidemia, unspecified; E78.00 Pure hypercholesterolemia, unspecified; I71.2 Thoracic aortic aneurysm, without rupture; I35.1 Nonrheumatic aortic (valve) insufficiency; Z95.5 Presence of coronary angioplasty implant and graft; Z79.899 Other long term (current) drug therapy; Z79.82 Long term (current) use of aspirin; Z79.02 Long term (current) use of antithrombotics/antiplatelets; Z82.49 Family history of ischemic heart disease and other diseases of the circulatory system
CPT/HCPCS: 94760; 93458; 80048; 84132; 85025; C9600; C1769 ×4; C1887 ×3; C1725 ×2; C1894; C1874 ×2; J2250; J2001; J3010; J1170; J0583; Q9967 ×2

== ENCOUNTER 2021-01-22 18:04 | Observation (INO) | payer MEDICARE ==
[2021-01-22] MEDS ORDERED: ASPIRIN 81 MG PO STA (19:07)
[2021-01-22] MEDS ORDERED: NITROGLYCERIN OINT 1 INCH/GM PACKET TOPICAL STA (19:07)
--- NOTE | 2021-01-22 19:10 | ED ---
General Adult HPI - General Chief complaint: Chest Pain Stated complaint: Chest Pain Time Seen by Provider: 01/22/21 18:05 Source: patient, RN notes reviewed, old records reviewed Mode of arrival: wheelchair Limitations: no limitations - History of Present Illness Initial comments: This is a 65-year-old male with past medical history significant for coronary artery disease 5 stents and hypertension. Patient comes in today because he is experiencing chest pain since yesterday and he says is been constant. Patient states it does radiate to his left arm. He also states he short of breath. Patient denies any nausea vomiting per patient denies any diaphoretic episodes. Patient denies any fever chills or cough. Patient states the chest pain is c onsistent with the chest pain he is experiencing the past when he's had have a stent placed. Patient states he had 2 stents placed about 2 weeks ago. Patient also states she's had a 4.5 cm a sending aortic aneurysm. - Related Data Home Medications Medication Instructions Recorded Confirmed Pantoprazole Sodium [Protonix] 40 mg PO Q48H 02/08/16 01/22/21 carvediloL [Coreg] 3.125 mg PO BID 12/25/18 01/22/21 Valsartan [Diovan] 160 mg PO DAILY 08/09/19 01/22/21 Atorvastatin [Lipitor] 80 mg PO HS 01/23/20 01/22/21 Clopidogrel Bisulfate [Plavix] 75 mg PO HS 10/05/20 01/22/21 Ranolazine [Ranexa] 500 mg PO BID 01/22/21 01/22/21 Sertraline HCl [Zoloft] 100 mg PO HS 01/22/21 01/22/21 Previous Rx's Medication Instructions Recorded Aspirin 81 mg PO DAILY #30 chew 12/28/18 Nitroglycerin Sl Tabs [Nitrostat] 0.4 mg SUBLINGUAL Q5M PRN #25 tab 12/28/18 Acetaminophen Tab [Tylenol] 500 mg PO Q6HR PRN tab 10/09/20 Isosorbide Mononitrate ER [Imdur] 60 mg PO DAILY 30 Days #30 10/09/20 tab.er.24h Allergies Allergy/AdvReac Type Severity Reaction Status Date / Time No Known Allergies Allergy Verified 01/22/21 19:16 Review of Systems ROS Statement: Those systems with pertinent positive or pertinent negative responses have been documented in the HPI. ROS Other: All systems not noted in ROS Statement are negative. Past Medical History Past Medical History: Coronary Artery Disease (CAD), GERD/Reflux, Hyperlipidemia, Hypertension Additional Past Medical History / Comment(s): R shoulder pain for approximately one month/infection, AAA being monitored, Sjogren's, occasional vertigo, waiting results for parkinsons 04/26/2020 History of Any Multi-Drug Resistant Organisms: None Reported Past Surgical History: Back Surgery, Heart Catheterization With Stent, Orthopedic Surgery Additional Past Surgical History / Comment(s): hand Past Anesthesia/Blood Transfusion Reactions: No Reported Reaction Date of Last Stent Placement:: 12/26/20 Past Psychological History: Anxiety Smoking Status: Never smoker Past Alcohol Use History: Rare Past Drug Use History: None Reported - Past Family History Father Family Medical History: Myocardial Infarction ([place]) Additional Family Medical History / Comment(s): Father of a [place] at the age of 60yrs. Mother Additional Family Medical History / Comment(s): Mother of an aneurysm that ruptured at the age of 60yrs. General Exam - General Exam Comments Initial Comments: GENERAL: Patient is well-developed and well-nourished. Patient is nontoxic and well- hydrated and is in mild distress. ENT: Neck is soft and supple. No significant lymphadenopathy is noted. Oropharynx is clear. Moist mucous membranes. Neck has full range of motion without eliciting any pain. EYES: The sclera were anicteric and conjunctiva were pink and moist. Extraocular movements were intact and pupils were equal round and reactive to light. Eyelids were unremarkable. PULMONARY: Unlabored respirations. Good breath sounds bilaterally. No audible rales rhonchi or wheezing was noted. CARDIOVASCULAR: There is a regular rate and rhythm without any murmurs gallops or rubs. ABDOMEN: Soft and nontender with normal bowel sounds. SKIN: Skin is clear with no lesions or rashes and otherwise unremarkable. NEUROLOGIC: Patient is alert and oriented x3. Cranial nerves II through XII are grossly intact. Motor and sensory are also intact. Normal speech, volume and content. Symmetrical smile. MUSCULOSKELETAL: Normal extremities with adequate strength and full range of motion. No lower extremity swelling or edema. No calf tenderness. LYMPHATICS: No significant lymphadenopathy is noted PSYCHIATRIC: Normal psychiatric evaluation. Limitations: no limitations Course Vital Signs 01/22/21 01/22/21 18:06 19:27 Temperature 98.5 F Pulse Rate 74 61 Respiratory 20 16 Rate Blood Pressure 145/78 148/79 O2 Sat by Pulse 98 Oximetry Medical Decision Making - Medical Decision Making EKG shows sinus rhythm at 73 bpm with occasional PVC [place] interval 192 QRS is 86 QT interval 394 QTC is 434. Patient's EKG shows no ST segment elevation or depression. Chest x-ray shows no acute normalities. I started the patient on heparin for unstable angina. I went back in the room and I reevaluated the patient he stated he was feeling much better. I spoke with Dr. connell he agreed to admit the patient admitted the patient I wrote admitting orders I continued heparin and aspirin and Nitropaste on floor and I consult to cardiology. - Lab Data Result diagrams: 01/22/21 19:23 01/22/21 19:23 Lab Results 01/22/21 01/22/21 01/22/21 Range/Units 19:23 19:23 19:23 WBC 4.6 (3.8-10.6) k/uL RBC 4.54 (4.30-5.90) m/uL Hgb 13.6 (13.0-17.5) gm/dL Hct 40.3 (39.0-53.0) % MCV 88.7 (80.0-100.0) fL MCH 30.0 (25.0-35.0) pg MCHC 33.8 (31.0-37.0) g/dL RDW 13.4 (11.5-15.5) % Plt Count 156 (150-450) k/uL MPV 9.0 Neutrophils % 55 % Lymphocytes % 26 % Monocytes % 11 % Eosinophils % 3 % Basophils % 1 % Neutrophils # 2.6 (1.3-7.7) k/uL Lymphocytes # 1.2 (1.0-4.8) k/uL Monocytes # 0.5 (0-1.0) k/uL Eosinophils # 0.2 (0-0.7) k/uL Basophils # 0.0 (0-0.2) k/uL PT 10.0 (9.0-12.0) sec INR 0.9 (<1.2) APTT 23.7 (22.0-30.0) sec Sodium 132 L (137-145) mmol/L Potassium 4.4 (3.5-5.1) mmol/L Chloride 96 L (98-107) mmol/L Carbon Dioxide 27 (22-30) mmol/L Anion Gap 9 mmol/L BUN 15 (9-20) mg/dL Creatinine 0.91 (0.66-1.25) mg/dL Est GFR (CKD-EPI)AfAm >90 (>60 ml/min/1.73 sqM) Est GFR (CKD-EPI)NonAf 88 (>60 ml/min/1.73 sqM) Glucose 89 (74-99) mg/dL Calcium 9.1 (8.4-10.2) mg/dL Magnesium 1.9 (1.6-2.3) mg/dL Total Bilirubin 0.5 (0.2-1.3) mg/dL AST 54 (17-59) U/L ALT 45 (4-49) U/L Alkaline Phosphatase 138 H (38-126) U/L Troponin I (0.000-0.034) ng/mL Total Protein 7.2 (6.3-8.2) g/dL Albumin 4.3 (3.5-5.0) g/dL Coronavirus (PCR) (Not Detectd) 01/22/21 01/22/21 Range/Units 19:23 19:23 WBC (3.8-10.6) k/uL RBC (4.30-5.90) m/uL Hgb (13.0-17.5) gm/dL Hct (39.0-53.0) % MCV (80.0-100.0) fL MCH (25.0-35.0) pg MCHC (31.0-37.0) g/dL RDW (11.5-15.5) % Plt Count (150-450) k/uL MPV Neutrophils % % Lymphocytes % % Monocytes % % Eosinophils % % Basophils % % Neutrophils # (1.3-7.7) k/uL Lymphocytes # (1.0-4.8) k/uL Monocytes # (0-1.0) k/uL Eosinophils # (0-0.7) k/uL Basophils # (0-0.2) k/uL PT (9.0-12.0) sec INR (<1.2) APTT (22.0-30.0) sec Sodium (137-145) mmol/L Potassium (3.5-5.1) mmol/L Chloride (98-107) mmol/L Carbon Dioxide (22-30) mmol/L Anion Gap mmol/L BUN (9-20) mg/dL Creatinine (0.66-1.25) mg/dL Est GFR (CKD-EPI)AfAm (>60 ml/min/1.73 sqM) Est GFR (CKD-EPI)NonAf (>60 ml/min/1.73 sqM) Glucose (74-99) mg/dL Calcium (8.4-10.2) mg/dL Magnesium (1.6-2.3) mg/dL Total Bilirubin (0.2-1.3) mg/dL AST (17-59) U/L ALT (4-49) U/L Alkaline Phosphatase (38-126) U/L Troponin I <0.012 (0.000-0.034) ng/mL Total Protein (6.3-8.2) g/dL Albumin (3.5-5.0) g/dL Coronavirus (PCR) Not Detected (Not Detectd) Critical Care Time Critical Care Time: Yes Total Critical Care Time: 35 Disposition Clinical Impression: Unstable angina pectoris Disposition: ADMITTED IP TO THIS HOSP Referrals: Estevan Marroquin III, MD [Primary Care Provider] - 1-2 days Time of Disposition: 20:41
[2021-01-22 19:32] LABS: Basophils % (A) 1 %; Eosinophils # (A) 0.2 k/uL (0-0.7); Eosinophils % (A) 3 %; HCT 40.3 % (39.0-53.0); HGB 13.6 gm/dL (13.0-17.5); Lymphocytes # (A) 1.2 k/uL (1.0-4.8); Lymphocytes % (A) 26 %; MCHC 33.8 g/dL (31.0-37.0); MCV 88.7 fL (80.0-100.0); Monocytes # (A) 0.5 k/uL (0-1.0); Monocytes % (A) 11 %; Neutrophils # (A) 2.6 k/uL (1.3-7.7); Neutrophils % (A) 55 %; Platelet Count 156 k/uL (150-450); RBC 4.54 m/uL (4.30-5.90); RDW 13.4 % (11.5-15.5); WBC 4.6 k/uL (3.8-10.6)
[2021-01-22 19:40] LABS: INR 0.9 (<1.2); Partial Thromboplastin Time 23.7 sec (22.0-30.0)
[2021-01-22 20:08] LABS: ALT 45 U/L (4-49); AST 54 U/L (17-59); African American GFR (CKD) >90 (>60 ml/min/1.73 sqM); Albumin 4.3 g/dL (3.5-5.0); Alkaline Phosphatase 138 U/L (38-126); Anion Gap 9 mmol/L; Blood Urea Nitrogen 15 mg/dL (9-20); Calcium 9.1 mg/dL (8.4-10.2); Carbon Dioxide 27 mmol/L (22-30); Chloride 96 mmol/L (98-107); Glucose 89 mg/dL (74-99); Magnesium 1.9 mg/dL (1.6-2.3); Non-African American GFR(CKD) 88 (>60 ml/min/1.73 sqM); Potassium 4.4 mmol/L (3.5-5.1); Sodium 132 mmol/L (137-145); Total Bilirubin 0.5 mg/dL (0.2-1.3); Total Protein 7.2 g/dL (6.3-8.2)
--- NOTE | 2021-01-22 20:20 | XR ---
EXAMINATION TYPE: XR chest 2V DATE OF EXAM: 01/22/2021 COMPARISON: 10/05/2020 HISTORY: Left side chest pain TECHNIQUE: 2 views FINDINGS: There is no heart failure nor confluent pneumonic infiltrate. Thoracic aorta is atheromatou s. There are no hilar masses. The bony thorax is intact. There is mild osteopenia. IMPRESSION: No active cardiopulmonary disease. No change.
[2021-01-22] MEDS ORDERED: NITROGLYCERIN SL TABS 0.4 MG TAB SUBLINGUAL PRN (20:42)
[2021-01-22] MEDS ORDERED: ACETAMINOPHEN TAB 500 MG TAB PO PRN (22:06)
[2021-01-22] MEDS ORDERED: PANTOPRAZOLE 40 MG TABLET PO SCH (22:15)
[2021-01-22] MEDS: HEPARIN SODIUM,PORCINE 5,000 UNIT/ML 1 ML VIAL SQ SCH ×2 (22:40→22:59)
[2021-01-23] MEDS: NITROGLYCERIN OINT 1 INCH/GM PACKET TOPICAL SCH ×2 (00:37→06:06)
[2021-01-23] MEDS ORDERED: carvediloL 3.125 MG TAB PO SCH (07:30)
[2021-01-23 07:46] VITALS: BP 141/67; PULSE 61; RESP 18; TEMP 97.5
[2021-01-23] MEDS ORDERED: HEPARIN SODIUM,PORCINE 5,000 UNIT/ML 1 ML VIAL SQ SCH (09:00)
[2021-01-23] MEDS ORDERED: ASPIRIN 325 MG TAB PO SCH (09:00)
[2021-01-23] MEDS ORDERED: RANOLAZINE 500 MG TAB.ER.12H PO SCH (09:00)
[2021-01-23] MEDS ORDERED: VALSARTAN 160 MG TAB PO SCH (09:00)
[2021-01-23 09:14] LABS: Chol/HDL Ratio 2.57
[2021-01-23] MEDS: HEPARIN SODIUM,PORCINE 5,000 UNIT/ML 1 ML VIAL SQ SCH (10:31)
[2021-01-23] MEDS ORDERED: ISOSORBIDE MONONITRATE ER 30 MG TAB.ER.24H PO SCH (11:30)
--- NOTE | 2021-01-23 13:51 | P.CRDCN ---
History of Present Illness History of present illness: HISTORY OF PRESENTING ILLNESS This is a pleasant 65-year-old male past medical history significant for coronary artery disease with previous stenting of the LAD and recent stenting of obtuse marginal branch and mid RCA in 12/2020, hypertension, dyslipidemia, thoracic aortic aneurysm with aortic insufficiency.He follows in the office with Dr. Campos. We have been asked to see in consultation for chest pain. Patient states that he has frequent chest pain. However on Thursday, he was having increased exertional chest pain that progressively got worse over the next couple days. He states pain is across his entire chest and it feels like a tightness. Pain is nonradiating. His chest pain lasts about an hour and progressively became more frequent. He had symptoms of shortness of breath and diaphoresis. He was going to take a nitro at home however decided not to present to the emergency department. He also noticed when he sat down in the recliner he felt exhausted. He also endorses last week when he's walking his dog or also doing activities around the house he has increased chest tightness. Patient was last seen in the office with Dr. Campos on 01/07/2021, and he also continued to have some shortness of breath and chest pains after his stents were placed. At that last visit, Dr. Campos recommended a PCSK9 Inhibitor, Rapatha, however patient stated that his insurance does not cover the medication is $400 per month. Patient denies palpitations, lower extremity edema, lightheadedness, syncope. He states that nothing in particular makes the pain better. He states he has a strong family history of coronary artery disease. Denies history of smoking, diabetes, [place], stroke. He denies symptoms of orthopnea. Denies alcohol and illicit drug use. Patient is seen and examined at bedside, lying flat in bed, no acute distress. Denies chest pain, shortness of breath, lightheadedness, weakness, fatigue, dizziness. Laboratory data reviewed, troponins negative 3, sodium 132, potassium 4.4, creatinine 0.91, BUN 15, WBC 4.6, hemoglobin 13.6, platelets 156, triglycerides 105, cholesterol 77, LDL 26, HDL 30. Vital signs blood pressure 141/67, heart rate 61, 99% on room air, afebrile Current home cardiac medications include valsartan 160 mg daily, Ranexa 500 mg twice a day, carvedilol 3.125 twice a day, Imdur 90 mg daily, Plavix 75 mg nightly, atorvastatin 80 mg nightly, aspirin 81 mg daily. DIAGNOSTICS EKG on admission reveals sinus rhythm, with PVC, no significant ST-T wave abnormalities . EKG this morning sinus rhythm, no significant STT wave abnormalities Last Cardiac Catheterization with PCI 12/26/[address] Campos- successful stenting of the first obtuse marginal branch of the left circumflex. Successful stenting of the mid RCA. Proximal RCA stented with mild in stent restenosis. Stents in the proximal and distal RCA are patent. The mid and distal LAD appear to have mild disease only Echo: 10/2020: EF 60% Telemetry tracings indicate normal sinus rhythm. Chest xray no acute cardiopulmonary process. REVIEW OF SYSTEMS At the time of my exam: CONSTITUTIONAL: Denies fever or chills. CARDIOVASCULAR: +chest pain +shortness of breath,Denies orthopnea, PND or palpitations. RESPIRATORY: Denies cough. GASTROINTESTINAL: Denies abdominal pain, diarrhea, constipation, nausea or vomiting. MUSCULOSKELETAL: Denies myalgias. NEUROLOGIC: +left arm numbness, Denies tingling, headacbe or weakness. ENDOCRINE: +fatigue, Denies weight change, polydipsia or polyurina. GENITOURINARY: Denies burning, hematuria or urgency with micturation. HEMATOLOGIC: Denies history of anemia or bleeding. PHYSICAL EXAMINATION CONSTITUTIONAL: No apparent distress. HEENT: Head is normocephalic. Pupils are equal, round. Sclerae anicteric. Mucous membranes of the mouth are moist. No JVD. No carotid bruit. CHEST EXAMINATION: Lungs are clear to auscultation. No chest wall tenderness is noted on palpation or with deep breathing. HEART EXAMINATION: Regular rate and rhythm. S1, S2 heard. No murmurs, gallops or rub. ABDOMEN: Soft, nontender. Positive bowel sounds. EXTREMITIES: 2+ peripheral pulses, no lower extremity edema and no calf tenderness. SKIN: intact NEUROLOGIC EXAMINATION: Patient is awake, alert and oriented x3. ASSESSMENT -Chest pain- atypical acute coronary syndrome ruled out. Chest pain has been similar prior to cardiac cath and stenting and after the procedure. Pain appears to have an anxiety component. Patient appears anxious about continued chest pain. -Coronary artery disease with previous stenting of the LAD and recent stenting of obtuse marginal branch and mid RCA in 12/2020 -History of hypertension -Dyslipidemia PLAN -From a cardiology perspective, acute coronary event has been ruled out. No further cardiac intervention at this time. Patient should continue valsartan 160 mg daily, Ranexa 500 mg twice a day, carvedilol 3.125 twice a day, Imdur 90 mg daily, Plavix 75 mg nightly, atorvastatin 80 mg nightly, aspirin 81 mg daily. -Patient should follow up with Dr. Campos in the outpatient office for continued management. Nurse Practitioner note has been reviewed, I agree with a documented findings and plan of care. Patient was seen and examined. Past Medical History Past Medical History: Coronary Artery Disease (CAD), GERD/Reflux, Hyperlipidemia, Hypertension Additional Past Medical History / Comment(s): R shoulder pain for approximately one month/infection, AAA being monitored, Sjogren's, occasional vertigo, waiting results for parkinsons 04/26/2020 History of Any Multi-Drug Resistant Organisms: None Reported Past Surgical History: Back Surgery, Heart Catheterization With Stent, Or thopedic Surgery Additional Past Surgical History / Comment(s): hand Past Anesthesia/Blood Transfusion Reactions: No Reported Reaction Date of Last Stent Placement:: 12/26/20 Past Psychological History: Anxiety Smoking Status: Never smoker Past Alcohol Use History: Rare Past Drug Use History: None Reported - Past Family History Father Family Medical History: Myocardial Infarction ([place]) Additional Family Medical History / Comment(s): Father of a [place] at the age of 60yrs. Mother Additional Family Medical History / Comment(s): Mother of an aneurysm that ruptured at the age of 60yrs. Medications and Allergies Home Medications Medication Instructions Recorded Confirmed Type Pantoprazole Sodium [Protonix] 40 mg PO Q48H 02/08/16 01/22/21 History carvediloL [Coreg] 3.125 mg PO BID 12/25/18 01/22/21 History Aspirin 81 mg PO DAILY #30 chew 12/28/18 01/22/21 Rx Nitroglycerin Sl Tabs [Nitrostat] 0.4 mg SUBLINGUAL Q5M PRN #25 tab 12/28/18 01/22/21 Rx Valsartan [Diovan] 160 mg PO DAILY 08/09/19 01/22/21 History Atorvastatin [Lipitor] 80 mg PO HS 01/23/20 01/22/21 History Clopidogrel Bisulfate [Plavix] 75 mg PO HS 10/05/20 01/22/21 History Acetaminophen Tab [Tylenol] 500 mg PO Q6HR PRN tab 10/09/20 01/22/21 Rx Ranolazine [Ranexa] 500 mg PO BID 01/22/21 01/22/21 History Sertraline HCl [Zoloft] 100 mg PO HS 01/22/21 01/22/21 History Isosorbide Mononitrate ER [Imdur] 90 mg PO DAILY 30 Days #30 01/23/21 01/22/21 Rx tab.er.24h Allergies Allergy/AdvReac Type Severity Reaction Status Date / Time No Known Allergies Allergy Verified 01/22/21 19:16 Physical Exam Vitals: Vital Signs Temp Pulse Pulse Resp BP BP BP 01/23/21 06:45 97.5 F L 61 18 141/67 01/23/21 02:00 98.1 F 60 20 120/79 01/23/21 00:00 69 16 01/22/21 20:55 66 16 144/78 01/22/21 20:20 97.4 F L 69 15 155/76 01/22/21 19:27 61 16 148/79 01/22/21 18:06 98.5 F 74 20 145/78 Pulse Ox 01/23/21 06:45 99 01/23/21 02:00 97 01/23/21 00:00 01/22/21 20:55 98 01/22/21 20:20 01/22/21 19:27 01/22/21 18:06 98 Intake and Output 01/22/21 01/23/21 01/23/21 22:59 06:59 14:59 Other: # Voids 1 1 Weight 81.647 kg Results 01/22/21 19:23 01/22/21 19:23 Cardiac Enzymes 01/22/21 01/22/21 01/22/21 Range/Units 19:23 19:23 22:20 AST 54 (17-59) U/L Troponin I <0.012 <0.012 (0.000-0.034) ng/mL 01/23/21 Range/Units 02:20 AST (17-59) U/L Troponin I <0.012 (0.000-0.034) ng/mL Coagulation 01/22/21 Range/Units 19:23 PT 10.0 (9.0-12.0) sec APTT 23.7 (22.0-30.0) sec CBC 01/22/21 Range/Units 19:23 WBC 4.6 (3.8-10.6) k/uL RBC 4.54 (4.30-5.90) m/uL Hgb 13.6 (13.0-17.5) gm/dL Hct 40.3 (39.0-53.0) % Plt Count 156 (150-450) k/uL Comprehensive Metabolic Panel 01/22/21 Range/Units 19:23 Sodium 132 L (137-145) mmol/L Potassium 4.4 (3.5-5.1) mmol/L Chloride 96 L (98-107) mmol/L Carbon Dioxide 27 (22-30) mmol/L BUN 15 (9-20) mg/dL Creatinine 0.91 (0.66-1.25) mg/dL Glucose 89 (74-99) mg/dL Calcium 9.1 (8.4-10.2) mg/dL AST 54 (17-59) U/L ALT 45 (4-49) U/L Alkaline Phosphatase 138 H (38-126) U/L Total Protein 7.2 (6.3-8.2) g/dL Albumin 4.3 (3.5-5.0) g/dL Current Medications Generic Name Dose Route Start Last Admin Trade Name Freq PRN Reason Stop Dose Admin Acetaminophen 500 mg 01/22/21 22:06 Acetaminophen Tab 500 Mg Tab PO Q6HR PRN Fever and/ or Pain Aspirin 325 mg 01/23/21 09:00 Aspirin 325 Mg Tab PO DAILY [facility] Atorvastatin Calcium 80 mg 01/23/21 21:00 Atorvastatin 80 Mg Tab PO HS [facility] Carvedilol 3.125 mg 01/23/21 07:30 Carvedilol 3.125 Mg Tab PO BID-W/MEALS [facility] Clopidogrel Bisulfate 75 mg 01/23/21 21:00 Clopidogrel 75 Mg Tab PO HS [facility] Heparin Sodium (Porcine) 5,000 unit 01/22/21 22:15 01/22/21 22:59 Heparin Sodium,Porcine 5,000 Unit/Ml 1 Ml Vial SQ Not Given Q8HR [facility] Nitroglycerin 0.4 mg 01/22/21 20:42 Nitroglycerin Sl Tabs 0.4 Mg Tab SUBLINGUAL Q5M PRN Chest Pain Nitroglycerin 1 inch 01/23/21 00:00 01/23/21 06:06 Nitroglycerin Oint 1 Inch/Gm Packet TOPICAL Not Given Q6HR [facility] Pantoprazole Sodium 40 mg 01/22/21 22:15 01/22/21 22:41 Pantoprazole 40 Mg Tablet PO 40 mg Q48H [facility] Administration Ranolazine 500 mg 01/23/21 09:00 Ranolazine 500 Mg Tab.Er.12h PO BID [facility] Sertraline HCl 100 mg 01/23/21 21:00 Sertraline 100 Mg Tab PO HS [facility] Valsartan 160 mg 01/23/21 09:00 Valsartan 160 Mg Tab PO DAILY [facility] Intake and Output 01/22/21 01/23/21 01/23/21 22:59 06:59 14:59 Other: # Voids 1 1 Weight 81.647 kg 01/22/21 19:23 01/22/21 19:23
--- NOTE | 2021-01-23 15:45 | P.HPIM ---
History of Present Illness Patient is a pleasant 65-year-old male with known history of coronary artery disease and the previous stenting to LAD marginal branch and mid RCA came in with complaints of chest pressure like sensation on and off multiple episodes e xertional with no associated diaphoresis. Patient is already on Ranexa 500 twice a day and imdur60 mg daily along with atorvastatin, TRENT inhibitor and a beta dre. Patient heart rate is in 60s there is no increase the beta dre. Patient the is admitted for chest pain rule out acute coronary syndromes. Cardiology is not recommending any further intervention medical management is being recommended. Patient was recommended to be started on Rapatha by his air quality specialist although insurance didn't up to this medication. Review of Systems REVIEW OF SYSTEMS: CONSTITUTIONAL: No fever, no malaise, no fatigue. HEENT: No recent visual problems or hearing problems. Denied any sore throat. CARDIOVASCULAR: No orthopnea, PND, no palpitations, no syncope. PULMONARY: no cough, no hemoptysis. GASTROINTESTINAL: No diarrhea, no nausea, no vomiting, no abdominal pain. NEUROLOGICAL: No headaches, no weakness, no numbness. HEMATOLOGICAL: Denies any bleeding or petechiae. GENITOURINARY: Denies any burning micturition, frequency, or urgency. MUSCULOSKELETAL/RHEUMATOLOGICAL: Denies any joint pain, swelling, or any muscle pain. ENDOCRINE: Denies any polyuria or polydipsia. The rest of the 14-point review of systems is negative. Past Medical History Past Medical History: Coronary Artery Disease (CAD), GERD/Reflux, H yperlipidemia, Hypertension Additional Past Medical History / Comment(s): R shoulder pain for approximately one month/infection, AAA being monitored, Sjogren's, occasional vertigo, waiting results for parkinsons 04/26/2020 History of Any Multi-Drug Resistant Organisms: None Reported Past Surgical History: Back Surgery, Heart Catheterization With Stent, Orthopedic Surgery Additional Past Surgical History / Comment(s): hand Past Anesthesia/Blood Transfusion Reactions: No Reported Reaction Date of Last Stent Placement:: 12/26/20 Past Psychological History: Anxiety Smoking Status: Never smoker Past Alcohol Use History: Rare Past Drug Use History: None Reported - Past Family History Father Family Medical History: Myocardial Infarction ([place]) Additional Family Medical History / Comment(s): Father of a [place] at the age of 60yrs. Mother Additional Family Medical History / Comment(s): Mother of an aneurysm that ruptured at the age of 60yrs. Medications and Allergies Home Medications Medication Instructions Recorded Confirmed Type Pantoprazole Sodium [Protonix] 40 mg PO Q48H 02/08/16 01/22/21 History carvediloL [Coreg] 3.125 mg PO BID 12/25/18 01/22/21 History Aspirin 81 mg PO DAILY #30 chew 12/28/18 01/22/21 Rx Nitroglycerin Sl Tabs [Nitrostat] 0.4 mg SUBLINGUAL Q5M PRN #25 tab 12/28/18 01/22/21 Rx Valsartan [Diovan] 160 mg PO DAILY 08/09/19 01/22/21 History Atorvastatin [Lipitor] 80 mg PO HS 01/23/20 01/22/21 History Clopidogrel Bisulfate [Plavix] 75 mg PO HS 10/05/20 01/22/21 History Acetaminophen Tab [Tylenol] 500 mg PO Q6HR PRN tab 10/09/20 01/22/21 Rx Ranolazine [Ranexa] 500 mg PO BID 01/22/21 01/22/21 History Sertraline HCl [Zoloft] 100 mg PO HS 01/22/21 01/22/21 History Isosorbide Mononitrate ER [Imdur] 90 mg PO DAILY 30 Days #30 01/23/21 01/22/21 Rx tab.er.24h Allergies Allergy/AdvReac Type Severity Reaction Status Date / Time No Known Allergies Allergy Verified 01/22/21 19:16 Physical Exam Vitals: Vital Signs Temp Pulse Pulse Resp BP BP BP 01/23/21 08:00 61 18 01/23/21 06:45 97.5 F L 61 18 141/67 01/23/21 02:00 98.1 F 60 20 120/79 01/23/21 00:00 69 16 01/22/21 20:55 66 16 144/78 01/22/21 20:20 97.4 F L 69 15 155/76 01/22/21 19:27 61 16 148/79 01/22/21 18:06 98.5 F 74 20 145/78 Pulse Ox 01/23/21 08:00 01/23/21 06:45 99 01/23/21 02:00 97 01/23/21 00:00 01/22/21 20:55 98 01/22/21 20:20 01/22/21 19:27 01/22/21 18:06 98 Intake and Output 01/23/21 01/23/21 01/23/21 06:59 14:59 22:59 Other: Voiding Method Toilet # Voids 1 PHYSICAL EXAMINATION: GENERAL: The patient is alert and oriented x3, not in any acute distress. Well developed, well nourished. HEENT: Pupils are round and equally reacting to light. EOMI. No scleral icterus. No conjunctival pallor. Normocephalic, atraumatic. No pharyngeal erythema. No thyromegaly. CARDIOVASCULAR: S1 and S2 present. No murmurs, rubs, or gallops. PULMONARY: Chest is clear to auscultation, no wheezing or crackles. ABDOMEN: Soft, nontender, nondistended, normoactive bowel sounds. No palpable organomegaly. MUSCULOSKELETAL: No joint swelling or deformity. EXTREMITIES: No cyanosis, clubbing, or pedal edema. NEUROLOGICAL: Gross neurological examination did not reveal any focal deficits. SKIN: No rashes. Results CBC & Chem 7: 01/22/21 19:23 01/22/21 19:23 Labs: Abnormal Lab Results - Last 24 Hours (Table) 01/22/21 01/23/21 Range/Units 19:23 02:20 Sodium 132 L (137-145) mmol/L Chloride 96 L (98-107) mmol/L Alkaline Phosphatase 138 H (38-126) U/L HDL Cholesterol 30.0 L (40.0-60.0) mg/dL Thrombosis Risk Factor Assmnt - Choose All That Apply Each Risk Factor Represents 2 Points: Age 61-74 years Thrombosis Risk Factor Assessment Total Risk Factor Score: 2 Thrombosis Risk Factor Assessment Level: Low Risk Assessment and Plan Plan: -Chest pain: Rule out a concurrent syndromes but may have stable angina. Cardiology is not recommending any further intervention. I'll increase the dose of Imdur from 60 to 90 mg rest of his medications will be continued and patient will follow with the his air quality specialist as an outpatient next and-can artery disease with recent stenting -Hypertension -Dyslipidemia -Gastroesophageal reflux disease Patient was cleared by cardiology patient will be discharged today with the abov e-mentioned changes in medications
--- NOTE | 2021-01-23 15:46 | P.DS ---
Providers Date of admission: 01/22/21 20:42 Attending physician: Dwight Fleming MD Consults: 01/22/21 20:42 Consult Physician Urgent Consulting Provider: [facility] Consult Reason/Comments: Unstable angina Do you want consulting provider notified?: Yes [facility]: Please refer to my HPI for further details Plan - Discharge Summary New Discharge Prescriptions: Continue Pantoprazole Sodium [Protonix] 40 mg PO Q48H carvediloL [Coreg] 3.125 mg PO BID Aspirin 81 mg PO DAILY #30 chew Nitroglycerin Sl Tabs [Nitrostat] 0.4 mg SUBLINGUAL Q5M PRN #25 tab PRN Reason: Chest Pain Valsartan [Diovan] 160 mg PO DAILY Atorvastatin [Lipitor] 80 mg PO HS Clopidogrel Bisulfate [Plavix] 75 mg PO HS Acetaminophen Tab [Tylenol] 500 mg PO Q6HR PRN tab PRN Reason: Fever And/ Or Pain Sertraline HCl [Zoloft] 100 mg PO HS Ranolazine [Ranexa] 500 mg PO BID Changed Isosorbide Mononitrate ER [Imdur] 90 mg PO DAILY 30 Days #30 tab.er.24h Discharge Medication List Pantoprazole Sodium [Protonix] 40 mg PO Q48H 02/08/16 [History] carvediloL [Coreg] 3.125 mg PO BID 12/25/18 [History] Aspirin 81 mg PO DAILY #30 chew 12/28/18 [Rx] Nitroglycerin Sl Tabs [Nitrostat] 0.4 mg SUBLINGUAL Q5M PRN #25 tab 12/28/18 [Rx] Valsartan [Diovan] 160 mg PO DAILY 08/09/19 [History] Atorvastatin [Lipitor] 80 mg PO HS 01/23/20 [History] Clopidogrel Bisulfate [Plavix] 75 mg PO HS 10/05/20 [History] Acetaminophen Tab [Tylenol] 500 mg PO Q6HR PRN tab 10/09/20 [Rx] Ranolazine [Ranexa] 500 mg PO BID 01/22/21 [History] Sertraline HCl [Zoloft] 100 mg PO HS 01/22/21 [History] Isosorbide Mononitrate ER [Imdur] 90 mg PO DAILY 30 Days #30 tab.er.24h 01/23/21 [Rx] Follow up Appointment(s)/Referral(s): Frankie Campos MD [STAFF PHYSICIAN] - 1 Week Estevan Marroquin III, MD [Primary Care Provider] - 3 Days Discharge Disposition: HOME SELF-CARE
[2021-01-23] MEDS ORDERED: CLOPIDOGREL 75 MG TAB PO SCH (21:00)
[2021-01-23] MEDS ORDERED: SERTRALINE 100 MG TAB PO SCH (21:00)
[2021-01-23] MEDS ORDERED: ATORVASTATIN 80 MG TAB PO SCH (21:00)
== END 2021-01-23 11:41 | disposition home or self-care (01) ==
LOC: EC 18:04 → 6NMEDSUR 20:42
PROVIDERS: ADMIT Internal Medicine; ATTEND Internal Medicine
DX: R07.89 Other chest pain (principal); I25.10 Atherosclerotic heart disease of native coronary artery without angina pectoris; R06.02 Shortness of breath; I10 Essential (primary) hypertension; K21.9 Gastro-esophageal reflux disease without esophagitis; M35.00 Sjogren syndrome, unspecified; F41.9 Anxiety disorder, unspecified; I35.1 Nonrheumatic aortic (valve) insufficiency; I71.2 Thoracic aortic aneurysm, without rupture; E78.5 Hyperlipidemia, unspecified; Z79.82 Long term (current) use of aspirin; Z79.02 Long term (current) use of antithrombotics/antiplatelets; Z79.899 Other long term (current) drug therapy; Z95.5 Presence of coronary angioplasty implant and graft; Z82.49 Family history of ischemic heart disease and other diseases of the circulatory system
CPT/HCPCS: 96372 ×2; 93005 ×2; 99291; 36415; 80061; 80053; 83735; 84484 ×2; 85025; 85610; 85730; 87635; 71046; G0378 ×2; J1644 ×2

== ENCOUNTER 2022-03-08 03:16 | Emergency (ER) | payer MEDICARE ==
[2022-03-08 03:29] VITALS: BP 197/90; PULSE 94; RESP 16; TEMP 98.5
[2022-03-08] MEDS ORDERED: ACET/COD 300 MG/30 MG STARTER PACK 6 TAB BTL PO STA (04:12)
--- NOTE | 2022-03-08 04:14 | ED ---
Upper Extremity HPI - General Chief Complaint: Extremity Injury, Upper Stated Complaint: Post-op shoulder pain Time Seen by Provider: 03/08/22 03:35 Source: patient Mode of arrival: ambulatory Limitations: no limitations - History of Present Illness Initial Comments: This patient is 66-year-old man who presents to have evaluation of post surgical right shoulder pain. The patient states he had a rotator cuff surgery at another facility. For the procedure he had a nerve block. Patient states she was sent home with prescription for hydrocodone but did not have that filled because he had the impression the nerve block would last until tomorrow. He states that the block started to wear off tonight. He did try some Tylenol and it has not given much relief. He requests medication until he can get the hydrocodone prescription filled tomorrow. Patient denies numbness to the extremity. States she is able move his fingers normally. No other complaints MD Complaint: Injury to:: right, shoulder -: hour(s) Other Extremity Injury: Shoulder: Right Other Injuries: none Handedness: right Improves With: none Worsens With: none Context: other Associated Symptoms: denies other symptoms Treatments Prior to Arrival: other (Tylenol) - Related Data Home Medications Medication Instructions Recorded Confirmed Pantoprazole Sodium [Protonix] 40 mg PO Q48H 02/08/16 01/22/21 carvediloL [Coreg] 3.125 mg PO BID 12/25/18 01/22/21 Valsartan [Diovan] 160 mg PO DAILY 08/09/19 01/22/21 Atorvastatin [Lipitor] 80 mg PO HS 01/23/20 01/22/21 Clopidogrel Bisulfate [Plavix] 75 mg PO HS 10/05/20 01/22/21 Ranolazine [Ranexa] 500 mg PO BID 01/22/21 01/22/21 Sertraline HCl [Zoloft] 100 mg PO HS 01/22/21 01/22/21 Previous Rx's Medication Instructions Recorded Aspirin 81 mg PO DAILY #30 chew 12/28/18 Nitroglycerin Sl Tabs [Nitrostat] 0.4 mg SUBLINGUAL Q5M PRN #25 tab 12/28/18 Acetaminophen Tab [Tylenol] 500 mg PO Q6HR PRN tab 10/09/20 Isosorbide Mononitrate ER [Imdur] 90 mg PO DAILY 30 Days #30 01/23/21 tab.er.24h Allergies Allergy/AdvReac Type Severity Reaction Status Date / Time No Known Allergies Allergy Verified 03/08/22 03:29 Review of Systems ROS Statement: Those systems with pertinent positive or pertinent negative responses have been documented in the HPI. ROS Other: All systems not noted in ROS Statement are negative. Constitutional: Denies: fever, weakness Respiratory: Denies: cough, dyspnea Cardiovascular: Denies: chest pain, palpitations Musculoskeletal: Reports: as per HPI, arthralgia Skin: Denies: lesions Past Medical History Past Medical History: Coronary Artery Disease (CAD), GERD/Reflux, Hyperlipidemia, Hypertension Additional Past Medical History / Comment(s): R shoulder pain for approximately one month/infection, AAA being monitored, Sjogren's, occasional vertigo, waiting results for parkinsons 04/26/2020 History of Any Multi-Drug Resistant Organisms: None Reported Past Surgical History: Back Surgery, Heart Catheterization With Stent, Orthopedic Surgery Additional Past Surgical History / Comment(s): hand, nerve block RT shoulder Past Anesthesia/Blood Transfusion Reactions: No Reported Reaction Date of Last Stent Placement:: 12/26/20 Past Psychological History: Anxiety Smoking Status: Never smoker Past Alcohol Use History: Rare Past Drug Use History: None Reported - Past Family History Father Family Medical History: Myocardial Infarction ([place]) Additional Family Medical History / Comment(s): Father of a [place] at the age of 60yrs. Mother Additional Family Medical History / Comment(s): Mother of an aneurysm that ruptured at the age of 60yrs. General Exam Limitations: no limitations General appearance: alert, in no apparent distress Neck exam: Present: normal inspection, full ROM. Absent: tenderness Right Shoulder Exam: Present: normal inspection, other (The surgical dressing is intact with no evidence of bleeding through. Palpation does not reveal a tense joint/deltoid.) Forearm Wrist exam: Present: normal inspection, full ROM. Absent: tenderness, swelling Hand Wrist exam: Present: normal inspection, full ROM. Absent: tenderness, swelling Neuro motor exam: Present: wrist extension intact, thumb opposition intact, thumb IP flexion intact, thumb adduction intact, fingers 2-5 abduction intact Neurosensory exam: Present: 2-point discrimination, radial nerve intact, ulnar nerve intact, median nerve intact Vascular: Present: normal capillary refill, radial pulse (Normal in strength). Absent: vascular compromise Back exam: Present: normal inspection. Absent: tenderness Course Vital Signs 03/08/22 03:21 Temperature 98.5 F Pulse Rate 94 Respiratory 16 Rate Blood Pressure 197/90 O2 Sat by Pulse 100 Oximetry Medical Decision Making - Medical Decision Making Patient is 66-year-old man here with postoperative pain. The patient does not appear to have any surgical complication. There is good distal pulse and neuro function. Disposition Clinical Impression: Post-operative pain Disposition: HOME SELF-CARE Condition: Good Instructions (If sedation given, give patient instructions): Shoulder Pain (ED) Is patient prescribed a controlled substance at d/c from ED?: No Referrals: Estevan Marroquin III, MD [Primary Care Provider] - 1-2 days
== END 2022-03-08 04:20 | disposition home or self-care (01) ==
LOC: EC 03:16
DX: G89.18 Other acute postprocedural pain (principal); M25.511 Pain in right shoulder; E78.5 Hyperlipidemia, unspecified; I10 Essential (primary) hypertension; I25.10 Atherosclerotic heart disease of native coronary artery without angina pectoris; K21.9 Gastro-esophageal reflux disease without esophagitis; Z79.899 Other long term (current) drug therapy; Z79.02 Long term (current) use of antithrombotics/antiplatelets
CPT/HCPCS: 99283

== ENCOUNTER → 2022-08-08 | Outpatient (CLI) | payer MEDICARE ==
--- NOTE | 2022-08-08 08:28 | CT ---
EXAMINATION TYPE: CT sinus wo con DATE OF EXAM: 08/08/2022 COMPARISON: NONE HISTORY: Chronic sinusitis CT DLP: 699.40 mGycm. Automated Exposure Control for Dose Reduction was Utilized. TECHNIQUE: CT scan of the sinuses is performed without contrast, axial images are obtained, coronal r eformatted images are also reviewed. FINDINGS: Mild to minimal mucosal thickening in the maxillary sinuses right greater than left. Mild t o moderate mucosal thickening in the ethmoid sinuses bilaterally. Mild mucosal thickening in the left sphenoid sinus and minimal mucosal thickening in the right sphenoid sinus. [id number] mucosal thickening in the left frontal sinus. No suspicious opacification or air-fluid levels The surgically treated ostiomeatal complex is widely patent bilaterally on the coronal images. Nasal septum slightl y deviated from right of midline anteriorly. Visualized portion of mastoid air cells show no abnormal opacification. The globes are intact bilate rally. IMPRESSION: Chronic paranasal sinus disease. No acute sinusitis.
== END | disposition home or self-care (01) ==
LOC: RADCTMAIN 07:58
PROVIDERS: ATTEND Otolaryngology
DX: J32.9 Chronic sinusitis, unspecified (principal)
CPT/HCPCS: 70486

== ENCOUNTER → 2022-08-22 | Outpatient (CLI) | payer MEDICARE ==
--- NOTE | 2022-08-22 08:42 | MR ---
EXAMINATION TYPE: MR brain wo/w con DATE OF EXAM: 08/22/2022 COMPARISON: CT sinus 08/08/2022 HISTORY: Hearing loss, presyncope, hx mini strokes. TECHNIQUE: Multiplanar, multisequence images of the brain and brainstem is performed without and with IV contras t, utilizing 8 mL intravenous Gadavist . FINDINGS: Diffusion weighted images demonstrate no evidence of a recent infarct or other diffusion ab normality. Tiny remote lacunar injuries within the bilateral basal ganglia including the lentiform nu clei and left thalamus. Scattered patchy T2/FLAIR hyperintensities within the periventricular white m atter. There is no extra-axial fluid collection. The ventricular system and cisternal spaces are norm al in size and appearance. The brain volume is age appropriate. Midline structures demonstrate normal morphology. The craniocervical junction appears within normal limits. Post contrast images demonstrate no abnormal enhancement. The dural venous sinuses appear pa tent. The globes are intact. Mild mucosal thickening of the ethmoid sinuses. IMPRESSION: 1. No acute ischemia or abnormal contrast enhancement. 2. Tiny bilateral basal ganglia and left thalamus lacunar injuries with nonspecific white matter terrell nges likely related to chronic small vessel ischemic disease.
== END | disposition home or self-care (01) ==
LOC: RADMRIMAIN 07:47
PROVIDERS: ATTEND Otolaryngology
DX: H91.90 Unspecified hearing loss, unspecified ear (principal); J32.9 Chronic sinusitis, unspecified; R49.0 Dysphonia
CPT/HCPCS: 70553; A9585

== ENCOUNTER 2022-10-03 12:17 | Emergency (ER) | payer MEDICARE ==
[2022-10-03 12:43] VITALS: TEMP 98.4
[2022-10-03 13:15] VITALS: RESP 16
[2022-10-03 13:17] LABS: Basophils # (A) 0.1 k/uL (0-0.2); Basophils % (A) 1 %; Eosinophils # (A) 0.3 k/uL (0-0.7); Eosinophils % (A) 4 %; HCT 42.2 % (39.0-53.0); HGB 14.2 gm/dL (13.0-17.5); Lymphocytes # (A) 1.1 k/uL (1.0-4.8); Lymphocytes % (A) 18 %; MCH 30.1 pg (25.0-35.0); MCHC 33.7 g/dL (31.0-37.0); MCV 89.2 fL (80.0-100.0); Mean Platelet Volume 9.4; Monocytes # (A) 0.6 k/uL (0-1.0); Monocytes % (A) 10 %; Neutrophils # (A) 3.7 k/uL (1.3-7.7); Neutrophils % (A) 63 %; Platelet Count 160 k/uL (150-450); RBC 4.73 m/uL (4.30-5.90); WBC 5.9 k/uL (3.8-10.6)
[2022-10-03 13:27] LABS: ALT 39 U/L (4-49); AST 43 U/L (17-59); African American GFR (CKD) >90 (>60 ml/min/1.73 sqM); Albumin 4.1 g/dL (3.5-5.0); Alkaline Phosphatase 116 U/L (38-126); Anion Gap 6 mmol/L; Blood Urea Nitrogen 12 mg/dL (9-20); Calcium 8.5 mg/dL (8.4-10.2); Carbon Dioxide 25 mmol/L (22-30); Chloride 100 mmol/L (98-107); Glucose 89 mg/dL (74-99); Non-African American GFR(CKD) >90 (>60 ml/min/1.73 sqM); Potassium 4.7 mmol/L (3.5-5.1); Sodium 131 mmol/L (137-145); Total Bilirubin 0.7 mg/dL (0.2-1.3); Total Protein 6.8 g/dL (6.3-8.2)
--- NOTE | 2022-10-03 13:28 | ED ---
General Adult HPI - General Chief complaint: Chest Pain Stated complaint: SOB Time Seen by Provider: 10/03/22 12:50 Source: patient Mode of arrival: ambulatory Limitations: no limitations - History of Present Illness Initial comments: Dictation was produced using [employer] dictation software. please excuse any grammatical, word or spelling errors. Chief Complaint: 67-year-old male presents emergency department for 1-2 days of sharp chest pain History of Present Illness: She 67-year-old male presents emergency department for sharp chest pain. States that it's to his anterior chest refill sharp and worse with deep inspiration. Patient does complain of shortness of breath. Patient denies any history of DVT or pulmonary embolism. Patient's history of coronary artery disease. States that his pain has not pressure-like. Nonrad iating and not associated with nausea or diaphoresis. The ROS documented in this emergency department record has been reviewed and confirmed by me. Those systems with pertinent positive or negative responses have been documented in the HPI. All other systems are other negative and/or noncontributory. PHYSICAL EXAM: General Impression: Alert and oriented x3, not in acute distress HEENT: Normocephalic atraumatic, extra-ocular movements intact, pupils equal and reactive to light bilaterally, mucous membranes moist. Cardiovascular: Heart regular rate and rhythm Chest: Able to complete full sentences, no retractions, no tachypnea Abdomen: abdomen soft, non-tender, non-distended, no organomegaly Musculoskeletal: Pulses present and equal in all extremities, no peripheral edema Motor: no focal deficits noted Neurological: CN II-XII grossly intact, no focal motor or sensory deficits noted Skin: Intact with no visualized rashes Psych: Normal affect and mood ED course: 67-year-old male presents to the emergency department with atypical chest pain. Patient does have history of coronary artery disease. His description of symptoms are very atypical. Vital signs upon arrival are within acceptable limits. EKG is unremarkable for any ischemic changes Chart review was performed Chest x-ray is unremarkable. Laboratory evaluation unremarkable. D-dimer is normal. Troponin is negative. Panel by PCR is negative. Patient observed in emergency department for 2 hours and 50 minutes. Patient reevaluated bedside at 3:10 PM vomiting seemed medical condition. Presentation consistent with pleuritic chest pain. Patient be discharged. My EKG interpretation: Ventricular rate 50, sinus bradycardia, AL interval 206, QRS 92, QTC 375. No AL prolongation, no QTC prolongation, no ST or T-wave changes noted. Overall, this EKG is unremarkable Critical Care: no Critical Care time: n/a - Related Data Home Medications Medication Instructions Recorded Confirmed Pantoprazole Sodium [Protonix] 40 mg PO Q48H 02/08/16 01/22/21 carvediloL [Coreg] 3.125 mg PO BID 12/25/18 01/22/21 Valsartan [Diovan] 160 mg PO DAILY 08/09/19 01/22/21 Atorvastatin [Lipitor] 80 mg PO HS 01/23/20 01/22/21 Clopidogrel Bisulfate [Plavix] 75 mg PO HS 10/05/20 01/22/21 Ranolazine [Ranexa] 500 mg PO BID 01/22/21 01/22/21 Sertraline HCl [Zoloft] 100 mg PO HS 01/22/21 01/22/21 Previous Rx's Medication Instructions Recorded Aspirin 81 mg PO DAILY #30 chew 12/28/18 Nitroglycerin Sl Tabs [Nitrostat] 0.4 mg SUBLINGUAL Q5M PRN #25 tab 12/28/18 Acetaminophen Tab [Tylenol] 500 mg PO Q6HR PRN tab 10/09/20 Isosorbide Mononitrate ER [Imdur] 90 mg PO DAILY 30 Days #30 01/23/21 tab.er.24h Allergies Allergy/AdvReac Type Severity Reaction Status Date / Time No Known Allergies Allergy Verified 10/03/22 12:43 Review of Systems ROS Statement: Those systems with pertinent positive or pertinent negative responses have been documented in the HPI. ROS Other: All systems not noted in ROS Statement are negative. Past Medical History Past Medical History: Coronary Artery Disease (CAD), GERD/Reflux, Hyperlipidemia, Hypertension Additional Past Medical History / Comment(s): R shoulder pain for approximately one month/infection, AAA being monitored, Sjogren's, occasional vertigo, waiting results for parkinsons 04/26/2020 History of Any Multi-Drug Resistant Organisms: None Reported Past Surgical History: Back Surgery, Heart Catheterization With Stent, Orthopedic Surgery Additional Past Surgical History / Comment(s): hand, nerve block RT shoulder Past Anesthesia/Blood Transfusion Reactions: No Reported Reaction Date of Last Stent Placement:: 12/26/20 Past Psychological History: Anxiety Smoking Status: Never smoker Past Alcohol Use History: Rare Past Drug Use History: None Reported - Past Family History Father Family Medical History: Myocardial Infarction ([place]) Additional Family Medical History / Comment(s): Father of a [place] at the age of 60yrs. Mother Additional Family Medical History / Comment(s): Mother of an aneurysm that ruptured at the age of 60yrs. General Exam Limitations: no limitations Course Vital Signs 10/03/22 10/03/22 12:41 13:14 Temperature 98.4 F Pulse Rate 64 58 L Respiratory 20 16 Rate Blood Pressure 147/84 135/82 O2 Sat by Pulse 97 98 Oximetry Medical Decision Making - Lab Data Result diagrams: 10/03/22 13:13 10/03/22 13:13 Lab Results 10/03/22 10/03/22 10/03/22 Range/Units 13:09 13:13 13:13 WBC 5.9 (3.8-10.6) k/uL RBC 4.73 (4.30-5.90) m/uL Hgb 14.2 (13.0-17.5) gm/dL Hct 42.2 (39.0-53.0) % MCV 89.2 (80.0-100.0) fL MCH 30.1 (25.0-35.0) pg MCHC 33.7 (31.0-37.0) g/dL RDW 14.0 (11.5-15.5) % Plt Count 160 (150-450) k/uL MPV 9.4 Neutrophils % 63 % Lymphocytes % 18 % Monocytes % 10 % Eosinophils % 4 % Basophils % 1 % Neutrophils # 3.7 (1.3-7.7) k/uL Lymphocytes # 1.1 (1.0-4.8) k/uL Monocytes # 0.6 (0-1.0) k/uL Eosinophils # 0.3 (0-0.7) k/uL Basophils # 0.1 (0-0.2) k/uL D-Dimer 0.36 (<0.60) mg/L FEU Sodium 131 L (137-145) mmol/L Potassium 4.7 (3.5-5.1) mmol/L Chloride 100 (98-107) mmol/L Carbon Dioxide 25 (22-30) mmol/L Anion Gap 6 mmol/L BUN 12 (9-20) mg/dL Creatinine 0.69 (0.66-1.25) mg/dL Est GFR (CKD-EPI)AfAm >90 (>60 ml/min/1.73 sqM) Est GFR (CKD-EPI)NonAf >90 (>60 ml/min/1.73 sqM) Glucose 89 (74-99) mg/dL Calcium 8.5 (8.4-10.2) mg/dL Total Bilirubin 0.7 (0.2-1.3) mg/dL AST 43 (17-59) U/L ALT 39 (4-49) U/L Alkaline Phosphatase 116 (38-126) U/L Troponin I (0.000-0.034) ng/mL Total Protein 6.8 (6.3-8.2) g/dL Albumin 4.1 (3.5-5.0) g/dL Coronavirus (PCR) (Not Detectd) Influenza Type A RNA (Not Detectd) Influenza Type B (PCR) (Not Detectd) RSV (PCR) (Negative) 10/03/22 10/03/22 10/03/22 Range/Units 13:13 13:14 14:24 WBC (3.8-10.6) k/uL RBC (4.30-5.90) m/uL Hgb (13.0-17.5) gm/dL Hct (39.0-53.0) % MCV (80.0-100.0) fL MCH (25.0-35.0) pg MCHC (31.0-37.0) g/dL RDW (11.5-15.5) % Plt Count (150-450) k/uL MPV Neutrophils % % Lymphocytes % % Monocytes % % Eosinophils % % Basophils % % Neutrophils # (1.3-7.7) k/uL Lymphocytes # (1.0-4.8) k/uL Monocytes # (0-1.0) k/uL Eosinophils # (0-0.7) k/uL Basophils # (0-0.2) k/uL D-Dimer (<0.60) mg/L FEU Sodium (137-145) mmol/L Potassium (3.5-5.1) mmol/L Chloride (98-107) mmol/L Carbon Dioxide (22-30) mmol/L Anion Gap mmol/L BUN (9-20) mg/dL Creatinine (0.66-1.25) mg/dL Est GFR (CKD-EPI)AfAm (>60 ml/min/1.73 sqM) Est GFR (CKD-EPI)NonAf (>60 ml/min/1.73 sqM) Glucose (74-99) mg/dL Calcium (8.4-10.2) mg/dL Total Bilirubin (0.2-1.3) mg/dL AST (17-59) U/L ALT (4-49) U/L Alkaline Phosphatase (38-126) U/L Troponin I <0.012 (0.000-0.034) ng/mL Total Protein (6.3-8.2) g/dL Albumin (3.5-5.0) g/dL Coronavirus (PCR) Not Detected (Not Detectd) Influenza Type A RNA Not Detected (Not Detectd) Influenza Type B (PCR) Not Detected (Not Detectd) RSV (PCR) Negative (Negative) Disposition Clinical Impression: Chest pain Disposition: HOME SELF-CARE Condition: Good Instructions (If sedation given, give patient instructions): Costochondritis (ED) Is patient prescribed a controlled substance at d/c from ED?: No Referrals: Estevan Marroquin III, MD [Primary Care Provider] - 1-2 days Time of Disposition: 15:12
[2022-10-03] MEDS ORDERED: KETOROLAC 15 MG/ML 1 ML VIAL IVP STA (14:18)
--- NOTE | 2022-10-03 15:01 | XR ---
EXAMINATION TYPE: XR chest 2V DATE OF EXAM: 10/03/2022 2:37 PM COMPARISON: Chest radiographs from 01/22/2021 TECHNIQUE: XR chest 2V Frontal and lateral views of the chest. CLINICAL INDICATION:Male, 67 years old with history of chest pain; FINDINGS: Lungs/Pleura: There is no evidence of pleural effusion, focal consolidation, or pneumothorax. Pulmonary vascularity: Unremarkable. Heart/mediastinum: Cardiomediastinal silhouette is unremarkable. Musculoskeletal: No acute osseous pathology. IMPRESSION: No acute cardiopulmonary disease/process.
[2022-10-03 15:38] VITALS: BP 135/74; PULSE 68
== END 2022-10-03 15:38 | disposition home or self-care (01) ==
LOC: EC 12:17
DX: R07.9 Chest pain, unspecified (principal); I25.10 Atherosclerotic heart disease of native coronary artery without angina pectoris; K21.9 Gastro-esophageal reflux disease without esophagitis; E78.5 Hyperlipidemia, unspecified; I11.9 Hypertensive heart disease without heart failure; Z20.822 Contact with and (suspected) exposure to COVID-19; Z79.82 Long term (current) use of aspirin
CPT/HCPCS: 36415; 93005; 85379; 80053; 84484; 85025; 87502; 87634; 87635; 71046; 99285; 96374; J1885

== ENCOUNTER → 2023-01-26 | Outpatient (CLI) | payer MEDICARE ==
[2023-01-26 15:53] LABS: INR 0.9 (<1.2); Partial Thromboplastin Time 24.1 sec (22.0-30.0); Prothrombin Time 9.9 sec (9.0-12.0)
[2023-01-26 22:32] LABS: HGB 13.8 g/dL (13.0-17.0); MCH 28.9 pg (27.0-32.0); MCHC 32.1 g/dL (32.0-37.0); MCV 90.1 fL (80.0-97.0); Mean Platelet Volume 11.6 fL (9.5-12.2); NRBC Per 100 WBC 0 /100 WBCS (0.0-0.0); Platelet Count 163 X 10*3/uL (140-440); RBC 4.77 X 10*6/uL (4.40-5.60); RDW 14.6 % (11.5-14.5); WBC 5.69 X 10*3/uL (4.50-10.00)
[2023-01-26 22:37] LABS: Appearance,Urine Clear (Clear); Bilirubin,Urine Negative (Negative); Blood,Urine Negative (Negative); Color,Urine Yellow (Yellow); Ketones,Urine Negative (Negative); Nitrite,Urine Negative (Negative); Specific Gravity,Urine 1.008 (1.001-1.030); Urobilinogen,Urine 0.2 (0.2,1.0)
[2023-01-26 22:52] LABS: Erythrocyte Sedimentation Rate 7 mm/Hr (0-20)
[2023-01-26 23:49] LABS: ALT 44 U/L (10-49); AST 41 U/L (14-35); Albumin 4.3 g/dL (3.8-4.9); Albumin/Globulin Ratio 1.71 (1.60-3.17); Alkaline Phosphatase 127 U/L (41-126); BUN/Creat Ratio 14.54 Ratio (12.00-20.00); Blood Urea Nitrogen 12.9 mg/dL (9.0-27.0); C Reactive Protein <0.30 mg/dL (0.00-0.80); Calcium 9.3 mg/dL (8.7-10.3); Carbon Dioxide 28.6 mmol/L (20.0-27.5); Chloride 97 mmol/L (96-109); Globulin 2.5 g/dL (1.6-3.3); Glucose 95 mg/dL (70-110); Potassium 4.9 mmol/L (3.5-5.5); Sodium 133 mmol/L (135-145); Total Protein 6.9 g/dL (6.2-8.2)
== END | disposition home or self-care (01) ==
LOC: LABPAT 13:48
PROVIDERS: ATTEND Orthopaedic Surgery Sports Medicine
DX: Z01.818 Encounter for other preprocedural examination (principal); Z47.89 Encounter for other orthopedic aftercare; I10 Essential (primary) hypertension; M19.011 Primary osteoarthritis, right shoulder; M25.511 Pain in right shoulder; M75.121 Complete rotator cuff tear or rupture of right shoulder, not specified as traumatic
CPT/HCPCS: 80053; 81003; 83520; 85027; 85610; 85652; 85730; 86140; 87070; 93005

== ENCOUNTER 2023-02-26 07:43 | Day surgery (SDC) | payer MEDICARE ==
[2023-02-19 10:25] VITALS: BMI 23.7
[~2023-02-26 07:43] MED LIST changes: +ACETAMINOPHEN TAB 500 MG TAB PO PRN; -ALPRAZolam 0.25 MG TAB PO PRN; -ALPRAZolam 0.5 MG TAB PO PRN; -ASPIRIN 325 MG TAB PO STA; -ATORVASTATIN 80 MG TAB PO STA; +DEXAMETHASONE SOD PHOSPHATE 4 MG/ML 1 ML VIAL IV ONE; +GABAPENTIN 300 MG CAP PO PRN; +HYDROmorphone 0.5 MG/0.5 ML SYRINGE IVP PRN; +LACTATED RINGERS 1,000 ML IV SCH; +MELOXICAM 7.5 MG TAB PO PRN; -NITROGLYCERIN SL TABS 0.4 MG TAB SUBLINGUAL PRN; +ONDANSETRON 4 MG/2 ML VIAL IVP ONE; +ONDANSETRON 4 MG/2 ML VIAL IVP PRN; -SODIUM CHLORIDE 0.9% 1,000 ML in EMPTY BAG 1 BAG IV ONE; +TRANEXAMIC ACID IN NACL,ISO-OS 1,000 MG in SALINE 1 100ML.BAG IVPB PRN
[2023-02-26] MEDS ORDERED: MIDAZOLAM 2 MG/2 ML VIAL IV ONE (07:49)
[2023-02-26] MEDS ORDERED: TEMAZEPAM 15 MG CAP PO PRN (09:03)
[2023-02-26] MEDS ORDERED: SENNOSIDES-DOCUSATE SODIUM 1 EACH TAB PO PRN (09:03)
[2023-02-26] MEDS ORDERED: METOCLOPRAMIDE 5 MG/ML 2 ML VIAL IVP PRN (09:03)
[2023-02-26] MEDS ORDERED: diphenhydrAMINE 25 MG CAP PO PRN (09:03)
[2023-02-26] MEDS ORDERED: HYDROmorphone 0.5 MG/0.5 ML SYRINGE IVP PRN ×2 (09:03)
[2023-02-26] MEDS ORDERED: ONDANSETRON 4 MG/2 ML VIAL IVP PRN (09:03)
[2023-02-26] MEDS ORDERED: HYDROcodone/APAP 7.5-325MG 1 EACH TAB PO PRN (09:07)
[2023-02-26] MEDS ORDERED: ROCURONIUM 10 MG/ML (5 ML VIAL) IV ONE (09:21)
[2023-02-26] MEDS ORDERED: ROPIVACAINE 5 MG/ML 30 ML VIAL ONE (09:21)
[2023-02-26] MEDS ORDERED: ePHEDrine 50 MG/ML 1 ML VIAL ONE (09:21)
[2023-02-26] MEDS ORDERED: LIDOCAINE 2% INJ 20 MG/ML (2 ML VIAL) ONE (09:21)
[2023-02-26] MEDS ORDERED: PHENYLEPHRINE-0.9% NACL SYG 1,000 MCG/10 ML SYRINGE ONE (09:21)
[2023-02-26] MEDS ORDERED: PROPOFOL 10 MG/ML 20 ML VIAL IV ONE (09:21)
[2023-02-26] MEDS ORDERED: MIDAZOLAM 2 MG/2 ML VIAL ONE (09:21)
[2023-02-26] MEDS ORDERED: LIDOCAINE 4% LTA KIT (4 ML) TOPICAL ONE (09:21)
[2023-02-26] MEDS ORDERED: NEOSTIGMINE 1 MG/ML 10 ML VIAL ONE (09:21)
[2023-02-26] MEDS ORDERED: GLYCOPYRROLATE 0.2 MG/ML 2 ML VIAL ONE (09:21)
[2023-02-26] MEDS ORDERED: fentaNYL (PF) 50 MCG/ML 2 ML AMP ONE (09:21)
[2023-02-26] MEDS ORDERED: SUCCINYLCHOLINE CHLORIDE 200 MG/10 ML VIAL IV ONE (09:21)
[2023-02-26] MEDS ORDERED: TRANEXAMIC ACID IN NACL,ISO-OS 1,000 MG/100 ML BAG ONE (09:21)
[2023-02-26] MEDS ORDERED: VANCOMYCIN 1,000 MG VIAL MISCELLANE ONE (09:54)
[2023-02-26] MEDS ORDERED: ceFAZolin 1,000 MG in SODIUM CHLORIDE 0.9% 1,000 ML IRRIGATION ONE (09:55)
[2023-02-26] MEDS ORDERED: LACTATED RINGERS 1,000 ML IV ONE (10:38)
--- NOTE | 2023-02-26 12:21 | XR ---
EXAMINATION TYPE: XR shoulder limited RT DATE OF EXAM: 02/26/2023 12:15 PM INDICATION: Patient age:Male; 67 years old; Reason for study: post op; COMPARISON: CT right shoulder 01/08/23. TECHNIQUE: The right shoulder was examined in the frontal projection. FINDINGS: Postsurgical changes from right shoulder arthroplasty with the glenoid and proximal humerus component s. No acute fracture or dislocation. There is associated soft tissue gas and edema. Hardware appears intact the program alignment. IMPRESSION: Post surgical changes from right shoulder arthroplasty. Hardware appears intact with appropriate alig nment.
--- NOTE | 2023-02-26 12:32 | P.ANPRN ---
Procedure Note - Anesthesia - Nerve Block Performed Right Interscalene Single Time Out Performed: Yes ([id number]) Date of Procedure: 02/26/23 Procedure Start Time: 07:50 Procedure Stop Time: 07:55 Location of Patient: PreOp Indication: Acute Post-Operative Pain, Requested by Surgeon Specifically requested for management of pain by DrHillary: Tej Crenshaw Sedation Type: Sedate with meaningful contact maintained Preparation: Sterile Prep Position: Supine Catheter: None Needle Types: Pajunk Needle Gauge: 21 Ultrasound used to visualize needle placement: Yes Ultrasound used to observe medication spread: Yes Injectate: 0.5% Ropivacaine (see comment for volume) (30cc) Blood Aspirated: No Pain Paresthesia on Injection Noted: No Resistance on Injection: Normal Image Stored and Saved: Yes Events: Uneventful and Well Tolerated
[2023-02-26] MEDS: LACTATED RINGERS 1,000 ML IV SCH ×2 (13:56→18:10)
--- NOTE | 2023-02-26 18:15 | OP ---
OPERATIVE REPORT DATE OF SERVICE : 02/26/2023 PREOPERATIVE DIAGNOSIS: Right shoulder rotator cuff arthropathy. POSTOPERATIVE DIAGNOSIS: Right shoulder rotator cuff arthropathy. PROCEDURE PERFORMED: Right reverse total shoulder arthroplasty. ANESTHESIA: General endotracheal. ESTIMATED BLOOD LOSS: 200 mL. DRAINS: None. COMPLICATIONS: None apparent. DISPOSITION: Postanesthesia care unit. INDICATIONS FOR PROCEDURE: Osmel is a very pleasant 67-year-old male with longstanding right shoulder pain. He has a known massive irreparable rotator cuff tear. He has previously undergone an attempt at an arthroscopic insertion of balloon spacer by another surgeon for pain relief. This did not provide pain relief for him. At this point, he has felt as if he has failed conservative management, and he would like to proceed with operative intervention. The recommendation at this point would be for a reverse total shoulder arthroplasty. The risks of procedure were discussed with him in detail. These risks include but are not limited to risk of infection, nerve damage, bleeding, pain, instability in the shoulder, loosening of the implants, and deep infection. There is also a small risk of deep vein thrombosis, which could lead to fatal pulmonary embolism. The patient understood the risks. All of his questions with regard to the risks of procedure were answered to his satisfaction. An appropriate informed consent was obtained. DESCRIPTION OF PROCEDURE: The patient was identified in the preoperative holding area. Surgical site was marked by both the patient and myself. He was given 2 g of Ancef IV for prophylactic purposes. He was then transported to the operative suite, where he was placed supine on the operating room table. A general anesthetic was then administered and dosed per the Anesthesia Department without apparent complication. An examination under anesthesia of the right shoulder was then performed. He had a passive elevation to 140 degrees. External rotation to the side was to 50 degrees. The patient was then placed into the beach chair position and well-padded in preparation for surgery. Great care was taken to ensure that the cervical spine was in neutral alignment, well-padded, and maintained that way throughout the operative procedure. Great care was also taken to ensure that his legs were appropriately padded as well. The patient's right upper extremity was then prepped and draped in usual sterile fashion. Standard surgical pause was undertaken to ensure that we were operating the correct site and that appropriate preoperative antibiotics had been given. All staff in the room were in agreement, and we proceeded. The acromion, AC joint, clavicle, and coracoid were marked with a surgical pen. A planned incision starting at the level of the clavicle and extending distally over the deltopectoral interval approximately 1 cm lateral to the coracoid was marked with a surgical pen. The incision was then made with a 10-blade scalpel. Dissection was carried down sharply to the deltoid fascia. The deltopectoral interval was identified at the level of the clavicle. A small band retractor was then placed onto the proximal deltoid. I then released the deltoid fascia on the lateral aspect of the cephalic vein. The cephalic vein was preserved and left in its bed medially. The cephalic vein was protected throughout the entire case. I then identified the clavipectoral fascia. This was incised proximally to the level of the coracoacromial ligament. The coracoacromial ligament was left intact. I then used my finger to spread the interval between the conjoint tendon and the subscapularis. I felt for the axillary nerve, which was readily palpable. I then cleared the subacromial and subdeltoid spaces of bursal and scar tissue. He did have quite an extensive amount of scar tissue in the subacromial space. I then utilized a Moralez retractor to hold the deltoid and expose the humeral head. I then proceeded with release of the subscapularis and the anterior-inferior shoulder capsule. The rotator cuff was inspected. The greater tuberosity was completely devoid of any rotator cuff tissue. The supraspinatus and infraspinatus were completely torn and retracted. He had a previous biceps tendon release as well. I then released the rotator interval at the base of the coracoid and then out laterally. The subscapularis and the anterior capsule were then released intratendinously. The subscapularis and capsular release extended distally in a lazy-S fashion approximately 1 cm medial to the bicipital groove. I then continued to release the capsule along the inferior neck in a vertical fashion to approximately the 6 o'clock position. Great care was taken to ensure that the capsule was always visualized as it was released as to avoid injuring the axillary nerve. I then brought a Villanueva shredding machine operator with the arm externally rotated and abducted. I continued to release the capsule inferomedially to the 4 o'clock position. He had very minimal inferior osteophytes. These were now removed as well with a rongeur. I then proceeded with preparation of the humerus. I then removed the subchondral plate from the superior aspect of the humeral head utilizing a large rongeur. I then used a starting reamer to gain access to the humeral canal. This was approximately 1 cm medial to the previous rotator cuff insertion and 1 cm posterior to the bicipital groove. I then prepared the humeral canal with hand reaming. I started with a 6 mm reamer and incrementally increased until firm resistance was encountered at 14 mm. The reamer handle was then left in place. I then utilized a humeral resection guide set at 30 degrees of retrotorsion. The cutting block was set at the previous insertion of the rotator cuff. I then proceeded to osteotomize the head with an oscillating saw. I removed the resection guide and then completed the osteotomy. I then proceeded with trial stem placement. The trial started with an 8 mm broach and incrementally increased up to 12 mm broach. The 12 mm broach was then left in place. A bone hook was then used to pull the humerus out laterally. I then inspected the joint for any loose bodies. The Bhattman retractor was then placed on the posterior glenoid rim. The arm was then placed in approximately 80 degrees of abduction and in slight flexion on the Villanueva stand. I then proceeded to remove the hypertrophic labrum to definitively identify the actual glenoid. I then utilized the mini baseplate guide. The starting pin was then placed in the center of the glenoid with approximately 10 degrees of inferior tilt. The mini baseplate reamer was then utilized to ream the glenoid. Minimal amount of reaming was done as possible as to preserve as much subchondral bone of the glenoid. The actual mini baseplate was then impacted onto the actual glenoid. The starting pin was removed. I then placed a 30 mm central screw. The central screw had excellent purchase in bone. I was able to rotate the scapula through the screwdriver when the screw was fully seated. I then proceeded with placement of the peripheral locking screws. The inferior screw was a 25 mm screw. The anterior and posterior screws were 15 mm locking screws, and the superior screw was a 20 mm locking screw. I then had the credit resolution representative open a 36 mm glenosphere. It was slightly offset to place it slightly inferior as to minimize notching. The Orozco taper was dried, and then the actual glenoid was then impacted onto the baseplate. The shoulder was then carefully redislocated. A standard tray and standard poly trial was then placed onto the trial stem. The shoulder was then reduced. It was a mildly difficult reduction. The shoulder was stable throughout a full range of motion. The conjoint tendon did not have any undue tension. There was no impingement noted. The shoulder was then redislocated. I had the credit resolution representative open a size 14 Biomet mini stem, a standard tray, and a standard polyethylene. At this point, the wound was thoroughly irrigated with sterile saline solution with antibiotic added via pulsed lavage. I also used IrriSept antiseptic solution, which was left in the joint for a few minutes. The IrriSept was then again washed out with sterile saline solution with antibiotic added via pulsed lavage. I then impacted the real 14 mini stem into the proximal humerus in approximately 30 degrees of retrotorsion. The Orozco taper was dried, and the standard poly and standard tray were then impacted onto the real stem with a dry Orozco taper. I then reduced the shoulder. It was a stable reduction. The shoulder was stable throughout a full range of motion. There was no impingement noted. There was not any undue tension on the conjoint tendon. I also felt for the axillary nerve, which was readily palpable and uninjured. At this point in time, we proceeded with closure. Again, the wound was thoroughly irrigated with sterile saline solution with antibiotic added via pulsed lavage. Again, IrriSept solution was utilized. We placed approximately 500 mg of vancomycin powder deep. The deltopectoral interval was then closed with 0 Vicryl interrupted suture. The subcutaneous tissue was then irrigated with sterile saline solution with antibiotic added via pulsed lavage. The remaining 500 mg of vancomycin powder was then utilized subcutaneously. The subcutaneous tissue was closed with 2-0 Vicryl interrupted suture, and the skin was closed with a running 3-0 Quill suture. Dermabond was applied to the incision. Sterile dressing was applied, and the patient's right upper extremity was placed into a standard sling. All sponge and needle counts were deemed correct prior to closure. The patient tolerated the procedure without apparent complication. He was transferred to the recovery room in stable condition. MMODL / IJN: [id number] /
[2023-02-26] MEDS: SERTRALINE 100 MG TAB PO SCH (19:47)
[2023-02-26] MEDS: ATORVASTATIN 80 MG TAB PO SCH (19:47)
[2023-02-26] MEDS: HYDROcodone/APAP 7.5-325MG 1 EACH TAB PO PRN (19:47)
[2023-02-26] MEDS: OXYBUTYNIN 10 MG TAB.ER.24 PO SCH (19:53)
[2023-02-27] MEDS: HYDROcodone/APAP 7.5-325MG 1 EACH TAB PO PRN ×2 (00:36→07:29)
[2023-02-27] MEDS: carvediloL 3.125 MG TAB PO SCH ×2 (05:46→17:30)
[2023-02-27] MEDS: PANTOPRAZOLE 40 MG TABLET PO SCH (05:46)
[2023-02-27] MEDS: LACTATED RINGERS 1,000 ML IV SCH ×2 (05:46→12:04)
[2023-02-27] MEDS: ISOSORBIDE MONONITRATE ER 60 MG TAB.ER.24H PO SCH (07:29)
[2023-02-27 10:46] LABS: Basophils # (A) 0.02 X 10*3/uL (0.00-0.10); Basophils % (A) 0.3 %; Eosinophils # (A) 0.02 X 10*3/uL (0.04-0.35); Eosinophils % (A) 0.3 %; HGB 11.3 g/dL (13.0-17.0); Immature Grans, Automated 0.5 %; Lymphocytes % (A) 13.7 %; MCH 29.5 pg (27.0-32.0); MCHC 33.2 g/dL (32.0-37.0); MCV 88.8 fL (80.0-97.0); Mean Platelet Volume 11.8 fL (9.5-12.2); Monocytes # (A) 1.11 X 10*3/uL (0.20-1.00); Monocytes % (A) 16.9 %; NRBC Per 100 WBC 0 /100 WBCS (0.0-0.0); Neutrophils # (A) 4.48 X 10*3/uL (1.80-7.70); Neutrophils % (A) 68.3 %; Platelet Count 142 X 10*3/uL (140-440); RBC 3.83 X 10*6/uL (4.40-5.60); WBC 6.56 X 10*3/uL (4.50-10.00)
[2023-02-27] MEDS: HYDROmorphone 0.5 MG/0.5 ML SYRINGE IVP PRN ×3 (12:36→21:58)
[2023-02-27] MEDS ORDERED: oxyCODONE-APAP 7.5-325MG 1 EACH TAB PO PRN (12:59)
--- NOTE | 2023-02-27 13:52 | P.PN ---
Subjective Progress Note Date: 02/27/23 Principal diagnosis: Right TSA Patient is seen at bedside this morning. He is postop day #1 fro reverse right total shoulder arthroplasty. He is struggling some with pain at the surgical site as expected but denies any new complaints. He denies numbness, tingling or calf pain. Review of systems is negative for fever, chills, chest pain, shortness of breath or other Objective - Vital Signs Vital signs: Vital Signs Temp 98.1 F 02/27/23 07:27 Pulse 86 02/27/23 02:00 Resp 16 02/27/23 07:27 BP 167/85 02/27/23 07:27 Pulse Ox 98 02/27/23 07:27 FiO2 Intake & Output 02/26/23 02/27/23 02/27/23 18:59 06:59 18:59 Intake Total 2019 Output Total 200 1450 Balance 1819 -1450 Weight 82.1 kg Intake: IV 1301 Intake, IV Titration 600 Amount Lactated Ringers 1,000 ml 600 @ 100 mls/hr IV .Q10H [facility] Rx#:[id number] Oral 118 Output: Urine 1450 Estimated Blood Loss 200 Other: Voiding Method Urinal # Voids 2 - Exam Inspection reveals a benign surgical wound. There is no active bleeding or drainage. Neurovascular status is intact throughout the upper extremity with motor and sensation fully intact. Calves are soft and nontender. 2+ radial pul se and less than 2 second cap refill is present. - Constitutional General appearance: Present: no acute distress - Labs CBC & Chem 7: 02/27/23 06:50 Labs: Abnormal Lab Results - Last 24 Hours (Table) 02/27/23 Range/Units 06:50 RBC 3.83 L (4.40-5.60) X 10*6/uL Hgb 11.3 L (13.0-17.0) g/dL Hct 34.0 L (39.6-50.0) % Monocytes # 1.11 H (0.20-1.00) X 10*3/uL Eosinophils # 0.02 L (0.04-0.35) X 10*3/uL Assessment and Plan (1) Osteoarthritis of right shoulder Narrative/Plan: He will continue with routine postop orthopedic protocol including pain management, wound care, PT, DVT prophylaxis and medical management. Will adjust pain meds. Expect that he will transfer to home tomorrow Current Visit: Yes Status: Acute Code(s): M19.011 - PRIMARY OSTEOARTHRITIS, RIGHT SHOULDER SNOMED Code(s): 220699520562926 Time with Patient: Less than 30
--- NOTE | 2023-02-27 14:23 | P.CONS ---
History of Present Illness - Reason for Consult Consult date: 02/27/23 Medical management, status post right total shoulder arthroplasty - History of Present Illness This is a 67-year-old male follows with Dr. Marroquin in the outpatient setting was admitted under orthopedic services underwent right shoulder reverse total shoulder arthroplasty postop day #1. Patient is currently sitting up at the site of the bed maintained in a sling and reports his pain was difficult overnight maintained on [place]. Patient is also requiring some IV Dilaudid as he reports significant pain. Patient has been up and going to the bathroom and denies any passing of gas or bowel movement and reports is voiding with no difficulties. Patient also reports he was having some difficulty in sleep last night but overall feels well. Patient is reporting some mild swelling and decreased sensation of the right hand which is to be expected with surgery and instructed patient to lightly elevate the hand while continuing to use the sling as much as possible up on a pillow. Patient does have history of hypertension, AAA that is being monitored with occasional vertigo and some anxiety. Home medications have been reviewed and resumed. Patient is currently afebrile denies chest pain or shortness of breath and reports tolerating diet. Review Of Systems: Constitutional: No fever, no chills, no night sweats. No weight change. No weakness, fatigue or lethargy. No daytime sleepiness. EENT: No headache. No blurred vision or double vision, no loss of vision. No loss of Hearing, no ringing in the ears, no dizziness. No nasal drainage or congestion. No epistaxis. No sore throat. Lungs: No shortness of breath, cough, no sputum production. No wheezing. Cardiovascular: No chest pain, no lower extremity edema. No palpitations. No paroxysmal nocturnal dyspnea. No orthopnea. No lightheadedness or dizziness. No syncopal episodes. Abdominal: No abdominal pain. No nausea, vomiting. No diarrhea. No constipation. No bloody or tarry stools.. No loss of appetite. Genitourinary: No dysuria, increased frequency, urgency. No urinary retention. Musculoskeletal: No myalgias. No muscle weakness, no gait dysfunction, no frequent falls. No back pain. No neck pain. Integumentary: No wounds, no lesions. No rash or pruritus. No unusual bruising. No change in hair or nails. Neurologic: No aphasia. No facial droop. No change in mentation. No head injury. No headache. No paralysis. No paresthesia. Psychiatric: No depression. No anxiety. No mood swings. Endocrine: No abnormal blood sugars. No weight change. No excessive sweating or thirst. No cold intolerance. PHYSICAL EXAMINATION: GENERAL: The patient is alert and oriented x4, Well developed, well nourished. HEENT: Pupils are round and equally reacting to light. EOMI. no scleral icterus. No conjunctival pallor. Normocephalic, atraumatic. No pharyngeal erythema. No thyromegaly. CARDIOVASCULAR: S1 and S2 muffled PULMONARY: Breath sounds clear to auscultation with no wheezing or rhonchi noted. ABDOMEN: soft. Nontender on exam. obese. non-distended, normoactive bowel sounds. No palpable organomegaly. MUSCULOSKELETAL: No joint swelling or deformity. EXTREMITIES: No cyanosis, clubbing, or pedal edema. NEUROLOGICAL: Gross neurological examination did not reveal any focal deficits. Diffuse weakness SKIN: No rashes. Assessment: Status post right shoulder total arthroplasty History of coronary artery disease GERD Hyperlipidemia Hypertension Findings history of anxiety GI prophylaxis DVT prophylaxis Full code Plan: Recommend to continue with current medications and management per orthopedic services. Patient is status post right total arthroplasty and has had previous right rotator cuff repair and did follow-up outpatient for presurgical clearance including cardiology follow-up and primary care provider Patient is having some increased pain and difficulty controlling pain and has been requiring some IV Dilaudid. Patient home medications were reviewed and resumed his blood pressure was mildly elevated Recommend Increased activity as tolerated and also instructed the patient to lightly elevate the right hand on a pillow while continuing to use the sling and following orthopedic restrictions CBC was reviewed and within normal limits and diabetes. WBC Was normal at 6.56, hemoglobin is 11.3 We will continue to follow with orthopedics during hospitalization. Thank you kindly for this consultation. The impression and plan of care has been dictated by Megan Carballo, nurse practitioner as directed. Dr. Josie MD I have performed a history and examination and MDM of this patient, discussed the same with the dictator, and agree with the dictator's assessment and plan as written ,documented as a scribe. Based on total visit time, I have performed more than 50% of the visit. Any additional findings or plans will be noted. Past Medical History Past Medical History: Coronary Artery Disease (CAD), GERD/Reflux, Hyperlipidemia, Hypertension Additional Past Medical History / Comment(s): AAA being monitored. Sjogren's. Occasional vertigo. Varicose veins in ankles, right shoulder torn rotator cuff History of Any Multi-Drug Resistant Organisms: None Reported Past Surgical History: Back Surgery, Heart Catheterization With Stent, Ort hopedic Surgery Additional Past Surgical History / Comment(s): Hand surgery, nerve block right shoulder, 6 cardiac stents, total reverse replacement right shoulder 02/26/23 Past Anesthesia/Blood Transfusion Reactions: No Reported Reaction Date of Last Stent Placement:: 12/26/20 Past Psychological History: Anxiety Additional Psychological History / Comment(s): 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 pet dog in the home. Usually goes to the gym 3 times weekly Smoking Status: Never smoker Past Alcohol Use History: Occasional Past Drug Use History: None Reported - Past Family History Father Family Medical History: Myocardial Infarction (OK) Additional Family Medical History / Comment(s): Father of a OK at the age of 60yrs. Mother Additional Family Medical History / Comment(s): Mother of an aneurysm that ruptured at the age of 60yrs. Medications and Allergies Home Medications Medication Instructions Recorded Confirmed Type carvediloL [Coreg] 3.125 mg PO BID 12/25/18 02/19/23 History Aspirin 81 mg PO DAILY #30 chew 12/28/18 02/19/23 Rx Nitroglycerin Sl Tabs [Nitrostat] 0.4 mg SUBLINGUAL Q5M PRN #25 tab 12/28/18 02/19/23 Rx Atorvastatin [Lipitor] 80 mg PO HS 01/23/20 02/26/23 History Clopidogrel Bisulfate [Plavix] 75 mg PO HS 10/05/20 02/19/23 History Sertraline HCl [Zoloft] 100 mg PO HS 01/22/21 02/26/23 History Isosorbide Mononitrate ER [Imdur] 60 mg PO QAM 02/19/23 02/19/23 History Oxybutynin Chloride [Ditropan XL] 10 mg PO HS 02/19/23 02/19/23 History Valsartan 320 mg PO QAM 04/13/23 04/13/23 History Docusate [Colace] 100 mg PO BID #60 capsule 02/26/23 Rx Doxycycline Hyclate 100 mg PO BID #10 tab 02/26/23 Rx Ondansetron [Zofran] 4 mg PO Q8HR PRN #21 tab 02/26/23 Rx oxyCODONE-APAP 7.5-325MG [Percocet 1 tab PO Q4HR PRN #42 tab 02/27/23 Rx 7.5-325 mg] Allergies Allergy/AdvReac Type Severity Reaction Status Date / Time No Known Allergies Allergy Verified 02/26/23 08:09 Physical Exam Vitals: Vital Signs Temp Pulse Resp BP Pulse Ox 02/27/23 07:27 98.1 F 16 167/85 98 02/27/23 02:00 97.7 F 86 16 132/80 95 02/26/23 19:47 91 16 02/26/23 19:35 97.3 F L 91 16 159/85 02/26/23 14:45 75 112/57 95 02/26/23 14:15 97.4 F L 77 17 121/71 97 02/26/23 13:04 76 16 118/74 100 02/26/23 12:48 76 16 120/73 100 02/26/23 12:34 74 16 114/68 100 02/26/23 12:18 74 16 119/74 100 02/26/23 12:06 76 16 113/72 100 02/26/23 11:48 72 16 116/66 100 02/26/23 11:34 74 12 103/61 100 02/26/23 11:19 70 12 95/57 100 02/26/23 11:02 97 F L 78 12 110/67 100 Intake and Output 02/26/23 02/27/23 02/27/23 22:59 06:59 14:59 Intake Total 718 Output Total 1450 Balance 718 -1450 Intake: Intake, IV Titration 600 Amount Lactated Ringers 1,000 ml 600 @ 100 mls/hr IV .Q10H [facility] Rx#:[id number] Oral 118 Output: Urine 1450 Other: Voiding Method Urinal # Voids 2 Weight 82.1 kg Results CBC & Chem 7: 02/27/23 06:50
[2023-02-27] MEDS: oxyCODONE-APAP 7.5-325MG 1 EACH TAB PO PRN (14:28)
[2023-02-27] MEDS: OXYBUTYNIN 10 MG TAB.ER.24 PO SCH (20:02)
[2023-02-27] MEDS: ATORVASTATIN 80 MG TAB PO SCH (20:02)
[2023-02-27] MEDS: SERTRALINE 100 MG TAB PO SCH (20:02)
[2023-02-27] MEDS ORDERED: MAG HYDROX/AL HYDROX/SIMETH 30 ML CUP PO PRN (20:59)
[2023-02-28] MEDS: LACTATED RINGERS 1,000 ML IV SCH ×2 (00:51→11:42)
[2023-02-28] MEDS: oxyCODONE-APAP 7.5-325MG 1 EACH TAB PO PRN ×3 (04:50→14:50)
[2023-02-28] MEDS ORDERED: hydrOXYzine pamoate 25 MG CAP PO PRN (08:57)
[2023-02-28] MEDS: carvediloL 3.125 MG TAB PO SCH (08:58)
[2023-02-28] MEDS: ISOSORBIDE MONONITRATE ER 60 MG TAB.ER.24H PO SCH (08:58)
[2023-02-28] MEDS: PANTOPRAZOLE 40 MG TABLET PO SCH (08:58)
--- NOTE | 2023-02-28 09:43 | P.PN ---
Subjective Progress Note Date: 02/28/23 Principal diagnosis: Status post right reverse total shoulder arthroplasty This is a 67 year-old male post right total reverse shoulder arthroplasty. This is post-op day 2. The patient was evaluated at the bedside today. The patient denies nausea, vomiting, abdominal pain, shortness of breath, and chest pain this morning. He states his pain is moderately controlled at this time. The patient has been up to the bathroom. Objective - Vital Signs Vital signs: Vital Signs Temp 99.0 F 02/28/23 07:38 Pulse 92 02/28/23 07:38 Resp 19 02/28/23 07:38 BP 159/72 02/28/23 07:38 Pulse Ox 95 02/28/23 07:52 FiO2 Intake & Output 02/27/23 02/28/23 02/28/23 18:59 06:59 18:59 Intake Total 1080 Balance 1080 Intake: Oral 1080 Other: Voiding Method Urinal # Voids 3 3 # Bowel Movements 0 - Exam The patient does not appear in acute distress. Alert and orientated x3. Dressing is clean dry and intact. Incision appears fine with no erythema or active drainage. Arm is soft and nontender. Good hand and wrist motion without difficulty. Sensation and circulatory status is intact. - Labs CBC & Chem 7: 02/27/23 06:50 Labs: Abnormal Lab Results - Last 24 Hours (Table) 02/27/23 Range/Units 06:50 RBC 3.83 L (4.40-5.60) X 10*6/uL Hgb 11.3 L (13.0-17.0) g/dL Hct 34.0 L (39.6-50.0) % Monocytes # 1.11 H (0.20-1.00) X 10*3/uL Eosinophils # 0.02 L (0.04-0.35) X 10*3/uL Assessment and Plan (1) Status post reverse total arthroplasty of right shoulder Current Visit: Yes Status: Acute Code(s): Z96.611 - PRESENCE OF RIGHT ARTIFICIAL SHOULDER JOINT SNOMED Code(s): 64755384282863386 (2) Osteoarthritis of right shoulder Current Visit: Yes Status: Acute Code(s): M19.011 - PRIMARY OSTEOARTHRITIS, RIGHT SHOULDER SNOMED Code(s): 381375935654060 Plan: 1. Continue pain control, we will add Vistaril today. 2. Continue in arm sling 3. Continue ambulation 4. Anticipate discharge home later today if pain is controlled.
--- NOTE | 2023-02-28 11:54 | XR ---
EXAMINATION TYPE: XR chest 1V portable DATE OF EXAM: 02/28/2023 HISTORY: Shortness of breath. COMPARISON: 10/03/2022 TECHNIQUE: Single view of the chest is submitted. FINDINGS: Demonstrated are scattered senescent parenchymal change. Degree of inspiration is limiting. Elevatio n right hemidiaphragm. Basilar increased density may reflect atelectasis or developing infiltrates. C orrelate clinically. The heart is stable. Hilar and mediastinal structures are within normal limits. Degenerative changes are seen of the dorsal spine. IMPRESSION: 1. Elevation right hemidiaphragm. Basilar increased density may reflect atelectasis or developing in filtrates. Correlate clinically.
[2023-02-28 13:50] VITALS: BP 153/74; PULSE 59; RESP 18; TEMP 98.5
--- NOTE | 2023-03-02 06:27 | P.PN ---
Subjective Progress Note Date: 02/28/23 - Reason for Consult Consult date: 02/27/23 Medical management, status post right total shoulder arthroplasty - History of Present Illness This is a 67-year-old male follows with Dr. Marroquin in the outpatient setting was admitted under orthopedic services underwent right shoulder reverse total shoulder arthroplasty postop day #1. Patient is currently sitting up at the site of the bed maintained in a sling and reports his pain was difficult overnight maintained on [place]. Patient is also requiring some IV Dilaudid as he reports significant pain. Patient has been up and going to the bathroom and denies any passing of gas or bowel movement and reports is voiding with no difficulties. Patient also reports he was having some difficulty in sleep last night but overall feels well. Patient is reporting some mild swelling and decr eased sensation of the right hand which is to be expected with surgery and instructed patient to lightly elevate the hand while continuing to use the sling as much as possible up on a pillow. Patient does have history of hypertension, AAA that is being monitored with occasional vertigo and some anxiety. Home medications have been reviewed and resumed. Patient is currently afebrile denies chest pain or shortness of breath and reports tolerating diet. 02/28/2023 Patient was seen and evaluated this morning continues to have right shoulder pain and working with orthopedics in regards to the pain regimen. Patient also reporting some shortness of breath and was placed on 2 L oxygen is per nursing staff pulse ox was less than 90%. Patient does not normally wear oxygen the outpatient setting and have ordered incentive spirometer and encourage the patient continue using. Will obtain chest x-ray. Patient denies chest pain or palpitations at this time and reports that his shortness of breath when getting up and walking. Patient is currently laying flat on exam. Patient is afebrile with no reports of nausea or vomiting noted and tolerating diet. Plan is for possible discharge today. Review of systems: Constitutional: No reports of fatigue, fever, or chills Cardiovascular: No reports of chest pain or palpitations Respiratory: reports of shortness of breath with exertion GI: No reports of nausea, vomiting, or diarrhea : No reports of dysuria or retention Neurovascular: No reports of weakness or numbness, reports continued right shoulder pain All medications have been reviewed PHYSICAL EXAMINATION: GENERAL: The patient is alert and oriented x4, Well developed, well nourished. HEENT: Pupils are round and equally reacting to light. EOMI. no scleral icterus. No conjunctival pallor. Normocephalic, atraumatic. No pharyngeal erythema. No thyromegaly. CARDIOVASCULAR: S1 and S2 muffled PULMONARY: Breath sounds clear to auscultation with no wheezing or rhonchi noted. ABDOMEN: soft. Nontender on exam. non-distended, normoactive bowel sounds. No palpable organomegaly. MUSCULOSKELETAL: No joint swelling or deformity. EXTREMITIES: No cyanosis, clubbing, or pedal edema. Right shoulder sling noted NEUROLOGICAL: Gross neurological examination did not reveal any focal deficits. SKIN: No rashes. Assessment: Status post right shoulder total arthroplasty History of coronary artery disease GERD Hyperlipidemia Hypertension history of anxiety GI prophylaxis DVT prophylaxis Full code Plan: Recommend to continue with current medications and management per orthopedic services. Patient is status post right total shoulder arthroplasty and has had previous right rotator cuff repair and did follow-up outpatient for presurgical clearance including cardiology and primary care provider Patient is having some increased pain and difficulty controlling pain and has been requiring some IV Dilaudid. Defer pain management to orthopedics Incentive spirometer ordered and encourage patient to continue using at least 10 times every hour while awake. Patient did have some shortness of breath and oxygen saturation reading of less than 90% and placed on 2 L supplemental oxygen. Chest x-ray obtained showed some possible atelectasis and again encouraged coughing and deep breathing with incentive spirometer use Patient home medications were reviewed and resumed his blood pressure was mildly elevated Recommend Increased activity as tolerated and also instructed the patient to lightly elevate the right hand on a pillow while continuing to use the sling and following orthopedic restrictions CBC was reviewed and within normal limits and diabetes. WBC Was normal at 6.56, hemoglobin is 11.3 We will continue to follow with orthopedics during hospitalization. Thank you kindly for this consultation. Patient reports possible discharge today per orthopedics The impression and plan of care has been dictated by Megan Carballo, nurse practitioner as directed. Dr. Josie MD I have performed a history and examination and MDM of this patient, discussed the same with the dictator, and agree with the dictator's assessment and plan as written ,documented as a scribe. Based on total visit time, I have performed more than 50% of the visit. Any additional findings or plans will be noted. Objective - Vital Signs Vital signs: Vital Signs Temp 99.0 F 02/28/23 07:38 Pulse 92 02/28/23 07:38 Resp 19 02/28/23 07:38 BP 159/72 02/28/23 07:38 Pulse Ox 95 02/28/23 07:52 FiO2 Intake & Output 02/27/23 02/28/23 02/28/23 18:59 06:59 18:59 Intake Total 1080 Balance 1080 Intake: Oral 1080 Other: Voiding Method Urinal # Voids 3 3 # Bowel Movements 0 - Labs CBC & Chem 7: 02/27/23 06:50
--- NOTE | 2023-03-02 07:48 | P.DS ---
Providers Expected date of discharge: 02/28/23 Attending physician: Tej Crenshaw Consults: 02/26/23 09:03 Consult Physician Routine Consulting Provider: Jacobo Wolff Consult Reason/Comments: post op medical management Do you want consulting provider notified?: Yes Primary care physician: Estevan Marroquin - Discharge Diagnosis(es) (1) Status post reverse total arthroplasty of right shoulder Status: Acute (2) Osteoarthritis of right shoulder Status: Acute Hospital Course: This is a 67 year-old male with a known history of osteoarthritis of the right shoulder. The patient presented to the orthopedic office for evaluation. After discussion and consideration the patient elects to proceed with a right reverse total shoulder arthroplasty. The patient was seen preoperatively by his primary care physician and cleared for surgery. The patient was admitted to observation at [facility] on 02/26/23 for a right reverse total shoulder arthroplasty by Dr. Crenshaw. The procedure was performed without complication or sequelae. The patient is doing well postoperatively. Labs and vital signs are stable and day of discharge. On the day of discharge the patient shoulder incision is healing well. There is minimal erythema. There is no drainage noted at this time. There is minimal soft tissue swelling to the right upper extremity. The patient has full hand, wrist, and elbow motion without difficulty or pain. Neurovascular status to the right upper extremity is intact. The patient will be discharged home today in stable condition. Patient Condition at Discharge: Stable Plan - Discharge Summary Discharge Rx Participant: No New Discharge Prescriptions: New Docusate [Colace] 100 mg PO BID #60 capsule Ondansetron [Zofran] 4 mg PO Q8HR PRN #21 tab PRN Reason: Nausea Famotidine [Pepcid] 20 mg PO BID #30 tablet Doxycycline Hyclate 100 mg PO BID #10 tab oxyCODONE-APAP 7.5-325MG [Percocet 7.5-325 mg] 1 tab PO Q4HR PRN #42 tab PRN Reason: Pain polyethylene glycoL 3350 [Miralax] 17 gm PO DAILY PRN #15 packet PRN Reason: Constipation Continue carvediloL [Coreg] 3.125 mg PO BID Aspirin 81 mg PO DAILY #30 chew Nitroglycerin Sl Tabs [Nitrostat] 0.4 mg SUBLINGUAL Q5M PRN #25 tab PRN Reason: Chest Pain Atorvastatin [Lipitor] 80 mg PO HS Clopidogrel Bisulfate [Plavix] 75 mg PO HS Sertraline HCl [Zoloft] 100 mg PO HS Isosorbide Mononitrate ER [Imdur] 60 mg PO DAILY Valsartan 320 mg PO DAILY Oxybutynin Chloride [Ditropan XL] 10 mg PO HS No Action Fluoride (Sodium) [Sodium Fluoride 5000 Plus] 1 applic DENTAL BID hydrOXYzine pamoate [Vistaril] 25 mg PO TID PRN PRN Reason: TO ENHANCE PAIN MEDS Discharge Medication List carvediloL [Coreg] 3.125 mg PO BID 12/25/18 [History] Aspirin 81 mg PO DAILY #30 chew 12/28/18 [Rx] Nitroglycerin Sl Tabs [Nitrostat] 0.4 mg SUBLINGUAL Q5M PRN #25 tab 12/28/18 [Rx] Atorvastatin [Lipitor] 80 mg PO HS 01/23/20 [History] Clopidogrel Bisulfate [Plavix] 75 mg PO HS 10/05/20 [History] Sertraline HCl [Zoloft] 100 mg PO HS 01/22/21 [History] Isosorbide Mononitrate ER [Imdur] 60 mg PO DAILY 02/19/23 [History] Oxybutynin Chloride [Ditropan XL] 10 mg PO HS 02/19/23 [History] Valsartan 320 mg PO DAILY 02/19/23 [History] Docusate [Colace] 100 mg PO BID #60 capsule 02/26/23 [Rx] Doxycycline Hyclate 100 mg PO BID #10 tab 02/26/23 [Rx] Ondansetron [Zofran] 4 mg PO Q8HR PRN #21 tab 02/26/23 [Rx] oxyCODONE-APAP 7.5-325MG [Percocet 7.5-325 mg] 1 tab PO Q4HR PRN #42 tab 02/27/23 [Rx] Famotidine [Pepcid] 20 mg PO BID #30 tablet 02/28/23 [Rx] polyethylene glycoL 3350 [Miralax] 17 gm PO DAILY PRN #15 packet 02/28/23 [Rx] Fluoride (Sodium) [Sodium Fluoride 5000 Plus] 1 applic DENTAL BID 03/01/23 [History] hydrOXYzine pamoate [Vistaril] 25 mg PO TID PRN 03/01/23 [History] Follow up Appointment(s)/Referral(s): Estevan Marroquin III, MD [Primary Care Provider] - 1 Week Tej Crenshaw MD [STAFF PHYSICIAN] - 10 Days Patient Instructions/Handouts: *Surgery [facility] - ([facility]) Shoulder Arthroscopy Post-Op Instructions Activity/Diet/Wound Care/Special Instructions: maintain sling keep wound clean and dry take meds as directed f/u in office may shower in 3 days if no bleeding Discharge Disposition: HOME SELF-CARE
== END 2023-02-28 14:57 | disposition home or self-care (01) ==
LOC: OR 07:43 → 4SSUR 11:02 → OR 02-28 14:57
PROVIDERS: ATTEND Orthopaedic Surgery Sports Medicine
DX: M12.811 Other specific arthropathies, not elsewhere classified, right shoulder (principal); G89.29 Other chronic pain; I25.10 Atherosclerotic heart disease of native coronary artery without angina pectoris; K21.9 Gastro-esophageal reflux disease without esophagitis; I10 Essential (primary) hypertension; E78.5 Hyperlipidemia, unspecified; F41.9 Anxiety disorder, unspecified; Z95.5 Presence of coronary angioplasty implant and graft; Z98.890 Other specified postprocedural states; Z82.49 Family history of ischemic heart disease and other diseases of the circulatory system; Z79.82 Long term (current) use of aspirin; Z79.899 Other long term (current) drug therapy
CPT/HCPCS: 64415; 76942; 85025; 88300; 73020; 71045; 23472; C1776; J2250; J3370; J1100; J2765; J0690 ×3; J2405; J1170

== ENCOUNTER 2023-03-01 11:57 | Inpatient (IN) | payer MEDICARE ==
--- NOTE | 2023-03-01 12:29 | ED ---
Chest Pain HPI - General Chief Complaint: Chest Pain Stated Complaint: Chest Pain, SOB Time Seen by Provider: 03/01/23 12:00 Source: patient, EMS, RN notes reviewed, old records reviewed Mode of arrival: EMS Limitations: no limitations - History of Present Illness Initial Comments: 59-year-old male with a history of coronary artery disease and 6/10 as well as a thoracic aortic aneurysm is been observed Sjogren syndrome hypertension GERD who also just had a right shoulder replacement done 3 days ago who presents with complaints by EMS of sharp mid and generalized frontal chest hernandez pain with shortness of breath exertional dyspnea. He states it was severe sharp similar to previous episodes of coronary artery disease presentation. He was given n itroglycerin and aspirin by paramedics in route with resolution of his pain. It is semi-states she's pain-free he states he also feels better after having oxygen placed with respect to his breathing. Patient does have a history of DVT in blood clot in the past. No other complaints at this time no other modifying factors MD Complaint: chest pain, other - Related Data Home Medications Medication Instructions Recorded Confirmed carvediloL [Coreg] 3.125 mg PO BID 12/25/18 03/01/23 Atorvastatin [Lipitor] 80 mg PO HS 01/23/20 03/01/23 Clopidogrel Bisulfate [Plavix] 75 mg PO HS 10/05/20 03/01/23 Sertraline HCl [Zoloft] 100 mg PO HS 01/22/21 03/01/23 Isosorbide Mononitrate ER [Imdur] 60 mg PO DAILY 02/19/23 03/01/23 Oxybutynin Chloride [Ditropan XL] 10 mg PO HS 02/19/23 03/01/23 Valsartan 320 mg PO DAILY 02/19/23 03/01/23 Fluoride (Sodium) [Sodium Fluoride 1 applic DENTAL BID 03/01/23 03/01/23 5000 Plus] hydrOXYzine pamoate [Vistaril] 25 mg PO TID PRN 03/01/23 03/01/23 Previous Rx's Medication Instructions Recorded Aspirin 81 mg PO DAILY #30 chew 12/28/18 Nitroglycerin Sl Tabs [Nitrostat] 0.4 mg SUBLINGUAL Q5M PRN #25 tab 12/28/18 Docusate [Colace] 100 mg PO BID #60 capsule 02/26/23 Doxycycline Hyclate 100 mg PO BID #10 tab 02/26/23 Ondansetron [Zofran] 4 mg PO Q8HR PRN #21 tab 02/26/23 oxyCODONE-APAP 7.5-325MG [Percocet 1 tab PO Q4HR PRN #42 tab 02/27/23 7.5-325 mg] Famotidine [Pepcid] 20 mg PO BID #30 tablet 02/28/23 polyethylene glycoL 3350 [Miralax] 17 gm PO DAILY PRN #15 packet 02/28/23 Allergies Allergy/AdvReac Type Severity Reaction Status Date / Time No Known Allergies Allergy Verified 03/01/23 13:11 Review of Systems ROS Statement: Those systems with pertinent positive or pertinent negative responses have been documented in the HPI. ROS Other: All systems not noted in ROS Statement are negative. EKG Findings - EKG Results: EKG: interpreted by ERMD (EKG interpreted by me normal sinus rhythm of 87 IN interval 183 QRS duration 8090 QT since QTC 350/394 occasional supraventricular premature complexes. This is compared with an EKG dated 10/03/22.) Past Medical History Past Medical History: Coronary Artery Disease (CAD), GERD/Reflux, Hyperlipidemia, Hypertension Additional Past Medical History / Comment(s): AAA being monitored. Sjogren's. Occasional vertigo. Varicose veins in ankles, right shoulder torn rotator cuff History of Any Multi-Drug Resistant Organisms: None Reported Past Surgical History: Back Surgery, Heart Catheterization With Stent, Orthopedic Surgery Additional Past Surgical History / Comment(s): Hand surgery, nerve block right shoulder, 6 cardiac stents, total reverse replacement right shoulder 02/26/23 Past Anesthesia/Blood Transfusion Reactions: No Reported Reaction Date of Last Stent Placement:: 12/26/20 Past Psychological History: Anxiety Past Alcohol Use History: Rare - Past Family History Father Family Medical History: Myocardial Infarction ([place]) Additional Family Medical History / Comment(s): Father of a [place] at the age of 60yrs. Mother Additional Family Medical History / Comment(s): Mother of an aneurysm that ruptured at the age of 60yrs. General Exam - General Exam Comments Initial Comments: Is a well-developed well-nourished awake alert oriented 4 male Limitations: no limitations General appearance: alert, in no apparent distress Head exam: Present: atraumatic, normocephalic, normal inspection Eye exam: Present: normal appearance, PERRL, EOMI. Absent: scleral icterus, conjunctival injection, periorbital swelling ENT exam: Present: normal exam, mucous membranes moist Neck exam: Present: normal inspection, full ROM, other (No stridor JVD or bruits). Absent: tenderness, meningismus, lymphadenopathy Respiratory exam: Present: chest wall tenderness, decreased breath sounds (Slightly diminished breath sounds bilaterally tenderness palpation of the right costal sternal margin with no step-off or crepitation patient has difficulty stating whether this reproduces the pain he strains earlier.). Absent: respiratory distress, wheezes, rales, rhonchi, stridor Cardiovascular Exam: Present: regular rate, normal rhythm, normal heart sounds. Absent: systolic murmur, diastolic murmur, rubs, gallop, clicks GI/Abdominal exam: Present: soft, normal bowel sounds. Absent: distended, tenderness, guarding, rebound, rigid Extremities exam: Present: full ROM, normal capillary refill, other (Right shoulder examined a healing anterior shoulder surgical scar no evidence of dehiscence or wound infection at this time no drainage seen.). Absent: tenderness, pedal edema, joint swelling, calf tenderness Back exam: Present: normal inspection Neurological exam: Present: alert, oriented X3, CN II-XII intact Psychiatric exam: Present: normal affect, normal mood Skin exam: Present: warm, dry, intact, normal color. Absent: rash Course Vital Signs 03/01/23 11:59 Temperature 98.4 F Pulse Rate 93 Respiratory 18 Rate Blood Pressure 162/85 O2 Sat by Pulse 97 Oximetry Chest Pain MDM - MDM I did reevaluate and interpret the imaging. Chest x-ray increased totally vascular markings CAT scan showed no definitive evidence of large vessel pulmonary embolus. Evidence of a small right pleural effusion stable thoracic aortic aneurysm. I did discuss this with the patient as well as with Dr. Farias.Was pt. sent in by a medical professional or institution (, PA, LEARNING STRATEGIST, urgent care, hospital, or intermediate...) When possible be specific @ -No Did you speak to anyone other than the patient for history (EMS, parent, family, police, friend...)? What history was obtained from this source @ -EMS Did you review nursing and triage notes (agree or disagree)? Why? @ -I reviewed and agree with nursing and triage notes Were old charts reviewed (outside hosp., previous admission, EMS record, old EKG, old radiological studies, urgent care reports/EKG's, intermediate records)? Report findings @ -Last admission old charts were reviewed Differential Diagnosis (chest pain, altered mental status, abdominal pain women, abdominal pain men, vaginal bleeding, weakness, fever, dyspnea, syncope, headache, dizziness, GI bleed, back pain, seizure, CVA, palpatations, mental health, musculoskeletal)? @ -Chest pain, dyspnea EKG interpreted by me (3pts min.). @ -As above X-rays interpreted by me (1pt min.). @ -As above] CT interpreted by me (1pt min.). @ -As above U/S interpreted by me (1pt. min.). @ -None done What testing was considered but not performed or refused? (CT, X-rays, U/S, labs)? Why? @ -None What meds were considered but not given or refused? Why? @ -None Did you discuss the management of the patient with other professionals (professionals i.e. , PA, LEARNING STRATEGIST, lab, RT, psych nurse, social science instructor, automotive brake technician, teacher, family preservation officer, window caser)? Give summary @ -Dr. Farias Was smoking cessation discussed for >3mins.? @ -No Was critical care preformed (if so, how long)? @ -31 minutes Were there social determinants of health that impacted care today? How? (Homelessness, low income, unemployed, alcoholism, drug addiction, transportation, low edu. Level, literacy, decrease access to med. care, [facility], rehab)? @ -No Was there de-escalation of care discussed even if they declined (Discuss DNR or withdrawal of care, Hospice)? DNR status @ -No What co-morbidities impacted this encounter? (DM, HTN, Smoking, COPD, CAD, Cancer, CVA, ARF, Chemo, Hep., AIDS, mental health diagnosis, sleep apnea, morbid obesity)? @ -Coronary artery disease, hypertension, thoracic aortic aneurysm, hyperlipidemia, GERD] Was patient admitted / discharged? Hospital course, mention meds given and route, prescriptions, significant lab abnormalities, going to OR and other pertinent info. @ -hospital course patient was admitted for inpatient evaluation and treatment chest pain with suspicion of unstable angina additionally dyspnea with elevated BNP cardiology will be consulted. Patient also has hyponatremia. Undiagnosed new problem with uncertain prognosis? @ -No Drug Therapy requiring intensive monitoring for toxicity (Heparin, Nitro, Insulin, Cardizem)? @ -No Were any procedures done? @ -No Diagnosis/symptom? @ -Unstable angina, chest pain, CHF, hyponatremia, elevated d-dimer, elevated BNP Acute, or Chronic, or Acute on Chronic? @ -Acute Uncomplicated (without systemic symptoms) or Complicated (systemic symptoms)? @ -Complicated Side effects of treatment? @ -No Exacerbation, Progression, or Severe Exacerbation? @ -Exacerbation Poses a threat to life or bodily function? How? (Chest pain, [place], [place], pneumonia, PE, COPD, DKA, ARF, appy, cholecystitis, CVA, Diverticulitis, Homicidal, Suicidal, threat to staff... and all critical care pts) @ -Yes, unstable angina, hyponatremia, CHF Critical Care Time Critical Care Time: Yes Total Critical Care Time: 31 Disposition Clinical Impression: Unstable angina pectoris, CHF (congestive heart failure), Hyponatremia, Shortness of breath, Status post reverse total arthroplasty of right shoulder Disposition: ADMITTED IP TO THIS HOSP Condition: Fair Referrals: Estevan Marroquin III, MD [Primary Care Provider] - 1-2 days Decision Date: 03/01/23 Decision Time: 14:56
[2023-03-01 12:45] LABS: Basophils % (A) 0 %; Eosinophils # (A) 0.2 k/uL (0-0.7); Eosinophils % (A) 2 %; HCT 35.6 % (39.0-53.0); HGB 12.3 gm/dL (13.0-17.5); Lymphocytes # (A) 0.5 k/uL (1.0-4.8); Lymphocytes % (A) 7 %; MCH 30.7 pg (25.0-35.0); MCHC 34.5 g/dL (31.0-37.0); MCV 89.2 fL (80.0-100.0); Mean Platelet Volume 8.7; Monocytes # (A) 0.6 k/uL (0-1.0); Monocytes % (A) 8 %; Neutrophils # (A) 5.8 k/uL (1.3-7.7); Neutrophils % (A) 80 %; Platelet Count 153 k/uL (150-450); RBC 3.99 m/uL (4.30-5.90); RDW 14.2 % (11.5-15.5); WBC 7.3 k/uL (3.8-10.6)
[2023-03-01 12:47] LABS: ALT 27 U/L (4-49); AST 53 U/L (17-59); African American GFR (CKD) >90 (>60 ml/min/1.73 sqM); Albumin 3.6 g/dL (3.5-5.0); Alkaline Phosphatase 71 U/L (38-126); Anion Gap 8 mmol/L; Blood Urea Nitrogen 7 mg/dL (9-20); Carbon Dioxide 26 mmol/L (22-30); Chloride 90 mmol/L (98-107); Glucose 78 mg/dL (74-99); Lipase 46 U/L (23-300); Magnesium 1.7 mg/dL (1.6-2.3); Non-African American GFR(CKD) >90 (>60 ml/min/1.73 sqM); Potassium 4.2 mmol/L (3.5-5.1); Sodium 124 mmol/L (137-145); Total Bilirubin 1.3 mg/dL (0.2-1.3); Total Protein 6.4 g/dL (6.3-8.2)
[2023-03-01 13:01] LABS: INR 0.9 (<1.2); Prothrombin Time 9.8 sec (9.0-12.0)
[2023-03-01 13:02] LABS: Partial Thromboplastin Time 23.5 sec (22.0-30.0)
[2023-03-01] MEDS ORDERED: HYDROmorphone 1 MG/ML 1 ML SYRINGE IVP STA (13:17)
--- NOTE | 2023-03-01 13:41 | XR ---
EXAMINATION TYPE: XR chest 2V DATE OF EXAM: 03/01/2023 COMPARISON: 02/28/2023 HISTORY: Shortness of breath TECHNIQUE: Frontal and lateral views of the chest are obtained. FINDINGS: Scattered senescent parenchymal changes noted. Hyperinflation compatible with COPD. Improved aeration at the lung bases. Chronic elevation right hemidiaphragm. Heart size is stable. Mediastinal structures are stable and grossly unremarkable. No evidence for hilar prominence. Degenerative changes dorsal spine. IMPRESSION: 1. No evidence for acute pulmonary disease.
--- NOTE | 2023-03-01 13:52 | CT ---
There is EXAMINATION TYPE: CT angio chest DATE OF EXAM: 03/01/2023 COMPARISON: 09/18/2020 HISTORY: Chest pain, recent right shoulder surgery CT DLP: 421.9 mGycm CONTRAST: CT chest with contrast and 3D reconstruction with MIP imaging is performed with IV Contrast, patient injected with 100, wasted 12 mL of Isovue 370. Contrast-enhanced CT of the chest was performed through the course of the pulmonary arteries with angely g and mediastinal window settings submitted. 3D reconstruction with MIP imaging was also performed. PULMONARY ARTERIES: The main pulmonary arteries and their major tributaries are free of pulmonary emb olism however the distal branches demonstrate a few filling defects which could be technical in natur e. Distal emboli difficult to exclude. Correlate clinically. LUNGS: Small right basilar pleural effusion with atelectatic change. Chronic appearing elevation righ t hemidiaphragm. MEDIASTINUM: The heart is enlarged. Ascending thoracic aortic aneurysm measuring 4.5 cm. No evidence for mediastinal mass. No mediastinal lymph nodes greater than 1cm. HILAR STRUCTURES: No evidence for mass. No hilar lymph nodes greater than 1 cm. Other: Postoperative changes about the right shoulder with postoperative seroma and soft tissue air s een. Streak artifact seen from prosthesis. UPPER ABDOMEN: No significant abnormality is seen. IMPRESSION: 1. The main pulmonary arteries and their major tributaries are free of pulmonary embolism however th e distal branches demonstrate a few filling defects which could be technical in nature. Distal emboli difficult to exclude. Correlate clinically. 2. Small right basilar pleural effusion with atelectatic change. Chronic appearing elevation right he midiaphragm. 3. Postoperative changes about the right shoulder. 4. Ascending thoracic aortic aneurysm.
[2023-03-01] MEDS ORDERED: FUROSEMIDE 10 MG/ML 4 ML VIAL IV STA (14:50)
[2023-03-01] MEDS ORDERED: NITROGLYCERIN SL TABS 0.4 MG TAB SUBLINGUAL PRN (14:57)
[2023-03-01] MEDS ORDERED: ONDANSETRON 4 MG TAB PO PRN (15:01)
[2023-03-01] MEDS ORDERED: polyethylene glycoL 3350 17 GM POWD.PACK PO PRN (15:01)
[2023-03-01] MEDS: carvediloL 3.125 MG TAB PO SCH (17:00)
[2023-03-01] MEDS: oxyCODONE-APAP 7.5-325MG 1 EACH TAB PO PRN ×2 (17:01→20:52)
[2023-03-01] MEDS: DOCUSATE 100 MG CAP PO SCH (20:37)
[2023-03-01] MEDS: SERTRALINE 100 MG TAB PO SCH (20:38)
[2023-03-01] MEDS: CLOPIDOGREL 75 MG TAB PO SCH (20:38)
[2023-03-01] MEDS: ATORVASTATIN 80 MG TAB PO SCH (20:38)
[2023-03-01] MEDS: FAMOTIDINE 20 MG TAB PO SCH (20:39)
[2023-03-01] MEDS: hydrOXYzine pamoate 25 MG CAP PO PRN (20:52)
[2023-03-01] MEDS: OXYBUTYNIN 10 MG TAB.ER.24 PO SCH (20:53)
[2023-03-01] MEDS: SODIUM FLUORIDE MUCOUS MEM SCH (22:10)
[2023-03-01] MEDS: DOXYCYCLINE 100 MG CAP PO SCH (23:21)
--- NOTE | 2023-03-01 23:23 | P.HPIM ---
History of Present Illness H&P Date: 03/01/23 Chief Complaint: Chest pain Patient is a 67-year-old male with a known history of coronary artery disease status post stent placement x6, hypertension, hyperlipidemia, history of abdominal aortic aneurysm and recent right shoulder arthroplasty on 02/26/2023 presents to ER with complaints of chest pain. Patient states that he was at home and suddenly started having mid retrosternal chest pain and states that he could not breathe. Denied any radiation of the pain. No associated dizziness or lightheadedness. No nausea or vomiting or diaphoresis. Patient was given aspirin and nitroglycerin by paramedics in route which seems to relieve the pain. Currently patient denies any chest pain. Patient was placed on 2 L oxygen via nasal cannula. Denies any fever or chills. No pleuritic pain. No leg swelling. Most recent stent placement about 1 and half year ago. Laboratory data WBC 7.3 hemoglobin 12.3 and platelets 153 D-dimer 1.49 Sodium 124 potassium 4.2 chloride 90 bicarb is 26 BUN 7 creatinine 0.6 and calcium 8.0 and troponin x3 negative and proBNP is 1090 11 units are not elevated. Magnesium 1.7. Patient has been taking doxycycline 100 mg twice daily since recent shoulder surgery. Chest x-ray showed no active cardiopulmonary disease. EKG showed sinus rhythm with occasional supraventricular premature complexes. CTA chest was done due to elevated D-dimer level showed main pulmonary arteries and had major tributaries are free of PE. Small right basilar pleural effusion with atelectatic changes. Chronic appearing elevation right hemidiaphragm. Ascending thoracic aortic aneurysm. Review of Systems Constitutional: Patient denies any fever or chills . no Generalized weakness. Abdomen: Patient denied any nausea or vomiting or abd. pain Cardiovascular: Patient did have chest pain on admission and exertional shortness of breath. No palpitations. Respiratory: patient denied any cough . no sputum production. No shortness of breath Neurologic: Patient denied any numbness or tingling headache. Musculoskeletal: Patient denies any complaints of joint swelling or deformity. Skin: Negative Psychiatric: Negative Endocrine: No heat or cold intolerance. No recent weight gain. Genitourinary: No dysuria or hematuria. All other 14 point ROS negative except the above Past Medical History Past Medical History: Coronary Artery Disease (CAD), GERD/Reflux, Hyperlipidemia, Hypertension Additional Past Medical History / Comment(s): AAA 43 cm being monitored. S jogren's. Occasional vertigo. Varicose veins in ankles, right shoulder torn rotator cuff History of Any Multi-Drug Resistant Organisms: None Reported Past Surgical History: Back Surgery, Heart Catheterization With Stent, Orthopedic Surgery Additional Past Surgical History / Comment(s): Hand surgery, nerve block right shoulder, 6 cardiac stents, total reverse replacement right shoulder 02/26/23 Past Anesthesia/Blood Transfusion Reactions: No Reported Reaction Date of Last Stent Placement:: 12/26/20 Past Psychological History: Anxiety Additional Psychological History / Comment(s): 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 pet dog in the home. Usually goes to the gym 3 times weekly Smoking Status: Never smoker Past Alcohol Use History: Rare Past Drug Use History: None Reported - Past Family History Father Family Medical History: Myocardial Infarction ([place]) Additional Family Medical History / Comment(s): Father of a [place] at the age of 60yrs. Mother Additional Family Medical History / Comment(s): Mother of an aneurysm that ruptured at the age of 60yrs. Medications and Allergies Home Medications Medication Instructions Recorded Confirmed Type carvediloL [Coreg] 3.125 mg PO BID 12/25/18 03/01/23 History Aspirin 81 mg PO DAILY #30 chew 12/28/18 03/01/23 Rx Nitroglycerin Sl Tabs [Nitrostat] 0.4 mg SUBLINGUAL Q5M PRN #25 tab 12/28/18 03/01/23 Rx Atorvastatin [Lipitor] 80 mg PO HS 01/23/20 03/01/23 History Clopidogrel Bisulfate [Plavix] 75 mg PO HS 10/05/20 03/01/23 History Sertraline HCl [Zoloft] 100 mg PO HS 01/22/21 03/01/23 History Isosorbide Mononitrate ER [Imdur] 60 mg PO DAILY 02/19/23 03/01/23 History Oxybutynin Chloride [Ditropan XL] 10 mg PO HS 02/19/23 03/01/23 History Valsartan 320 mg PO DAILY 02/19/23 03/01/23 History Docusate [Colace] 100 mg PO BID #60 capsule 02/26/23 03/01/23 Rx Doxycycline Hyclate 100 mg PO BID #10 tab 02/26/23 03/01/23 Rx Ondansetron [Zofran] 4 mg PO Q8HR PRN #21 tab 02/26/23 03/01/23 Rx oxyCODONE-APAP 7.5-325MG [Percocet 1 tab PO Q4HR PRN #42 tab 02/27/23 03/01/23 Rx 7.5-325 mg] Famotidine [Pepcid] 20 mg PO BID #30 tablet 02/28/23 03/01/23 Rx polyethylene glycoL 3350 [Miralax] 17 gm PO DAILY PRN #15 packet 02/28/23 03/01/23 Rx Fluoride (Sodium) [Sodium Fluoride 1 applic DENTAL BID 03/01/23 03/01/23 History 5000 Plus] hydrOXYzine pamoate [Vistaril] 25 mg PO TID PRN 03/01/23 03/01/23 History Allergies Allergy/AdvReac Type Severity Reaction Status Date / Time No Known Allergies Allergy Verified 03/01/23 13:11 Physical Exam Vitals: Vital Signs Temp Pulse Pulse Resp BP BP Pulse Ox 03/01/23 20:00 98.2 F 86 16 130/77 97 03/01/23 16:36 98.4 F 94 16 157/89 99 03/01/23 16:08 98.6 F 87 16 156/90 95 03/01/23 11:59 98.4 F 93 18 162/85 97 Intake and Output 03/01/23 03/01/23 03/01/23 06:59 14:59 22:59 Intake Total 118 Balance 118 Intake: Oral 118 Other: Weight 81.647 kg 81.647 kg PHYSICAL EXAMINATION: Patient is lying in the bed comfortably, no acute distress, awake alert and oriented.. HEENT: Normocephalic. Neck is supple. Pupils reactive. Nostrils clear. Oral cavity is moist. Neck reveals no JVD, carotid bruits, or thyromegaly. CHEST EXAMINATION: Trachea is central. Symmetrical expansion. Minimal bibasilar crackles. No wheezing or rhonchi.. CARDIAC: Normal S1, S2 with no gallops. No murmurs ABDOMEN: Soft. Bowel sounds present. Nontender. No organomegaly. No abdominal bruits. Extremities: reveal no edema. No clubbing or cyanosis Neurologically awake, alert, oriented x3 with well-coordinated movements. No focal deficits noted Skin: No rash or skin lesions. Psychiatric: Coperative. Nonsuicidal, Musculoskeletal: No joint swelling or deformity. Normal range of motion. Right shoulder surgical site is healing and intact. Results CBC & Chem 7: 03/01/23 12:28 03/02/23 07:15 Labs: Abnormal Lab Results - Last 24 Hours (Table) 03/01/23 03/01/23 03/01/23 Range/Units 12:28 12:28 12:28 RBC 3.99 L (4.30-5.90) m/uL Hgb 12.3 L (13.0-17.5) gm/dL Hct 35.6 L (39.0-53.0) % Lymphocytes # 0.5 L (1.0-4.8) k/uL D-Dimer 1.49 H (<0.60) mg/L FEU Sodium 124 L (137-145) mmol/L Chloride 90 L (98-107) mmol/L BUN 7 L (9-20) mg/dL Creatinine 0.60 L (0.66-1.25) mg/dL Calcium 8.0 L (8.4-10.2) mg/dL Thrombosis Risk Factor Assmnt - DVT/VTE Prophylaxis DVT/VTE Prophylaxis: Pharmacologic Prophylaxis ordered - Choose All That Apply Any of the Below Risk Factors Present?: Yes Each Factor Represents 1 point: Heart failure (<1month) Other Risk Factors: Yes Each Risk Factor Represents 2 Points: Age 61-74 years Thrombosis Risk Factor Assessment Total Risk Factor Score: 3 Thrombosis Risk Factor Assessment Level: Moderate Risk Assessment and Plan Assessment: Chest pain rule out ACS. Patient does have significant coronary artery disease history of stent placement x6. Recent right shoulder arthroplasty on 03/01/2023 Elevated D-dimer level. No evidence of PE on CTA chest Mild elevated proBNP 1090. Hyponatremia with sodium level 124 on admission. Possible hypoosmolar. Thoracic aortic aneurysm Hypertension Hyperlipidemia History of Sjogren's syndrome Anxiety DVT prophylaxis with heparin subcu Plan: Patient will be currently on telemetry monitoring. Follow-up serial EKG and troponin x3. Continue with aspirin, atorvastatin, Coreg, Plavix and Imdur. Cardiology was consulted and follow-up 2D echocardiogram. Patient was given a dose of IV Lasix 40 mg x 1 in the ER. Current pain medications and follow-up closely. GI and DVT prophylaxis. Time with Patient: Greater than 30
[2023-03-01] MEDS: HEPARIN SODIUM,PORCINE/PF 5,000 UNIT/0.5 ML SYRINGE SQ SCH (23:24)
[2023-03-01] MEDS: MAGNESIUM SULFATE-D5W PMX 1 GM in DEXTROSE/WATER 1 100ML.BAG IVPB SCH (23:30)
[2023-03-02] MEDS: MAGNESIUM SULFATE-D5W PMX 1 GM in DEXTROSE/WATER 1 100ML.BAG IVPB SCH (00:38)
[2023-03-02] MEDS: oxyCODONE-APAP 7.5-325MG 1 EACH TAB PO PRN ×5 (00:56→18:54)
[2023-03-02] MEDS: hydrOXYzine pamoate 25 MG CAP PO PRN ×2 (04:26→14:10)
[2023-03-02 08:15] LABS: African American GFR (CKD) >90 (>60 ml/min/1.73 sqM); Anion Gap 6 mmol/L; Blood Urea Nitrogen 9 mg/dL (9-20); Carbon Dioxide 29 mmol/L (22-30); Chloride 91 mmol/L (98-107); Glucose 98 mg/dL (74-99); Magnesium 2.1 mg/dL (1.6-2.3); Non-African American GFR(CKD) >90 (>60 ml/min/1.73 sqM); Potassium 4.4 mmol/L (3.5-5.1); Sodium 126 mmol/L (137-145)
[2023-03-02] MEDS ORDERED: ASPIRIN 325 MG TAB PO SCH (09:00)
[2023-03-02] MEDS: VALSARTAN 160 MG TAB PO SCH (09:49)
[2023-03-02] MEDS: FAMOTIDINE 20 MG TAB PO SCH ×2 (09:49→20:43)
[2023-03-02] MEDS: ISOSORBIDE MONONITRATE ER 60 MG TAB.ER.24H PO SCH (09:49)
[2023-03-02] MEDS: DOCUSATE 100 MG CAP PO SCH ×2 (09:49→20:43)
[2023-03-02] MEDS: carvediloL 3.125 MG TAB PO SCH ×2 (09:49→18:56)
[2023-03-02] MEDS: HEPARIN SODIUM,PORCINE/PF 5,000 UNIT/0.5 ML SYRINGE SQ SCH ×2 (09:49→16:53)
[2023-03-02] MEDS: ASPIRIN 81 MG PO SCH (09:49)
[2023-03-02] MEDS: DOXYCYCLINE 100 MG CAP PO SCH ×2 (09:49→20:43)
[2023-03-02] MEDS: SODIUM FLUORIDE MUCOUS MEM SCH ×2 (09:50→20:43)
[2023-03-02 11:24] LABS: Chol/HDL Ratio 1.64 Ratio; LDL Cholesterol,Calculated 17.4 mg/dL (0.0-131.0); VLDL Calculation 10.12 mg/dL (5.00-40.00)
[2023-03-02] MEDS: FUROSEMIDE 10 MG/ML 2 ML VIAL IV SCH ×2 (12:22→20:43)
--- NOTE | 2023-03-02 19:50 | P.CRDCN ---
History of Present Illness Consult date: 03/02/23 Consult reason: chest pain, shortness of breath History of present illness: History of present illness: Patient is a pleasant 67-year-old male with significant past medical history of CAD status post multiple stents last being in 2020, thoracic aortic aneurysm measuring 4.5 cm, sjogren syndrome, hypertension, prior DVT, and recent right shoulder replacement on 02/26/23 resented to the emergency department with complaints of shortness of breath, chest pain, shoulder pain. He previously had followed with Dr. Campos, but reports that he now follows with Dr. Mahoney at [place]. He reports that yesterday he just began to feel short of breath was having significant pain in his right shoulder, and also was having mid chest pain was throbbing. He does report that the chest pain felt similar to his prior heart pains in the past. He is on aspirin and Plavix and home. Troponin negative 3, BNP 1090. EKG shows sinus rhythm with occasional supraventricular premature complexes. Chest x-ray with no acute disease. CTA chest with no pulm onary embolism of the major pulmonary arteries, distal emboli difficult to exclude, small right basilar pleural effusion, descending thoracic aneurysm measuring 4.5 cm. Had a prior heart catheterization 12/2020 which resulted in PCI of the mid RCA. He reports that he is still feeling lousy today, feels like his lungs are congested with mild shortness of breath, still having significant right shoulder pain postoperatively. He denies any chest pain or pressure presently. REVIEW OF SYSTEMS: No fever or chills. No cough or expectoration. Reports congestion and mild SOB. No diaphoresis. Patient denies headache, dizziness, blurred vision, double vision. Patient denies any stomach discomfort. No nausea, vomiting. No hematochezia. No hematemesis. Denies any black stools or blood in his stools. Denies dysuria or hematuria. No muscle weakness or numbness. No chest pain or pressure. Reports right shoulder pain. PHYSICAL EXAMINATION: This is a 67 year-old male in no apparent distress at the time of my examination. HEENT: Head is atraumatic, normocephalic. Pupils are equal, round. Sclerae anicteric. Conjunctivae are clear. Mucous membranes of the mouth are moist. Neck is supple. There is no jugular venous distention. No carotid bruit is heard. CHEST EXAMINATION: Lungs scattered wheezes. No chest wall tenderness is noted on palpation or with deep breathing. HEART EXAMINATION: Heart regular rate and rhythm. S1, S2 heard. No murmurs, gallops or rub. ABDOMEN: Soft, nontender. Bowel sounds are heard. EXTREMITIES: 2+ peripheral pulses with no evidence of peripheral edema and no calf tenderness noted. Right shoulder incision is clean dry and intact. NEUROLOGIC EXAMINATION: Patient is awake, alert and oriented x3. IMPRESSION AND PLAN: CAD status post multiple stents most recent being 2020 Shortness of breath Chest pain Right shoulder replacement 02/26/23 Hypertension Thoracic aortic aneurysm measuring 4.5 cm PLAN: Discussed options to include medical management with close follow up with his sales advisor as an outpatient vs stress test vs heart catheterization. He would like to spend the night and see how he feels overnight, therefore he is agreeable to proceeding with stress testing in the am. Will plan to proceed with Lexiscan given recent right shoulder replacement. NPO after midnight. Further recs pending stress test. I am dictating on behalf of Dr. Binh Calloway's history/physical and assessment/plan. Past Medical History Past Medical History: Coronary Artery Disease (CAD), GERD/Reflux, Hyperlipidemia, Hypertension Additional Past Medical History / Comment(s): AAA 43 cm being monitored. Sjogren's. Occasional vertigo. Varicose veins in ankles, right shoulder torn rotator cuff History of Any Multi-Drug Resistant Organisms: None Reported Past Surgical History: Back Surgery, Heart Catheterization With Stent, Orthopedic Surgery Additional Past Surgical History / Comment(s): Hand surgery, nerve block right shoulder, 6 cardiac stents, total reverse replacement right shoulder 02/26/23 Past Anesthesia/Blood Transfusion Reactions: No Reported Reaction Date of Last Stent Placement:: 12/26/20 Past Psychological History: Anxiety Additional Psychological History / Comment(s): 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 pet dog in the home. Usually goes to the gym 3 times weekly Smoking Status: Never smoker Past Alcohol Use History: Rare Past Drug Use History: None Reported - Past Family History Father Family Medical History: Myocardial Infarction (TN) Additional Family Medical History / Comment(s): Father of a TN at the age of 60yrs. Mother Additional Family Medical History / Comment(s): Mother of an aneurysm that ruptured at the age of 60yrs. Medications and Allergies Home Medications Medication Instructions Recorded Confirmed Type carvediloL [Coreg] 3.125 mg PO BID 12/25/18 03/01/23 History Aspirin 81 mg PO DAILY #30 chew 12/28/18 03/01/23 Rx Nitroglycerin Sl Tabs [Nitrostat] 0.4 mg SUBLINGUAL Q5M PRN #25 tab 12/28/18 03/01/23 Rx Atorvastatin [Lipitor] 80 mg PO HS 01/23/20 03/01/23 History Clopidogrel Bisulfate [Plavix] 75 mg PO HS 10/05/20 03/01/23 History Sertraline HCl [Zoloft] 100 mg PO HS 01/22/21 03/01/23 History Isosorbide Mononitrate ER [Imdur] 60 mg PO DAILY 02/19/23 03/01/23 History Oxybutynin Chloride [Ditropan XL] 10 mg PO HS 02/19/23 03/01/23 History Valsartan 320 mg PO DAILY 02/19/23 03/01/23 History Docusate [Colace] 100 mg PO BID #60 capsule 02/26/23 03/01/23 Rx Doxycycline Hyclate 100 mg PO BID #10 tab 02/26/23 03/01/23 Rx Ondansetron [Zofran] 4 mg PO Q8HR PRN #21 tab 02/26/23 03/01/23 Rx oxyCODONE-APAP 7.5-325MG [Percocet 1 tab PO Q4HR PRN #42 tab 02/27/23 03/01/23 Rx 7.5-325 mg] Famotidine [Pepcid] 20 mg PO BID #30 tablet 02/28/23 03/01/23 Rx polyethylene glycoL 3350 [Miralax] 17 gm PO DAILY PRN #15 packet 02/28/23 03/01/23 Rx Fluoride (Sodium) [Sodium Fluoride 1 applic DENTAL BID 03/01/23 03/01/23 History 5000 Plus] hydrOXYzine pamoate [Vistaril] 25 mg PO TID PRN 03/01/23 03/01/23 History Allergies Allergy/AdvReac Type Severity Reaction Status Date / Time No Known Allergies Allergy Verified 03/01/23 13:11 Physical Exam Vitals: Vital Signs Temp Pulse Pulse Resp BP BP Pulse Ox 03/02/23 04:31 98.6 F 85 16 143/78 98 03/02/23 02:00 76 16 03/02/23 00:00 98.6 F 76 16 146/80 97 03/01/23 20:00 98.2 F 86 16 130/77 97 03/01/23 16:36 98.4 F 94 16 157/89 99 03/01/23 16:08 98.6 F 87 16 156/90 95 03/01/23 11:59 98.4 F 93 18 162/85 97 Intake and Output 03/01/23 03/02/23 03/02/23 22:59 06:59 14:59 Intake Total 118 118 Balance 118 118 Intake: Oral 118 118 Other: Voiding Method Toilet # Voids 1 Weight 81.647 kg 83.7 kg Results 03/01/23 12:28 03/02/23 07:15 Cardiac Enzymes 03/01/23 03/01/23 03/01/23 Range/Units 12:28 12:28 15:42 AST 53 (17-59) U/L Troponin I 0.025 0.024 (0.000-0.034) ng/mL 03/01/23 Range/Units 18:06 AST (17-59) U/L Troponin I 0.024 (0.000-0.034) ng/mL Coagulation 03/01/23 Range/Units 12:28 PT 9.8 (9.0-12.0) sec APTT 23.5 (22.0-30.0) sec CBC 03/01/23 Range/Units 12:28 WBC 7.3 (3.8-10.6) k/uL RBC 3.99 L (4.30-5.90) m/uL Hgb 12.3 L (13.0-17.5) gm/dL Hct 35.6 L (39.0-53.0) % Plt Count 153 (150-450) k/uL Comprehensive Metabolic Panel 03/01/23 03/02/23 Range/Units 12:28 07:15 Sodium 124 L 126 L (137-145) mmol/L Potassium 4.2 4.4 (3.5-5.1) mmol/L Chloride 90 L 91 L (98-107) mmol/L Carbon Dioxide 26 29 (22-30) mmol/L BUN 7 L 9 (9-20) mg/dL Creatinine 0.60 L 0.70 (0.66-1.25) mg/dL Glucose 78 98 (74-99) mg/dL Calcium 8.0 L 8.0 L (8.4-10.2) mg/dL AST 53 (17-59) U/L ALT 27 (4-49) U/L Alkaline Phosphatase 71 (38-126) U/L Total Protein 6.4 (6.3-8.2) g/dL Albumin 3.6 (3.5-5.0) g/dL Current Medications Generic Name Dose Route Start Last Admin Trade Name Freq PRN Reason Stop Dose Admin Aspirin 81 mg 03/02/23 09:00 Aspirin 81 Mg PO DAILY GILMA Atorvastatin Calcium 80 mg 03/01/23 21:00 03/01/23 20:38 Atorvastatin 80 Mg Tab PO 80 mg HS GILMA Administration Carvedilol 3.125 mg 03/01/23 17:30 03/01/23 17:00 Carvedilol 3.125 Mg Tab PO 3.125 mg BID-W/MEALS GILMA Administration Clopidogrel Bisulfate 75 mg 03/01/23 21:00 03/01/23 20:38 Clopidogrel 75 Mg Tab PO 75 mg HS GILMA Administration Docusate Sodium 100 mg 03/01/23 21:00 03/01/23 20:37 Docusate 100 Mg Cap PO 100 mg BID GILMA Administration Doxycycline Monohydrate 100 mg 03/01/23 21:00 03/01/23 23:21 Doxycycline 100 Mg Cap PO 03/05/23 21:01 100 mg BID GILMA Administration Famotidine 20 mg 03/01/23 21:00 03/01/23 20:39 Famotidine 20 Mg Tab PO 20 mg BID GILMA Administration Heparin Sodium (Porcine) 5,000 unit 03/02/23 00:00 03/01/23 23:24 Heparin Sodium,Porcine/Pf 5,000 Unit/0.5 Ml Syringe SQ Not Given Q8HR GILMA Hydroxyzine Pamoate 25 mg 03/01/23 15:01 03/02/23 04:26 Hydroxyzine Pamoate 25 Mg Cap PO 25 mg TID PRN Administration TO ENHANCE PAIN MEDS Isosorbide Mononitrate 60 mg 03/02/23 09:00 Isosorbide Mononitrate Er 60 Mg Tab.Er.24h PO DAILY GILMA Nitroglycerin 0.4 mg 03/01/23 14:57 Nitroglycerin Sl Tabs 0.4 Mg Tab SUBLINGUAL Q5M PRN Chest Pain Patient's Own ( 1 applic 03/01/23 21:00 03/01/23 22:10 Fluoride (Sodium) [ MUCOUS MEM Not Given Sodium Fluoride 5000 BID GILMA Plus] 51 Gm Cream.. G.) Ondansetron HCl 4 mg 03/01/23 15:01 Ondansetron 4 Mg Tab PO Q8HR PRN Nausea Oxybutynin Chloride 10 mg 03/01/23 21:00 03/01/23 20:53 Oxybutynin 10 Mg Tab.Er.24 PO 10 mg HS GILMA Administration Oxycodone/Acetaminophen 1 each 03/01/23 15:01 03/02/23 04:27 Oxycodone-Apap 7.5-325mg 1 Each Tab PO 1 each Q4HR PRN Administration Pain Polyethylene Glycol 17 gm 03/01/23 15:01 Polyethylene Glycol 3350 17 Gm Powd.Pack PO DAILY PRN Constipation Sertraline HCl 100 mg 03/01/23 21:00 03/01/23 20:38 Sertraline 100 Mg Tab PO 100 mg HS GILMA Administration Valsartan 320 mg 03/02/23 09:00 Valsartan 160 Mg Tab PO DAILY GILMA Intake and Output 03/01/23 03/02/23 03/02/23 22:59 06:59 14:59 Intake Total 118 118 Balance 118 118 Intake: Oral 118 118 Other: Voiding Method Toilet # Voids 1 Weight 81.647 kg 83.7 kg 03/01/23 12:28 03/02/23 07:15
[2023-03-02] MEDS: OXYBUTYNIN 10 MG TAB.ER.24 PO SCH (20:43)
[2023-03-02] MEDS: ATORVASTATIN 80 MG TAB PO SCH (20:43)
[2023-03-02] MEDS: CLOPIDOGREL 75 MG TAB PO SCH (20:43)
[2023-03-02] MEDS: SERTRALINE 100 MG TAB PO SCH (20:43)
[2023-03-03] MEDS: HEPARIN SODIUM,PORCINE/PF 5,000 UNIT/0.5 ML SYRINGE SQ SCH ×4 (01:19→23:38)
[2023-03-03] MEDS: oxyCODONE-APAP 7.5-325MG 1 EACH TAB PO PRN ×4 (01:25→20:44)
[2023-03-03] MEDS: hydrOXYzine pamoate 25 MG CAP PO PRN (01:26)
--- NOTE | 2023-03-03 01:39 | P.PN ---
Subjective Progress Note Date: 03/02/23 Patient is a 67-year-old male with a known history of coronary artery disease status post stent placement x6, hypertension, hyperlipidemia, history of abdominal aortic aneurysm and recent right shoulder arthroplasty on 02/26/2023 presents to ER with complaints of chest pain. Patient states that he was at home and suddenly started having mid retrosternal chest pain and states that he could not breathe. Denied any radiation of the pain. No associated dizziness or lightheadedness. No nausea or vomiting or diaphoresis. Patient was given aspirin and nitroglycerin by paramedics in route which seems to relieve the pain. Currently patient denies any chest pain. Patient was placed on 2 L oxygen via nasal cannula. Denies any fever or chills. No pleuritic pain. No leg swelling. Most recent stent placement about 1 and half year ago. Laboratory data WBC 7.3 hemoglobin 12.3 and platelets 153 D-dimer 1.49 Sodium 124 potassium 4.2 chloride 90 bicarb is 26 BUN 7 creatinine 0.6 and calcium 8.0 and troponin x3 negative and proBNP is 1090 11 units are not elevated. Magnesium 1.7. Patient has been taking doxycycline 100 mg twice daily since recent shoulder surgery. Chest x-ray showed no active cardiopulmonary disease. EKG showed sinus rhythm with occasional supraventricular premature complexes. CTA chest was done due to elevated D-dimer level showed main pulmonary arteries and had major tributaries are free of PE. Small right basilar pleural effusion with atelectatic changes. Chronic appearing elevation right hemidiaphragm. Ascending thoracic aortic aneurysm. 03/02/2023 Patient is lying in the bed. Awake alert and oriented x3. Complains of shortness of breath. Small right basilar pleural effusion was noted on the CTA chest. Patient will be initiated on 20 mg IV Lasix twice daily and follow-up renal function. Denies any complaints of chest pain. No nausea vomiting abdominal pain or diarrhea. Laboratory data showed sodium level 126 potassium 4.4 chloride 91 bicarb is 29 BUN 9 and creatinine 0.70 and LDL 17.4. Cardiology is on board. Plan for nuclear stress tomorrow. Current medications reviewed. Objective - Vital Signs Vital signs: Vital Signs Temp 98.6 F 03/02/23 20:00 Pulse 77 03/02/23 20:00 Resp 16 03/02/23 20:00 BP 121/72 03/02/23 20:00 Pulse Ox 97 03/02/23 20:00 FiO2 Intake & Output 03/02/23 03/02/23 03/03/23 06:59 18:59 06:59 Intake Total 118 Balance 118 Weight 83.7 kg Intake: Oral 118 Other: Voiding Method Toilet # Voids 1 1 - Exam PHYSICAL EXAMINATION: Patient is lying in the bed comfortably, no acute distress, awake alert and oriented.. HEENT: Normocephalic. Neck is supple. Pupils reactive. Nostrils clear. Oral cavity is moist. Neck reveals no JVD, carotid bruits, or thyromegaly. CHEST EXAMINATION: Trachea is central. Symmetrical expansion. Minimal bibasilar crackles. No wheezing or rhonchi.. CARDIAC: Normal S1, S2 with no gallops. No murmurs ABDOMEN: Soft. Bowel sounds present. Nontender. No organomegaly. No abdominal bruits. Extremities: reveal no edema. No clubbing or cyanosis Neurologically awake, alert, oriented x3 with well-coordinated movements. No focal deficits noted Skin: No rash or skin lesions. Psychiatric: Coperative. Nonsuicidal, Musculoskeletal: No joint swelling or deformity. Normal range of motion. Right shoulder surgical site is healing and intact. - Labs CBC & Chem 7: 03/01/23 12:28 03/02/23 07:15 Labs: Abnormal Lab Results - Last 24 Hours (Table) 03/02/23 Range/Units 07:15 Sodium 126 L (137-145) mmol/L Chloride 91 L (98-107) mmol/L Calcium 8.0 L (8.4-10.2) mg/dL Assessment and Plan Assessment: Chest pain rule out ACS. Patient does have significant coronary artery disease history of stent placement x6. Recent right shoulder arthroplasty on 03/01/2023 Elevated D-dimer level. No evidence of PE on CTA chest Small right pleural effusion and atelectasis noted on the CTA chest. Mild elevated proBNP 1090. Hyponatremia with sodium level 124 on admission. Possible hypoosmolar. Thoracic aortic aneurysm Hypertension Hyperlipidemia History of Sjogren's syndrome Anxiety DVT prophylaxis with heparin subcu Plan: Patient will be currently on telemetry monitoring. Follow-up serial EKG and troponin x3. Continue with aspirin, atorvastatin, Coreg, Plavix and Imdur. Cardiology was consulted and follow-up 2D echocardiogram. Patient will be currently on IV Lasix 20 mg twice daily and monitor renal function and sodium level. Cardiology is planning for stress test tomorrow. Current pain medications and follow-up closely. GI and DVT prophylaxis. Time with Patient: Greater than 30
[2023-03-03] MEDS: FUROSEMIDE 10 MG/ML 2 ML VIAL IV SCH ×2 (09:31→20:43)
[2023-03-03] MEDS: FAMOTIDINE 20 MG TAB PO SCH ×2 (09:31→20:44)
[2023-03-03] MEDS: carvediloL 3.125 MG TAB PO SCH ×2 (09:31→16:51)
[2023-03-03] MEDS: VALSARTAN 160 MG TAB PO SCH (09:31)
[2023-03-03] MEDS: ASPIRIN 81 MG PO SCH (09:31)
[2023-03-03] MEDS: DOXYCYCLINE 100 MG CAP PO SCH ×2 (09:32→20:44)
[2023-03-03] MEDS: DOCUSATE 100 MG CAP PO SCH ×2 (09:32→20:44)
[2023-03-03] MEDS: SODIUM FLUORIDE MUCOUS MEM SCH ×2 (09:37→20:32)
[2023-03-03] MEDS: ISOSORBIDE MONONITRATE ER 60 MG TAB.ER.24H PO SCH (09:40)
[2023-03-03 09:44] LABS: HCT 33.6 % (39.0-53.0); HGB 11.6 gm/dL (13.0-17.5); MCH 30.6 pg (25.0-35.0); MCHC 34.7 g/dL (31.0-37.0); MCV 88.2 fL (80.0-100.0); Mean Platelet Volume 8.6; Platelet Count 168 k/uL (150-450); RBC 3.81 m/uL (4.30-5.90); RDW 14.9 % (11.5-15.5); WBC 4.4 k/uL (3.8-10.6)
[2023-03-03] MEDS ORDERED: REGADENOSON 0.4 MG/5 ML SYRINGE IV PRN (10:10)
[2023-03-03] MEDS ORDERED: AMINOPHYLLINE 500 MG/20 ML VIAL IV PRN (10:10)
[2023-03-03] MEDS ORDERED: CAFFEINE CITRATE 60 MG/3 ML VIAL IV PRN (10:10)
[2023-03-03 10:12] LABS: African American GFR (CKD) >90 (>60 ml/min/1.73 sqM); Anion Gap 5 mmol/L; Blood Urea Nitrogen 6 mg/dL (9-20); Calcium 8.1 mg/dL (8.4-10.2); Carbon Dioxide 31 mmol/L (22-30); Chloride 91 mmol/L (98-107); Glucose 89 mg/dL (74-99); Non-African American GFR(CKD) >90 (>60 ml/min/1.73 sqM); Potassium 4.2 mmol/L (3.5-5.1); Sodium 127 mmol/L (137-145)
--- NOTE | 2023-03-03 13:14 | P.PN ---
Subjective Progress Note Date: 03/03/23 History of present illness: Patient is a pleasant 67-year-old male with significant past medical history of CAD status post multiple stents last being in 2020, thoracic aortic aneurysm measuring 4.5 cm, sjogren syndrome, hypertension, prior DVT, and recent right shoulder replacement on 02/26/23 resented to the emergency department with complaints of shortness of breath, chest pain, shoulder pain. He previously had followed with Dr. Campos, but reports that he now follows with Dr. Mahoney at [place]. He reports that yesterday he just began to feel short of breath was having significant pain in his right shoulder, and also was having mid chest pain was throbbing. He does report that the chest pain felt similar to his prior heart pains in the past. He is on aspirin and Plavix and home. Troponin negative 3, BNP 1090. EKG shows sinus rhythm with occasional supraventricular premature complexes. Chest x-ray with no acute disease. CTA chest with no pulmonary embolism of the major pulmonary arteries, distal emboli difficult to exclude, small right basilar pleural effusion, descending thoracic aneurysm measuring 4.5 cm. Had a prior heart catheterization 12/2020 which resulted in PCI of the mid RCA. He reports that he is still feeling lousy today, feels like his lungs are congested with mild shortness of breath, still having significant right shoulder pain postoperatively. He denies any chest pain or pressure presently. 03/03 He is doing well. Denies chest pains, reports that his pain is mostly right shoulder. Breathing has improved. Awaiting stress testing. PHYSICAL EXAMINATION: This is a 67 year-old male in no apparent distress at the time of my examination. HEENT: Head is atraumatic, normocephalic. Pupils are equal, round. Sclerae anicteric. Conjunctivae are clear. Mucous membranes of the mouth are moist. Neck is supple. There is no jugular venous distention. No carotid bruit is heard. CHEST EXAMINATION: Lungs scattered wheezes. No chest wall tenderness is noted on palpation or with deep breathing. HEART EXAMINATION: Heart regular rate and rhythm. S1, S2 heard. No murmurs, gallops or rub. ABDOMEN: Soft, nontender. Bowel sounds are heard. EXTREMITIES: 2+ peripheral pulses with no evidence of peripheral edema and no calf tenderness noted. Right shoulder incision is clean dry and intact. NEUROLOGIC EXAMINATION: Patient is awake, alert and oriented x3. IMPRESSION AND PLAN: CAD status post multiple stents most recent being 2020 Shortness of breath Chest pain Right shoulder replacement 02/26/23 Hypertension Thoracic aortic aneurysm measuring 4.5 cm PLAN: Lexiscan stress testing pending. If stress test is unremarkable, ok to DC home from cardiology standpoint. Follow up with his psychologist chief at [place] in 1 week. I am dictating on behalf of Dr. Binh Calloway's history/physical and assessment/plan. Objective - Vital Signs Vital signs: Vital Signs Temp 98.7 F 03/03/23 12:00 Pulse 84 03/03/23 12:00 Resp 16 03/03/23 12:00 BP 118/68 03/03/23 12:00 Pulse Ox 96 03/03/23 12:00 FiO2 Intake & Output 03/02/23 03/03/23 03/03/23 18:59 06:59 18:59 Intake Total 118 540 Balance 118 540 Weight 82.9 kg Intake: Oral 118 540 Other: Voiding Method Toilet # Voids 1 1 - Labs CBC & Chem 7: 03/03/23 08:44 03/03/23 09:35 Labs: Abnormal Lab Results - Last 24 Hours (Table) 03/03/23 03/03/23 Range/Units 08:44 09:35 RBC 3.81 L (4.30-5.90) m/uL Hgb 11.6 L (13.0-17.5) gm/dL Hct 33.6 L (39.0-53.0) % Sodium 127 L (137-145) mmol/L Chloride 91 L (98-107) mmol/L Carbon Dioxide 31 H (22-30) mmol/L BUN 6 L (9-20) mg/dL Calcium 8.1 L (8.4-10.2) mg/dL
--- NOTE | 2023-03-03 13:53 | P.CNOR ---
History of Present Illness - [facility] Consult date: 03/03/23 Consult reason: other History of present illness: Patient is 67 yo male seen at bedside today. He is s/p reverse right total shoulder arthroplasty on 02/26/2023. He was discharged to home on 02/28/23. He returned to the ED and readmitted on 03/02/23 with complaints of chest pain and SOB. His cardiology work up has been negative thus far. he has remained stable. He has post op pain at surgical site as expected. He has no other new complaints Review of Systems All systems: negative Constitutional: Denies chills, Denies fever Eyes: denies blurred vision, denies pain Ears, nose, mouth and throat: Denies headache, Denies sore throat Cardiovascular: Denies chest pain, Denies shortness of breath Respiratory: Denies cough Gastrointestinal: Denies abdominal pain, Denies diarrhea, Denies nausea, Denies vomiting Musculoskeletal: Denies myalgias Integumentary: Denies pruritus, Denies rash Neurological: Denies numbness, Denies weakness Psychiatric: Denies anxiety, Denies depression Endocrine: Denies fatigue, Denies weight change Past Medical History Past Medical History: Coronary Artery Disease (CAD), GERD/Reflux, Hyperlipidemia, Hypertension Additional Past Medical History / Comment(s): AAA 43 cm being monitored. Sjogren's. Occasional vertigo. Varicose veins in ankles, right shoulder torn rotator cuff History of Any Multi-Drug Resistant Organisms: None Reported Past Surgical History: Back Surgery, Heart Catheterization With Stent, Orthopedic Surgery Additional Past Surgical History / Comment(s): Hand surgery, nerve block right shoulder, 6 cardiac stents, total reverse replacement right shoulder 02/26/23 Past Anesthesia/Blood Transfusion Reactions: No Reported Reaction Date of Last Stent Placement:: 12/26/20 Past Psychological History: Anxiety Additional Psychological History / Comment(s): 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 pet dog in the home. Usually goes to the gym 3 times weekly Smoking Status: Never smoker Past Alcohol Use History: Rare Past Drug Use History: None Reported - Past Family History Father Family Medical History: Myocardial Infarction (MA) Additional Family Medical History / Comment(s): Father of a MA at the age of 60yrs. Mother Additional Family Medical History / Comment(s): Mother of an aneurysm that ruptured at the age of 60yrs. Medications and Allergies Home Medications Medication Instructions Recorded Confirmed Type RX: carvediloL [Coreg] 3.125 mg PO BID 12/25/18 03/01/23 History RX: Aspirin 81 mg PO DAILY #30 chew 12/28/18 03/01/23 Rx RX: Nitroglycerin Sl Tabs 0.4 mg SUBLINGUAL Q5M PRN #25 tab 12/28/18 03/01/23 Rx [Nitrostat] RX: Atorvastatin [Lipitor] 80 mg PO HS 01/23/20 03/01/23 History RX: Clopidogrel Bisulfate [Plavix] 75 mg PO HS 10/05/20 03/01/23 History RX: Sertraline HCl [Zoloft] 100 mg PO HS 01/22/21 03/01/23 History RX: Isosorbide Mononitrate ER 60 mg PO DAILY 02/19/23 03/01/23 History [Imdur] RX: Oxybutynin Chloride [Ditropan 10 mg PO HS 02/19/23 03/01/23 History XL] RX: Valsartan 320 mg PO DAILY 02/19/23 03/01/23 History Docusate [Colace] 100 mg PO BID #60 capsule 02/26/23 03/01/23 Rx Ondansetron [Zofran] 4 mg PO Q8HR PRN #21 tab 02/26/23 03/01/23 Rx RX: Doxycycline Hyclate 100 mg PO BID #10 tab 02/26/23 03/01/23 Rx oxyCODONE-APAP 7.5-325MG [Percocet 1 tab PO Q4HR PRN #42 tab 02/27/23 03/01/23 Rx 7.5-325 mg] Famotidine [Pepcid] 20 mg PO BID #30 tablet 02/28/23 03/01/23 Rx polyethylene glycoL 3350 [Miralax] 17 gm PO DAILY PRN #15 packet 02/28/23 03/01/23 Rx Fluoride (Sodium) [Sodium Fluoride 1 applic DENTAL BID 03/01/23 03/01/23 History 5000 Plus] hydrOXYzine pamoate [Vistaril] 25 mg PO TID PRN 03/01/23 03/01/23 History Allergies Allergy/AdvReac Type Severity Reaction Status Date / Time No Known Allergies Allergy Verified 03/01/23 13:11 Physical Examination Inspection shows benign intact surgical wound at right shoulder. There is evolving echymosis swelling as expected. No active bleeding. ROM intact at elbow and hand. NVI throughout right upper extremity. 2+ radial pulses and less than 2 sec cap refill present Results - Labs Labs: Abnormal Lab Results - Last 24 Hours (Table) 03/03/23 03/03/23 Range/Units 08:44 09:35 RBC 3.81 L (4.30-5.90) m/uL Hgb 11.6 L (13.0-17.5) gm/dL Hct 33.6 L (39.0-53.0) % Sodium 127 L (137-145) mmol/L Chloride 91 L (98-107) mmol/L Carbon Dioxide 31 H (22-30) mmol/L BUN 6 L (9-20) mg/dL Calcium 8.1 L (8.4-10.2) mg/dL H & H 03/01/23 03/03/23 Range/Units 12:28 08:44 Hgb 12.3 L 11.6 L (13.0-17.5) gm/dL Hct 35.6 L 33.6 L (39.0-53.0) % Coagulation 03/01/23 Range/Units 12:28 INR 0.9 (<1.2) Result Diagrams: 03/03/23 08:44 03/03/23 09:35 Assessment and Plan (1) Status post reverse total arthroplasty of right shoulder Narrative/Plan: Continue pain management and restrictions with right upper extremity. Sling for comfort. No external rotation of right upper extremity and no weightbearing. He is stable from orthopedic standpoint and may be discharged when cleared by cardiology and IM. He is to f/u as outpatient for scheduled post op visit. Current Visit: Yes Status: Acute Code(s): Z96.611 - PRESENCE OF RIGHT ARTIFICIAL SHOULDER JOINT SNOMED Code(s): 68292321503643656 Time with Patient: Less than 30
[2023-03-03 14:45] LABS: Basophils # (M) 0.09 k/uL (0-0.2); Eosinophils # (M) 0.44 k/uL (0-0.7); Lymphocytes # (M) 0.53 k/uL (1.0-4.8); Monocytes # (M) 0.84 k/uL (0-1.0); Neutrophils # (M) 2.51 k/uL (1.3-7.7); Neutrophils % (M) 57 %; Nucleated Red Blood Cells 0 /100 WBC (0-0); RBC Morphology Normal; Total Cells Counted 100
--- NOTE | 2023-03-03 15:36 | NM ---
EXAMINATION TYPE: NM stress lexiscan cardiolite DATE OF EXAM: 03/03/2023 COMPARISON: NONE HISTORY: Chest pain TECHNIQUE: After the intravenous administration of 9.8 mCi Tc 99m Sestamibi - Cardiolite resting SPE CT images acquired 45 minutes post injection. The patient received 0.4mg Lexiscan, 24.9 mCi Tc 99m Sestamibi - Stress images obtained [address] injection FINDINGS: Review of stress and rest SPECT images demonstrates no distinct perfusion abnormality. Gated analysi s shows normal wall motion with an estimated left ventricular ejection fraction of 62 %. IMPRESSION: No scintigraphic evidence for reversible ischemia.
[2023-03-03] MEDS: ATORVASTATIN 80 MG TAB PO SCH (20:44)
[2023-03-03] MEDS: SERTRALINE 100 MG TAB PO SCH (20:44)
[2023-03-03] MEDS: OXYBUTYNIN 10 MG TAB.ER.24 PO SCH (20:44)
[2023-03-03] MEDS: CLOPIDOGREL 75 MG TAB PO SCH (20:44)
--- NOTE | 2023-03-03 23:07 | PN ---
PROGRESS NOTE DATE OF SERVICE: 03/03/2023 SUBJECTIVE: This is a 67-year-old gentleman, who was admitted with chest pain. He also had some shortness of breath. The patient is closely monitored. No chest pain. No palpitation. OBJECTIVE: VITAL SIGNS: Pulse is 84, blood pressure 118/60, respirations 16. CHEST: Few scattered rhonchi. ABDOMEN: Soft. CARDIOVASCULAR: S1 and S2 normal. LABORATORY DATA: Reviewed. ASSESSMENT: 1. Chest pain, possible unstable angina. 2. History of coronary artery disease and stents. 3. Shoulder arthroplasty. 4. Mild hyponatremia. 5. Small right pleural effusion. 6. Thoracic aortic aneurysm. 7. Multiple medical issues. RECOMMENDATIONS: Recommend to continue current medications and symptomatic treatment. Increase ambulation. Closely follow with Cardiology. Repeat labs in the morning. Guarded prognosis. Further recommendations to follow. MMODL / IJN: [id number] /
[2023-03-03 23:33] VITALS: RESP 18
[2023-03-04] MEDS: oxyCODONE-APAP 7.5-325MG 1 EACH TAB PO PRN ×3 (03:27→12:43)
[2023-03-04] MEDS: carvediloL 3.125 MG TAB PO SCH (06:21)
[2023-03-04] MEDS: SODIUM FLUORIDE MUCOUS MEM SCH (08:33)
[2023-03-04] MEDS: FUROSEMIDE 10 MG/ML 2 ML VIAL IV SCH (08:47)
[2023-03-04] MEDS: HEPARIN SODIUM,PORCINE/PF 5,000 UNIT/0.5 ML SYRINGE SQ SCH (08:47)
[2023-03-04] MEDS: FAMOTIDINE 20 MG TAB PO SCH (08:48)
[2023-03-04] MEDS: DOCUSATE 100 MG CAP PO SCH (08:48)
[2023-03-04] MEDS: ISOSORBIDE MONONITRATE ER 60 MG TAB.ER.24H PO SCH (08:48)
[2023-03-04] MEDS: ASPIRIN 81 MG PO SCH (08:48)
[2023-03-04] MEDS: DOXYCYCLINE 100 MG CAP PO SCH (08:49)
[2023-03-04] MEDS: VALSARTAN 160 MG TAB PO SCH (08:50)
[2023-03-04 08:59] VITALS: BP 124/56; PULSE 79; TEMP 98.6
--- NOTE | 2023-03-04 09:51 | CA ---
Lexiscan Nuclear Stress Test Report Name: Osmel Cardona Exam Date: 03/03/2023 14:14 Exam Location: [facility] Ht (in): 72 Wt (lb): 180 BSA: 2.04 Ordering Phys: Valentine Mccullough Referring Phys: FORTINO,, Technologist: WHIT/BRAXTON,, Age: 67 Gender: M : 1955 Procedure CPT: Indications: Reflex order-Stress test ICD-10 Codes: Patient History: chest pain history of chf Medications: Meds past 24 hrs: Pretest Chest Pain: STRESS TEST Lexiscan Protocol Exercise Duration (min:sec): 01:[address] Depressions (mm): Angina Score: Bains Score: Resting HR (bpm): 84 Peak HR (bpm): 107 Resting BP (mmHg): 140 / 87 Peak BP (mmHg): 139 / 77 MPHR: 152 Target HR: 129 % MPHR: 70 METS: 1.0 Total Dose: Peak Dose: Atropine: Double Product: 06940 BP Response: Stress Termination: INFUSION COMPLETE Stress Symptoms: DIFFICULTY IN BREATHING,NAUSEA Stress Summary: ECG ANALYSIS Resting ECG: Stress ECG: CONCLUSIONS Nondiagnostic stress test Dr. Frankie Campos MD (Electronically Signed) Final Date: 04 March 2023 09:50
--- NOTE | 2023-03-04 09:56 | P.PN ---
Subjective Progress Note Date: 03/04/23 History of present illness: Patient is a pleasant 67-year-old male with significant past medical history of CAD status post multiple stents last being in 2020, thoracic aortic aneurysm measuring 4.5 cm, sjogren syndrome, hypertension, prior DVT, and recent right shoulder replacement on 02/26/23 resented to the emergency department with complaints of shortness of breath, chest pain, shoulder pain. He previously had followed with Dr. Campos, but reports that he now follows with Dr. Mahoney at [place]. He reports that yesterday he just began to feel short of breath was having significant pain in his right shoulder, and also was having mid chest pain was throbbing. He does report that the chest pain felt similar to his prior heart pains in the past. He is on aspirin and Plavix and home. Troponin negative 3, BNP 1090. EKG shows sinus rhythm with occasional supraventricular premature complexes. Chest x-ray with no acute disease. CTA chest with no pulmonary embolism of the major pulmonary arteries, distal emboli difficult to exclude, small right basilar pleural effusion, descending thoracic aneurysm measuring 4.5 cm. Had a prior heart catheterization 12/2020 which resulted in PCI of the mid RCA. He reports that he is still feeling lousy today, feels like his lungs are congested with mild shortness of breath, still having significant right shoulder pain postoperatively. He denies any chest pain or pressure presently. 03/03 He is doing well. Denies chest pains, reports that his pain is mostly right shoulder. Breathing has improved. Awaiting stress testing. 03/04 Lexiscan stress test was negative for reversible ischemia. He is doing well, ambulatory around the unit. Denies any chest pain. He feels ready to go home. PHYSICAL EXAMINATION: This is a 67 year-old male in no apparent distress at the time of my examination. HEENT: Head is atraumatic, normocephalic. Pupils are equal, round. Sclerae anicteric. Conjunctivae are clear. Mucous membranes of the mouth are moist. Neck is supple. There is no jugular venous distention. No carotid bruit is heard. CHEST EXAMINATION: Lungs scattered wheezes. No chest wall tenderness is noted on palpation or with deep breathing. HEART EXAMINATION: Heart regular rate and rhythm. S1, S2 heard. No murmurs, gallops or rub. ABDOMEN: Soft, nontender. Bowel sounds are heard. EXTREMITIES: 2+ peripheral pulses with no evidence of peripheral edema and no calf tenderness noted. Right shoulder incision is clean dry and intact. NEUROLOGIC EXAMINATION: Patient is awake, alert and oriented x3. IMPRESSION AND PLAN: CAD status post multiple stents most recent being 2020 Shortness of breath Chest pain Right shoulder replacement 02/26/23 Hypertension Thoracic aortic aneurysm measuring 4.5 cm PLAN: Lexiscan stress test negative. OK to DC home. Follow up with his stair builder at [place] in 1 week. I am dictating on behalf of Dr. Binh Calloway's history/physical and assessment/plan. Objective - Vital Signs Vital signs: Vital Signs Temp 98.6 F 03/04/23 08:58 Pulse 79 03/04/23 08:58 Resp 18 03/04/23 08:58 BP 124/56 03/04/23 08:58 Pulse Ox 94 L 03/04/23 08:58 FiO2 Intake & Output 03/03/23 03/04/23 03/04/23 18:59 06:59 18:59 Intake Total 540 240 Balance 540 240 Weight 81.4 kg Intake: Oral 540 240 Other: Voiding Method Toilet # Voids 2 1 - Labs CBC & Chem 7: 03/03/23 08:44 03/03/23 09:35 Labs: Abnormal Lab Results - Last 24 Hours (Table) 03/03/23 03/03/23 Range/Units 08:44 09:35 RBC 3.81 L (4.30-5.90) m/uL Hgb 11.6 L (13.0-17.5) gm/dL Hct 33.6 L (39.0-53.0) % Lymphocytes # (Manual) 0.53 L (1.0-4.8) k/uL Sodium 127 L (137-145) mmol/L Chloride 91 L (98-107) mmol/L Carbon Dioxide 31 H (22-30) mmol/L BUN 6 L (9-20) mg/dL Calcium 8.1 L (8.4-10.2) mg/dL
[2023-03-04 10:14] LABS: African American GFR (CKD) >90 (>60 ml/min/1.73 sqM); Anion Gap 7 mmol/L; Blood Urea Nitrogen 9 mg/dL (9-20); Calcium 8.6 mg/dL (8.4-10.2); Carbon Dioxide 28 mmol/L (22-30); Chloride 90 mmol/L (98-107); Glucose 167 mg/dL (74-99); Non-African American GFR(CKD) >90 (>60 ml/min/1.73 sqM); Potassium 4.1 mmol/L (3.5-5.1); Sodium 125 mmol/L (137-145)
[2023-03-04 10:48] LABS: HCT 35.7 % (39.0-53.0); MCH 29.4 pg (25.0-35.0); MCHC 33.5 g/dL (31.0-37.0); MCV 87.8 fL (80.0-100.0); Mean Platelet Volume 8.5; Platelet Count 204 k/uL (150-450); RBC 4.06 m/uL (4.30-5.90); WBC 5.1 k/uL (3.8-10.6)
[2023-03-04 17:35] LABS: Basophils # (M) 0.05 k/uL (0-0.2); Eosinophils # (M) 0.41 k/uL (0-0.7); Lymphocytes # (M) 0.31 k/uL (1.0-4.8); Monocytes # (M) 0.61 k/uL (0-1.0); Neutrophils # (M) 3.72 k/uL (1.3-7.7); Neutrophils % (M) 73 %; Nucleated Red Blood Cells 0 /100 WBC (0-0); Total Cells Counted 100
--- NOTE | 2023-03-05 21:10 | P.DS ---
Providers Date of admission: 03/01/23 14:57 Expected date of discharge: 03/04/23 Attending physician: Yesica Farias Consults: 03/01/23 14:57 Consult Physician Routine Consulting Provider: Tej Crenshaw Consult Reason/Comments: Postop evaluation right shoulder Do you want consulting provider notified?: Yes Primary care physician: Estevan Marroquin Hospital Course: Final diagnosis Chest pain ruled out ACS. Patient does have significant coronary artery disease history of stent placement x6. Recent right shoulder arthroplasty on 03/01/2023 Elevated D-dimer level. No evidence of PE on CTA chest Small right pleural effusion and atelectasis noted on the CTA chest. Mild elevated proBNP 1090. Hyponatremia with sodium level 124 on admission. Possible hypoosmolar. Thoracic aortic aneurysm Hypertension Hyperlipidemia History of Sjogren's syndrome Anxiety DVT prophylaxis Discharge disposition Patient is being discharged in a stable condition with guarded prognosis to [facility]. Patient will follow-up with Dr. Marroquin in the outpatient setting upon discharge. Patient is to follow-up with primary care provider and possibly nephrology outpatient as scheduled. Patient to follow-up with cardiology outpatient. Total time taken is greater than 35 minutes. Hospital course This is a 67 year-old male who was recently admitted with shortness of breath with chest pains and being closely monitored with cardiology following. Patient recently underwent right shoulder arthroplasty on 03/01/2023 and was discharged and instructed to follow-up with primary care provider. Patient reports he started developing worsening shortness of breath while at home and came back for evaluation. Patient underwent cardiac stress testing which was negative and was maintained on low-dose IV Lasix with some improvement in shortness of breath. Patient is now reporting improvements in shortness of breath and on room air. Patient has been cleared by cardiology for discharge. Recommend close outpatient follow-up. Please refer to other consultation notes for further HPI. Patient's sodium level slightly low at 127 recommend repeat labs and follow-up with primary care provider this week. Currently no reports of chest pain, shortness of breath, or palpitations. Patient is afebrile. No reports of nausea or vomiting and patient is tolerating diet. Patient will be discharged home today. Guarded prognosis Physical exam: Gen: This is a 59-year-old male who is awake, alert and oriented 3, thin built, well-nourished HEENT: Head is atraumatic, normocephalic. Pupils equal, round. Sclerae is anicteric. NECK: Supple. No JVD. No lymphadenopathy. No thyromegaly. LUNGS: Diminished breath sounds bilaterally with no wheezes or rhonchi. No intercostal retractions. HEART: S1, S2 are muffled ABDOMEN: Soft. Bowel sounds are present. No masses. No tenderness. EXTREMITIES: No pedal edema. No calf tenderness. NEUROLOGICAL: Patient is awake, alert and oriented x3. Cranial nerves 2 through 12 are grossly intact. Please refer to medication reconciliation sheet for a list of medications. The impression and plan of care has been dictated by Megan Carballo, Nurse Practitioner as directed. Dr. New MD I have performed a history and examination and MDM of this patient, discussed the same with the dictator, and agree with the dictator's assessment and plan as written ,documented as a scribe. Based on total visit time, I have performed more than 50% of the visit. Patient Condition at Discharge: Fair Plan - Discharge Summary Discharge Rx Participant: No New Discharge Prescriptions: New Sennosides [Senokot] 8.6 mg PO BID #30 tablet Continue carvediloL [Coreg] 3.125 mg PO BID Aspirin 81 mg PO DAILY #30 chew Nitroglycerin Sl Tabs [Nitrostat] 0.4 mg SUBLINGUAL Q5M PRN #25 tab PRN Reason: Chest Pain Atorvastatin [Lipitor] 80 mg PO HS Clopidogrel Bisulfate [Plavix] 75 mg PO HS Sertraline HCl [Zoloft] 100 mg PO HS Docusate [Colace] 100 mg PO BID #60 capsule Ondansetron [Zofran] 4 mg PO Q8HR PRN #21 tab PRN Reason: Nausea Famotidine [Pepcid] 20 mg PO BID #30 tablet Fluoride (Sodium) [Sodium Fluoride 5000 Plus] 1 applic DENTAL BID Isosorbide Mononitrate ER [Imdur] 60 mg PO DAILY Valsartan 320 mg PO DAILY Oxybutynin Chloride [Ditropan XL] 10 mg PO HS Doxycycline Hyclate 100 mg PO BID #10 tab oxyCODONE-APAP 7.5-325MG [Percocet 7.5-325 mg] 1 tab PO Q4HR PRN #42 tab PRN Reason: Pain polyethylene glycoL 3350 [Miralax] 17 gm PO DAILY PRN #15 packet PRN Reason: Constipation Discharge Medication List carvediloL [Coreg] 3.125 mg PO BID 12/25/18 [History] Aspirin 81 mg PO DAILY #30 chew 12/28/18 [Rx] Nitroglycerin Sl Tabs [Nitrostat] 0.4 mg SUBLINGUAL Q5M PRN #25 tab 12/28/18 [Rx] Atorvastatin [Lipitor] 80 mg PO HS 01/23/20 [History] Clopidogrel Bisulfate [Plavix] 75 mg PO HS 10/05/20 [History] Sertraline HCl [Zoloft] 100 mg PO HS 01/22/21 [History] Isosorbide Mononitrate ER [Imdur] 60 mg PO DAILY 02/19/23 [History] Oxybutynin Chloride [Ditropan XL] 10 mg PO HS 02/19/23 [History] Valsartan 320 mg PO DAILY 02/19/23 [History] Docusate [Colace] 100 mg PO BID #60 capsule 02/26/23 [Rx] Doxycycline Hyclate 100 mg PO BID #10 tab 02/26/23 [Rx] Ondansetron [Zofran] 4 mg PO Q8HR PRN #21 tab 02/26/23 [Rx] oxyCODONE-APAP 7.5-325MG [Percocet 7.5-325 mg] 1 tab PO Q4HR PRN #42 tab 02/27/23 [Rx] Famotidine [Pepcid] 20 mg PO BID #30 tablet 02/28/23 [Rx] polyethylene glycoL 3350 [Miralax] 17 gm PO DAILY PRN #15 packet 02/28/23 [Rx] Fluoride (Sodium) [Sodium Fluoride 5000 Plus] 1 applic DENTAL BID 03/01/23 [History] Sennosides [Senokot] 8.6 mg PO BID #30 tablet 03/04/23 [Rx] Follow up Appointment(s)/Referral(s): Carlos Hammond PAC [PHYSICIAN CENTRAL SUPPLY TECH] - 03/06/23 10:20 am Estevan Marroquin III, MD [Primary Care Provider] - 1-2 days (office will call you to schedule. ) Ambulatory/Diagnostic Orders: Basic Metabolic Panel [LAB.AMB] Time Frame: 3 Days, Location: None Selected Patient Instructions/Handouts: Chest Pain (DC) Activity/Diet/Wound Care/Special Instructions: Activity Limited until follow-up SCHEDULE FOLLOW UP WITH YOUR PATENT CLERK AT [place] IN 1-2WKS. Continue taking medications as prescribed Follow-up with orthopedics outpatient at your scheduled appointment Discharge Disposition: HOME SELF-CARE
--- NOTE | 2023-03-06 15:26 | CDI ---
Documentation Clarification Form Date: 03/06/2023 2:50:12 PM From: Nkechi Reid Admit Date: 03/01/2023 2:57:00 PM Patient Name: Osmel Cardona Visit Number: [id number] Discharge Date: 03/04/2023 1:05:00 PM ATTENTION: The Clinical Documentation Specialists (CDI) and [facility] Coding Staff appreciate your assistance in clarifying documentation. Please respond to the clarification below the line at the bottom and electronically sign. The CDI & [facility] Coding staff will review the response and follow-up if needed. Please note: Queries are made part of the Legal Health Record. If you have any questions, please contact the author of this message via ITS. Dr. Yesica Farias CHF is documented in the Clinical Impression on the ED note 03/01 and on the stress echo 03/03- history of CHF, but is not noted in subsequent documentation. Clarification is requested. History/Risk Factors: patient is a 67 year old male with a hx of thoracic aortic aneurysm, sjogen syndrome, GERD, HTN, HLD, and hx of CAD with 6 stents. Patient recently underwent a right shoulder replacement Clinical Indicators: presented to the ED with chest pain and shortness of breath, had an elevated d dimer- ruled out PE on CTA, small right pleural effusion and atelectasis, mild elevated proBNP at 1090. Stress test: nondiagnostic stress test- gated analysis shows normal wall motion with an estimated left ventricular ejection fraction of 62% Treatment: aspirin, atorvastatin, coreg, Plavix, imdur, iv Lasix 40 mg in the ER, telemetry monitoring, lab monitoring Please clarify the type and acuity of the CHF [ ] CHF confirmed acute on chronic diastolic dysfunction [ ] CHF confirmed acute diastolic dysfunction ( no prior history of CHF) [x ] CHF ruled out with no history of CHF [ ] Other condition, please specify [ ] Unable to determine MTDD
--- NOTE | 2023-03-06 15:28 | CDI ---
Documentation Clarification Form Date: 03/06/2023 3:08:34 PM From: Nkechi Reid Admit Date: 03/01/2023 2:57:00 PM Patient Name: Osmel Cardona Visit Number: [id number] Discharge Date: 03/04/2023 1:05:00 PM ATTENTION: The Clinical Documentation Specialists (CDI) and [facility] Coding Staff appreciate your assistance in clarifying documentation. Please respond to the clarification below the line at the bottom and electronically sign. The CDI & [facility] Coding staff will review the response and follow-up if needed. Please note: Queries are made part of the Legal Health Record. If you have any questions, please contact the author of this message via ITS. Dr. Jacobo Wolff The patients principal diagnosis the diagnosis that was chiefly responsible for the admission - has not been clearly identified and clarification is requested. History/Risk factors: patient is a 67 year old male with a hx of thoracic aortic aneurysm, sjogen syndrome, GERD, HTN, HLD, and hx of CAD with 6 stents. Patient recently underwent a right shoulder replacement Clinical Indicators: The patient presented with the following: chest pain, shortness of breath, elevated d dimer, small right pleural effusion, atelectasis, mild elevated proBNP at 1090, possible unstable angina, acute coronary syndrome ruled out. Lab findings: sodium 124, chloride 90, BUN 7, creatinine, 0.60, calcium 8.0, ProBNP 1090 Radiology findings: stress test: no distinct perfusion abnormalities. Gated anyalysis shows a normal wall motion with an estimated left ventricular ejection fraction of 62% Vital Signs: t: 98.4, p 93 rr18 bp162/85 o2 97 on 2L NC Treatment: aspirin, atorvastatin, coreg, Plavix, imdur, iv Lasix 40 mg in the ER, telemetry monitoring, lab monitoring In your professional opinion, can you please clarify which diagnosis, after study, was the reason chiefly responsible for the admission? [ ] Chest Pain [ ] Hyponatremia [ ] CHF [ ] CAD [ ] GERD [ ] Acute post op pain [ ] Other, please specify [ ] Unable to determine Chest Pain MTDD
== END 2023-03-04 13:05 | disposition home or self-care (01) | DRG 313 ==
LOC: EC 11:57 → 3SCARD 14:57
PROVIDERS: ADMIT Internal Medicine; ATTEND Internal Medicine
DX: R07.9 Chest pain, unspecified (principal); E87.1 Hypo-osmolality and hyponatremia; J98.11 Atelectasis; J90 Pleural effusion, not elsewhere classified; G89.18 Other acute postprocedural pain; I25.10 Atherosclerotic heart disease of native coronary artery without angina pectoris; I71.20 Thoracic aortic aneurysm, without rupture, unspecified; K21.9 Gastro-esophageal reflux disease without esophagitis; I10 Essential (primary) hypertension; F41.9 Anxiety disorder, unspecified; E78.5 Hyperlipidemia, unspecified; M35.00 Sjogren syndrome, unspecified; I49.1 Atrial premature depolarization; R79.1 Abnormal coagulation profile; R79.89 Other specified abnormal findings of blood chemistry; Z96.611 Presence of right artificial shoulder joint; Z95.5 Presence of coronary angioplasty implant and graft; Z79.899 Other long term (current) drug therapy; Z79.82 Long term (current) use of aspirin; Z86.718 Personal history of other venous thrombosis and embolism; Z79.02 Long term (current) use of antithrombotics/antiplatelets
CPT/HCPCS: 36415; 71046; 71275; 78452; 80048; 80053; 80061; 83690; 83735; 83880; 84484; 85025; 85379; 85610; 85730; 93005; 93017; 94760; 96374; 96375; 99291

== ENCOUNTER → 2023-06-16 | Outpatient (CLI) | payer MEDICARE ==
--- NOTE | 2023-06-17 00:44 | MR ---
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 Tremors, compare to prior MRI. COMPARISON: MRI brain and 05/18/2020 MRI brain. TECHNIQUE: Multi planar, multi sequence imaging was performed through the brain including: T1, T2, In version recovery, susceptibility weighted imaging and gradient echo imaging and Diffusion weighted im aging. The patient was then given intravenous contrast and multi planar, T1 fat-saturation images wer e obtained. IV Contrast: 8 cc Gadavist FINDINGS: The krueger-white junctions, ventricular system, basal cisterns appear unremarkable. Diffusion-weighted imaging shows no evidence of restricted diffusion to suggest acute/subacute infarct. Intracranial art erial flow voids are maintained. Midline structures show no abnormality. Similar scattered tiny remot e lacunar injuries within the bilateral basal ganglia including the lentiform nuclei and left thalamu s. Scattered patchy T2/FLAIR hyperintensities within the periventricular white matter. The susceptibi lity weighted images do not reveal any evidence for micro-hemorrhage. After administration of gadolin ium, no abnormal enhancement is seen. The bone marrow signal is within normal limits. Paranasal sinuses and mastoid air cells: No significant paranasal sinus disease. Visualized orbits: Orbital contents are intact. IMPRESSION: 1. No evidence of intracranial mass, acute/subacute infarct, or abnormal enhancement. 2. Stable Nonspecific white matter changes, likely related to small vessel ischemic disease 3. Tiny bilateral basal ganglia and left thalamus lacunar injuries with nonspecific white matter cramer ges likely related to chronic small vessel ischemic disease.
== END | disposition home or self-care (01) ==
LOC: RADMRIMAIN 18:11
PROVIDERS: ATTEND Otolaryngology
DX: G11.9 Hereditary ataxia, unspecified (principal); G23.8 Other specified degenerative diseases of basal ganglia; G32.81 Cerebellar ataxia in diseases classified elsewhere; R90.82 White matter disease, unspecified
CPT/HCPCS: 70553; A9585

== ENCOUNTER → 2023-08-27 | Outpatient (CLI) | payer MEDICARE ==
--- NOTE | 2023-08-28 12:03 | MR ---
EXAMINATION TYPE: MR lumbar spine wo/w con DATE OF EXAM: 08/27/2023 1:58 PM COMPARISON: NONE HISTORY: Low back pain with weakness in legs, Hx back surgery CONTRAST: The patient was injected with 8 mL intravenous Gadavist gadolinium contrast. Multiplanar, MultiSpin echo imaging of the lumbar spine was performed. L1-L2: Mild decreased signal aspect compatible with degenerative disc disease. Ventral spondylosis. N o herniation, protrusion or disc bulging. No canal stenosis is present. Foramina are patent bilater ally. L2-L3: Mild decreased signal aspect compatible with degenerative disc disease. Ventral spondylosis. M ild posterior disc bulge without herniation or central stenosis. No canal stenosis is present. Marleni paula are patent bilaterally. L3-L4: Left hemilaminectomy change is noted. Severe disc desiccation. Degenerative endplate marrow ch yue. Posterior disc bulge without evidence of disc herniation. No pathologic enhancement. L4-L5: Left hemilaminectomy change is noted. Severe disc desiccation. Degenerative endplate marrow ch yue. Posterior disc bulge without evidence of disc herniation. No pathologic enhancement. L5-S1: Mild decreased signal aspect compatible with degenerative disc disease. Ventral spondylosis. N o herniation, protrusion or disc bulging. No canal stenosis is present. Foramina are patent bilater ally. Lumbar segments are intact. No paraspinal masses are identified. Conus medullaris has a normal appe arance. Curvature lumbar spine convex to the right. IMPRESSION: 1. Degenerative disc disease as discussed with mild disc bulging. 2. Postoperative changes at L3-4 and L4-5 without evidence for recurrent process.
== END | disposition home or self-care (01) ==
LOC: RADMRIMAIN 12:33
PROVIDERS: ATTEND Psychiatry & Neurology Neurology
DX: M51.36 Other intervertebral disc degeneration, lumbar region (principal); Z98.890 Other specified postprocedural states
CPT/HCPCS: 72158; A9585

== ENCOUNTER → 2023-10-13 | Outpatient (CLI) | payer MEDICARE ==
[2023-10-13 15:06] LABS: African American GFR (CKD) >90 (>60 ml/min/1.73 sqM); Blood Urea Nitrogen 15 mg/dL (9-20); Non-African American GFR(CKD) >90 (>60 ml/min/1.73 sqM)
--- NOTE | 2023-10-15 09:17 | CT ---
EXAMINATION TYPE: CT angio chest DATE OF EXAM: 10/13/2023 COMPARISON: Prior CT chest March 01, 2023 HISTORY: history of thoracic aneurysm, unruptured CT DLP: 762.8 mGycm. Automated Exposure Control for Dose Reduction was Utilized. CONTRAST: CTA scan of the thorax is performed without and with IV Contrast, patient injected with 100 cc mL of Isovue 370, aneurysm protocol. 3D reconstructed images are created on an independent workstation an d reviewed. FINDINGS: LUNGS: A few thin-walled cysts scattered throughout the bilateral lower lobes are redemonstrated. Inc reased opacity posterior medial right lower lobe suspicious for atelectasis and/or edema. No pleural effusion or pneumothorax seen bilaterally in the current study. MEDIASTINUM: Severe three-vessel coronary artery calcification and/or stents. No cardiomegaly. No per icardial effusion. Satisfactory enhancement of the pulmonary arteries. Ascending aortic aneurysm is r edemonstrated measuring up to 4.4 cm similar to prior study. No extension into the arch or descending aorta is seen. Normal three-vessel origin is redemonstrated. OTHER: Surgical change right shoulder causing streak artifact is partially imaged similar to prior. IMPRESSION: Stable ascending aortic aneurysm measured up to 4.4 cm on current study.
== END | disposition home or self-care (01) ==
LOC: RADCTMAIN 14:24
PROVIDERS: ATTEND Family Medicine
DX: I71.23 Aneurysm of the descending thoracic aorta, without rupture (principal)
CPT/HCPCS: 82565; 84520; 71275; 36415; Q9967

== ENCOUNTER 2024-04-30 08:39 | Emergency (ER) | payer MEDICARE ==
[2024-04-30 08:48] VITALS: TEMP 98
[2024-04-30] MEDS: FLUORESCEIN STRIPS 1 MG STRIP RIGHT EYE ONE (09:21)
[2024-04-30] MEDS: PROPARACAINE 0.5% OPHTH DROPS 15 ML BTL RIGHT EYE STA (09:21)
--- NOTE | 2024-04-30 09:44 | ED ---
General Adult HPI - General Chief complaint: ENT Stated complaint: eye injury Time Seen by Provider: 04/30/24 09:04 Source: patient, RN notes reviewed Mode of arrival: ambulatory Limitations: no limitations - History of Present Illness Initial comments: Patient is a 68-year-old male presenting to the emergency department with concerns for scratching his eye. Onset of symptoms was yesterday afternoon. Patient feels something got into his eye and has been scratching and bothering him since that time. Patient has some mild blurry vision and difficult to open the eyelid. Unclear last tetanus immunization. Patient feels his vision may be a little bit blurry. No headache. - Related Data Home Medications Medication Instructions Recorded Confirmed carvediloL [Coreg] 3.125 mg PO BID 12/25/18 03/01/23 Atorvastatin [Lipitor] 80 mg PO HS 01/23/20 03/01/23 Clopidogrel Bisulfate [Plavix] 75 mg PO HS 10/05/20 03/01/23 Sertraline HCl [Zoloft] 100 mg PO HS 01/22/21 03/01/23 Isosorbide Mononitrate ER [Imdur] 60 mg PO DAILY 02/19/23 03/01/23 Valsartan 320 mg PO DAILY 02/19/23 03/01/23 oxyBUTYnin chloride [Ditropan XL] 10 mg PO HS 02/19/23 03/01/23 Fluoride (Sodium) [Sodium Fluoride 1 applic DENTAL BID 03/01/23 03/01/23 5000 Plus] Previous Rx's Medication Instructions Recorded Aspirin 81 mg PO DAILY #30 chew 12/28/18 Nitroglycerin Sl Tabs [Nitrostat] 0.4 mg SUBLINGUAL Q5M PRN #25 tab 12/28/18 Docusate [Colace] 100 mg PO BID #60 capsule 02/26/23 Doxycycline Hyclate 100 mg PO BID #10 tab 02/26/23 Ondansetron [Zofran] 4 mg PO Q8HR PRN #21 tab 02/26/23 oxyCODONE-APAP 7.5-325MG [Percocet 1 tab PO Q4HR PRN #42 tab 02/27/23 7.5-325 mg] Famotidine [Pepcid] 20 mg PO BID #30 tablet 02/28/23 polyethylene glycoL 3350 [Miralax] 17 gm PO DAILY PRN #15 packet 02/28/23 Sennosides [Senokot] 8.6 mg PO BID #30 tablet 03/04/23 Allergies Allergy/AdvReac Type Severity Reaction Status Date / Time No Known Allergies Allergy Verified 04/30/24 08:46 Review of Systems ROS Statement: Those systems with pertinent positive or pertinent negative responses have been documented in the HPI. ROS Other: All systems not noted in ROS Statement are negative. Constitutional: Denies: fever Eyes: Reports: as per HPI, eye pain ENT: Denies: ear pain Respiratory: Denies: dyspnea Cardiovascular: Denies: chest pain Gastrointestinal: Denies: abdominal pain Past Medical History Past Medical History: Coronary Artery Disease (CAD), GERD/Reflux, Hyperlipidemia, Hypertension Additional Past Medical History / Comment(s): AAA 43 cm being monitored. Sjogren's. Occasional vertigo. Varicose veins in ankles, right shoulder torn rotator cuff History of Any Multi-Drug Resistant Organisms: None Reported Past Surgical History: Back Surgery, Heart Catheterization With Stent, Orthopedic Surgery Additional Past Surgical History / Comment(s): Hand surgery, nerve block right shoulder, 6 cardiac stents, total reverse replacement right shoulder 02/26/23 Past Anesthesia/Blood Transfusion Reactions: No Reported Reaction Date of Last Stent Placement:: 12/26/20 Past Psychological History: Anxiety Smoking Status: Never smoker Past Alcohol Use History: Rare Past Drug Use History: None Reported - Past Family History Father Family Medical History: Myocardial Infarction (WA) Additional Family Medical History / Comment(s): Father of a WA at the age of 60yrs. Mother Additional Family Medical History / Comment(s): Mother of an aneurysm that ruptured at the age of 60yrs. General Exam Limitations: no limitations General appearance: alert, in no apparent distress Head exam: Present: normocephalic Eye exam: Present: PERRL, EOMI, other (Appearance of abrasion visualized with the naked eye. There is fluorescein uptake inferior and medial to the left pupil.) Expanded Eyelids: Normal Inspection: Bilateral Pupils: Regular, Round: Bilateral Sclera/Conjunctival: Normal Inspection: Bilateral Respiratory exam: Present: normal lung sounds bilaterally Cardiovascular Exam: Present: regular rate, normal rhythm GI/Abdominal exam: Present: soft. Absent: tenderness Extremities exam: Present: normal inspection Neurological exam: Present: alert Psychiatric exam: Present: normal affect, normal mood Skin exam: Present: normal color Course Vital Signs 04/30/24 08:46 Temperature 98 F Pulse Rate 68 Respiratory 18 Rate Blood Pressure 146/87 O2 Sat by Pulse 99 Oximetry Medical Decision Making - Medical Decision Making Was pt. sent in by a medical professional or institution ([facility], [facility], urgent care, hospital, or retirement...) When possible be specific @ -[No] Did you speak to anyone other than the patient for history (EMS, parent, family, police, friend...)? What history was obtained from this source @ -[No] Did you review nursing and triage notes (agree or disagree)? Why? @ -[I reviewed and agree with nursing and triage notes] Were old charts reviewed (outside hosp., previous admission, EMS record, old EKG, old radiological studies, urgent care reports/EKG's, retirement records)? Report findings @ -[No old charts were reviewed] Differential Diagnosis (chest pain, altered mental status, abdominal pain women, abdominal pain men, vaginal bleeding, weakness, fever, dyspnea, syncope, headache, dizziness, GI bleed, back pain, seizure, CVA, palpatations, mental health, musculoskeletal)? @ -[not applicable] EKG interpreted by me (3pts min.). @ -[As above] X-rays interpreted by me (1pt min.). @ -[None done] CT interpreted by me (1pt min.). @ -[None done] U/S interpreted by me (1pt. min.). @ -[None done] What testing was considered but not performed or refused? (CT, X-rays, U/S, labs)? Why? @ -[None] What meds were considered but not given or refused? Why? @ -[None] Did you discuss the management of the patient with other professionals (professionals i.e. [facility]NA[facility] Garcia, [facility], lab, RT, psych nurse, social professionals, garment sewer hand, teacher, information technology officer, clinical case manager)? Give summary @ -[No] Was smoking cessation discussed for >3mins.? @ -[No] Was critical care preformed (if so, how long)? @ -[No] Were there social determinants of health that impacted care today? How? (Homelessness, low income, unemployed, alcoholism, drug addiction, transportation, low edu. Level, literacy, decrease access to med. care, care home, rehab)? @ -[No] Was there de-escalation of care discussed even if they declined (Discuss DNR or withdrawal of care, Hospice)? DNR status @ -[No] What co-morbidities impacted this encounter? (DM, HTN, Smoking, COPD, CAD, Cancer, CVA, ARF, Chemo, Hep., AIDS, mental health diagnosis, sleep apnea, morbid obesity)? @ -[None] Was patient admitted / discharged? Hospital course, mention meds given and route, prescriptions, significant lab abnormalities, going to OR and other pertinent info. @ -Patient presents with concern for foreign body to the left eye. No foreign body visualized. There is abrasion on exam. Patient had resolution of symptoms with proparacaine administration. Patient recommended antibiotic eyedrops and will follow-up with ophthalmology Undiagnosed new problem with uncertain prognosis? @ -[No] Drug Therapy requiring intensive monitoring for toxicity (Heparin, Nitro, Insulin, Cardizem)? @ -[No] Were any procedures done? @ -[No] Diagnosis/symptom? @ -Corneal abrasion Acute, or Chronic, or Acute on Chronic? @ -Acute Uncomplicated (without systemic symptoms) or Complicated (systemic symptoms)? @ -[default] Side effects of treatment? @ -[No] Exacerbation, Progression, or Severe Exacerbation? @ -[No] Poses a threat to life or bodily function? How? (Chest pain, [place], [place], pneumonia, PE, COPD, DKA, ARF, appy, cholecystitis, CVA, Diverticulitis, Homicidal, Suicidal, threat to staff... and all critical care pts) @ -Potential threat to vision Disposition Clinical Impression: Corneal abrasion Disposition: HOME SELF-CARE Condition: Stable Instructions (If sedation given, give patient instructions): Corneal Abrasion (ED) Additional Instructions: Use eyedrops every 4 hours while awake. Please follow-up with ophthalmology and primary care physician beginning of the week. Return for increased pain, loss of vision, worsening symptoms or other concerns. Is patient prescribed a controlled substance at d/c from ED?: No Referrals: Mary Meyers MD [Primary Care Provider] - 1-2 days Bravo Matthews MD [STAFF PHYSICIAN] - 1-2 days Time of Disposition: 09:43
[2024-04-30] MEDS: DIPH,PERTUS(ACELL)TETVAC-LF 0.5 ML VIAL IM ONE (10:32)
[2024-04-30] MEDS: GENTAMICIN 0.3% OPHTH DROPS 5 ML BTL LEFT EYE STA (10:33)
[2024-04-30 10:42] VITALS: BP 151/87; PULSE 70; RESP 16
== END 2024-04-30 10:42 | disposition home or self-care (01) ==
LOC: EC 08:39
DX: S05.02XA Injury of conjunctiva and corneal abrasion without foreign body, left eye, initial encounter (principal); Z95.5 Presence of coronary angioplasty implant and graft; Z23 Encounter for immunization; X58.XXXA Exposure to other specified factors, initial encounter
CPT/HCPCS: 90471; 90715; 99283

== ENCOUNTER 2024-08-11 01:20 | Emergency (ER) | payer MEDICARE ==
--- NOTE | 2024-08-11 02:10 | ED ---
General Adult HPI - General Chief complaint: Chest Pain Stated complaint: High BP Time Seen by Provider: 08/11/24 01:48 Source: patient Mode of arrival: ambulatory Limitations: no limitations - History of Present Illness Initial comments: Patient is a 68-year-old gentleman with a past medical history of hypertension, CAD presented today for chest tightness and hypertension. Patient states that over the last 3 days he has had chest tightness. He is seen by his PCP who prescribed him an albuterol inhaler which did not improve his symptoms today. Does not seem to change with activity. Was getting an infusion today for his Sjogren's when his blood pressure was noted be elevated. He was told by the nurse at the infusion center to continue to monitor his blood pressure throughout the day. Patient noted a blood pressure 190 systolic and when repe ated it was 180 systolic. He noticed heartburn this afternoon and is unsure if it was related to his blood pressure. Heartburn is nonradiating. Denies other chest pain, nausea, vomiting, abdominal pain, shortness of breath, cough, hemoptysis, LE swelling, recent travel, surgeries or hospitalizations. Sees a certified prosthetist/orthotist out of [place]. Is a non-smoker. Takes medications as prescribed. No illicit drug use. Is currently on Plavix. - Related Data Home Medications Medication Instructions Recorded Confirmed carvediloL [Coreg] 3.125 mg PO BID 12/25/18 03/01/23 Atorvastatin [Lipitor] 80 mg PO HS 01/23/20 03/01/23 Clopidogrel Bisulfate [Plavix] 75 mg PO HS 10/05/20 03/01/23 Sertraline HCl [Zoloft] 100 mg PO HS 01/22/21 03/01/23 Isosorbide Mononitrate ER [Imdur] 60 mg PO DAILY 02/19/23 03/01/23 Valsartan 320 mg PO DAILY 02/19/23 03/01/23 oxyBUTYnin chloride [Ditropan XL] 10 mg PO HS 02/19/23 03/01/23 Fluoride (Sodium) [Sodium Fluoride 1 applic DENTAL BID 03/01/23 03/01/23 5000 Plus] Previous Rx's Medication Instructions Recorded Aspirin 81 mg PO DAILY #30 chew 12/28/18 Nitroglycerin Sl Tabs [Nitrostat] 0.4 mg SUBLINGUAL Q5M PRN #25 tab 12/28/18 Docusate [Colace] 100 mg PO BID #60 capsule 02/26/23 Doxycycline Hyclate 100 mg PO BID #10 tab 02/26/23 Ondansetron [Zofran] 4 mg PO Q8HR PRN #21 tab 02/26/23 oxyCODONE-APAP 7.5-325MG [Percocet 1 tab PO Q4HR PRN #42 tab 02/27/23 7.5-325 mg] Famotidine [Pepcid] 20 mg PO BID #30 tablet 02/28/23 polyethylene glycoL 3350 [Miralax] 17 gm PO DAILY PRN #15 packet 02/28/23 Sennosides [Senokot] 8.6 mg PO BID #30 tablet 03/04/23 Allergies Allergy/AdvReac Type Severity Reaction Status Date / Time No Known Allergies Allergy Verified 08/11/24 01:41 Review of Systems ROS Statement: Those systems with pertinent positive or pertinent negative responses have been documented in the HPI. ROS Other: All systems not noted in ROS Statement are negative. Constitutional: Denies: fever Respiratory: Denies: cough, dyspnea, wheezes, hemoptysis Cardiovascular: Reports: as per HPI. Denies: chest pain, dyspnea on exertion, edema Gastrointestinal: Denies: abdominal pain, nausea, vomiting Musculoskeletal: Denies: back pain Past Medical History Past Medical History: Coronary Artery Disease (CAD), GERD/Reflux, Hyperlipidemia, Hypertension Additional Past Medical History / Comment(s): AAA 43 cm being monitored. Sjogren's. Occasional vertigo. Varicose veins in ankles, right shoulder torn rotator cuff History of Any Multi-Drug Resistant Organisms: None Reported Past Surgical History: Back Surgery, Heart Catheterization With Stent, Orthopedic Surgery Additional Past Surgical History / Comment(s): Hand surgery, nerve block right shoulder, 6 cardiac stents, total reverse replacement right shoulder 02/26/23 Past Anesthesia/Blood Transfusion Reactions: No Reported Reaction Date of Last Stent Placement:: 12/26/20 Past Psychological History: Anxiety Smoking Status: Never smoker Past Alcohol Use History: Rare Past Drug Use History: None Reported - Past Family History Father Family Medical History: Myocardial Infarction (VA) Additional Family Medical History / Comment(s): Father of a VA at the age of 60yrs. Mother Additional Family Medical History / Comment(s): Mother of an aneurysm that ruptured at the age of 60yrs. General Exam - General Exam Comments Initial Comments: PE: CONSTITUTIONAL: No apparent distress, well appearing SKIN: Warm, dry, no jaundice, hives or petechiae EYES: Pupils are equally round, extraocular movements intact without nystagmus, clear conjunctiva, non-icteric sclera HENT: Normocephalic, atraumatic, moist mucus membranes, oropharynx clear without exudates NECK: , Full range of motion, normal appearance PULMONARY: Clear to auscultation without wheezes, rhonchi, or rales, normal excursion, no accessory muscle use and no stridor, chest wall is nontender to palpation CARDIOVASCULAR: Regular rate, rhythm, normal S1 and S2. No appreciated murmurs, rubs or gallops. Strong radial pulses with intact distal perfusion. No lower extremity edema GASTROINTESTINAL: Soft, active bowel sounds throughout, non-tender, non- distended, no palpable masses, no rebound or guarding. No hepatosplenomegaly MUSCULOSKELETAL: Extremities have no gross deformity, no edema, redness, or swelling. No calf swelling NEUROLOGIC:_a/o x 3, GCS 15, normal mentation and speech. Moves all extremities x 4 without motor or sensory deficit PSYCHIATRIC:_normal mood and affect, thought process is clear and linear Limitations: no limitations Course Vital Signs 08/11/24 08/11/24 01:41 04:00 Temperature 98.3 F Pulse Rate 69 60 Respiratory 20 17 Rate Blood Pressure 170/83 154/89 O2 Sat by Pulse 97 99 Oximetry EKG Findings - EKG Comments: EKG Findings:: EKG interpretation, sinus rhythm, rate 66 beats minute, WA interval 174 ms, QRS duration 90 ms, QT/QTc 385/398 ms, normal axis, compared to EKG performed on 03/02/24, no new ST elevation or significant changes from prior Medical Decision Making - Medical Decision Making Was pt. sent in by a medical professional or institution (, PA, WELLNESS PROGRAM COORDINATOR, urgent care, hospital, or halfway...) When possible be specific @ -No Did you speak to anyone other than the patient for history (EMS, parent, family, police, friend...)? What history was obtained from this source @ -No Did you review nursing and triage notes (agree or disagree)? Why? @ -I reviewed and agree with nursing and triage notes Were old charts reviewed (outside hosp., previous admission, EMS record, old EKG, old radiological studies, urgent care reports/EKG's, halfway records)? Report findings @ Reviewed report from stress test performed on 03/03/2023 showed no evidence of reversible ischemia additionally reviewed chest CT performed on 09/18/2020 showed nodular density in the right upper lobe, stable ascending thoracic aortic aneurysm Differential Diagnosis (chest pain, altered mental status, abdominal pain women, abdominal pain men, vaginal bleeding, weakness, fever, dyspnea, syncope, headache, dizziness, GI bleed, back pain, seizure, CVA, palpatations, mental health, musculoskeletal)? Differential diagnosis remains broad however top considerations include stable angina, unstable angina, STEMI, NSTEMI, PE, pericarditis, pleuritis, costochondritis, pneumonia, esophageal spasm, GERD this is not all-inclusive list EKG interpreted by me (3pts min.). @ -As above X-rays interpreted by me (1pt min.). None done CT interpreted by me (1pt min.). @No evidence of aortic dissection, cardiomegaly or PE U/S interpreted by me (1pt. min.). @ -None done What testing was considered but not performed or refused? (CT, X-rays, U/S, labs)? Why? @ -None What meds were considered but not given or refused? Why? @ -None Did you discuss the management of the patient with other professionals (professionals i.e. , PA, WELLNESS PROGRAM COORDINATOR, lab, RT, psych nurse, social services manager, access control specialist, teacher, chairman & chief executive officer, hospice case manager)? Give summary @ -No Was smoking cessation discussed for >3mins.? @ -No Was critical care preformed (if so, how long)? @ -No Were there social determinants of health that impacted care today? How? (Homelessness, low income, unemployed, alcoholism, drug addiction, transportation, low edu. Level, literacy, decrease access to med. care, assisted, rehab)? @ -No Was there de-escalation of care discussed even if they declined (Discuss DNR or withdrawal of care, Hospice)? @ -No What co-morbidities impacted this encounter? (DM, HTN, Smoking, COPD, CAD, Cancer, CVA, ARF, Chemo, Hep., AIDS, mental health diagnosis, sleep apnea, morbid obesity)? @ -Hypertension, CAD Was patient admitted / discharged? Hospital course, mention meds given and route, prescriptions, significant lab abnormalities, going to OR and other pertinent info. @ -Hospital course discharged Patient is a pleasant 68-year-old gentleman presenting today for chest tightness and high blood pressures noted at home. initial blood pressure here 170/83, repeat blood pressure on my assessment 145 systolic. Patient well-appearing, pleasant awake and alert on my assessment. Lungs are clear to auscultation bilaterally without wheezing. Normal excursion. No chest wall tenderness to palpation. Normal S1-S2 on cardiac exam without murmurs. No lower extremity edema. Abdomen soft and nontender. Plan for troponin, EKG, CTA chest given patient was concerned about his thoracic aneurysm in the setting of hypertension , CMP, CBC, pace. Will give SL nitroglycerin aspirin and fluids. Patient agreeable plan of care. Labs and imaging reviewed. Sodium 127. Otherwise grossly within normal limits. Abnormal values not concerning for acute pathology related to presenting complaint. CTA chest negative for acute process. I reassessed patient and updated him to findings thus far. States his chest tightness has resolved. I discussed with him admission for observation given his significant cardiac history however the patient states that he would prefer to be discharged home so that he can follow-up with his certified prosthetist/orthotist at [place]. He was agreeable to remaining for repeat troponin to esnure no uptrending. I feel this is reasonable given only slightly suspicious history ( chest tightness x 3 days) and patient is established with a certified prosthetist/orthotist that he can follow up with closely. Repeat troponin <0.012. Patient remained asymptomatic. Patient comfortable discharge home this point. I discussed with him the importance of increasing salt intake regarding his low sodium. Patient states that his sodium is chronically low. I also discussed with him the importance of following up with his certified prosthetist/orthotist within the next 24 hours as well as his PCP and that he should return to the hospital for any new or worsening symptoms. In my medical judgment there is currently no evidence of an immediate life-th reatening or surgical condition. Discharge is therefore indicated at this time. Discharge treatment instructions, follow up instructions, and appropriate emergency department return precautions were discussed with the patient and/or medical decision maker. Patient and/or medical decision maker expressed understanding of and agreed with the treatment plan, follow up instructions, and emergency department return precaution. All patient's and/or medical decision maker's questions were answered. The patient was advised that a small risk still exists that a serious condition could develop and was therefore instructed to return to the ED for any changes in symptoms, persistent symptoms, inability to obtain proper follow-up or for any further concerns. Patient received verbal and written instructions for this condition. Undiagnosed new problem with uncertain prognosis? @ -No Drug Therapy requiring intensive monitoring for toxicity (Heparin, Nitro, Insulin, Cardizem)? @ -No Were any procedures done? @ -No Diagnosis/symptom? @Chest tightness, hyponatremia Acute, or Chronic, or Acute on Chronic? @ -Acute Uncomplicated (without systemic symptoms) or Complicated (systemic symptoms)? @Uncomplicated Side effects of treatment? @ -No Exacerbation, Progression, or Severe Exacerbation? @ -No Poses a threat to life or bodily function? How? (Chest pain, [place], VA, pneumonia, PE, COPD, DKA, ARF, appy, cholecystitis, CVA, Diverticulitis, Homicidal, Suicidal, threat to staff... and all critical care pts) @ Unlikely - Lab Data Result diagrams: 08/11/24 01:59 08/11/24 01:59 Lab Results 08/11/24 08/11/24 08/11/24 Range/Units 01:59 01:59 01:59 WBC 10.1 (3.8-10.6) k/uL RBC 4.23 L (4.30-5.90) m/uL Hgb 13.7 (13.0-17.5) gm/dL Hct 40.1 (39.0-53.0) % MCV 94.8 (80.0-100.0) fL MCH 32.4 (25.0-35.0) pg MCHC 34.2 (31.0-37.0) g/dL RDW 13.3 (11.5-15.5) % Plt Count 178 (150-450) k/uL MPV 7.9 Neutrophils % 82 % Lymphocytes % 9 % Monocytes % 7 % Eosinophils % 0 % Basophils % 0 % Neutrophils # 8.3 H (1.3-7.7) k/uL Lymphocytes # 0.9 L (1.0-4.8) k/uL Monocytes # 0.7 (0-1.0) k/uL Eosinophils # 0.0 (0-0.7) k/uL Basophils # 0.0 (0-0.2) k/uL PT 10.2 (10.0-12.5) sec INR 0.9 (<1.2) APTT 23.3 (22.0-30.0) sec Sodium 127 L (137-145) mmol/L Potassium 4.2 (3.5-5.1) mmol/L Chloride 97 L (98-107) mmol/L Carbon Dioxide 25 (22-30) mmol/L Anion Gap 5 mmol/L BUN 17 (9-20) mg/dL Creatinine 0.74 (0.66-1.25) mg/dL Est GFR (CKD-EPI)AfAm >90 (>60 ml/min/1.73 sqM) Est GFR (CKD-EPI)NonAf >90 (>60 ml/min/1.73 sqM) Glucose 156 H (74-99) mg/dL Calcium 9.4 (8.4-10.2) mg/dL Magnesium 1.9 (1.6-2.3) mg/dL Total Bilirubin 0.6 (0.2-1.3) mg/dL AST 29 (17-59) U/L ALT 30 (4-49) U/L Alkaline Phosphatase 133 H (38-126) U/L Troponin I (0.000-0.034) ng/mL NT-Pro-B Natriuret Pep 290 pg/mL Total Protein 6.5 (6.3-8.2) g/dL Albumin 4.1 (3.5-5.0) g/dL Amylase 81 (30-110) U/L Lipase 163 (23-300) U/L 08/11/24 08/11/24 Range/Units 01:59 05:35 WBC (3.8-10.6) k/uL RBC (4.30-5.90) m/uL Hgb (13.0-17.5) gm/dL Hct (39.0-53.0) % MCV (80.0-100.0) fL MCH (25.0-35.0) pg MCHC (31.0-37.0) g/dL RDW (11.5-15.5) % Plt Count (150-450) k/uL MPV Neutrophils % % Lymphocytes % % Monocytes % % Eosinophils % % Basophils % % Neutrophils # (1.3-7.7) k/uL Lymphocytes # (1.0-4.8) k/uL Monocytes # (0-1.0) k/uL Eosinophils # (0-0.7) k/uL Basophils # (0-0.2) k/uL PT (10.0-12.5) sec INR (<1.2) APTT (22.0-30.0) sec Sodium (137-145) mmol/L Potassium (3.5-5.1) mmol/L Chloride (98-107) mmol/L Carbon Dioxide (22-30) mmol/L Anion Gap mmol/L BUN (9-20) mg/dL Creatinine (0.66-1.25) mg/dL Est GFR (CKD-EPI)AfAm (>60 ml/min/1.73 sqM) Est GFR (CKD-EPI)NonAf (>60 ml/min/1.73 sqM) Glucose (74-99) mg/dL Calcium (8.4-10.2) mg/dL Magnesium (1.6-2.3) mg/dL Total Bilirubin (0.2-1.3) mg/dL AST (17-59) U/L ALT (4-49) U/L Alkaline Phosphatase (38-126) U/L Troponin I <0.012 <0.012 (0.000-0.034) ng/mL NT-Pro-B Natriuret Pep pg/mL Total Protein (6.3-8.2) g/dL Albumin (3.5-5.0) g/dL Amylase (30-110) U/L Lipase (23-300) U/L Disposition Clinical Impression: Chest tightness, Hyponatremia Disposition: HOME SELF-CARE Condition: Good Instructions (If sedation given, give patient instructions): Chest Pain (ED) Additional Instructions: Every disease is a spectrum and a small chance still exists that a serious condition could develop, for this reason, please monitor yourself closely for new, changing or worsening symptoms, symptoms that persist beyond 48 hours, chest pain associated with sweatiness, nausea and vomiting, difficulty in breathing, lightheadedness, dizziness or feeling like you are going to pass out, leg swelling, fever, inability to tolerate/keep down fluids or your medications, inability to follow up with outpatient providers as instructed and should you experience these symptoms or should you have any further concerns for your wellbeing please return to the ED or call 911 immediately. Please increase your salt intake over the next 2 to 3 days. Please help with your certified prosthetist/orthotist within the next 24 hours regarding today's visit. PLEASE call your primary care physician as soon as possible to arrange / discuss plan for followup appointment. Appointment in the next 1-3 days is strongly encouraged if possible. PLEASE let us know here before you leave if there is anything further we can do to be of any assistance. Take care and feel Better! Is patient prescribed a controlled substance at d/c from ED?: No Referrals: Mary Meyers MD [Primary Care Provider] - 1-2 days
[2024-08-11] MEDS: ASPIRIN 81 MG PO STA (02:36)
[2024-08-11] MEDS: NITROGLYCERIN SL TABS 0.4 MG TAB SUBLINGUAL STA (02:37)
[2024-08-11] MEDS: SODIUM CHLORIDE 0.9% 1,000 ML IV STA (02:37)
[2024-08-11 03:18] LABS: INR 0.9 (<1.2); Partial Thromboplastin Time 23.3 sec (22.0-30.0); Prothrombin Time 10.2 sec (10.0-12.5)
[2024-08-11 03:21] LABS: Basophils % (A) 0 %; Eosinophils % (A) 0 %; HCT 40.1 % (39.0-53.0); HGB 13.7 gm/dL (13.0-17.5); Lymphocytes # (A) 0.9 k/uL (1.0-4.8); Lymphocytes % (A) 9 %; MCH 32.4 pg (25.0-35.0); MCHC 34.2 g/dL (31.0-37.0); MCV 94.8 fL (80.0-100.0); Mean Platelet Volume 7.9; Monocytes # (A) 0.7 k/uL (0-1.0); Monocytes % (A) 7 %; Neutrophils # (A) 8.3 k/uL (1.3-7.7); Neutrophils % (A) 82 %; Platelet Count 178 k/uL (150-450); RBC 4.23 m/uL (4.30-5.90); RDW 13.3 % (11.5-15.5); WBC 10.1 k/uL (3.8-10.6)
--- NOTE | 2024-08-11 03:23 | CT ---
EXAM: CT Angiography Chest With Intravenous Contrast CLINICAL HISTORY: ITS.REASON CT Reason: hx thoracic aneurysm, chest pain TECHNIQUE: Axial computed tomographic angiography images of the chest with intravenous contrast. CTDI is 60.1 mGy and DLP is 764.3 mGy-cm. This CT exam was performed using one or more of the following dose reduction techniques: automated exposure control, adjustment of the mA and/or kV according to patient size, and/or use of iterative reconstruction technique. MIP reconstructed images were created and reviewed. COMPARISON: No relevant prior studies available. FINDINGS: LUNGS: No focal consolidation, pleural effusion, or pneumothorax. Atelectasis at the lung bases. HEART: Cardiomegaly. VASCULATURE: No aortic aneurysm. Atherosclerotic changes of the aorta. THYROID: Within normal limits. MEDIASTINUM + LYMPH NODES: There are no pathologically enlarged mediastinal, hilar, or axillary lymph nodes. SUPERIOR ABDOMEN: Hepatic steatosis. MUSCULOSKELETAL: Degenerative changes. RIGHT shoulder arthroplasty. IMPRESSION: No aortic aneurysm.
[2024-08-11 03:40] LABS: ALT 30 U/L (4-49); AST 29 U/L (17-59); African American GFR (CKD) >90 (>60 ml/min/1.73 sqM); Albumin 4.1 g/dL (3.5-5.0); Alkaline Phosphatase 133 U/L (38-126); Amylase 81 U/L (30-110); Anion Gap 5 mmol/L; Blood Urea Nitrogen 17 mg/dL (9-20); Calcium 9.4 mg/dL (8.4-10.2); Carbon Dioxide 25 mmol/L (22-30); Chloride 97 mmol/L (98-107); Glucose 156 mg/dL (74-99); Lipase 163 U/L (23-300); Magnesium 1.9 mg/dL (1.6-2.3); Non-African American GFR(CKD) >90 (>60 ml/min/1.73 sqM); Potassium 4.2 mmol/L (3.5-5.1); Sodium 127 mmol/L (137-145); Total Bilirubin 0.6 mg/dL (0.2-1.3); Total Protein 6.5 g/dL (6.3-8.2)
[2024-08-11 03:48] LABS: NT-Pro-B-Type Natriuretic Pept 290 pg/mL
[2024-08-11 07:33] VITALS: BP 160/92; PULSE 57; RESP 16; TEMP 97.4
== END 2024-08-11 07:33 | disposition home or self-care (01) ==
LOC: EC 01:20
CPT/HCPCS: 36415; 71275; 80053; 82150; 83690; 83735; 83880; 84484; 85025; 85610; 85730; 93005; 96360; 99285

== ENCOUNTER → 2024-09-28 | Outpatient (CLI) | payer MEDICARE ==
[~2024-09-28] MED LIST changes: -ACETAMINOPHEN TAB 500 MG TAB PO PRN; -DEXAMETHASONE SOD PHOSPHATE 4 MG/ML 1 ML VIAL IV ONE; -GABAPENTIN 300 MG CAP PO PRN; -HYDROmorphone 0.5 MG/0.5 ML SYRINGE IVP PRN; -LACTATED RINGERS 1,000 ML IV SCH; -MELOXICAM 7.5 MG TAB PO PRN; -ONDANSETRON 4 MG/2 ML VIAL IVP ONE; -ONDANSETRON 4 MG/2 ML VIAL IVP PRN; +REGADENOSON 0.4 MG/5 ML SYRINGE IV PRN; -TRANEXAMIC ACID IN NACL,ISO-OS 1,000 MG in SALINE 1 100ML.BAG IVPB PRN
--- NOTE | 2024-09-28 11:58 | CA ---
Lexiscan Nuclear Stress Test Report Name: Osmel Cardona Exam Date: 09/28/2024 09:32 Exam Location: [place] Stress Ht (in): 72 Wt (lb): 175 BSA: 2.01 Ordering Phys: Mary Meyers MD Referring Phys: Mira, Technologist: Kyaw Dooley Age: 69 Gender: M : 1955 Procedure CPT: Indications: R06.02 SOB R07.9 CHEST PAIN ICD-10 Codes: Patient History: Medications: Meds past 24 hrs: Pretest Chest Pain: STRESS TEST Lexiscan Protocol Exercise Duration (min:sec): 02:[address] Depressions (mm): Angina Score: Bains Score: Resting HR (bpm): 64 Peak HR (bpm): 85 Resting BP (mmHg): 140 / 77 Peak BP (mmHg): / 70 MPHR: 150 Target HR: 128 % MPHR: 57 METS: 1.0 Total Dose: Peak Dose: Atropine: Double Product: BP Response: Stress Termination: INFUSION COMPLETE Stress Symptoms: NO SYMPTOMS Stress Summary: ECG ANALYSIS Resting ECG: Stress ECG: CONCLUSIONS RESTING EKG: [Normal sinus rhythm, normal EKG] , Heart rate 64 BPM Patient recieved IV infusion of Lexiscan 0.4mg and at peak infusion. Patient did not encounter any cardiovascular symptoms with Lexiscan infusion. STRESS EKG showed: [No significant ST-T wave changes diagnostic for ischemia by ST segment analysis] ARRYTHMIAS: [No ectopic rhythms or sustained arrythmias] CONCLUSION: 1. Normal hemodynamic and clinical response to Lexiscan infusion. 2. Non-ischemic EKG response to lexiscan infusion Please refer to the nuclear imaging portion of this stress test for complete interpretation of the study. Dr Edgard Gar (Electronically Signed) Final Date: 28 September 2024 11:57
--- NOTE | 2024-09-28 22:10 | NM ---
EXAMINATION TYPE: NM stress lexiscan cardiolite DATE OF EXAM: 09/28/2024 COMPARISON: Prior stress tests March 03, 2023 CLINICAL INDICATION: Male, 69 years old with history of R06.02 SOB R07.9 CHEST PAIN; history of hyper tension, hypercholesterolemia, stroke, COPD, and prior angioplasty. TECHNIQUE: After the intravenous administration of 10.23 mCi Tc 99m Sestamibi - Cardiolite resting S PECT images acquired 45 minutes post injection. The patient received 0.4mg Lexiscan, 26.0 mCi Tc 99m Sestamibi - Stress images obtained [address] injection FINDINGS: Review of stress and rest SPECT images demonstrates no distinct perfusion abnormality. Gated analysi s shows normal wall motion with an estimated left ventricular ejection fraction of 67 %. IMPRESSION: No scintigraphic evidence for reversible ischemia. No significant change from most recent prior. [facility], , 09/28/2024 10:08 PM
== END | disposition home or self-care (01) ==
LOC: RADNMMAIN 08:00
PROVIDERS: ATTEND Family Medicine
DX: J44.9 Chronic obstructive pulmonary disease, unspecified (principal); I10 Essential (primary) hypertension; E78.00 Pure hypercholesterolemia, unspecified
CPT/HCPCS: 93017; 78452; A9500; J2785

== ENCOUNTER 2024-09-29 03:57 | Emergency (ER) | payer MEDICARE ==
--- NOTE | 2024-09-29 04:26 | ED ---
General Adult HPI - General Chief complaint: Fall Stated complaint: Fall/R Shoulder Injury Time Seen by Provider: 09/29/24 04:12 Source: patient, RN notes reviewed, old records reviewed Mode of arrival: ambulatory Limitations: no limitations - History of Present Illness Initial comments: Patient is a 69-year-old male with past medical history remarkable for total right shoulder replacement, cardiac stents, on Plavix. Also has a history of hypertension hyperlipidemia. Patient suffered a mechanical fall around midnight this evening. States he was wearing socks and he slipped on his floor in the bathroom. Landed on the ground on his right shoulder and ribs. Denies hitting his head. Denies loss of consciousness. Denies any other injuries. Denies back pain, chest pain, shortness of breath, abdominal pain, nausea, vomiting. Presents today over concern for injury to his right shoulder that he had replaced. Also is complaining of right-sided rib pain. Denies any back pain. Presents for further evaluation at this time. - Related Data Home Medications Medication Instructions Recorded Confirmed carvediloL [Coreg] 3.125 mg PO BID 12/25/18 03/01/23 Atorvastatin [Lipitor] 80 mg PO HS 01/23/20 03/01/23 Clopidogrel Bisulfate [Plavix] 75 mg PO HS 10/05/20 03/01/23 Sertraline HCl [Zoloft] 100 mg PO HS 01/22/21 03/01/23 Isosorbide Mononitrate ER [Imdur] 60 mg PO DAILY 02/19/23 03/01/23 Valsartan 320 mg PO DAILY 02/19/23 03/01/23 oxyBUTYnin chloride [Ditropan XL] 10 mg PO HS 02/19/23 03/01/23 Fluoride (Sodium) [Sodium Fluoride 1 applic DENTAL BID 03/01/23 03/01/23 5000 Plus] Previous Rx's Medication Instructions Recorded Aspirin 81 mg PO DAILY #30 chew 12/28/18 Nitroglycerin Sl Tabs [Nitrostat] 0.4 mg SUBLINGUAL Q5M PRN #25 tab 12/28/18 Docusate [Colace] 100 mg PO BID #60 capsule 02/26/23 Doxycycline Hyclate 100 mg PO BID #10 tab 02/26/23 Ondansetron [Zofran] 4 mg PO Q8HR PRN #21 tab 02/26/23 oxyCODONE-APAP 7.5-325MG [Percocet 1 tab PO Q4HR PRN #42 tab 02/27/23 7.5-325 mg] Famotidine [Pepcid] 20 mg PO BID #30 tablet 02/28/23 polyethylene glycoL 3350 [Miralax] 17 gm PO DAILY PRN #15 packet 02/28/23 Sennosides [Senokot] 8.6 mg PO BID #30 tablet 03/04/23 Cyclobenzaprine [Flexeril] 5 mg PO TID PRN 7 Days #21 tablet 09/29/24 Lidocaine 5% Patch [Lidoderm 5% 1 patch TOPICAL DAILY PRN 14 Days 09/29/24 Patch] #14 patch Allergies Allergy/AdvReac Type Severity Reaction Status Date / Time No Known Allergies Allergy Verified 09/29/24 03:58 Review of Systems ROS Statement: Those systems with pertinent positive or pertinent negative responses have been documented in the HPI. Review of Systems: CONST: Denies fever EYES: Denies blurry vision ENT: Denies nasal congestion C/V: Denies Chest pain RESP: Denies shortness of breath GI: Denies abdominal pain : Denies dysuria SKIN: Denies rash. MSK: Endorses right shoulder pain, right rib pain NEURO: Denies headache ROS Other: All systems not noted in ROS Statement are negative. Past Medical History Past Medical History: Coronary Artery Disease (CAD), GERD/Reflux, Hyperlipidem ia, Hypertension Additional Past Medical History / Comment(s): AAA 43 cm being monitored. Sjogren's. Occasional vertigo. Varicose veins in ankles, right shoulder torn rotator cuff History of Any Multi-Drug Resistant Organisms: None Reported Past Surgical History: Back Surgery, Heart Catheterization With Stent, Orthopedic Surgery Additional Past Surgical History / Comment(s): Hand surgery, nerve block right shoulder, 6 cardiac stents, total reverse replacement right shoulder 02/26/23 Past Anesthesia/Blood Transfusion Reactions: No Reported Reaction Date of Last Stent Placement:: 12/26/20 Past Psychological History: Anxiety Smoking Status: Never smoker Past Alcohol Use History: Occasional Past Drug Use History: None Reported - Past Family History Father Family Medical History: Myocardial Infarction (RI) Additional Family Medical History / Comment(s): Father of a RI at the age of 60yrs. Mother Additional Family Medical History / Comment(s): Mother of an aneurysm that ruptured at the age of 60yrs. General Exam - General Exam Comments Initial Comments: General: Appears in mild distress secondary to pain. HEAD: Normal with no signs of head trauma. Negative Jarrett sign. Negative raccoon eyes. EYES: PERRLA, EOMI, conjunctiva normal, no discharge. Pupils are 2 mm and equal bilaterally. ENT: Hearing grossly intact, normal oropharynx. RESPIRATORY: Clear breath sounds bilaterally. No wheezes, rales, or rhonchi. C/V: Regular rate and rhythm. S1 and S2 auscultated, no edema, peripheral pulses 2+ and intact throughout ABD: Abd is soft, nontender, nondistended EXT: Decreased range of motion of the right shoulder secondary to pain. No decreased range of motion of the right elbow or wrist or hand. No obvious deformity. Tenderness to palpation diffusely over the right shoulder. My clavicle within acceptable limits. Patient also has tenderness to palpation generally over the right ribs in the midaxillary line. No other obvious step- offs or deformities palpated. No evidence of flail chest. No midline cervical, thoracic, lumbar spine tenderness to palpation. Pelvis is stable. No obvious injury to the left arm or bilateral legs. SKIN: No rashes or lesions observed on exposed skin. NEURO: Alert and oriented x 4. GCS of 15. Limitations: no limitations Course Vital Signs 09/29/24 04:00 Temperature 97.8 F Pulse Rate 71 Respiratory 19 Rate Blood Pressure 186/90 O2 Sat by Pulse 98 Oximetry Medical Decision Making - Medical Decision Making Was pt. sent in by a medical professional or institution (, PA, [facility], urgent care, hospital, or long term...) When possible be specific @ -No Did you speak to anyone other than the patient for history (EMS, parent, family, police, friend...)? What history was obtained from this source @ -No Did you review nursing and triage notes (agree or disagree)? Why? @ -I reviewed and agree with nursing and triage notes Were old charts reviewed (outside hosp., previous admission, EMS record, old EKG, old radiological studies, urgent care reports/EKG's, long term records)? Report findings @ -No old charts were reviewed Differential Diagnosis (chest pain, altered mental status, abdominal pain women, abdominal pain men, vaginal bleeding, weakness, fever, dyspnea, syncope, headache, dizziness, GI bleed, back pain, seizure, CVA, palpatations, mental health, musculoskeletal)? @ -Differential Musculoskeletal Muscular strain, contusion, ligament sprain, fracture, arthritis, septic arthritis, bursitis, cellulitis, muscle spasm, nerve compression, DVT, arterial occlusion, herpes zoster, electrolyte abnormality, tumor.... This is not meant to be in all inclusive list EKG interpreted by me (3pts min.). @ -None done X-rays interpreted by me (1pt min.). @ -Chest x-ray reveals no obvious acute displaced rib fracture. No lung injury. No acute cardiopulmonary process. Right shoulder x-ray reveals no obvious acute traumatic injury. CT interpreted by me (1pt min.). @ -CT of the right shoulder shows no obvious acute fracture or injury. U/S interpreted by me (1pt. min.). @ -None done What testing was considered but not performed or refused? (CT, X-rays, U/S, labs)? Why? @ -None What meds were considered but not given or refused? Why? @ -None Did you discuss the management of the patient with other professionals (professionals i.e. , PA, [facility], lab, RT, psych nurse, delinquency prevention social worker, surveyor, t eacher, community development officer, case management manager)? Give summary @ -No Was smoking cessation discussed for >3mins.? @ -No Was critical care preformed (if so, how long)? @ -No Were there social determinants of health that impacted care today? How? (Homelessness, low income, unemployed, alcoholism, drug addiction, transportation, low edu. Level, literacy, decrease access to med. care, nursing home, rehab)? @ -No Was there de-escalation of care discussed even if they declined (Discuss DNR or withdrawal of care, Hospice)? DNR status @ -No What co-morbidities impacted this encounter? (DM, HTN, Smoking, COPD, CAD, Cancer, CVA, ARF, Chemo, Hep., AIDS, mental health diagnosis, sleep apnea, morbid obesity)? @ -Prior right shoulder replacement surgery Was patient admitted / discharged? Hospital course, mention meds given and route, prescriptions, significant lab abnormalities, going to OR and other pertinent info. @ -Patient presents for mechanical fall. Patient is on Plavix but did not hit his head, has no head trauma, and did not experience loss of consciousness. Therefore CT imaging not indicated of the brain at this time. Concern for injuries to the right shoulder and right ribs. We will obtain x-rays. He will be given [place] for analgesia. Vital signs are within acceptable limits except for mild hypertension likely secondary to pain. Patient was in agreement this plan. Patient's x-rays are negative for any obvious traumatic injury. I updated the patient. He is still having persistent right shoulder pain with difficulty ambulating the right shoulder immobilizing it at all. We discussed and due to the patient's history of the significant right shoulder repairs we will obtain CT imaging of the right shoulder and he was in agreement this plan. He is given additional analgesia medications. CT shows no obvious acute fracture or injury. I updated the patient. He will be given a sling as well as incentive spirometer. Diagnosis is shoulder sprain, rib contusion. Strict return precautions discussed including signs or symptoms of pneumonia. Recommend he follow-up with his surgeon Dr. Crenshaw as well as his PCP. Patient was in agreement this plan. I will provide the patient with a prescription for lidocaine patches, Flexeril. I instructed the patient to follow up with their PCP in the next 1-3 days. I explained that the patient should return to the emergency department if they experience any worsening symptoms. Strict return precautions were discussed with the patient. The patient expressed understanding of these instructions. I answered all questions that the patient had. The patient was discharged home in good condition with their prescriptions and follow up information. Undiagnosed new problem with uncertain prognosis? @ -No Drug Therapy requiring intensive monitoring for toxicity (Heparin, Nitro, Insulin, Cardizem)? @ -No Were any procedures done? @ -No Diagnosis/symptom? @ -Right shoulder sprain, right rib contusion, fall Acute, or Chronic, or Acute on Chronic? @ -Acute Uncomplicated (without systemic symptoms) or Complicated (systemic symptoms)? @ -Uncomplicated Side effects of treatment? @ -None Exacerbation, Progression, or Severe Exacerbation] @ -No Poses a threat to life or bodily function? @ -Unlikely at this time Disposition Clinical Impression: Fall, Sprain of shoulder, right, Contusion of rib on right side Disposition: HOME SELF-CARE Condition: Fair Instructions (If sedation given, give patient instructions): Fall Prevention for Older Adults (ED), Rib Contusion (ED), Shoulder Sprain (ED), How to Use an Incentive Spirometer (ED) Additional Instructions: Diagnosis is shoulder sprain, right rib contusion. Use sling for comfort. Use pain medications for analgesia control. Ice and elevate right shoulder. Follow-up with your surgeon Dr. Crenshaw. Follow-up with your PCP. Follow-up should occur within 1 to 3 days. Please return to the emergency department for any worsening symptoms, including signs of pneumonia. Prescriptions: Cyclobenzaprine [Flexeril] 5 mg PO TID PRN 7 Days #21 tablet PRN Reason: Pain Lidocaine 5% Patch [Lidoderm 5% Patch] 1 patch TOPICAL DAILY PRN 14 Days #14 patch PRN Reason: Pain Is patient prescribed a controlled substance at d/c from ED?: No Referrals: Mary Meyers MD [Primary Care Provider] - 1-2 days Time of Disposition: 06:25
[2024-09-29] MEDS: HYDROcodone/APAP 5-325MG 1 EACH TAB PO STA (04:28)
--- NOTE | 2024-09-29 05:01 | XR ---
EXAMINATION TYPE: XR shoulder complete RT DATE OF EXAM: 09/29/2024 CLINICAL HISTORY: Fall with pain TECHNIQUE: Three views of the right shoulder are obtained. COMPARISON: Right shoulder x-rays March 2023 FINDINGS: There is no acute fracture/dislocation evident in the right shoulder. Metallic artifact fr om reversed total right shoulder arthroplasty is redemonstrated. Hardware position is stable and sati sfactory. Moderate narrowing of acromioclavicular joint is redemonstrated. Visualized ribs are intact . IMPRESSION: There is no acute fracture or dislocation in the right shoulder. [facility], , 09/29/2024 4:59 AM
--- NOTE | 2024-09-29 05:03 | XR ---
EXAMINATION TYPE: XR ribs RT w pa chest xray DATE OF EXAM: 09/29/2024 CLINICAL HISTORY: Fall with right-sided rib pain TECHNIQUE: Single frontal view of the chest is obtained. A frontal and oblique images of right-sided ribs. COMPARISON: CTA chest August 11, 2024 FINDINGS: There is no focal air space opacity, pleural effusion, or pneumothorax seen. The cardiac silhouette size is within normal limits. The osseous structures are intact. Dedicated images of right-sided ribs show no acute displaced fracture. Overlying soft tissue is unrem arkable. IMPRESSION: 1. No acute cardiopulmonary process. 2. No acute displaced right-sided rib fracture. [facility], , 09/29/2024 5:01 AM
[2024-09-29] MEDS: LIDOCAINE 4% PATCH TOPICAL STA (05:21)
[2024-09-29] MEDS: MORPHINE SULFATE 4 MG/ML SYRINGE IM STA (05:21)
--- NOTE | 2024-09-29 06:12 | CT ---
EXAMINATION TYPE: CT shoulder RT wo con DATE OF EXAM: 09/29/2024 COMPARISON: Same day x-ray CLINICAL INDICATION: Male, 69 years old with history of significant pain after fall, hx of replacemen t; [facility], 449.5 CT DLP: FALL, RT SHOULDER PAIN, H/O RT SHOULDER REPLACEMENT mGycm Automated exposure control for dose reduction was used. FINDINGS: Metallic hardware from a reverse total right shoulder arthroplasty is present causing streak artifact making evaluation slightly suboptimal. No acute displaced fracture in the right shoulder. Persistent [id number] narrowing at the acromioclavicular joint. Visualized ribs are intact. Nvzd-ye-cjvuc ate fat stranding superior to the right shoulder is seen suggesting possible soft tissue contusion in jury IMPRESSION: NO ACUTE DISPLACED FRACTURE IN THE RIGHT SHOULDER. [facility], , 09/29/2024 6:10 AM
[2024-09-29] MEDS: ACET/COD 300 MG/30 MG STARTER PACK 6 TAB BTL PO STA (06:32)
[2024-09-29 06:46] VITALS: BP 160/79; PULSE 84; RESP 16; TEMP 97.7
== END 2024-09-29 06:42 | disposition home or self-care (01) ==
LOC: EC 03:57
DX: S43.401A Unspecified sprain of right shoulder joint, initial encounter (principal); S20.211A Contusion of right front wall of thorax, initial encounter; Z96.611 Presence of right artificial shoulder joint; W01.0XXA Fall on same level from slipping, tripping and stumbling without subsequent striking against object, initial encounter; Y92.002 Bathroom of unspecified non-institutional (private) residence as the place of occurrence of the external cause
CPT/HCPCS: 71101; 73030; 73200; 99284; 96372; J2270

== ENCOUNTER → 2024-10-07 | Outpatient (CLI) | payer MEDICARE ==
--- NOTE | 2024-10-07 15:52 | CA ---
Transthoracic Echo Report Name: Osmel Cardona Age: 69 Gender: M : 1955 Exam Date: 10/07/2024 11:54 Exam Location: [facility] Ht (in): 72 Wt (lb): 175 Ordering Physician: Mary Meyers MD Attending/Referring Phys: Telemetry Tech Carly Lucas RDCS Procedure CPT: Indications: R06.02 SHORTNESS OF BREATH Cardiac Hx: Technical Quality: Fair Contrast 1: Total Dose (mL): Contrast 2: Total Dose (mL): MEASUREMENTS (Male / Female) Normal Values 2D ECHO LV Diastolic Diameter PLAX 3.8 cm 4.2 - 5.9 / 3.9 - 5.3 cm LV Systolic Diameter PLAX 2.5 cm IVS Diastolic Thickness 1.4 cm 0.6 - 1.0 / 0.6 - 0.9 cm LVPW Diastolic Thickness 1.3 cm 0.6 - 1.0 / 0.6 - 0.9 cm LV Relative Wall Thickness 0.7 RV Internal Dim ED PLAX 1.8 cm LA Systolic Diameter LX 5.3 cm 3.0 - 4.0 / 2.7 - 3.8 cm LV Diastolic Volume MOD BP 62.7 cm??? 67 - 155 / 56 - 104 cm??? LV Systolic Volume MOD BP 27.8 cm??? 22 - 58 / 19 - 49 cm??? LV Ejection Fraction MOD BP 55.6 % >= 55 % LV Cardiac Index MOD BP 1178.7 cm???/min???m??? LV Diastolic Volume MOD 4C 77.6 cm??? LV Systolic Volume MOD 4C 29.0 cm??? LV Ejection Fraction MOD 4C 62.6 % LV Cardiac Index MOD 4C 1643.9 cm???/min???m??? LV Diastolic Length 4C 7.6 cm LV Systolic Length 4C 6.3 cm LV Diastolic Volume MOD 2C 49.8 cm??? LV Systolic Volume MOD 2C 22.9 cm??? LV Ejection Fraction MOD 2C 54.0 % LV Cardiac Index MOD 2C 909.2 cm???/min???m??? LV Diastolic Length 2C 7.8 cm LV Systolic Length 2C 7.4 cm LA Volume 61.0 cm??? 18 - 58 / 22 - 52 cm??? LA Volume Index 30.3 cm???/m??? 16 - 28 cm???/m??? Ascending Aorta Diameter 4.0 cm M-MODE Aortic Root Diameter MM 3.6 cm LA Systolic Diameter MM 3.1 cm LA Ao Ratio MM 0.9 AV Cusp Separation MM 1.6 cm DOPPLER AV Peak Velocity 137.1 cm/s AV Peak Gradient 7.5 mmHg AV Mean Velocity 103.2 cm/s AV Mean Gradient 4.6 mmHg AV Velocity Time Integral 32.4 cm AI Peak Velocity 396.2 cm/s AI Peak Gradient 62.8 mmHg AI Pressure Half Time 892.2 ms LVOT Peak Velocity 116.2 cm/s LVOT Peak Gradient 5.4 mmHg LVOT Velocity Time Integral 32.3 cm MV Area PHT 2.6 cm??? Mitral E Point Velocity 86.6 cm/s Mitral A Point Velocity 114.9 cm/s Mitral E to A Ratio 0.8 MV Deceleration Time 295.0 ms TR Peak Velocity 201.0 cm/s TR Peak Gradient 16.2 mmHg Right Ventricular Systolic Press 20.6 mmHg FINDINGS Left Ventricle Left ventricular ejection fraction is estimated at 55-60 %.Mildly increased left ventricular wall thickness. Left ventricular cavity size normal. Normal left ventricular systolic function with no obvious regional wall motion abnormalities. Right Ventricle Normal right ventricular size and function. Right ventricular systolic pressure within normal limits. Right Atrium Mild right atrial dilatation. Left Atrium Mild left atrial dilatation. Mitral Valve Wlvi-jh-[id number] mitral regurgitation. No mitral stenosis.mitral valve thickened. Aortic Valve Trileaflet aortic valve. Focal thickening of the aortic valve cusps. Mild aortic regurgitation. No aortic stenosis.aortic valve sclerosis. Tricuspid Valve Structurally normal tricuspid valve. Mild tricuspid regurgitation. No tricuspid stenosis. Pulmonic Valve Structurally normal pulmonic valve. No pulmonic stenosis. Pericardium No pericardial or pleural effusion. Aorta Mildly dilated proximal ascending aorta (tube) 4.0cm. CONCLUSIONS 1. Normal left ventricular size and systolic function 2. Mild mitral and tricuspid regurgitation 3. Mild aortic regurgitation Previewed by: Dr. Janes Barker MD (Electronically Signed) Final Date: 07 October 2024 15:51
== END | disposition home or self-care (01) ==
LOC: RADECHMAIN 11:39
PROVIDERS: ATTEND Family Medicine
DX: I08.2 Rheumatic disorders of both aortic and tricuspid valves (principal); R06.02 Shortness of breath
CPT/HCPCS: 93306

== ENCOUNTER 2024-10-29 14:25 | Inpatient (IN) | payer MEDICARE ==
--- NOTE | 2024-10-29 15:53 | ED ---
ENT HPI - General Chief complaint: ENT Stated complaint: weakness Time Seen by Provider: 10/29/24 14:32 Source: patient, EMS Mode of arrival: EMS Limitations: no limitations - History of Present Illness Initial comments: 69-year-old male with past medical history of hypertension, hyperlipidemia, Sjogren's who presents emergency department with generalized weakness and bilateral ear pain. States that the pain started a couple of days ago. He saw his primary care doctor and was placed on Augmentin and eardrops. States that his pain has continued to get worse. He has been on antibiotics since Thursday. States that the pain is so severe that he has not ate or drink. He is having difficulty ambulating due to the weakness. He denies any fevers. No headache or visual change. No neck pain. No chest pain or difficulty breathing. Admits to nausea and heaving. No other alleviating, precipitating modifying factors - Related Data Home Medications Medication Instructions Recorded Confirmed carvediloL [Coreg] 3.125 mg PO BID 12/25/18 10/29/24 Clopidogrel Bisulfate [Plavix] 75 mg PO DAILY 10/05/20 10/29/24 Sertraline HCl [Zoloft] 100 mg PO HS 01/22/21 10/29/24 Isosorbide Mononitrate ER [Imdur] 60 mg PO DAILY 02/19/23 10/29/24 Valsartan 320 mg PO DAILY 02/19/23 10/29/24 Fluoride (Sodium) [Sodium Fluoride 1 applic DENTAL BID 03/01/23 10/29/24 5000 Plus] Amoxic-Pot Clav 875-125Mg 1 tab PO Q12HR 10/29/24 10/29/24 [Augmentin 875-125] Loratadine [Claritin] 10 mg PO DAILY 10/29/24 10/29/24 Ofloxacin 0.3% Otic Soln [Floxin 5 drops BOTH EARS BID 10/29/24 10/29/24 0.3% Otic Soln] amantadine HCL [Amantadine] 100 mg PO DAILY 10/29/24 10/29/24 hydrALAZINE HCL [Apresoline] 25 mg PO BID 10/29/24 10/29/24 Previous Rx's Medication Instructions Recorded Aspirin 81 mg PO DAILY #30 chew 12/28/18 Nitroglycerin Sl Tabs [Nitrostat] 0.4 mg SUBLINGUAL Q5M PRN #25 tab 12/28/18 Allergies Allergy/AdvReac Type Severity Reaction Status Date / Time No Known Allergies Allergy Verified 10/29/24 14:33 Review of Systems ROS Statement: Those systems with pertinent positive or pertinent negative responses have been documented in the HPI. ROS Other: All systems not noted in ROS Statement are negative. Past Medical History Past Medical History: Coronary Artery Disease (CAD), GERD/Reflux, Hyperlipidemia, Hypertension Additional Past Medical History / Comment(s): AAA 43 cm being monitored. Sjogren's. Occasional vertigo. Varicose veins in ankles, right shoulder torn rotator cuff History of Any Multi-Drug Resistant Organisms: None Reported Past Surgical History: Back Surgery, Heart Catheterization With Stent, Orthopedic Surgery Additional Past Surgical History / Comment(s): Hand surgery, nerve block right shoulder, 6 cardiac stents, total reverse replacement right shoulder 02/26/23 Past Anesthesia/Blood Transfusion Reactions: No Reported Reaction Date of Last Stent Placement:: 12/26/20 Past Psychological History: Anxiety Smoking Status: Never smoker Past Alcohol Use History: Occasional Past Drug Use History: None Reported - Past Family History Father Family Medical History: Myocardial Infarction ([place]) Additional Family Medical History / Comment(s): Father of a [place] at the age of 60yrs. Mother Additional Family Medical History / Comment(s): Mother of an aneurysm that ruptured at the age of 60yrs. General Exam Limitations: no limitations General appearance: alert, in no apparent distress Head exam: Present: atraumatic, normocephalic, normal inspection Eye exam: Present: normal appearance, PERRL, EOMI. Absent: scleral icterus, conjunctival injection, periorbital swelling ENT exam: Present: mucous membranes moist, other (Both ear canals are remarkable for thick, caseous material. Tympanic membrane is opaque and krueger with effusion) Neck exam: Present: normal inspection. Absent: tenderness, meningismus, lymphadenopathy Respiratory exam: Present: normal lung sounds bilaterally. Absent: respiratory distress, wheezes, rales, rhonchi, stridor Cardiovascular Exam: Present: regular rate, normal rhythm, normal heart sounds. Absent: systolic murmur, diastolic murmur, rubs, gallop, clicks GI/Abdominal exam: Present: soft, normal bowel sounds. Absent: distended, tenderness, guarding, rebound, rigid Extremities exam: Present: normal inspection, full ROM, normal capillary refill. Absent: tenderness, pedal edema, joint swelling, calf tenderness Back exam: Present: normal inspection Neurological exam: Present: alert, oriented X3, CN II-XII intact Psychiatric exam: Present: normal affect, normal mood Skin exam: Present: warm, dry, intact, normal color. Absent: rash Course Vital Signs 10/29/24 10/29/24 10/29/24 14:29 15:30 21:09 Temperature 98.7 F 98.5 F Pulse Rate 82 77 85 Respiratory 18 17 17 Rate Blood Pressure 185/93 167/84 166/82 O2 Sat by Pulse 97 96 99 Oximetry 10/30/24 10/30/24 02:59 07:43 Temperature 98.7 F 98.6 F Pulse Rate 80 85 Respiratory 17 18 Rate Blood Pressure 148/79 145/82 O2 Sat by Pulse 96 97 Oximetry Medical Decision Making - Medical Decision Making Was pt. sent in by a medical professional or institution (MAHNAZ Garcia, [employer] OPERATOR, urgent care, hospital, or [place] health care facility...) When possible be specific @ -No Did you speak to anyone other than the patient for history (EMS, parent, family, police, friend...)? What history was obtained from this source @ -With EMS for history Did you review nursing and triage notes (agree or disagree)? Why? @ -I reviewed and agree with nursing and triage notes Were old charts reviewed (outside hosp., previous admission, EMS record, old EKG, old radiological studies, urgent care reports/EKG's, [place] health care facility records)? Report findings @ -No old charts were reviewed Differential Diagnosis (chest pain, altered mental status, abdominal pain women, abdominal pain men, vaginal bleeding, weakness, fever, dyspnea, syncope, headache, dizziness, GI bleed, back pain, seizure, CVA, palpatations, mental health, musculoskeletal)? @ -Otitis media, otitis externa, cholesteatoma, malignant otitis externa EKG interpreted by me (3pts min.). @ -Yes and demonstrated sinus rhythm with a rate of 76. OR interval 180. QRS 82. QTc of 403. No acute ST segment elevations or depressions X-rays interpreted by me (1pt min.). @ -Yes and demonstrates no acute process CT interpreted by me (1pt min.). @ -None done U/S interpreted by me (1pt. min.). @ -None done What testing was considered but not performed or refused? (CT, X-rays, U/S, labs)? Why? @ -None What meds were considered but not given or refused? Why? @ -None Did you discuss the management of the patient with other professionals (professionals i.e. DrHillary, PA, [employer] OPERATOR, lab, RT, psych nurse, licensed social worker, closet organizer, teacher, police liaison officer, case therapist)? Give summary @ -Spoke with Dr. ramirez for admission Was smoking cessation discussed for >3mins.? @ -No Was critical care preformed (if so, how long)? @ -No Were there social determinants of health that impacted care today? How? (Homelessness, low income, unemployed, alcoholism, drug addiction, transporta tion, low edu. Level, literacy, decrease access to med. care, residential, rehab)? @ -No Was there de-escalation of care discussed even if they declined (Discuss DNR or withdrawal of care, Hospice)? DNR status @ -No What co-morbidities impacted this encounter? (DM, HTN, Smoking, COPD, CAD, Cancer, CVA, ARF, Chemo, Hep., AIDS, mental health diagnosis, sleep apnea, morbid obesity)? @ -None Was patient admitted / discharged? Hospital course, mention meds given and route, prescriptions, significant lab abnormalities, going to OR and other pertinent info. @ -Upon arrival patient placed into hallway 10. Thorough history and physical exam was performed. IV access was established. Laboratory studies are conducted. Patient does have hypoglycemia, hypomagnesemia and hypocalcemia. Ionized calcium is ordered. Patient's magnesium is replaced. He is given something to eat. Chest x-ray was performed which demonstrates no acute process. Patient does appear to have bilateral otitis media and otitis externa. He has taken several days of outpatient oral antibiotics therefore will be started on intravenous Rocephin. I also ordered the patient's eardrops. Because of his electrolyte abnormalities I did recommend admission. I did speak with [facility] for the admission and I will place Dr. Duncan on consult Undiagnosed new problem with uncertain prognosis? @ -No Drug Therapy requiring intensive monitoring for toxicity (Heparin, Nitro, Insulin, Cardizem)? @ -No Were any procedures done? @ -No Diagnosis/symptom? @ -Acute bilateral ear pain, acute otitis media/externa acute hypomagnesemia, acute hypoglycemia, acute hypocalcemia Acute, or Chronic, or Acute on Chronic? @ -Acute Uncomplicated (without systemic symptoms) or Complicated (systemic symptoms)? @ -Complicated Side effects of treatment? @ -No Exacerbation, Progression, or Severe Exacerbation? @ -No Poses a threat to life or bodily function? How? (Chest pain, [place], [place], pneumonia, PE, COPD, DKA, ARF, appy, cholecystitis, CVA, Diverticulitis, Homicidal, Suicidal, threat to staff... and all critical care pts) @ -No - Lab Data Result diagrams: 10/30/24 04:57 10/30/24 04:57 Lab Results 10/29/24 10/29/24 10/29/24 Range/Units 15:58 15:58 15:58 WBC 5.8 (3.8-10.6) k/uL RBC 3.14 L (4.30-5.90) m/uL Hgb 9.9 L (13.0-17.5) gm/dL Hct 29.4 L (39.0-53.0) % MCV 93.6 (80.0-100.0) fL MCH 31.5 (25.0-35.0) pg MCHC 33.6 (31.0-37.0) g/dL RDW 12.8 (11.5-15.5) % Plt Count 140 L (150-450) k/uL MPV 7.7 Neutrophils % 84 % Lymphocytes % 7 % Monocytes % 7 % Eosinophils % 1 % Basophils % 0 % Neutrophils # 4.8 (1.3-7.7) k/uL Lymphocytes # 0.4 L (1.0-4.8) k/uL Monocytes # 0.4 (0-1.0) k/uL Eosinophils # 0.0 (0-0.7) k/uL Basophils # 0.0 (0-0.2) k/uL Sodium 131 L (137-145) mmol/L Potassium 3.6 (3.5-5.1) mmol/L Chloride 110 H (98-107) mmol/L Carbon Dioxide 18 L (22-30) mmol/L Anion Gap 3 mmol/L BUN 7 L (9-20) mg/dL Creatinine 0.43 L (0.66-1.25) mg/dL Est GFR (CKD-EPI)AfAm >90 (>60 ml/min/1.73 sqM) Est GFR (CKD-EPI)NonAf >90 (>60 ml/min/1.73 sqM) Glucose 71 L (74-99) mg/dL Plasma Lactic Acid Osiel (0.7-2.0) mmol/L Calcium 6.1 L* (8.4-10.2) mg/dL Magnesium 1.4 L (1.6-2.3) mg/dL Total Bilirubin 0.7 (0.2-1.3) mg/dL AST 33 (17-59) U/L ALT 20 (4-49) U/L Alkaline Phosphatase 55 (38-126) U/L Total Protein 4.8 L (6.3-8.2) g/dL Albumin 2.4 L (3.5-5.0) g/dL Urine Color Colorless Urine Appearance Clear (Clear) Urine pH 6.5 (5.0-8.0) Ur Specific [place] 1.006 (1.001-1.035) Urine Protein Negative (Negative) Urine Glucose (UA) Negative (Negative) Urine Ketones Negative (Negative) Urine Blood Negative (Negative) Urine Nitrite Negative (Negative) Urine Bilirubin Negative (Negative) Urine Urobilinogen <2.0 (<2.0) mg/dL Ur Leukocyte Esterase Negative (Negative) Influenza Type A (PCR) (Not Detectd) Influenza Type B (PCR) (Not Detectd) RSV (PCR) (Not Detectd) SARS-CoV-2 (PCR) (Not Detectd) 10/29/24 10/29/24 Range/Units 15:58 15:58 WBC (3.8-10.6) k/uL RBC (4.30-5.90) m/uL Hgb (13.0-17.5) gm/dL Hct (39.0-53.0) % MCV (80.0-100.0) fL MCH (25.0-35.0) pg MCHC (31.0-37.0) g/dL RDW (11.5-15.5) % Plt Count (150-450) k/uL MPV Neutrophils % % Lymphocytes % % Monocytes % % Eosinophils % % Basophils % % Neutrophils # (1.3-7.7) k/uL Lymphocytes # (1.0-4.8) k/uL Monocytes # (0-1.0) k/uL Eosinophils # (0-0.7) k/uL Basophils # (0-0.2) k/uL Sodium (137-145) mmol/L Potassium (3.5-5.1) mmol/L Chloride (98-107) mmol/L Carbon Dioxide (22-30) mmol/L Anion Gap mmol/L BUN (9-20) mg/dL Creatinine (0.66-1.25) mg/dL Est GFR (CKD-EPI)AfAm (>60 ml/min/1.73 sqM) Est GFR (CKD-EPI)NonAf (>60 ml/min/1.73 sqM) Glucose (74-99) mg/dL Plasma Lactic Acid Osiel 0.7 (0.7-2.0) mmol/L Calcium (8.4-10.2) mg/dL Magnesium (1.6-2.3) mg/dL Total Bilirubin (0.2-1.3) mg/dL AST (17-59) U/L ALT (4-49) U/L Alkaline Phosphatase (38-126) U/L Total Protein (6.3-8.2) g/dL Albumin (3.5-5.0) g/dL Urine Color Urine Appearance (Clear) Urine pH (5.0-8.0) Ur Specific [place] (1.001-1.035) Urine Protein (Negative) Urine Glucose (UA) (Negative) Urine Ketones (Negative) Urine Blood (Negative) Urine Nitrite (Negative) Urine Bilirubin (Negative) Urine Urobilinogen (<2.0) mg/dL Ur Leukocyte Esterase (Negative) Influenza Type A (PCR) Not Detected (Not Detectd) Influenza Type B (PCR) Not Detected (Not Detectd) RSV (PCR) Not Detected (Not Detectd) SARS-CoV-2 (PCR) Not Detected (Not Detectd) Disposition Clinical Impression: Hypomagnesemia, Hypoglycemia, Hypocalcemia, Otitis media Disposition: ADMITTED IP TO THIS HOSP Condition: Stable Is patient prescribed a controlled substance at d/c from ED?: No Time of Disposition: 19:32 Decision to Admit Reason: Admit from EC Decision Date: 10/29/24 Decision Time: 19:32
[2024-10-29] MEDS: SODIUM CHLORIDE 0.9% 1,000 ML IV STA (16:33)
[2024-10-29 16:41] LABS: Basophils % (A) 0 %; Eosinophils % (A) 1 %; HCT 29.4 % (39.0-53.0); HGB 9.9 gm/dL (13.0-17.5); Lymphocytes # (A) 0.4 k/uL (1.0-4.8); Lymphocytes % (A) 7 %; MCH 31.5 pg (25.0-35.0); MCHC 33.6 g/dL (31.0-37.0); MCV 93.6 fL (80.0-100.0); Mean Platelet Volume 7.7; Monocytes # (A) 0.4 k/uL (0-1.0); Monocytes % (A) 7 %; Neutrophils # (A) 4.8 k/uL (1.3-7.7); Neutrophils % (A) 84 %; Platelet Count 140 k/uL (150-450); RBC 3.14 m/uL (4.30-5.90); RDW 12.8 % (11.5-15.5); WBC 5.8 k/uL (3.8-10.6)
[2024-10-29 16:51] LABS: Appearance,Urine Clear (Clear); Bilirubin,Urine Negative (Negative); Blood,Urine Negative (Negative); Color,Urine Colorless; Glucose,Urine (UA) Negative (Negative); Ketones,Urine Negative (Negative); Leukocyte Esterase,Urine Negative (Negative); Nitrite,Urine Negative (Negative); PH, Urine 6.5 (5.0-8.0); Protein,Urine Negative (Negative); Specific Gravity,Urine 1.006 (1.001-1.035); Urobilinogen,Urine <2.0 mg/dL (<2.0)
[2024-10-29 16:53] LABS: ALT 20 U/L (4-49); African American GFR (CKD) >90 (>60 ml/min/1.73 sqM); Albumin 2.4 g/dL (3.5-5.0); Anion Gap 3 mmol/L; Blood Urea Nitrogen 7 mg/dL (9-20); Carbon Dioxide 18 mmol/L (22-30); Chloride 110 mmol/L (98-107); Glucose 71 mg/dL (74-99); Non-African American GFR(CKD) >90 (>60 ml/min/1.73 sqM); Sodium 131 mmol/L (137-145); Total Bilirubin 0.7 mg/dL (0.2-1.3); Total Protein 4.8 g/dL (6.3-8.2)
[2024-10-29 17:21] LABS: AST 33 U/L (17-59); Calcium 6.1 mg/dL (8.4-10.2); Magnesium 1.4 mg/dL (1.6-2.3); Potassium 3.6 mmol/L (3.5-5.1)
[2024-10-29 17:22] LABS: Alkaline Phosphatase 55 U/L (38-126)
--- NOTE | 2024-10-29 18:16 | XR ---
EXAMINATION TYPE: XR chest 2V DATE OF EXAM: 10/29/2024 6:08 PM COMPARISON: 09/29/2024 chest radiograph. CLINICAL INDICATION: Male, 69 years old with history of Weakness; [facility] TECHNIQUE: XR chest 2V Frontal and lateral views of the chest. FINDINGS: Low lung volumes limit study. Cardiac silhouette stable. No acute focal consolidation. No pleural effusion or sizable pneumothorax. Right shoulder arthroplasty. Multilevel thoracic spine degenerative changes and chronic wedge deformi ties. IMPRESSION: No acute cardiopulmonary disease/process. [facility], , 10/29/2024 6:14 PM
[2024-10-29] MEDS: MAGNESIUM SULFATE-D5W PMX 1 GM in DEXTROSE/WATER 1 100ML.BAG IVPB SCH (19:14)
[2024-10-29] MEDS: cefTRIAXone IN SWFI 1,000 MG/10 ML SYRINGE IVP STA (19:15)
[2024-10-29] MEDS ORDERED: NALOXONE 0.4 MG/ML 1 ML VIAL IV PRN (19:32)
[2024-10-29] MEDS ORDERED: MORPHINE SULFATE 4 MG/ML SYRINGE IV PRN (19:32)
[2024-10-29] MEDS: SODIUM CHLORIDE 0.9% 1,000 ML IV SCH (20:12)
[2024-10-29] MEDS: hydrALAZINE HCL 25 MG TAB PO SCH (22:18)
[2024-10-29] MEDS: SERTRALINE 100 MG TAB PO SCH (22:18)
[2024-10-29] MEDS: OFLOXACIN 0.3% OPHTH DROPS 5 ML BOTTLE BOTH EARS SCH (22:18)
[2024-10-29] MEDS: carvediloL 3.125 MG TAB PO SCH (22:18)
[2024-10-30] MEDS ORDERED: cefTRIAXone IN SWFI 1,000 MG/10 ML SYRINGE IVP SCH (09:00)
[2024-10-30 09:28] LABS: Basophils # (A) 0.07 X 10*3/uL (0.00-0.10); Basophils % (A) 1.1 %; Eosinophils # (A) 0.35 X 10*3/uL (0.04-0.35); Eosinophils % (A) 5.3 %; HCT 37.4 % (39.6-50.0); Lymphocytes # (A) 0.95 X 10*3/uL (0.90-5.00); Lymphocytes % (A) 14.3 %; MCH 30.9 pg (27.0-32.0); MCHC 34.8 g/dL (32.0-37.0); MCV 88.8 FL (80.0-97.0); Mean Platelet Volume 10.4 FL (9.5-12.2); Monocytes # (A) 1.18 X 10*3/uL (0.20-1.00); Monocytes % (A) 17.7 %; NRBC Per 100 WBC 0 X 10*3/uL (0.00-0.01); Neutrophils # (A) 4.09 X 10*3/uL (1.80-7.70); Neutrophils % (A) 61.3 %; Platelet Count 232 X 10*3/uL (140-440); RBC 4.21 X 10*6/uL (4.40-5.60); RDW 12.7 % (11.5-14.5); WBC 6.66 X 10*3/uL (4.50-10.00)
[2024-10-30] MEDS: CLOPIDOGREL 75 MG TAB PO SCH (10:11)
[2024-10-30] MEDS: VALSARTAN 160 MG TAB PO SCH (10:11)
[2024-10-30] MEDS: LORATADINE 10 MG TAB PO SCH (10:11)
[2024-10-30] MEDS: ASPIRIN 81 MG PO SCH (10:11)
[2024-10-30] MEDS: ISOSORBIDE MONONITRATE ER 60 MG TAB.ER.24H PO SCH (10:46)
[2024-10-30] MEDS: HYDROcodone/APAP 5-325MG 1 EACH TAB PO PRN (10:46)
--- NOTE | 2024-10-30 13:13 | P.HPIM ---
History of Present Illness H&P Date: 10/30/24 History of present illness; patient 69-year-old gentleman with past medical history significant for hyperlipidemia, hypertension, Sjogren syndrome, coronary disease presented the ER because of generalized weakness and ear pain. Patient stated that he was all right a week back when he started having bilateral ear pain. At the time patient was seen by PCP and thought that he had middle ear infection for which he was started on antibiotics. Patient has been taking his medication but states he has not seen any improvement. Continues to complain of ear pain that had made him lose his appetite. Patient denies any fever or chills. There is no complaint of chest pain or shortness of breath patient is complaining increased weakness and frequent falls at home. Patient has some social stressors at home as well. Because of this ear pain and generalized weakness, patient came to the ER Initial lab work done in the ER showed WBC 5.8, hemoglobin 9.9, platelet count 140, sodium 131 potassium 3.6, BUN 7, creatinine 0.43, calcium 6.1 magnesium 1.4 UA negative for any infection EKG done in the ER showed heart rate of 76, no ST segment elevation or depression seen, no T-wave inversions seen. Chest x-ray done in the ER showed no acute cardiopulmonary process Patient admitted to internal medicine service REVIEW OF SYSTEMS: CONSTITUTIONAL: As mentioned above HEENT: No recent visual problems or hearing problems. Denied any sore throat. CARDIOVASCULAR: As mentioned above PULMONARY: No shortness of breath, no cough, no hemoptysis. GASTROINTESTINAL: No diarrhea, no nausea, no vomiting, no abdominal pain. NEUROLOGICAL: No headaches, no weakness, no numbness. HEMATOLOGICAL: Denies any bleeding or petechiae. GENITOURINARY: Denies any burning micturition, frequency, or urgency. MUSCULOSKELETAL/RHEUMATOLOGICAL: Denies any joint pain, swelling, or any muscle pain. ENDOCRINE: Denies any polyuria or polydipsia. The rest of the 14-point review of systems is negative. PHYSICAL EXAMINATION: GENERAL: The patient is alert and oriented x3, not in any acute distress. Well developed, well nourished. HEENT: Pupils are round and equally reacting to light. EOMI. No scleral icterus. No conjunctival pallor. Normocephalic, atraumatic. No pharyngeal erythema. No thyromegaly. CARDIOVASCULAR: S1 and S2 present. No murmurs, rubs, or gallops. PULMONARY: Chest is clear to auscultation, no wheezing or crackles. ABDOMEN: Soft, nontender, nondistended, normoactive bowel sounds. No palpable organomegaly. MUSCULOSKELETAL: No joint swelling or deformity. EXTREMITIES: No cyanosis, clubbing, or pedal edema. NEUROLOGICAL: Gross neurological examination did not reveal any focal deficits. SKIN: No rashes. Assessment and plan Acute otitis media Hypocalcemia hypomagnesemia Frequent falls Thoracic aortic aneurysm Hypertension Hyperlipidemia History of Sjogren's syndrome Anxiety History of coronary artery disease Monitor vital signs Monitor CBC Monitor CMP Resume aspirin, Plavix, Coreg Ordered IV Rocephin Magnesium replacement ordered Started calcium carbonate Ordered pain management with as needed Motrin and [place] Case management consulted Ordered PT OT ENT consulted ID consulted Labs and medication were reviewed.. Continue same treatment. Continue with symptomatic treatment. Resume home medication. Monitor labs and vitals. DVT and GI prophylaxis. Further recommendations as per clinical course of the patient Dictation was produced using [employer] dictation software. please excuse any grammatical, word or spelling errors. Past Medical History Past Medical History: Coronary Artery Disease (CAD), GERD/Reflux, Hyperlipidemia , Hypertension Additional Past Medical History / Comment(s): AAA 43 cm being monitored. Sjogren's. Occasional vertigo. Varicose veins in ankles, right shoulder torn rotator cuff History of Any Multi-Drug Resistant Organisms: None Reported Past Surgical History: Back Surgery, Heart Catheterization With Stent, Orthopedic Surgery Additional Past Surgical History / Comment(s): Hand surgery, nerve block right shoulder, 6 cardiac stents, total reverse replacement right shoulder 02/26/23 Past Anesthesia/Blood Transfusion Reactions: No Reported Reaction Date of Last Stent Placement:: 12/26/20 Smoking Status: Never smoker - Past Family History Father Family Medical History: Myocardial Infarction ([place]) Additional Family Medical History / Comment(s): Father of a [place] at the age of 60yrs. Mother Additional Family Medical History / Comment(s): Mother of an aneurysm that ruptured at the age of 60yrs. Medications and Allergies Home Medications Medication Instructions Recorded Confirmed Type carvediloL [Coreg] 3.125 mg PO BID 12/25/18 10/29/24 History Aspirin 81 mg PO DAILY #30 chew 12/28/18 10/29/24 Rx Nitroglycerin Sl Tabs [Nitrostat] 0.4 mg SUBLINGUAL Q5M PRN #25 tab 12/28/18 10/29/24 Rx Clopidogrel Bisulfate [Plavix] 75 mg PO DAILY 10/05/20 10/29/24 History Sertraline HCl [Zoloft] 100 mg PO HS 01/22/21 10/29/24 History Isosorbide Mononitrate ER [Imdur] 60 mg PO DAILY 02/19/23 10/29/24 History Valsartan 320 mg PO DAILY 02/19/23 10/29/24 History Fluoride (Sodium) [Sodium Fluoride 1 applic DENTAL BID 03/01/23 10/29/24 History 5000 Plus] Amoxic-Pot Clav 875-125Mg 1 tab PO Q12HR 10/29/24 10/29/24 History [Augmentin 875-125] Loratadine [Claritin] 10 mg PO DAILY 10/29/24 10/29/24 History Ofloxacin 0.3% Otic Soln [Floxin 5 drops BOTH EARS BID 10/29/24 10/29/24 History 0.3% Otic Soln] amantadine HCL [Amantadine] 100 mg PO DAILY 10/29/24 10/29/24 History hydrALAZINE HCL [Apresoline] 25 mg PO BID 10/29/24 10/29/24 History Allergies Allergy/AdvReac Type Severity Reaction Status Date / Time No Known Allergies Allergy Verified 10/29/24 14:33 Physical Exam Vitals: Vital Signs Temp Pulse Pulse Resp BP BP Pulse Ox 10/30/24 08:05 98.5 F 84 17 160/75 98 10/30/24 07:43 98.6 F 85 18 145/82 97 10/30/24 02:59 98.7 F 80 17 148/79 96 10/29/24 21:09 85 17 166/82 99 10/29/24 15:30 98.5 F 77 17 167/84 96 10/29/24 14:29 98.7 F 82 18 185/93 97 Intake and Output 10/29/24 10/30/24 10/30/24 22:59 06:59 14:59 Intake Total 236 Balance 236 Intake: Oral 236 Other: Weight 79.379 kg Results CBC & Chem 7: 10/30/24 04:57 10/29/24 15:58 Labs: Abnormal Lab Results - Last 24 Hours (Table) 10/29/24 10/29/24 10/30/24 Range/Units 15:58 15:58 04:57 RBC 3.14 L 4.21 L (4.30-5.90) m/uL Hgb 9.9 L (13.0-17.5) gm/dL Hct 29.4 L 37.4 L (39.0-53.0) % Plt Count 140 L (150-450) k/uL Lymphocytes # 0.4 L (1.0-4.8) k/uL Monocytes # 1.18 H (0.20-1.00) X 10*3/uL Sodium 131 L (137-145) mmol/L Chloride 110 H (98-107) mmol/L Carbon Dioxide 18 L (22-30) mmol/L BUN 7 L (9-20) mg/dL Creatinine 0.43 L (0.66-1.25) mg/dL Glucose 71 L (74-99) mg/dL Calcium 6.1 L* (8.4-10.2) mg/dL Magnesium 1.4 L (1.6-2.3) mg/dL Total Protein 4.8 L (6.3-8.2) g/dL Albumin 2.4 L (3.5-5.0) g/dL
[2024-10-30 13:30] LABS: BUN/Creat Ratio 11.57 Ratio (12.00-20.00); Blood Urea Nitrogen 8.1 mg/dL (9.0-27.0); Calcium 8.2 mg/dL (8.7-10.3); Carbon Dioxide 20.1 mmol/L (21.6-31.8); Chloride 98 mmol/L (96-109); Glucose 88 mg/dL (70-110); Potassium 4.5 mmol/L (3.5-5.5); Sodium 130 mmol/L (135-145)
[2024-10-30] MEDS ORDERED: ARTIFICIAL TEARS-HYPROMELLOSE DROPS 15 ML BTL BOTH EYES PRN (15:22)
[2024-10-30] MEDS ORDERED: ONDANSETRON 4 MG/2 ML VIAL IVP PRN (16:48)
[2024-10-30] MEDS: CALCIUM CARBONATE 500 MG CHEWABLE PO SCH (18:00)
[2024-10-30] MEDS: IBUPROFEN 600 MG TAB PO PRN (18:00)
[2024-10-30] MEDS: DEXAMETHASONE SOD PHOSPHATE 10 MG/ML 1 ML VIAL IVP SCH (20:43)
--- NOTE | 2024-10-31 00:13 | CONS ---
CONSULTATION REASON FOR CONSULTATION: Bilateral acute otitis media. HISTORY OF PRESENT ILLNESS: This patient is a pleasant 69-year-old male who was admitted via [facility] Emergency Room. The patient presented complaining of severe bilateral ear pain, decreased appetite, weight loss, and other symptoms. It was felt that the patient was dehydrated and also that he had an imbalance of his electrolytes. The patient states that because of the ear pain that his appetite had markedly decreased. He related that his symptoms began approximately sometime in September. At that point, he felt that he probably had pneumonia, but did not seek medical attention. He stayed at home and self-medicated himself. During this time, he experienced sinus congestion, chest congestion, sore throat, and also some coughing. I advised the patient in the future that if he develops similar symptoms that he should immediately contact his family physician. Approximately 3 days prior to coming to the emergency room, the patient developed bilateral ear pain. It was because of the ear pain that he presented at the emergency room department. He was seen by the personnel in the emergency room who felt that he was dehydrated, had electrolyte imbalance and bilateral acute otitis media. He was started on Rocephin and admitted to the hospital. The patient states that he does not have a previous history of ear infections. He states at the present time he has noticed decreased hearing in both ears. This problem first started 3 or 4 days ago. He feels that hearing is equally bad in both ears. He complains that the pain is mostly located in the left ear as compared to the right ear, although he has pressure in both ears. He does have a history of seasonal allergies and takes Claritin . PAST MEDICAL HISTORY: Reveals he has no known allergies to medications. It is to be noted the patient has a known history of an abdominal aortic aneurysm, which is currently being followed and he also has a history of severe ASHD and has undergone approximately 6 stent placements. CURRENT MEDICATIONS: Include; 1. Apresoline. 2. Amantadine. 3. Losartan. 4. Zoloft. 5. Nitrostat. 6. Coreg. 7. Claritin. 8. Plavix. 9. Baby aspirin daily. 10.It is also noted that the patient is currently on Coreg. SOCIAL HISTORY: He is a nonsmoker. REVIEW OF SYSTEMS: CARDIOVASCULAR: Positive for hypertension and ASHD and also abdominal aortic aneurysm. GASTROINTESTINAL: Positive for GERD. METABOLIC/ENDOCRINE: Positive for hypercholesterolemia. The remainder of the review of systems is unremarkable. PHYSICAL EXAMINATION: GENERAL: The patient is a 69-year-old male who was alert and cooperative. HEENT: The patient is normocephalic. Palpation checking for acute mastoiditis is negative in both ears. There is no tragal tenderness to suggest external otitis or swimmer's ear. Both canals are dry. The left tympanic membrane is dull with definite evidence of fluid in the left middle ear space. The right tympanic membrane appears to be somewhat retracted, but also has a suggestion of fluid in the right middle ear space. Neither tympanic membrane is erythematous. There was no tenderness to insertion of the aural speculum in either ear. Palpation bilaterally of the postauricular/mastoid area is negative for any tenderness in this area. Pupils equal, round, reactive to light and accommodation. Extraocular movements within normal limits. Intranasal examination reveals moderate to severe septal deviation with compensatory hypertrophy of the inferior turbinates. The patient has history of Sjgren's syndrome. The mucous membranes intranasally are quite dry and it is noted that the patient has had some minor bleeding to be noted in both nares, but no evidence of any active bleeding at this time. Examination of oropharynx, palpation of the neck and cranial nerves 2 through 12 are within normal limits. CHEST/CARDIOVASCULAR: Both lung bacon are clear. The patient is in regular sinus rhythm. S1 and S2 are present without any murmurs. Peripheral pulses are within normal limits. ABDOMEN: There is no evidence any masses, megaly, or tenderness. The abdomen is soft. The remainder of physical exam is unremarkable. IMPRESSION: 1.Bilateral acute otitis media 2. bilateral acute serous otitis media 3. bilateral otalgia 4. bilateral epistaxis (not active). PLAN: I feel that the patient's current intravenous medication of Rocephin should cover the acute otitis media. In addition to this, this would also cover acute mastoiditis if this was present. I doubt very seriously if he has acute mastoiditis. Most patients who have acute otitis media will have some fluid in the air cells of the mastoids on x-ray. This does not necessarily mean that the patient has mastoiditis. If mastoiditis is a suspicion, then certainly a CT scan of either the mastoids or of the IACs (internal auditory canals), could be performed. At this point, I would classify the patient's ear pain as moderate in the left ear and mild in the right ear. I feel he probably is filling more pressure from the fluid in the middle ear spaces from his middle ear effusions than actual infection. Bilateral acute otitis media is rare, especially in adults. Bilateral otalgia is also rare, although it is seen in some patients who have significant degenerative osteoarthritis of the cervical spine. Certainly, if you are worried about possible mastoiditis, I would wait several days to see if the patient's pain is alleviated after being on Rocephin. If it is not, then certainly you could proceed with one of the CT scans that was mentioned above. Acute mastoiditis can generally be treated with intravenous antibiotics. Unfortunately, if it does become a surgical issue, then the patient would have to be transferred to a different medical facility such as [facility] or [facility] because [facility] does not have the equipment to perform a mastoidectomy nor do they have the appropriate surgical nursing staff. I am going to start the patient on dexamethasone 10 mg IV q.12 x1 to be followed by 5 mg IV q.12 hours and then stop. That is to say he will have 2 doses of 10 mg of dexamethasone over a 24-hour period and also 2 doses of 5 mg over a 24-hour period. The purpose of this is to see if it will relieve any inflammation in the eustachian tubes and allow the fluid in the middle ear spaces to drain which would significantly improve his hearing. It is very probable that if the patient did in fact have pneumonia in September that he most likely also had problems with his sinuses as well as his ears, especially since the patient has history of seasonal allergies. At this point, I do not have anything further to contribute to this case and I will therefore sign off this case. If the patient is still experiencing decreased hearing at the time of his discharge, then he should feel free to call my office for an appointment. However, my office will be closed until after November 10, 2024. I would like to take this opportunity to thank you for allowing me to assist you in the care of your patient. MMODL / YGN: [id number] / ITA
--- NOTE | 2024-10-31 08:39 | P.CONS ---
History of Present Illness - Reason for Consult Consult date: 10/30/24 Acute otitis media Requesting physician: Jani Zambrano - Chief Complaint Bilateral ear pain and drainage x days - History of Present Illness Patient is a 69-year-old male with a past medical history significant for coronary disease hypertension hyperlipidemia reflux presented to hospital for evaluation of generalized weakness and bilateral ear pain patient symptoms started few days ago and apparently the patient has been evaluated by his PCP and has been treated with oral Augmentin and eardrops however the patient did have worsening symptoms with bilateral ear pain describing it to be sharp moderate intensity without radiation also complaining of some drainage patient denies having any high-grade fever or chills denies any nausea vomiting abdominal pain or any diarrhea patient on presentation to the hospital was afebrile no fever have recorded subsequently patient was nontachycardic hypotensive or hypoxic he did have vital of 5.8 creatinine 0.43 liver isms are normal UA has been negative influenza RSV COVID testing has been negative chest x-ray did not show any acute infiltrate Review of Systems Positive point and negatives has been mentioned in the HPI, complete review of systems was performed and all other systems are negative Past Medical History Past Medical History: Coronary Artery Disease (CAD), GERD/Reflux, Hyperlipidemia, Hypertension Additional Past Medical History / Comment(s): AAA 43 cm being monitored. Sjogren's. Occasional vertigo. Varicose veins in ankles, right shoulder torn rotator cuff History of Any Multi-Drug Resistant Organisms: None Reported Past Surgical History: Back Surgery, Heart Catheterization With Stent, Orthopedic Surgery Additional Past Surgical History / Comment(s): Hand surgery, nerve block right shoulder, 6 cardiac stents, total reverse replacement right shoulder 02/26/23 Past Anesthesia/Blood Transfusion Reactions: No Reported Reaction Date of Last Stent Placement:: 12/26/20 Past Psychological History: Anxiety Smoking Status: Never smoker Past Alcohol Use History: Occasional Past Drug Use History: None Reported - Past Family History Father Family Medical History: Myocardial Infarction (PR) Additional Family Medical History / Comment(s): Father of a PR at the age of 60yrs. Mother Additional Family Medical History / Comment(s): Mother of an aneurysm that ruptured at the age of 60yrs. Medications and Allergies Home Medications Medication Instructions Recorded Confirmed Type carvediloL [Coreg] 3.125 mg PO BID 12/25/18 10/29/24 History Aspirin 81 mg PO DAILY #30 chew 12/28/18 10/29/24 Rx Nitroglycerin Sl Tabs [Nitrostat] 0.4 mg SUBLINGUAL Q5M PRN #25 tab 12/28/18 10/29/24 Rx Clopidogrel Bisulfate [Plavix] 75 mg PO DAILY 10/05/20 10/29/24 History Sertraline HCl [Zoloft] 100 mg PO HS 01/22/21 10/29/24 History Isosorbide Mononitrate ER [Imdur] 60 mg PO DAILY 02/19/23 10/29/24 History Valsartan 320 mg PO DAILY 02/19/23 10/29/24 History Fluoride (Sodium) [Sodium Fluoride 1 applic DENTAL BID 03/01/23 10/29/24 History 5000 Plus] Loratadine [Claritin] 10 mg PO DAILY 10/29/24 10/29/24 History Ofloxacin 0.3% Otic Soln [Floxin 5 drops BOTH EARS BID 10/29/24 10/29/24 History 0.3% Otic Soln] amantadine HCL [Amantadine] 100 mg PO DAILY 10/29/24 10/29/24 History hydrALAZINE HCL [Apresoline] 25 mg PO BID 10/29/24 10/29/24 History cefuroxime axetiL [Ceftin] 500 mg PO BID #28 tab 11/01/24 Rx Allergies Allergy/AdvReac Type Severity Reaction Status Date / Time No Known Allergies Allergy Verified 10/29/24 14:33 Physical Exam Vitals: Vital Signs Temp Pulse Pulse Resp BP BP Pulse Ox 10/30/24 08:05 98.5 F 84 17 160/75 98 10/30/24 07:43 98.6 F 85 18 145/82 97 10/30/24 02:59 98.7 F 80 17 148/79 96 10/29/24 21:09 85 17 166/82 99 10/29/24 15:30 98.5 F 77 17 167/84 96 10/29/24 14:29 98.7 F 82 18 185/93 97 GENERAL DESCRIPTION: Elderly male lying in bed, no distress. No tachypnea or accessory muscle of respiration use. HEENT: Shows Pallor , no scleral icterus. Oral mucous membrane is dry. No pharyngeal erythema or thrush NECK: Trachea central, no thyromegaly. LUNGS: Unlabored breathing. Clear to auscultation anteriorly. No wheeze or crackle. HEART: S1, S2, regular rate and rhythm. No loud murmur ABDOMEN: Soft, no tenderness , guarding or rigidity, no organomegaly EXTREMITIES: No edema of feet. SKIN: No rash, no masses palpable. NEUROLOGICAL: The patient is awake, alert, oriented x3, mood and affect normal. Results CBC & Chem 7: 10/31/24 04:39 10/31/24 04:39 Labs: Abnormal Lab Results - Last 24 Hours (Table) 10/29/24 10/29/24 Range/Units 15:58 15:58 RBC 3.14 L (4.30-5.90) m/uL Hgb 9.9 L (13.0-17.5) gm/dL Hct 29.4 L (39.0-53.0) % Plt Count 140 L (150-450) k/uL Lymphocytes # 0.4 L (1.0-4.8) k/uL Sodium 131 L (137-145) mmol/L Chloride 110 H (98-107) mmol/L Carbon Dioxide 18 L (22-30) mmol/L BUN 7 L (9-20) mg/dL Creatinine 0.43 L (0.66-1.25) mg/dL Glucose 71 L (74-99) mg/dL Calcium 6.1 L* (8.4-10.2) mg/dL Magnesium 1.4 L (1.6-2.3) mg/dL Total Protein 4.8 L (6.3-8.2) g/dL Albumin 2.4 L (3.5-5.0) g/dL Assessment and Plan (1) Otitis media Current Visit: Yes Status: Acute Code(s): H66.90 - OTITIS MEDIA, UNSPECIFIED, UNSPECIFIED EAR SNOMED Code(s): 20780760 (2) Failure of outpatient treatment Current Visit: Yes Status: Acute Code(s): Z78.9 - OTHER SPECIFIED HEALTH STATUS SNOMED Code(s): 286187054 Plan: 1patient presented to hospital with increasing bilateral knee pain over the last side along with drainage concerning for possible otitis media. Feeling outpatient oral Augmentin therapy 2-patient benefit from CT of the ICA to determine extent of his disease 3-we will increase the dose of Rocephin to 2 g daily 4-await ENT evaluation We will follow on clinical condition and cultures to further adjust medication if needed Thank you for this consultation we will follow the patient along with you Dictation was produced using [employer] dictation software. please excuse any grammatical, word or spelling errors. Time with Patient: Greater than 30
[2024-10-31 08:48] LABS: ALT 25 U/L (10-49); AST 29 U/L (14-35); Albumin 3.8 g/dL (3.8-4.9); Albumin/Globulin Ratio 1.52 Ratio (1.60-3.17); Alkaline Phosphatase 106 U/L (41-126); BUN/Creat Ratio 18.86 Ratio (12.00-20.00); Blood Urea Nitrogen 13.2 mg/dL (9.0-27.0); Calcium 8.9 mg/dL (8.7-10.3); Chloride 99 mmol/L (96-109); Globulin 2.5 g/dL (1.6-3.3); Glucose 153 mg/dL (70-110); Potassium 4.6 mmol/L (3.5-5.5); Sodium 130 mmol/L (135-145); Total Bilirubin <0.2 mg/dL (0.3-1.2); Total Protein 6.3 g/dL (6.2-8.2)
[2024-10-31 09:07] LABS: Basophils # (A) 0.01 X 10*3/uL (0.00-0.10); Basophils % (A) 0.2 %; Eosinophils # (A) 0 X 10*3/uL (0.04-0.35); Eosinophils % (A) 0 %; HCT 37.5 % (39.6-50.0); HGB 12.8 g/dL (13.0-17.0); Lymphocytes # (A) 0.35 X 10*3/uL (0.90-5.00); Lymphocytes % (A) 7.9 %; MCH 30.8 pg (27.0-32.0); MCHC 34.1 g/dL (32.0-37.0); MCV 90.1 FL (80.0-97.0); Mean Platelet Volume 10.3 FL (9.5-12.2); Monocytes # (A) 0.09 X 10*3/uL (0.20-1.00); NRBC Per 100 WBC 0 X 10*3/uL (0.00-0.01); Neutrophils # (A) 3.96 X 10*3/uL (1.80-7.70); Neutrophils % (A) 89.4 %; Platelet Count 239 X 10*3/uL (140-440); RBC 4.16 X 10*6/uL (4.40-5.60); RDW 12.5 % (11.5-14.5); WBC 4.43 X 10*3/uL (4.50-10.00)
--- NOTE | 2024-10-31 10:39 | CT ---
EXAMINATION TYPE: CT iac w con CT DLP: 150 mGycm, Automated exposure control for dose reduction was used. DATE OF EXAM: 10/31/2024 10:26 AM INDICATION: Patient age:Male; 69 years old; Reason for study: Bilateral Ear pain and drainage; PHH. COMPARISON: MRI brain 06/16/2023, 08/12/2022, CT sinus 08/08/2022. TECHNIQUE: Multiple thin axial images were obtained through the temporal bones and internal auditory canals. Additional coronal reformatted images were obtained. 100 cc of Isovue-300 IV contrast was u tilized. FINDINGS: Cerumen is identified within the left external auditory canal. The right external auditory canal is c lear. There is retraction of the bilateral tympanic membranes. Bilateral mastoid air cell opacificati on demonstrated. The ossicles demonstrate a normal appearance. There is opacification throughout the middle ear bilaterally involving Prussak's space. The scutum is intact bilaterally. There is no evide nce of osseous erosion and the tegmen tympani is intact. Cochlea, vestibule and semi circular canals are unremarkable bilaterally. No abnormal contrast enhancement identified. No evidence of carotid can al dehiscence. Two and a half turns of the cochlea are identified. The vestibular aqueduct is not en larged. The internal auditory canal is unremarkable. Postsurgical changes involving the medial hernandez of the bilateral maxillary sinuses and from ethmoidec yossi bilaterally. Mild mucosal thickening of the visualized paranasal sinuses. IMPRESSION: Bilateral mastoid effusions with opacification of the bilateral middle ear and preservation of the sc utum. Clinical correlation for otitis media bilaterally. Cholesteatoma is not entirely excluded due t o diffuse opacification. [facility], , 10/31/2024 10:37 AM
--- NOTE | 2024-10-31 14:06 | P.PN ---
Subjective Progress Note Date: 10/31/24 patient 69-year-old gentleman with past medical history significant for hyperlipidemia, hypertension, Sjogren syndrome, coronary disease presented the ER because of generalized weakness and ear pain. Patient stated that he was all right a week back when he started having bilateral ear pain. At the time patient was seen by PCP and thought that he had middle ear infection for which he was started on antibiotics. Patient has been taking his medication but states he has not seen any improvement. Continues to complain of ear pain that had made him lose his appetite. Patient denies any fever or chills. There is no complaint of chest pain or shortness of breath patient is complaining increased weakness and frequent falls at home. Patient has some social stressors at home as well. Because of this ear pain and generalized weakness, patient came to the ER Initial lab work done in the ER showed WBC 5.8, hemoglobin 9.9, platelet count 140, sodium 131 potassium 3.6, BUN 7, creatinine 0.43, calcium 6.1 magnesium 1.4 UA negative for any infection EKG done in the ER showed heart rate of 76, no ST segment elevation or depression seen, no T-wave inversions seen. Chest x-ray done in the ER showed no acute cardiopulmonary process Patient admitted to internal medicine service 10/31. Patient seen examined. Hearing has slightly improved compared to yesterday. States ear pain has improved as well REVIEW OF SYSTEMS: CONSTITUTIONAL: No fever, no malaise,. CARDIOVASCULAR: No chest pain, no palpitations, no syncope. PULMONARY: No shortness of breath, no cough, GASTROINTESTINAL: No diarrhea, no nausea, no vomiting, no abdominal pain. NEUROLOGICAL: No headaches, no weakness, PHYSICAL EXAMINATION: GENERAL: The patient is alert and oriented x3, not in any acute distress. Well developed, well nourished. HEENT: Pupils are round and equally reacting to light. EOMI. bilateral hearing r educed CARDIOVASCULAR: S1 and S2 present. No murmurs, rubs, or gallops. PULMONARY: Chest is clear to auscultation, no wheezing or crackles. ABDOMEN: Soft, nontender, nondistended, normoactive bowel sounds. No palpable organomegaly. MUSCULOSKELETAL: No joint swelling or deformity. EXTREMITIES: No cyanosis, clubbing, or pedal edema. NEUROLOGICAL: Gross neurological examination did not reveal any focal deficits. SKIN: No rashes. Assessment and plan Bilateral acute otitis media Bilateral otalgia Hypocalcemia hypomagnesemia Frequent falls Thoracic aortic aneurysm Hypertension Hyperlipidemia History of Sjogren's syndrome Anxiety History of coronary artery disease Monitor vital signs Monitor CBC Monitor CMP Continue aspirin, Plavix, Coreg Continue IV Rocephin Continue pain management with as needed Motrin and [place] Case management consulted Ordered PT OT ENT consulted, agreed with the IV antibiotics, ordered IV Decadron, recommend outpatient follow-up ID following Labs and medication were reviewed.. Continue same treatment. Continue with symptomatic treatment. Resume home medication. Monitor labs and vitals. DVT and GI prophylaxis. Further recommendations as per clinical course of the patient Dictation was produced using [employer] dictation software. please excuse any g rammatical, word or spelling errors. Objective - Vital Signs Vital signs: Vital Signs Temp 97.6 F 10/31/24 07:00 Pulse 74 10/31/24 07:00 Resp 17 10/31/24 07:00 BP 150/77 10/31/24 07:00 Pulse Ox 98 10/31/24 07:00 FiO2 Intake & Output 10/30/24 10/31/24 10/31/24 18:59 06:59 18:59 Intake Total 354 Balance 354 Weight 79.379 kg Intake: Oral 354 Other: # Voids 3 2 # Bowel Movements 0 - Labs CBC & Chem 7: 10/31/24 04:39 10/31/24 04:39 Labs: Abnormal Lab Results - Last 24 Hours (Table) 10/30/24 10/31/24 10/31/24 Range/Units 04:57 04:39 04:39 WBC 4.43 L (4.50-10.00) X 10*3/uL RBC 4.16 L (4.40-5.60) X 10*6/uL Hgb 12.8 L (13.0-17.0) g/dL Hct 37.5 L (39.6-50.0) % Lymphocytes # 0.35 L (0.90-5.00) X 10*3/uL Monocytes # 0.09 L (0.20-1.00) X 10*3/uL Eosinophils # 0 L (0.04-0.35) X 10*3/uL Sodium 130 L 130 L (135-145) mmol/L Carbon Dioxide 20.1 L 21.0 L (21.6-31.8) mmol/L BUN 8.1 L (9.0-27.0) mg/dL BUN/Creatinine Ratio 11.57 L (12.00-20.00) Ratio Glucose 153 H (70-110) mg/dL Calcium 8.2 L (8.7-10.3) mg/dL Total Bilirubin <0.2 L (0.3-1.2) mg/dL Albumin/Globulin Ratio 1.52 L (1.60-3.17) Ratio
[2024-10-31] MEDS: DEXAMETHASONE SOD PHOSPHATE 10 MG/ML 1 ML VIAL IVP SCH (20:40)
[2024-10-31] MEDS ORDERED: DEXAMETHASONE SOD PHOSPHATE 10 MG/ML 1 ML VIAL IVP PRN (21:00)
[2024-11-01] MEDS: TEMAZEPAM 15 MG CAP PO PRN (00:22)
[2024-11-01 09:27] VITALS: BP 145/73; PULSE 78; RESP 17; TEMP 97.7
--- NOTE | 2024-11-01 13:40 | P.DS ---
Providers Date of admission: 11/01/24 08:48 Expected date of discharge: 11/01/24 Attending physician: Jacobo Wolff Consults: 10/29/24 19:32 Consult Physician Urgent Consulting Provider: Sanjeev Duncan Consult Reason/Comments: b/l otitis media Do you want consulting provider notified?: Yes 10/30/24 08:34 Consult Physician Routine Consulting Provider: Cesar Ahuja Consult Reason/Comments: acute otitis media Do you want consulting provider notified?: Yes Primary care physician: [facility] Course: Discharge diagnoses; Bilateral acute otitis media Bilateral otalgia Hypocalcemia hypomagnesemia Frequent falls Thoracic aortic aneurysm Hypertension Hyperlipidemia History of Sjogren's syndrome Anxiety History of coronary artery disease Hospital course; patient 69-year-old gentleman with past medical history significant for hyperlipidemia, hypertension, Sjogren syndrome, coronary disease presented the ER because of generalized weakness and ear pain. Patient stated that he was all right a week back when he started having bilateral ear pain. At the time patient was seen by PCP and thought that he had middle ear infection for which he was started on antibiotics. Patient has been taking his medication but states he has not seen any improvement. Continues to complain of ear pain that had made him lose his appetite. Patient denies any fever or chills. There is no complaint of chest pain or shortness of breath patient is complaining increased weakness and frequent falls at home. Patient has some social stressors at home as well. Because of this ear pain and generalized weakness, patient came to the ER Initial lab work done in the ER showed WBC 5.8, hemoglobin 9.9, platelet count 140, sodium 131 potassium 3.6, BUN 7, creatinine 0.43, calcium 6.1 magnesium 1.4 UA negative for any infection EKG done in the ER showed heart rate of 76, no ST segment elevation or depression seen, no T-wave inversions seen. Chest x-ray done in the ER showed no acute cardiopulmonary process Patient admitted to internal medicine service 10/31. Patient seen examined. Hearing has slightly improved compared to yesterday. States ear pain has improved as well. ENT consulted, agreed with the IV antibiotics, ordered IV Decadron, recommend outpatient follow-up 11/01. Patient seen and examined. CT internal auditory canal done showed bilateral mastoid effusion with opacification of the bilateral middle ear. ID evaluated, recommended send patient on oral Ceftin. Outpatient follow-up with ID PHYSICAL EXAMINATION: GENERAL: The patient is alert and oriented x3, not in any acute distress. Well developed, well nourished. HEENT: Pupils are round and equally reacting to light. EOMI. No scleral icterus. No conjunctival pallor. Normocephalic, atraumatic. No pharyngeal erythema. No thyromegaly. CARDIOVASCULAR: S1 and S2 present. No murmurs, rubs, or gallops. PULMONARY: Chest is clear to auscultation, no wheezing or crackles. ABDOMEN: Soft, nontender, nondistended, normoactive bowel sounds. No palpable organomegaly. MUSCULOSKELETAL: No joint swelling or deformity. EXTREMITIES: No cyanosis, clubbing, or pedal edema. NEUROLOGICAL: Gross neurological examination did not reveal any focal deficits. SKIN: No rashes. Dictation was produced using [employer] dictation software. please excuse any grammatical, word or spelling errors. Patient Condition at Discharge: Stable Plan - Discharge Summary New Discharge Prescriptions: New cefuroxime axetiL [Ceftin] 500 mg PO BID #28 tab Continue carvediloL [Coreg] 3.125 mg PO BID Aspirin 81 mg PO DAILY #30 chew Nitroglycerin Sl Tabs [Nitrostat] 0.4 mg SUBLINGUAL Q5M PRN #25 tab PRN Reason: Chest Pain Clopidogrel Bisulfate [Plavix] 75 mg PO DAILY Sertraline HCl [Zoloft] 100 mg PO HS Fluoride (Sodium) [Sodium Fluoride 5000 Plus] 1 applic DENTAL BID amantadine HCL [Amantadine] 100 mg PO DAILY hydrALAZINE HCL [Apresoline] 25 mg PO BID Ofloxacin 0.3% Otic Soln [Floxin 0.3% Otic Soln] 5 drops BOTH EARS BID Isosorbide Mononitrate ER [Imdur] 60 mg PO DAILY Valsartan 320 mg PO DAILY Loratadine [Claritin] 10 mg PO DAILY Discontinued Amoxic-Pot Clav 875-125Mg [Augmentin 875-125] 1 tab PO Q12HR Discharge Medication List carvediloL [Coreg] 3.125 mg PO BID 12/25/18 [History] Aspirin 81 mg PO DAILY #30 chew 12/28/18 [Rx] Nitroglycerin Sl Tabs [Nitrostat] 0.4 mg SUBLINGUAL Q5M PRN #25 tab 12/28/18 [Rx] Clopidogrel Bisulfate [Plavix] 75 mg PO DAILY 10/05/20 [History] Sertraline HCl [Zoloft] 100 mg PO HS 01/22/21 [History] Isosorbide Mononitrate ER [Imdur] 60 mg PO DAILY 02/19/23 [History] Valsartan 320 mg PO DAILY 02/19/23 [History] Fluoride (Sodium) [Sodium Fluoride 5000 Plus] 1 applic DENTAL BID 03/01/23 [History] Loratadine [Claritin] 10 mg PO DAILY 10/29/24 [History] Ofloxacin 0.3% Otic Soln [Floxin 0.3% Otic Soln] 5 drops BOTH EARS BID 10/29/24 [History] amantadine HCL [Amantadine] 100 mg PO DAILY 10/29/24 [History] hydrALAZINE HCL [Apresoline] 25 mg PO BID 10/29/24 [History] cefuroxime axetiL [Ceftin] 500 mg PO BID #28 tab 11/01/24 [Rx] Follow up Appointment(s)/Referral(s): Mary Meyers MD [Primary Care Provider] - 1-2 days Cesar Ahuja MD [STAFF PHYSICIAN] - 1 Week Discharge/Stand Alone Forms: Who Do I Call?, Community Resources, Help In The Home Discharge Disposition: HOME SELF-CARE
--- NOTE | 2024-11-01 14:48 | P.PN ---
Subjective Progress Note Date: 10/31/24 Patient is a 69-year-old male with a past medical history significant for coronary disease hypertension hyperlipidemia reflux presented to hospital for evaluation of generalized weakness and bilateral ear pain failing outpatient oral antibiotics and drops. Patient has been diagnosed with otitis media prompting this consultation On today's evaluation that is 10/31/2024, patient has been afebrile, patient is breathing comfortably and is currently on room air, patient denies having any significant cough no chest pain, patient denies nausea vomiting or diarrhea and no abdominal pain, the patient pain to the ear and drainage has decreased mention feeling better. Patient white count is 4.43, creatinine 0.7 CT IAC which shows bilateral mastoid effusion with opacification of bilateral middle ear and preservation of the septum. Objective - Vital Signs Vital signs: Vital Signs Temp 97.6 F 10/31/24 07:00 Pulse 74 10/31/24 07:00 Resp 17 10/31/24 07:00 BP 150/77 10/31/24 07:00 Pulse Ox 98 10/31/24 07:00 FiO2 Intake & Output 10/30/24 10/31/24 10/31/24 18:59 06:59 18:59 Intake Total 354 Balance 354 Weight 79.379 kg Intake: Oral 354 Other: # Voids 3 2 # Bowel Movements 0 - Exam GENERAL DESCRIPTION: An elderly male lying in bed in no distress HEENT: No drainage from the ear has been noticed RESPIRATORY SYSTEM: Unlabored breathing , decreased breath sounds at bases HEART: S1 S2 regular rate and rhythm , ABDOMEN: Soft , no tenderness EXTREMITIES: No edema feet - Labs CBC & Chem 7: 10/31/24 04:39 10/31/24 04:39 Labs: Abnormal Lab Results - Last 24 Hours (Table) 10/30/24 10/31/24 10/31/24 Range/Units 04:57 04:39 04:39 WBC 4.43 L (4.50-10.00) X 10*3/uL RBC 4.16 L (4.40-5.60) X 10*6/uL Hgb 12.8 L (13.0-17.0) g/dL Hct 37.5 L (39.6-50.0) % Lymphocytes # 0.35 L (0.90-5.00) X 10*3/uL Monocytes # 0.09 L (0.20-1.00) X 10*3/uL Eosinophils # 0 L (0.04-0.35) X 10*3/uL Sodium 130 L 130 L (135-145) mmol/L Carbon Dioxide 20.1 L 21.0 L (21.6-31.8) mmol/L BUN 8.1 L (9.0-27.0) mg/dL BUN/Creatinine Ratio 11.57 L (12.00-20.00) Ratio Glucose 153 H (70-110) mg/dL Calcium 8.2 L (8.7-10.3) mg/dL Total Bilirubin <0.2 L (0.3-1.2) mg/dL Albumin/Globulin Ratio 1.52 L (1.60-3.17) Ratio Assessment and Plan (1) Otitis media Current Visit: Yes Status: Acute Code(s): H66.90 - OTITIS MEDIA, UNSPECIFIED, UNSPECIFIED EAR SNOMED Code(s): 26889114 (2) Failure of outpatient treatment Current Visit: Yes Status: Acute Code(s): Z78.9 - OTHER SPECIFIED HEALTH STATUS SNOMED Code(s): 311947808 Plan: 1patient presented to hospital with increasing bilateral knee pain over the last side along with drainage concerning for possible otitis media. Failing outpatient oral Augmentin therapy 2-patient did have CT of the [facility] concerning for bilateral otitis media but no bony abnormality 3-patient mention improving his abdominal continue with Rocephin to 2 g daily for another 24 hours before transition to oral antibiotics Dictation was produced using [employer] dictation software. please excuse any grammatical, word or spelling errors. Time with Patient: Less than 30
--- NOTE | 2024-11-01 14:49 | P.PN ---
Subjective Progress Note Date: 11/01/24 Principal diagnosis: Reason for follow-up is otitis media Patient is a 69-year-old male with a past medical history significant for coronary disease hypertension hyperlipidemia reflux presented to hospital for evaluation of generalized weakness and bilateral ear pain failing outpatient oral antibiotics and drops. Patient has been diagnosed with otitis media prompting this consultation On today's evaluation that is 11/01/2024, the patient continues to be afebrile, the patient is breathing slightly comfortably currently on room air, patient denies having any chest pain or any worsening cough no nausea vomiting abdominal pain or diarrhea, the patient pain to bilateral ear has resolved, the patient drainage from the ear has stopped, mention feeling better wants to go home No new lab has been obtained today Objective - Vital Signs Vital signs: Vital Signs Temp 97.7 F 11/01/24 07:00 Pulse 78 11/01/24 07:00 Resp 17 11/01/24 08:00 BP 145/73 11/01/24 07:00 Pulse Ox 94 L 11/01/24 07:00 FiO2 Intake & Output 10/31/24 11/01/24 11/01/24 18:59 06:59 18:59 Other: Voiding Method Toilet # Voids 1 2 - Exam GENERAL DESCRIPTION: An elderly male lying in bed in no distress HEENT: No drainage from the ear has been noticed RESPIRATORY SYSTEM: Unlabored breathing , decreased breath sounds at bases HEART: S1 S2 regular rate and rhythm , ABDOMEN: Soft , no tenderness EXTREMITIES: No edema feet - Labs CBC & Chem 7: 10/31/24 04:39 10/31/24 04:39 Assessment and Plan (1) Otitis media Current Visit: Yes Status: Acute Code(s): H66.90 - OTITIS MEDIA, UNSPECIFIED, UNSPECIFIED EAR SNOMED Code(s): 30955332 (2) Failure of outpatient treatment Current Visit: Yes Status: Acute Code(s): Z78.9 - OTHER SPECIFIED HEALTH STATUS SNOMED Code(s): 740386213 Plan: 1patient presented to hospital with increasing bilateral knee pain over the last side along with drainage concerning for possible otitis media. Failing outpatient oral Augmentin therapy 2-patient did have CT of the [facility] concerning for bilateral otitis media but no bony abnormality 3-patient mention improving his symptoms with Rocephin we will finish therapy with oral Ceftin prescription has been sent to the pharmacy and close outpatient follow-up Dictation was produced using [employer] dictation software. please excuse any gram matical, word or spelling errors. Time with Patient: Less than 30
== END 2024-11-01 14:34 | disposition home or self-care (01) | DRG 152 ==
LOC: EC 14:25 → 6NMEDSUR 19:32 → OBSVTOIN 11-01 08:48
PROVIDERS: ADMIT Hospitalist; ATTEND Hospitalist
DX: H65.03 Acute serous otitis media, bilateral (principal); J18.9 Pneumonia, unspecified organism; F41.9 Anxiety disorder, unspecified; I83.93 Asymptomatic varicose veins of bilateral lower extremities; I25.10 Atherosclerotic heart disease of native coronary artery without angina pectoris; I71.20 Thoracic aortic aneurysm, without rupture, unspecified; I10 Essential (primary) hypertension; E83.51 Hypocalcemia; E83.42 Hypomagnesemia; E78.5 Hyperlipidemia, unspecified; J30.2 Other seasonal allergic rhinitis; K21.9 Gastro-esophageal reflux disease without esophagitis; E78.00 Pure hypercholesterolemia, unspecified; M35.00 Sjogren syndrome, unspecified; R04.0 Epistaxis; R29.6 Repeated falls; Z11.52 Encounter for screening for COVID-19; Z79.02 Long term (current) use of antithrombotics/antiplatelets; Z79.82 Long term (current) use of aspirin; Z79.899 Other long term (current) drug therapy; Z82.49 Family history of ischemic heart disease and other diseases of the circulatory system; Z95.5 Presence of coronary angioplasty implant and graft; Z96.611 Presence of right artificial shoulder joint
CPT/HCPCS: 36415; 70481; 71046; 80048; 80053; 81003; 82330; 83605; 83735; 85025; 87636; 93005; 96361; 96365; 96366; 96375; 99285

== ENCOUNTER 2025-03-16 07:03 | Day surgery (SDC) | payer MEDICARE ==
[2025-03-10 15:58] VITALS: BMI 24.4
[2025-03-16] MEDS: IV FLUID CONTINUATION 1,000 ML IV ONE (07:16)
[2025-03-16 07:21] VITALS: BP 150/72; PULSE 72; RESP 16; TEMP 98
[2025-03-16] MEDS: SODIUM CHLORIDE 0.9% 1,000 ML IV SCH (07:22)
--- NOTE | 2025-03-16 19:32 | P.EPPROC ---
- EP Procedure Note Electrophysiology Procedure Note: Diagnosis Recurrent presyncope Twelve-lead EKG shows sinus rhythm normal IA narrow QRS normal ST segments Baseline blood pressure 132/55 mmHg, baseline heart rate 63 beats minute Patient was tilted upright in angle of 70 degrees per protocol no significant change in heart rate or blood pressure No symptoms Impression normal heart rate and blood pressure response to upright tilting Normal twelve-lead EKG
== END 2025-03-16 09:45 | disposition home or self-care (01) ==
LOC: CATHEP 07:03
PROVIDERS: ATTEND Internal Medicine Clinical Cardiac Electrophysiology
DX: R55 Syncope and collapse (principal); T82.855D Stenosis of coronary artery stent, subsequent encounter; M32.9 Systemic lupus erythematosus, unspecified; I25.10 Atherosclerotic heart disease of native coronary artery without angina pectoris; E06.9 Thyroiditis, unspecified; I10 Essential (primary) hypertension; E83.42 Hypomagnesemia; G47.01 Insomnia due to medical condition; I71.20 Thoracic aortic aneurysm, without rupture, unspecified; Z79.82 Long term (current) use of aspirin; Z79.02 Long term (current) use of antithrombotics/antiplatelets
CPT/HCPCS: 93660